=== PATIENT | male | born 1995 | race Caucasian/White ===

== ENCOUNTER 2018-06-26 18:19 | Inpatient (IN) | payer OTHER ==
--- NOTE | 2018-06-26 19:42 | PDOC ---
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 Patient's hypoxia improved after being administered O2 at the detention. Patient is unable to provide further history. - Physicial Exam PE: 06/26/18 20:42 ADULT PHYSICAL EXAM Constitutional: Awake, alert, and moaning. Head: Normocephalic. Atraumatic Eyes: PERRL. EOMI. Conjunctivae are not pale. ENT: Mucous membranes are moist and intact. Posterior pharynx without exudates or erythema. Uvula midline. (+) Productive cough. Cardiovascular: Regular rate. Regular rhythm. S1, S2 regular. Distal pulses are 2+ and symmetric. Pulmonary/Chest: No evidence of respiratory distress. Clear to auscultation bilaterally. No wheezing, rales or rhonchi. Abdominal: (+) PEG tube in place. Soft and non-distended. There is no tenderness. No rebound, guarding or rigidity. No organomegaly. No palpable masses. Good bowel sounds. Musculoskeletal: (+) Moving upper extremities. Skin: Skin is warm and dry. No petechiae. No purpura. Neurological: Nonverbal. Psychiatric: Nonverbal. <Jessica Baker - Last Filed: 06/26/18 20:46> - Resident Resident Name: Jonathan Romo - ED Attending Attestation I have performed the following: I have examined & evaluated the patient, The case was reviewed & discussed with the resident, I agree w/resident's findings & plan, Exceptions are as noted - Medical Decision Making 06/26/18 19:42 I, Dr. Mei Plascencia, DO, attest that this document has been prepared under my direction and personally reviewed by me in its entirety. I further attest, that it accurately reflects all work, treatment, procedures and medical decision -making performed by me. 06/26/18 20:32 a/p: 22yo male with hx of MR with an episode of being unresponsive and then a seizure -had a mucous plug, coughing -also with a seizure, glucose was 59, given oj iv access obtained labs sent will obtain cxr and head ct pt will need admission 06/26/18 20:33 pt unable to provide any hx aid at the bedside 06/26/18 22:10 pt with sodium of 151 will start 1/2nss pt will need admission <Mei Plascencia - Last Filed: 06/26/18 22:41> Heart Score/ECG Review - ECG Intrepretation Comment:: 06/26/18 22:40 sinus at 71, lvh, t wave flattening, no acute st changes <Mei Plascencia - Last Filed: 06/26/18 22:41>
--- NOTE | 2018-06-26 20:29 | PDOC ---
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 Dr Velarde contacted for history. Patient was found to be unresponsive and hypoxic. Patient was started on O2 and suctioned, which improved the patient's condition. No post-ictal period was noted, but patient has poor baseline would make that evaluation difficult. Patient is unable to contribute to history. Past History - Past Medical History Allergies/Adverse Reactions: Allergies Allergy/AdvReac Type Severity Reaction Status Date / Time erythromycin base Allergy Verified 03/04/15 14:42 [Erythromycin Base] Macrolide Antibiotics Allergy Verified 03/04/15 14:42 KETOLIDES Allergy Uncoded 03/04/15 14:42 Home Medications: Ambulatory Orders Ascorbic Acid 500 mg GT BID 06/26/18 Carbamazepine [Tegretol -] 300 mg GT DAILY 06/26/18 Carbamazepine [Tegretol -] 400 mg GT HS 06/26/18 Lactulose 20 gm GT BID 06/26/18 Magnesium Hydroxide [Milk of Magnesia] 15 ml GT BID 06/26/18 Sennosides [Senna] 8.8 mg GT TID 06/26/18 Simethicone [Gas Relief] 40 mg GT BID 06/26/18 Zinc 220 mg GT DAILY 06/26/18 Psychiatric Problems: (MR, VITILIGO, LEGALLY BLIND, NPO AT ALL TIMES) Seizures: Yes Thyroid Disease: (hydrocephaly, hearing loss profound, right leg fracture) - Surgical History Abdominal Surgery: Yes (GT) - Family Disease History Family Disease History: Other: Father (unknown) - Immunization History Immunization Up to Date: Yes - Suicide/Smoking/Psychosocial Hx Smoking Status: No Smoking History: Never smoked Have you smoked in the past 12 months: No Number of Cigarettes Smoked Daily: 0 Hx Alcohol Use: No Drug/Substance Use Hx: No Substance Use Type: None Review of Systems - Review of Systems Able to Perform ROS?: No *Physical Exam - Physical Exam Comments: 06/26/18 20:39 GENERAL: Awake, alert, in no acute distress HEAD: Microcephalic EYES: PERRLA, EOMI, sclera anicteric, conjunctiva clear ENT: Auricles normal inspection, hearing grossly normal, macroglossia NECK: Supple, no lymphadenopathy, JVD, or masses LUNGS: No distress, coarse breath bilaterally HEART: Regular rate and rhythm, normal S1 and S2, no murmurs, rubs or gallops, peripheral pulses normal and equal bilaterally. ABDOMEN: Soft, nontender, normoactive bowel sounds. No guarding, no rebound. No masses EXTREMITIES: Normal inspection, Normal range of motion, no edema. No clubbing or cyanosis. NEUROLOGICAL: Cranial nerves II through XII grossly intact. No focal sensorimotor deficits SKIN: Warm, Dry, normal turgor, no rashes or lesions noted. ED Treatment Course - LABORATORY CBC & Chemistry Diagram: 06/26/18 20:26 06/26/18 20:26 - ADDITIONAL ORDERS Additional order review: Laboratory Results 06/26/18 19:39 POC Glucometer 59 06/26/18 19:39 POC Glucometer 59 - RADIOLOGY Radiology Studies Ordered: Category Date Time Status HEAD CT WITHOUT CONTRAST [CT] Stat CT Scan 06/26/18 19:18 Ordered CXRPORT [CHEST X-RAY PORTABLE*] [RAD] Stat Radiology 06/26/18 19:03 Taken Medical Decision Making - Medical Decision Making 06/26/18 20:40 Patient is 22M here today with seizure vs syncope vs aspiration. Patient had witnessed seizure of 10-20 seconds in length that resolved without medication. Fingerstick 59. [place] juice given through g tube. Will do cardiac workup, cxr, head ct. Sodium 154, glucose 87. Started on half normal 100cc/hr. EKG shows NSR with rate of 71. No st elevations/depressions. Diffusely flattened t waves. Normal axis. Normal intervals. CXR shows no acute infiltrate. 06/26/18 23:00 CT head shows no acute process. Will admit to obs. *DC/Admit/Observation/Transfer Diagnosis at time of Disposition: Hypernatremia, Seizure - Discharge Dispostion Condition at time of disposition: Stable Decision to Admit order: Yes - Referrals - Patient Instructions - Post Discharge Activity
[2018-06-26 20:46] LABS: BASO % 0.2 % (0-2.0); EOS % 3.1 % (0-4.5); HEMATOCRIT 44.4 % (35.4-49); LYMPH % 29.7 % (8-40); MCHC 33.9 g/dl (32.0-35.9); MEAN CELL VOLUME 94.3 fl (80-96); MONO % 10.9 % (3.8-10.2); NEUT % 56.1 % (42.8-82.8); PLATELET COUNT 142 K/MM3 (134-434); RDW 14.4 % (11.9-15.9); WHITE BLOOD COUNT 6.3 K/mm3 (4.0-10.0)
[2018-06-26 21:00] LABS: INR 1.07 (0.83-1.09); PROTHROMBIN TIME (PATIENT) 12.6 SEC (9.7-13.0)
[2018-06-26 21:15] LABS: ALBUMIN 3.5 g/dl (3.4-5.0); ALK PHOS 128 U/L (45-117); ANION GAP 4 MMOL/L (8-16); BILIRUBIN,TOTAL 0.2 mg/dL (0.2-1); BLOOD UREA NITROGEN 22 mg/dL (7-18); CALCIUM 8.9 mg/dL (8.5-10.1); CHLORIDE 114 mmol/L (98-107); CO2 33 mmol/L (21-32); CREATININE 0.8 mg/dL (0.55-1.3); GLUCOSE,RANDOM 87 mg/dL (74-106); MAGNESIUM 2.3 mg/dL (1.8-2.4); POTASSIUM 4.1 mmol/L (3.5-5.1); SGOT/AST 23 U/L (15-37); SGPT/ALT 32 U/L (13-61); SODIUM 151 mmol/L (136-145); TOT PROT 7.7 g/dl (6.4-8.2)
[2018-06-26] MEDS ORDERED: SODIUM CHLORIDE 0.45% 1,000 ML IV SCH (21:45)
--- NOTE | 2018-06-26 23:01 | PN ---
Teaching Attending Note Name of Resident: Marilynn Dowd ATTENDING PHYSICIAN STATEMENT I saw and evaluated the patient. I reviewed the resident's note and discussed the case with the resident. I agree with the resident's findings and plan as documented. 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 Dr Velarde contacted for history. Patient was found to be unresponsive and hypoxic. Patient was started on O2 and suctioned, which improved the patient's condition. No post-ictal period was noted, but patient has poor baseline would make that evaluation difficult. Patient is unable to contribute to history. OBJECTIVE: Alert Vital Signs Period Temp Pulse Resp BP Sys/Mack Pulse Ox Last 24 Hr 98.2 F 74 21 129/79 97 HEENT: No Jaundice, eye redness or discharge, PERRLA, EOMI. Microcephalic. Macroglossia. Atraumatic. External ears are normal; hearing is impaired. No nasal discharge. Neck: Supple, nontender. No palpable adenopathy or thyromegaly. No JVD Chest: Good effort. Clear to auscultation and percussion. Heart: Regular. No S3, rub or murmur Abdomen: Not distended, soft, nontender and no HSM. PEG in place. No rebound or guarding. Normoactive bowel sounds. Ext: Peripheral pulses intact. No leg edema. Skin: Warm and dry. No petechiae, rash or ecchymosis. Neuro: Alert. Withdraws to pain. Contracted. Unable to follow commands. Current Medications Generic Name Dose Route Start Last Admin Trade Name Freq PRN Reason Stop Dose Admin Sodium Chloride 1,000 mls @ 100 mls/hr 06/26/18 21:45 06/26/18 21:49 1/2 Normal Saline IV 100 mls/hr ASDIR SUMI Administration Home Medications Medication Instructions Recorded Ascorbic Acid 500 mg GT BID 06/26/18 Carbamazepine [Tegretol -] 300 mg GT DAILY 06/26/18 Carbamazepine [Tegretol -] 400 mg GT HS 06/26/18 Lactulose 20 gm GT BID 06/26/18 Magnesium Hydroxide [Milk of 15 ml GT BID 06/26/18 Magnesia] Sennosides [Senna] 8.8 mg GT TID 06/26/18 Simethicone [Gas Relief] 40 mg GT BID 06/26/18 Zinc 220 mg GT DAILY 06/26/18 Abnormal Lab Results 06/26/18 06/26/18 20:26 20:26 Monocytes % 10.9 H Sodium 151 H Chloride 114 H Carbon Dioxide 33 H Anion Gap 4 L BUN 22 H Alkaline Phosphatase 128 H ASSESSMENT AND PLAN: 1. Seizure - Etiology of ?break through seizure unclear. Had a glucose of 59 at the NH and had another ?brief seizure in the ER. No acute pathology on head CT and CXR shows increased nodular markings which appear chronic. No significant ST -T wave changes on EKG. Will hold PEG Nutren 2.0 feeding, give D5W at 50 ml/ hour to correct hypernatremia and monitor on telemetry. Check sodium level q 6 hours to avoid a rapid drop. Continue tegretol. 2. DVT prophylaxis - Lovenox 40 mg SQ q 24 hours. 3. Advance directives - Full code
[2018-06-27] MEDS: DEXTROSE 5%-WATER - 1,000 ML IV SCH (00:15)
--- NOTE | 2018-06-27 00:21 | HP ---
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 Patient was found by the aide to be unresponsive and hypoxic. They were able to suction a mucus plug, put patient on NC, and saturation subsequently improved. As per the ED who was able to speak with the [place] MD , it is possible that patient might have an episode of seizure, but was unwitnessed. It is of note that patient has not had any episodes of seizures since he was admitted in 2014. At the ED, patient had an episode of seizure that lasted about 15 seconds, with no loss of consciousness, witnessed by aide and ED staff. His BGM was noted to be low at 59 and he was given orange juice. As per the aide from [place], patient is currently at his baseline, awake alert and active. ER course was notable for: (1)Head CT: No CT evidence of acute intracranial pathology. Mild bilateral frontal lobe atrophy. Increased right ethmoid sinus opacification is noted consistent with sinusitis. There is persistent at least moderate right frontal sinusitis. Possible increased opacification noted of the external auditory canals bilaterally. as on prior study, bilateral otomastoiditis. (2) (3) Recent Travel:denies PAST MEDICAL HISTORY: severe MR/DD (nonverbal @baseline) Pallister Kill[place] Mosaic Syndrome Seizure disorder legal blindness PAST SURGICAL HISTORY: gastrostomy tube cleft palate repair Social History: Smoking:denies Alcohol:denies Drugs: denies Family History: Allergies erythromycin base [Erythromycin Base] Allergy (Verified 03/04/15 14:42) Macrolide Antibiotics Allergy (Verified 03/04/15 14:42) KETOLIDES Allergy (Uncoded 03/04/15 14:42) HOME MEDICATIONS: Home Medications Medication Instructions Recorded Ascorbic Acid 500 mg GT BID 06/26/18 Carbamazepine [Tegretol -] 300 mg GT DAILY 06/26/18 Carbamazepine [Tegretol -] 400 mg GT HS 06/26/18 Lactulose 20 gm GT BID 06/26/18 Magnesium Hydroxide [Milk of 15 ml GT BID 06/26/18 Magnesia] Sennosides [Senna] 8.8 mg GT TID 06/26/18 Simethicone [Gas Relief] 40 mg GT BID 06/26/18 Zinc 220 mg GT DAILY 06/26/18 REVIEW OF SYSTEMS CONSTITUTIONAL: Absent: fever, chills, diaphoresis, generalized weakness, malaise, loss of appetite, weight change HEENT: Absent: rhinorrhea, nasal congestion, throat pain, throat swelling, difficulty swallowing, mouth swelling, ear pain, eye pain, visual changes CARDIOVASCULAR: Absent: chest pain, syncope, palpitations, irregular heart rate, lightheadedness , peripheral edema RESPIRATORY: Absent: cough, shortness of breath, dyspnea with exertion, orthopnea, wheezing, stridor, hemoptysis GASTROINTESTINAL: Absent: abdominal pain, abdominal distension, nausea, vomiting, diarrhea, constipation, melena, hematochezia GENITOURINARY: Absent: dysuria, frequency, urgency, hesitancy, hematuria, flank pain, genital pain MUSCULOSKELETAL: Absent: myalgia, arthralgia, joint swelling, back pain, neck pain SKIN: Absent: rash, itching, pallor HEMATOLOGIC/IMMUNOLOGIC: Absent: easy bleeding, easy bruising, lymphadenopathy, frequent infections ENDOCRINE: Absent: unexplained weight gain, unexplained weight loss, heat intolerance, cold intolerance NEUROLOGIC: Absent: headache, focal weakness or paresthesias, dizziness, unsteady gait, seizure, mental status changes, bladder or bowel incontinence PSYCHIATRIC: Absent: anxiety, depression, suicidal or homicidal ideation, hallucinations. PHYSICAL EXAMINATION Vital Signs - 24 hr 06/26/18 18:19 Temperature 98.2 F Pulse Rate 74 Respiratory 21 H Rate Blood Pressure 129/79 O2 Sat by Pulse 97 Oximetry (%) GENERAL: Awake, alert, and active, in no acute distress. HEAD: Normal with no signs of trauma. EARS, NOSE, THROAT: oropharynx with copious amount of whitish secretions. Moist mucous membranes. LUNGS: Breath sounds equal, clear to auscultation bilaterally. HEART: Regular rate and rhythm, normal S1 and S2 without murmur, rub or gallop. ABDOMEN: Soft, nontender, not distended, normoactive bowel sounds. +gastrostomy tube in place with clean, dry, intact dressing UPPER EXTREMITIES: 2+ pulses, warm, well-perfused. No peripheral edema. LOWER EXTREMITIES: 2+ pulses, warm, well-perfused. No peripheral edema. SKIN: Warm, dry, normal turgor, no rashes or lesions. Laboratory Results - last 24 hr 06/26/18 06/26/18 06/26/18 19:39 20:26 20:26 WBC 6.3 RBC 4.70 Hgb 15.0 Hct 44.4 MCV 94.3 MCH 32.0 MCHC 33.9 RDW 14.4 Plt Count 142 D MPV 10.0 Absolute Neuts (auto) 3.6 Neutrophils % 56.1 Lymphocytes % 29.7 Monocytes % 10.9 H Eosinophils % 3.1 Basophils % 0.2 Nucleated RBC % 0 PT with INR 12.60 INR 1.07 Sodium Potassium Chloride Carbon Dioxide Anion Gap BUN Creatinine Creat Clearance w eGFR POC Glucometer 59 Random Glucose Calcium Magnesium Total Bilirubin AST ALT Alkaline Phosphatase Creatine Kinase Troponin I Total Protein Albumin Carbamazepine 06/26/18 06/26/18 20:26 20:26 WBC RBC Hgb Hct MCV MCH MCHC RDW Plt Count MPV Absolute Neuts (auto) Neutrophils % Lymphocytes % Monocytes % Eosinophils % Basophils % Nucleated RBC % PT with INR INR Sodium 151 H Potassium 4.1 Chloride 114 H Carbon Dioxide 33 H Anion Gap 4 L BUN 22 H Creatinine 0.8 Creat Clearance w eGFR > 60 POC Glucometer Random Glucose 87 Calcium 8.9 Magnesium 2.3 Total Bilirubin 0.2 AST 23 ALT 32 Alkaline Phosphatase 128 H Creatine Kinase 36 Troponin I < 0.02 Total Protein 7.7 Albumin 3.5 Carbamazepine 11.3 ASSESSMENT/PLAN: Patient is a 22 year old male with past medical history of severe MR/DD ( nonverbal @baseline), Pallister Killain Mosaic Syndrome, Seizure disorder, legal blindness, was brought in from [facility] due to unresponsiveness and hypoxia. #Altered mental status: may be 2/2 seizure vs electrolyte imbalance -Head CT: no acute intracranial pathology -Carbamazepine level wnl -Will continue Carbamazepine 300mg daily and 400 mg HS -Will hold tube feeds for tonight -IV D5W @50cc/hr, as patient also presents with hypernatremia -will continue to monitor bmp q4h -Seizure precautions -Fall risk precaution -Neuro checks q4h -Neurology (Dr. Singer) consulted. #Hypoxia likely 2/2 mucus plug -CXR showed no clear signs of infection, will await final read -mucus plug suctioned at the [place], and saturation improved -continue oral suctioning PRN #FEN -D5W at 50cc/hr -Hypernatremia, monitor Na q6h -Routine bmp monitoring -NPO #Prophylaxis -Lovenox 40mg sq daily #Disposition -full code -tele obs Visit type - Emergency Visit Emergency Visit: Yes ED Registration Date: 06/27/18 Care time: The patient presented to the Emergency Department on the above date and was hospitalized for further evaluation of their emergent condition. - New Patient This patient is new to me today: Yes Date on this admission: 06/30/18 - Critical Care Critical Care patient: No
[2018-06-27 01:15] LABS: ANION GAP 2 MMOL/L (8-16); BLOOD UREA NITROGEN 22 mg/dL (7-18); CALCIUM 8.9 mg/dL (8.5-10.1); CHLORIDE 114 mmol/L (98-107); CO2 34 mmol/L (21-32); CREATININE 0.7 mg/dL (0.55-1.3); GLUCOSE,RANDOM 84 mg/dL (74-106); SODIUM 150 mmol/L (136-145)
[2018-06-27] MEDS: SENNOSIDES 8.8 MG/5 ML BULK BOTTLE GT SCH ×3 (05:12→22:04)
[2018-06-27 07:05] LABS: BASO % 0.4 % (0-2.0); EOS % 3.7 % (0-4.5); HEMATOCRIT 41.3 % (35.4-49); HEMOGLOBIN 14.1 GM/dL (11.7-16.9); LYMPH % 35.7 % (8-40); MCH 31.8 pg (25.7-33.7); MCHC 34.2 g/dl (32.0-35.9); MEAN CELL VOLUME 93.1 fl (80-96); MEAN PLT VOLUME 10.6 fl (7.5-11.1); MONO % 8.6 % (3.8-10.2); NEUT % 51.6 % (42.8-82.8); PLATELET COUNT 149 K/MM3 (134-434); RBC 4.44 M/mm3 (4.00-5.60); RDW 14.1 % (11.9-15.9); WHITE BLOOD COUNT 5.5 K/mm3 (4.0-10.0)
--- NOTE | 2018-06-27 08:45 | PN ---
Physical Exam: SUBJECTIVE: Patient seen and examined at bedside. Non-verbal, non-responsive. OBJECTIVE: Vital Signs Period Temp Pulse Resp BP Sys/Mack Pulse Ox Last 24 Hr 97.7 F-98.2 F 55-87 20-21 112-129/60-79 97-99 GENERAL: Non-verbal, non-responsive, numerous appreciable stigmata of Pallister Killain syndrome HEENT: macrocephaly, macrognosis, macroglossia NECK: Trachea midline, supple LUNGS: limited exam, no adventitious sounds appreciated HEART: RRR no m/r/g ABDOMEN: Soft, nontender, not distended, normoactive bowel sounds. +gastrostomy tube in place with clean, dry, intact dressing EXTREMITIES: numerous contractures, 2+ pulses, warm, well-perfused. No peripheral edema. NEUROLOGICAL: could not assess, no witness Sz SKIN: Warm, dry, normal turgor, no rashes or lesions noted Laboratory Results - last 24 hr 06/26/18 06/26/18 06/26/18 19:39 20:26 20:26 WBC 6.3 RBC 4.70 Hgb 15.0 Hct 44.4 MCV 94.3 MCH 32.0 MCHC 33.9 RDW 14.4 Plt Count 142 D MPV 10.0 Absolute Neuts (auto) 3.6 Neutrophils % 56.1 Lymphocytes % 29.7 Monocytes % 10.9 H Eosinophils % 3.1 Basophils % 0.2 Nucleated RBC % 0 PT with INR 12.60 INR 1.07 Sodium Potassium Chloride Carbon Dioxide Anion Gap BUN Creatinine Creat Clearance w eGFR POC Glucometer 59 Random Glucose Calcium Magnesium Total Bilirubin AST ALT Alkaline Phosphatase Creatine Kinase Troponin I Total Protein Albumin Carbamazepine 06/26/18 06/26/18 06/27/18 20:26 20:26 00:37 WBC RBC Hgb Hct MCV MCH MCHC RDW Plt Count MPV Absolute Neuts (auto) Neutrophils % Lymphocytes % Monocytes % Eosinophils % Basophils % Nucleated RBC % PT with INR INR Sodium 151 H 150 H Potassium 4.1 4.0 Chloride 114 H 114 H Carbon Dioxide 33 H 34 H Anion Gap 4 L 2 L BUN 22 H 22 H Creatinine 0.8 0.7 Creat Clearance w eGFR > 60 > 60 POC Glucometer Random Glucose 87 84 Calcium 8.9 8.9 Magnesium 2.3 Total Bilirubin 0.2 AST 23 ALT 32 Alkaline Phosphatase 128 H Creatine Kinase 36 Troponin I < 0.02 Total Protein 7.7 Albumin 3.5 Carbamazepine 11.3 06/27/18 06:00 WBC 5.5 RBC 4.44 Hgb 14.1 Hct 41.3 MCV 93.1 MCH 31.8 MCHC 34.2 RDW 14.1 Plt Count 149 MPV 10.6 Absolute Neuts (auto) 2.8 Neutrophils % 51.6 Lymphocytes % 35.7 D Monocytes % 8.6 Eosinophils % 3.7 Basophils % 0.4 Nucleated RBC % 0 PT with INR INR Sodium Potassium Chloride Carbon Dioxide Anion Gap BUN Creatinine Creat Clearance w eGFR POC Glucometer Random Glucose Calcium Magnesium Total Bilirubin AST ALT Alkaline Phosphatase Creatine Kinase Troponin I Total Protein Albumin Carbamazepine Active Medications Generic Name Dose Route Start Last Admin Trade Name Freq PRN Reason Stop Dose Admin Ascorbic Acid 500 mg 06/27/18 10:00 Vitamin C Oral Solution - GT BID SUMI Carbamazepine 300 mg 06/27/18 10:00 Tegretol Oral Suspension - GT DAILY SUMI Carbamazepine 400 mg 06/27/18 22:00 Tegretol Oral Suspension - GT HS SUMI Enoxaparin Sodium 40 mg 06/27/18 10:00 Lovenox - SQ DAILY SUMI Dextrose 1,000 mls @ 50 mls/hr 06/26/18 23:45 06/27/18 00:15 D5w - IV 50 mls/hr ASDIR SUMI Administration Lactulose 20 gm 06/27/18 10:00 Cephulac (Oral Use) GT BID SUMI Magnesium Hydroxide 15 ml 06/27/18 10:00 Milk Of Magnesia - GT BID SUMI Senna 8.8 mg 06/27/18 06:00 06/27/18 05:12 Senna Oral Solution - GT 8.8 mg TID SUMI Administration Simethicone 40 mg 06/27/18 10:00 Mylicon Liquid - GT BID SUMI Zinc Sulfate 220 mg 06/27/18 10:00 Orazinc - GT DAILY SUMI ASSESSMENT/PLAN: 22 y/o M w/ PMHx severe MR/DD (nonverbal @baseline), Pallister Killain Mosaic Syndrome, Seizure disorder, legal blindness, brought in from [facility] due to unresponsiveness and hypoxia, had mucus plug suctioned in field, additionally had 2 witnessed brief tonic clonic episodes. #AMS and Sz -breakthrough Sz vs metabolic derangement (was hypernatremic/hypoglycemic) -Head CT: no acute intracranial pathology -Carbamazepine level wnl -cont Carbamazepine 300mg daily and 400 mg HS -free water 250cc q6h via GT -Seizure precautions -Fall risk precaution -Neuro checks q4h -Neurology (Dr. Singer) consulted, will follow recommendations -plan to resume TF, wreath and garland maker consulted #acute hypoxic respiratory failure -CXR showed no clear signs of infection, will await final read -mucus plug suctioned at the [place], and saturation improved -continue oral suctioning PRN #FEN -free water 250cc q6h via GT -monitor and correct electrolytes -currently NPO, plan to resume TF, was on Nutren 2.0 at [place] #PPx -DVT: Lovenox 40mg sq daily -GI: not indicated #code -full #dispo -tele obs Visit type - Emergency Visit Emergency Visit: Yes ED Registration Date: 06/27/18 Care time: The patient presented to the Emergency Department on the above date and was hospitalized for further evaluation of their emergent condition. - New Patient This patient is new to me today: Yes Date on this admission: 06/27/18 - Critical Care Critical Care patient: No
[2018-06-27 09:03] LABS: BLOOD UREA NITROGEN 21 mg/dL (7-18); GLUCOSE,RANDOM 80 mg/dL (74-106)
[2018-06-27 09:04] LABS: ANION GAP 5 MMOL/L (8-16); CALCIUM 8.9 mg/dL (8.5-10.1); CHLORIDE 113 mmol/L (98-107); CO2 30 mmol/L (21-32); CREATININE 0.7 mg/dL (0.55-1.3); MAGNESIUM 2.2 mg/dL (1.8-2.4); PHOSPHOROUS 3.6 mg/dL (2.5-4.9); POTASSIUM 3.8 mmol/L (3.5-5.1); SODIUM 148 mmol/L (136-145)
--- NOTE | 2018-06-27 10:27 | EKG ---
Test Reason : Blood Pressure : / mmHG Vent. Rate : 071 BPM Atrial Rate : 071 BPM P-R Int : 098 ms QRS Dur : 084 ms QT Int : 360 ms P-R-T Axes : 012 004 -18 degrees QTc Int : 391 ms SINUS RHYTHM WITH SHORT MA MINIMAL VOLTAGE CRITERIA FOR LVH, MAY BE NORMAL VARIANT NONSPECIFIC T WAVE ABNORMALITY ABNORMAL ECG NO PREVIOUS ECGS AVAILABLE Confirmed by BELLA LENTZ MD ([id number]) on 06/27/2018 10:26:52 AM Referred By: Confirmed By:BELLA LENTZ MD
[2018-06-27] MEDS: ASCORBIC ACID 500 MG/5 ML UNIT DOSE CUP GT SCH ×2 (10:40→22:05)
[2018-06-27] MEDS: SIMETHICONE 40 MG/0.6 ML BOTTLE GT SCH ×2 (10:41→22:07)
[2018-06-27] MEDS: ZINC SULFATE 220 MG CAPSULE (FP) GT SCH (10:42)
[2018-06-27] MEDS: carBAMazepine 200 MG/10 ML UNIT-DOSE CUP GT SCH (10:42)
[2018-06-27] MEDS: LACTULOSE 20 GM/30 ML UDC (FOR ORAL USE ONLY) GT SCH ×2 (10:48→22:04)
[2018-06-27] MEDS: ENOXAPARIN NA (PORCINE) 40 MG/0.4 ML DISP.SYRIN SQ SCH (10:48)
[2018-06-27] MEDS: MAGNESIUM HYDROX 2400MG/30ML ORAL SUSPENSION 30 ML CUP GT SCH ×2 (10:48→22:06)
--- NOTE | 2018-06-27 11:53 | PN ---
Teaching Attending Note Name of Resident: Ck Lackey ATTENDING PHYSICIAN STATEMENT I saw and evaluated the patient. I reviewed the resident's note and discussed the case with the resident. I agree with the resident's findings and plan as documented. SUBJECTIVE: Unable to participate in medical interview, non-verbal, cognitively impaired. OBJECTIVE: Afebrile, Hemodynamically Stable, Appears comfortable. Last Vital Signs Temp Pulse Resp BP Pulse Ox 97.6 F 56 L 18 119/58 L 99 06/27/18 10:06/27/18 10:06/27/18 10:06/27/18 10:06/27/18 01:30 Heart - S1, S2, RRR Lungs - good air entry bilaterally Abdomen - Soft, non-tender. PEG in situ Extremities - LE wasting. No calf swelling/tenderness Neuro - Non-verbal, unable to participate in medical interview. Laboratory Results - last 24 hr 06/26/18 06/26/18 06/26/18 19:39 20:26 20:26 WBC 6.3 RBC 4.70 Hgb 15.0 Hct 44.4 MCV 94.3 MCH 32.0 MCHC 33.9 RDW 14.4 Plt Count 142 D MPV 10.0 Absolute Neuts (auto) 3.6 Neutrophils % 56.1 Lymphocytes % 29.7 Monocytes % 10.9 H Eosinophils % 3.1 Basophils % 0.2 Nucleated RBC % 0 PT with INR 12.60 INR 1.07 Sodium Potassium Chloride Carbon Dioxide Anion Gap BUN Creatinine Creat Clearance w eGFR POC Glucometer 59 Random Glucose Calcium Phosphorus Magnesium Total Bilirubin AST ALT Alkaline Phosphatase Creatine Kinase Troponin I Total Protein Albumin Carbamazepine 06/26/18 06/26/18 06/27/18 20:26 20:26 00:37 WBC RBC Hgb Hct MCV MCH MCHC RDW Plt Count MPV Absolute Neuts (auto) Neutrophils % Lymphocytes % Monocytes % Eosinophils % Basophils % Nucleated RBC % PT with INR INR Sodium 151 H 150 H Potassium 4.1 4.0 Chloride 114 H 114 H Carbon Dioxide 33 H 34 H Anion Gap 4 L 2 L BUN 22 H 22 H Creatinine 0.8 0.7 Creat Clearance w eGFR > 60 > 60 POC Glucometer Random Glucose 87 84 Calcium 8.9 8.9 Phosphorus Magnesium 2.3 Total Bilirubin 0.2 AST 23 ALT 32 Alkaline Phosphatase 128 H Creatine Kinase 36 Troponin I < 0.02 Total Protein 7.7 Albumin 3.5 Carbamazepine 11.3 06/27/18 06/27/18 06:00 06:00 WBC 5.5 RBC 4.44 Hgb 14.1 Hct 41.3 MCV 93.1 MCH 31.8 MCHC 34.2 RDW 14.1 Plt Count 149 MPV 10.6 Absolute Neuts (auto) 2.8 Neutrophils % 51.6 Lymphocytes % 35.7 D Monocytes % 8.6 Eosinophils % 3.7 Basophils % 0.4 Nucleated RBC % 0 PT with INR INR Sodium 148 H Potassium 3.8 Chloride 113 H Carbon Dioxide 30 Anion Gap 5 L BUN 21 H Creatinine 0.7 Creat Clearance w eGFR > 60 POC Glucometer Random Glucose 80 Calcium 8.9 Phosphorus 3.6 Magnesium 2.2 Total Bilirubin AST ALT Alkaline Phosphatase Creatine Kinase Troponin I Total Protein Albumin Carbamazepine Current Medications Generic Name Dose Route Start Last Admin Trade Name Freq PRN Reason Stop Dose Admin Ascorbic Acid 500 mg 06/27/18 10:00 06/27/18 10:40 Vitamin C Oral Solution - GT 500 mg BID SUMI Administration Carbamazepine 300 mg 06/27/18 10:00 06/27/18 10:42 Tegretol Oral Suspension - GT 300 mg DAILY SUMI Administration Carbamazepine 400 mg 06/27/18 22:00 Tegretol Oral Suspension - GT HS SUMI Enoxaparin Sodium 40 mg 06/27/18 10:00 06/27/18 10:48 Lovenox - SQ 40 mg DAILY SUMI Administration Dextrose 1,000 mls @ 50 mls/hr 06/26/18 23:45 06/27/18 00:15 D5w - IV 50 mls/hr ASDIR SUMI Administration Lactulose 20 gm 06/27/18 10:00 06/27/18 10:48 Cephulac (Oral Use) GT 20 gm BID SUMI Administration Magnesium Hydroxide 15 ml 06/27/18 10:00 06/27/18 10:48 Milk Of Magnesia - GT 15 ml BID SUMI Administration Senna 8.8 mg 06/27/18 06:00 06/27/18 05:12 Senna Oral Solution - GT 8.8 mg TID SUMI Administration Simethicone 40 mg 06/27/18 10:00 06/27/18 10:41 Mylicon Liquid - GT 40 mg BID SUMI Administration Zinc Sulfate 220 mg 06/27/18 10:00 06/27/18 10:42 Orazinc - GT 220 mg DAILY SUMI Administration Home Medications Medication Instructions Recorded Ascorbic Acid 500 mg GT BID 06/26/18 Carbamazepine [Tegretol -] 300 mg GT DAILY 06/26/18 Carbamazepine [Tegretol -] 400 mg GT HS 06/26/18 Lactulose 20 gm GT BID 06/26/18 Magnesium Hydroxide [Milk of 15 ml GT BID 06/26/18 Magnesia] Sennosides [Senna] 8.8 mg GT TID 06/26/18 Simethicone [Gas Relief] 40 mg GT BID 06/26/18 Zinc 220 mg GT DAILY 06/26/18 ASSESSMENT/PLAN: 22 year old male with severe cognitive impairment/Developmental Delay, Pallister Killain Mosaic Syndrome (non-verbal, feeds via PEG), Seizure Disorder , legally blind, brought from [facility] due to unresponsiveness and Hypoxia, with 2 witnessed seizures, one in ED, with capillary glucose reading of 59. 1. Acute Encephalopathy and Acute Hypoxic Respiratory Failure (SpO2 reported in 70s) due to Seizure +/- mucus plug - resolved. CT Head - No CT evidence of acute intracranial pathology. Mild bilateral frontal lobe atrophy. Increased right ethmoid sinus opacification is noted consistent with sinusitis. There is persistent at least moderate right frontal sinusitis. Possible increased opacification noted of the external auditory canals bilaterally. as on prior study, bilateral otomastoiditis. Carbamazepine level wnl Continue Neurochecks, Carbamazepine, Seizure precautions. Neuro eval and EEG requested. Respiratory status stable - at baseline. 2. Hypernatremia - improving with hydration. Will add free water boluses to feeds and monitor Na level response. DVT Px - Lovenox. Dispo - Return to [facility] once evaluated by Neuro
[2018-06-27 12:23] VITALS: BMI 24.6
--- NOTE | 2018-06-27 18:30 | PN ---
Progress Note (short form) - Note Progress Note: The patient is a 22 year old male with a PMH of severe MR/DD, nonverbal at baseline, Pallister Argyle Mosaic Syndrome, seizure disorder, legal blindness, and gastrostomy who was genevieve in by a intermediate aid after being found unresponsive and hypoxic. Patient's hypoxia improved after being administered O2 at the intermediate. Patient is unable to provide further history. - Physicial Exam PE: ADULT PHYSICAL EXAM Constitutional: Awake, alert, and moaning. Head: Normocephalic. Atraumatic Eyes: PERRL. EOMI. Conjunctivae are not pale. ENT: Mucous membranes are moist and intact. Posterior pharynx without exudates or erythema. Uvula midline. (+) Productive cough. Cardiovascular: Regular rate. Regular rhythm. S1, S2 regular. Distal pulses are 2+ and symmetric. Pulmonary/Chest: No evidence of respiratory distress. Clear to auscultation bilaterally. No wheezing, rales or rhonchi. Abdominal: (+) PEG tube in place. Soft and non-distended. There is no tenderness. No rebound, guarding or rigidity. No organomegaly. No palpable masses. Good bowel sounds. Musculoskeletal: (+) Moving upper extremities. Skin: Skin is warm and dry. No petechiae. No purpura. Neurological: Nonverbal, diminished tone in all 4 ext, 3+ reflexes in all 4 ext. , mute , mute, legaly blind. Psychiatric: Nonverbal. a/p: 22yo male with hx of MR with an episode of being unresponsive and then a seizure -had a mucous plug, coughing followed by sz-likely trigger is hypoxia in addition to Na of 151, glucose was 59, given oj - Given there are clear triggers to sz. Would cont:Carbamazepine [Tegretol -] 300 mg GT DAILY Carbamazepine [Tegretol -] 400 mg GT HS . If he has further sz. would add Dilantin 1000mg x1, correct elctrolyte abn. Thank you. Vianney Salmeron MD
[2018-06-27] MEDS ORDERED: PT OWN MED DRAWER 7, Y5N ONE (21:47)
[2018-06-27] MEDS ORDERED: carBAMazepine 200 MG/10 ML UNIT-DOSE CUP GT SCH (22:00)
[2018-06-28] MEDS: DEXTROSE 5%-WATER - 1,000 ML IV SCH (03:18)
[2018-06-28] MEDS: SENNOSIDES 8.8 MG/5 ML BULK BOTTLE GT SCH (06:44)
[2018-06-28 06:45] LABS: BASO % 0.4 % (0-2.0); EOS % 2.5 % (0-4.5); HEMATOCRIT 39.7 % (35.4-49); HEMOGLOBIN 13.4 GM/dL (11.7-16.9); LYMPH % 29.6 % (8-40); MCH 31.3 pg (25.7-33.7); MCHC 33.7 g/dl (32.0-35.9); MEAN PLT VOLUME 10.4 fl (7.5-11.1); MONO % 7.8 % (3.8-10.2); NEUT % 59.7 % (42.8-82.8); PLATELET COUNT 132 K/MM3 (134-434); RBC 4.27 M/mm3 (4.00-5.60); RDW 14.2 % (11.9-15.9); WHITE BLOOD COUNT 5.8 K/mm3 (4.0-10.0)
[2018-06-28 07:06] LABS: ANION GAP 2 MMOL/L (8-16); BLOOD UREA NITROGEN 16 mg/dL (7-18); CALCIUM 8.2 mg/dL (8.5-10.1); CHLORIDE 110 mmol/L (98-107); CO2 33 mmol/L (21-32); CREATININE 0.7 mg/dL (0.55-1.3); GLUCOSE,RANDOM 92 mg/dL (74-106); MAGNESIUM 2.2 mg/dL (1.8-2.4); PHOSPHOROUS 3.2 mg/dL (2.5-4.9); POTASSIUM 3.7 mmol/L (3.5-5.1); SODIUM 145 mmol/L (136-145)
[2018-06-28] MEDS ORDERED: CALCIUM GLUCONATE 10% - 1,000 MG/10 ML VIAL IVPB ONE (08:30)
[2018-06-28] MEDS ORDERED: PT OWN MED DRAWER 7, Y5N ONE (10:23)
[2018-06-28] MEDS: ENOXAPARIN NA (PORCINE) 40 MG/0.4 ML DISP.SYRIN SQ SCH (10:35)
[2018-06-28] MEDS: MAGNESIUM HYDROX 2400MG/30ML ORAL SUSPENSION 30 ML CUP GT SCH (10:35)
[2018-06-28] MEDS: LACTULOSE 20 GM/30 ML UDC (FOR ORAL USE ONLY) GT SCH (10:35)
[2018-06-28] MEDS: SIMETHICONE 40 MG/0.6 ML BOTTLE GT SCH (10:35)
[2018-06-28] MEDS: carBAMazepine 200 MG/10 ML UNIT-DOSE CUP GT SCH (10:36)
[2018-06-28] MEDS: ASCORBIC ACID 500 MG/5 ML UNIT DOSE CUP GT SCH (10:36)
[2018-06-28] MEDS: ZINC SULFATE 220 MG CAPSULE (FP) GT SCH (10:37)
--- NOTE | 2018-06-28 10:38 | DS ---
Physical Exam: SUBJECTIVE: Patient seen this morning, no cute events overnight. OBJECTIVE: Vital Signs Temperature 97.9 F 06/28/18 12:42 Pulse Rate 60 06/28/18 12:42 Respiratory Rate 18 06/28/18 12:42 Blood Pressure 130/64 06/28/18 12:42 O2 Sat by Pulse Oximetry (%) 96 06/28/18 10:49 PHYSICAL EXAM GENERAL: Non-verbal, non-responsive, numerous appreciable stigmata of Pallister Killain syndrome HEENT: macrocephaly, macrognosis, macroglossia NECK: Trachea midline, supple LUNGS: limited exam, no adventitious sounds appreciated HEART: RRR no m/r/g ABDOMEN: Soft, nontender, not distended, normoactive bowel sounds. +gastrostomy tube in place with clean, dry, intact dressing EXTREMITIES: numerous contractures, 2+ pulses, warm, well-perfused. No peripheral edema. NEUROLOGICAL: could not assess, no witness Sz SKIN: Warm, dry, normal turgor, no rashes or lesions noted LABS CBC, BMP 06/28/18 05:45 06/28/18 05:45 HOSPITAL COURSE: Date of Admission:06/27/18 Patient admitted for witnessed seizures. Neuro evaluated patient and determined to continue patients current Carbamazepine dosing. Per neuro: if another seizure witnessed can load with Dilantin. Patient presented with hypernatremia. Patients free water flushes increased and sodium resolved. EEG: This EEG is abnormal. These findings are nonspecific and may be seen with diffuse encephalopathy of metabolic, degenerative or vascular origin. Localized sharp wave activity was noted in the left temporal area suggestive of epiliptiform disturbance. head CT: no evidence of acute intracranial pathology, mild bilateral frontal lobe atrophy CXR: no acute pathology Date of Discharge: 06/28/18 Minutes to complete discharge: 40 Discharge Summary Reason For Visit: HYPERNATREMIA Condition: Stable - Instructions Diet, Activity, Other Instructions: You were admitted to the hospital for seizures. We monitored you and you have not had any more seizures. While you were here you were found to have high sodium. We increased the free water flushes to 45 ml/hr for a total free water with flush of 1752. For your seizures please continue: Carbamazepine 300 mg GT daily Carbamazepine 400 mg GT HS You should make an appointment to follow up with a Neurologist within a week. Please continue your other home medications as prescribed. Imaging did not reveal any evidence of infiltrations or infection. Please see your primary care physician within one week. Please return to the Emergency Department if you have any more seizures, chest pain, vomiting, fevers, or diarrhea. Referrals: Wilfred Velarde Jr [Non Staff, Medical] - Bhargav Salmeron MD [Staff Physician] - Disposition: [facility] - Home Medications Comprehensive Discharge Medication List: Ambulatory Orders Ascorbic Acid 500 mg GT BID 06/26/18 Carbamazepine [Tegretol -] 300 mg GT DAILY 06/26/18 Carbamazepine [Tegretol -] 400 mg GT HS 06/26/18 Lactulose 20 gm GT BID 06/26/18 Magnesium Hydroxide [Milk of Magnesia] 15 ml GT BID 06/26/18 Sennosides [Senna] 8.8 mg GT TID 06/26/18 Simethicone [Gas Relief] 40 mg GT BID 06/26/18 Zinc 220 mg GT DAILY 06/26/18 This patient is new to me today: No Emergency Visit: No Critical Care patient: No - Discharge Referral Referred to [facility] No
--- NOTE | 2018-06-28 10:53 | PN ---
Teaching Attending Note Name of Resident: Lina Cox ATTENDING PHYSICIAN STATEMENT I saw and evaluated the patient. I reviewed the resident's note and discussed the case with the resident. I agree with the resident's findings and plan as documented. SUBJECTIVE: Unable to participate in medical interview, non-verbal, cognitively impaired. OBJECTIVE: Afebrile, Hemodynamically Stable, Appears comfortable. No further seizure activity. Last Vital Signs Temp Pulse Resp BP Pulse Ox 98.0 F 77 20 138/62 99 06/28/18 05:33 06/28/18 05:33 06/28/18 05:33 06/28/18 05:33 06/27/18 23:00 Heart - S1, S2, RRR Lungs - good air entry bilaterally Abdomen - Soft, non-tender. PEG in situ Extremities - LE wasting. No calf swelling/tenderness Neuro - Non-verbal, unable to participate in medical interview. Laboratory Results - last 24 hr 06/28/18 06/28/18 05:45 05:45 WBC 5.8 RBC 4.27 Hgb 13.4 Hct 39.7 MCV 93.0 MCH 31.3 MCHC 33.7 RDW 14.2 Plt Count 132 L MPV 10.4 Absolute Neuts (auto) 3.5 Neutrophils % 59.7 Lymphocytes % 29.6 Monocytes % 7.8 Eosinophils % 2.5 Basophils % 0.4 Nucleated RBC % 0 Sodium 145 Potassium 3.7 Chloride 110 H Carbon Dioxide 33 H Anion Gap 2 L BUN 16 Creatinine 0.7 Creat Clearance w eGFR > 60 Random Glucose 92 Calcium 8.2 L Phosphorus 3.2 Magnesium 2.2 Current Medications Generic Name Dose Route Start Last Admin Trade Name Barryq PRN Reason Stop Dose Admin Ascorbic Acid 500 mg 06/27/18 10:00 06/27/18 22:05 Vitamin C Oral Solution - GT 500 mg BID SUMI Administration Carbamazepine 300 mg 06/27/18 10:06/27/18 10:42 Tegretol Oral Suspension - GT 300 mg DAILY SUMI Administration Carbamazepine 400 mg 06/27/18 22:00 06/27/18 22:08 Tegretol Oral Suspension - GT 400 mg HS SUMI Administration Enoxaparin Sodium 40 mg 06/27/18 10:00 06/27/18 10:48 Lovenox - SQ 40 mg DAILY SUMI Administration Dextrose 1,000 mls @ 50 mls/hr 06/26/18 23:45 06/28/18 03:18 D5w - IV Not Given ASDIR SUMI Lactulose 20 gm 06/27/18 10:00 06/27/18 22:04 Cephulac (Oral Use) GT 20 gm BID SUMI Administration Magnesium Hydroxide 15 ml 06/27/18 10:00 06/27/18 22:06 Milk Of Magnesia - GT 15 ml BID SUMI Administration Senna 8.8 mg 06/27/18 06:00 06/28/18 06:44 Senna Oral Solution - GT 8.8 mg TID SUMI Administration Simethicone 40 mg 06/27/18 10:00 06/27/18 22:07 Mylicon Liquid - GT 40 mg BID SUMI Administration Zinc Sulfate 220 mg 06/27/18 10:00 06/27/18 10:42 Orazinc - GT 220 mg DAILY SUMI Administration ASSESSMENT/PLAN: 22 year old male with severe cognitive impairment/Developmental Delay, Pallister Killain Mosaic Syndrome (non-verbal, feeds via PEG), Seizure Disorder , legally blind, brought from [facility] due to unresponsiveness and Hypoxia, with 2 witnessed seizures, one in ED, with capillary glucose reading of 59. No further seizure activity. Evaluated by Neurology and cleared for discharge on home dose of Carbamazepine. 1. Acute Encephalopathy and Acute Hypoxic Respiratory Failure (SpO2 reported in 70s) due to Seizure +/- mucus plug - resolved. CT Head - No CT evidence of acute intracranial pathology. Mild bilateral frontal lobe atrophy. Increased right ethmoid sinus opacification is noted consistent with sinusitis. There is persistent at least moderate right frontal sinusitis. Possible increased opacification noted of the external auditory canals bilaterally. as on prior study, bilateral otomastoiditis. Carbamazepine level wnl EEG - abnormal. Evaluated by Neuro - no additional anti-epileptic medications recommended. Continue Carbamazepine, Seizure precautions. If any further seizures, to be loaded with Dilantin 1000mg Respiratory status stable - at baseline. For transfer back to [facility]. Clinical sign-out given to Dr. Velarde. 2. Hypernatremia - improved with hydration. Free water boluses added to feeds. For monitoring of Na level as out-patient. Medically stable for discharge back to [facility].
[2018-06-28 12:42] VITALS: BP 130/64; PULSE 60; TEMP 97.9
== END 2018-06-28 12:53 | disposition home or self-care (01) | DRG 143 ==
LOC: JER 18:19 → INTOOBSV 21:48 → UNDOADMOB 21:48 → JERBED 21:48 → J4S 06-27 01:20 → OBSVTOIN 06-27 10:40
PROVIDERS: ADMIT Internal Medicine
DX: T17.908A Unspecified foreign body in respiratory tract, part unspecified causing other injury, initial encounter (principal); E87.0 Hyperosmolality and hypernatremia; J96.01 Acute respiratory failure with hypoxia; H54.8 Legal blindness, as defined in USA; R41.82 Altered mental status, unspecified; F72 Severe intellectual disabilities; R55 Syncope and collapse; R62.50 Unspecified lack of expected normal physiological development in childhood; Q99.8 Other specified chromosome abnormalities; G40.909 Epilepsy, unspecified, not intractable, without status epilepticus; Z93.1 Gastrostomy status; Q75.3 Macrocephaly; H90.5 Unspecified sensorineural hearing loss; G93.40 Encephalopathy, unspecified; X58.XXXA Exposure to other specified factors, initial encounter; Y93.9 Activity, unspecified; Y92.89 Other specified places as the place of occurrence of the external cause; Y99.9 Unspecified external cause status
CPT/HCPCS: 36415; 70450-TC; 71045-TC-FY; 80048; 80053; 80156; 82550; 82962; 83735; 84100; 84484; 85025; 85610; 93005; 93010; 95816; 99285-25; G0378

== ENCOUNTER 2018-12-05 19:22 | Emergency (ER) | payer OTHER ==
[2018-12-05 20:11] VITALS: BMI 26.5
[2018-12-05] MEDS ORDERED: SODIUM CHLORIDE 0.9% 500 ML INFUS.BAG IV ONE (21:59)
[2018-12-05] MEDS ORDERED: ACETAMINOPHEN 1000 MG/100 ML VIAL (NON FORMULARY) IVPB ONE (21:59)
--- NOTE | 2018-12-05 22:22 | PDOC ---
History of Present Illness - General Chief Complaint: SIRS, Suspected/Possible Stated Complaint: FEVER Time Seen by Provider: 12/05/18 20:34 - History of Present Illness Initial Comments: Mr. Alcaraz is a 23 y/o male with PMH of Pallister Keo Mosaic syndrome, seizure disorder, developmental delay, nonverbal at baseline, legal blindness, s /p g-tube placement, presenting today with 1 day of fever. Per nursing care, he had a fever of 101 this morning that progressed to 103 in the afternoon. Received 600 mg x2 Tylenol via g-tube today. Nursing care denies cough, vomiting, diarrhea, blood in stool or urine. No other symptoms noted by nursing care. Patient unable to communicate symptoms. Past History - Past Medical History Allergies/Adverse Reactions: Allergies Allergy/AdvReac Type Severity Reaction Status Date / Time erythromycin base Allergy Verified 03/04/15 14:42 [Erythromycin Base] Macrolide Antibiotics Allergy Verified 03/04/15 14:42 KETOLIDES Allergy Uncoded 03/04/15 14:42 Home Medications: Ambulatory Orders Ascorbic Acid 500 mg GT BID 06/26/18 Carbamazepine [Tegretol -] 300 mg GT DAILY 06/26/18 Carbamazepine [Tegretol -] 400 mg GT HS 06/26/18 Lactulose 20 gm GT BID 06/26/18 Magnesium Hydroxide [Milk of Magnesia] 15 ml GT BID 06/26/18 Sennosides [Senna] 8.8 mg GT TID 06/26/18 Simethicone [Gas Relief] 40 mg GT BID 06/26/18 Zinc 220 mg GT DAILY 06/26/18 Diazepam Rectal Gel [Diastat *Rectal Gel*] 10 mg RC PRN 12/06/18 Levofloxacin [Levaquin] 750 mg PO DAILY 5 Days #5 tablet 12/06/18 Mag Hydrox/Aluminum Hyd/Simeth [Rulox Suspension] 355 ml GT TID 12/06/18 Mineral Oil/I-Prop Myr/Water [Minerin Lotion] 473 ml TP TID 12/06/18 Multivitamin [Multiple Vitamins] 1 each GT DAILY 12/06/18 Leonid/Polymyx B Sulf/Dexameth [Maxitrol Eye Drops -] 3 drop OU TID 12/06/18 Protein Supplement [Promod] 30 ml GT DAILY 12/06/18 Psychiatric Problems: (MR, VITILIGO, LEGALLY BLIND, NPO AT ALL TIMES) Seizures: Yes Thyroid Disease: (hydrocephaly, hearing loss profound, right leg fracture) - Surgical History Abdominal Surgery: Yes (GT) - Family Disease History Family Disease History: Other: Father (unknown) - Immunization History Immunization Up to Date: Yes - Suicide/Smoking/Psychosocial Hx Smoking Status: No Smoking History: Never smoked Have you smoked in the past 12 months: No Number of Cigarettes Smoked Daily: 0 Hx Alcohol Use: No Drug/Substance Use Hx: No Substance Use Type: None Hx Substance Use Treatment: No Review of Systems - Review of Systems Able to Perform ROS?: No (limited 2/2 nonverbal ) Comments:: ROS GENERAL/CONSTITUTIONAL: Reports fever. CARDIOVASCULAR: No shortness of breath. RESPIRATORY: Denies cough, hemoptysis_ GASTROINTESTINAL: No vomiting, diarrhea or constipation._ GENITOURINARY: No hematuria. SKIN: No rash_ *Physical Exam - Vital Signs Last Vital Signs Temp Pulse Resp BP Pulse Ox 0 F L 117 H 22 H 130/60 95 12/05/18 20:08 12/05/18 20:08 12/05/18 20:08 12/05/18 20:08 12/05/18 20:08 - Physical Exam Comments: PE GENERAL: Awake, alert, no acute distress. HEAD: No signs of trauma, normocephalic, atraumatic _ EYES: PERRLA, EOMI, sclera anicteric, conjunctiva clear_ ENT: nares patent, oropharynx clear without exudates. No uvular deviation. Moist mucosa_ NECK: Normal ROM, supple, no lymphadenopathy, JVD, or masses_ LUNGS: No distress, clear to auscultation bilaterally HEART: Regular rate and rhythm, normal S1 and S2, no murmurs appreciated, peripheral pulses normal and equal bilaterally._ ABDOMEN: Soft, nontender, normoactive bowel sounds. No guarding, no rebound. No masses_ EXTREMITIES: Contracted, limited ROM NEUROLOGICAL: Unable to assess SKIN: Warm, Dry, normal turgor ED Treatment Course - LABORATORY CBC & Chemistry Diagram: 12/05/18 22:04 12/05/18 22:28 Medical Decision Making - Medical Decision Making 12/05/18 2200 23M with developmental delay, hx of seizures, presenting with 1 day of fever. 101 this morning, increased to 103 per nursing care. Tylenol given x2 600 mg today. Obtain CBC, CMP, EKG, lactic, UA, CXR, urine culture, blood culture. 12/05/18 2235 EKg shows sinus tachycardia, HR 101, flat inferior T waves, unchanged from prior 06/26/18, QTc 417. 12/06/18 0030 Pt signed out to Dr. Hung. *DC/Admit/Observation/Transfer Diagnosis at time of Disposition: Pneumonia - Discharge Dispostion Disposition: HOME Condition at time of disposition: Stable - Prescriptions Prescriptions: Levofloxacin [Levaquin] 750 mg PO DAILY 5 Days #5 tablet - Referrals - Patient Instructions Printed Discharge Instructions: DI for Pneumonia -- Adult Additional Instructions: Ruddy was seen for fever. He was given tylenol for his fever. His workup showed that he has pneumonia. Take prescribed Levaquin as directed. Come back to the ED if he has trouble breathing, has uncontrolled fevers, or becomes lethargic. - Post Discharge Activity
[2018-12-05] MEDS ORDERED: ACETAMINOPHEN INJECTION 100 ML IVPB ONE (22:37)
[2018-12-05 23:15] LABS: ALBUMIN 3.2 g/dl (3.4-5.0); BILIRUBIN,TOTAL 0.2 mg/dL (0.2-1); BLOOD UREA NITROGEN 21.7 mg/dL (7-18); CALCIUM 8.6 mg/dL (8.5-10.1); CREATININE 0.8 mg/dL (0.55-1.3); TOT PROT 7.6 g/dl (6.4-8.2)
[2018-12-05 23:17] LABS: INR 1.21 (0.83-1.09); PROTHROMBIN TIME (PATIENT) 14.3 SEC (9.7-13.0)
[2018-12-05 23:38] LABS: BASO % 0.4 % (0-2.0); EOS % 0.1 % (0-4.5); HEMATOCRIT 40.7 % (35.4-49); HEMOGLOBIN 13.8 GM/dL (11.7-16.9); LYMPH % 18.8 % (8-40); MCH 31.1 pg (25.7-33.7); MCHC 33.9 g/dl (32.0-35.9); MEAN CELL VOLUME 91.7 fl (80-96); MEAN PLT VOLUME 8.8 fl (7.5-11.1); MONO % 13.2 % (3.8-10.2); NEUT % 67.5 % (42.8-82.8); PLATELET COUNT 155 K/MM3 (134-434); RBC 4.44 M/mm3 (4.00-5.60); RDW 14.1 % (11.9-15.9); WHITE BLOOD COUNT 7.4 K/mm3 (4.0-10.0)
--- NOTE | 2018-12-06 00:25 | PDOC ---
*Physical Exam - Vital Signs Last Vital Signs Temp Pulse Resp BP Pulse Ox 0 F L 117 H 22 H 130/60 95 12/05/18 20:08 12/05/18 20:08 12/05/18 20:08 12/05/18 20:08 12/05/18 20:08 ED Treatment Course - LABORATORY CBC & Chemistry Diagram: 12/05/18 22:04 12/05/18 22:28 - ADDITIONAL ORDERS Additional order review: Laboratory Results 12/05/18 12/05/18 12/05/18 22:28 22:28 22:25 PT with INR 14.30 H INR 1.21 H Sodium 147 H Potassium 4.0 Chloride 108 H Carbon Dioxide 32 Anion Gap 7 L BUN 21.7 H Creatinine 0.8 Est GFR (CKD-EPI)AfAm 143.90 Est GFR (CKD-EPI)NonAf 124.16 Random Glucose 83 Lactic Acid 1.8 Calcium 8.6 Total Bilirubin 0.2 AST 36 ALT 31 Alkaline Phosphatase 117 Total Protein 7.6 Albumin 3.2 L 12/05/18 22:04 RBC 4.44 MCV 91.7 MCHC 33.9 RDW 14.1 MPV 8.8 D Neutrophils % 67.5 Lymphocytes % 18.8 D Monocytes % 13.2 H Eosinophils % 0.1 D Basophils % 0.4 - Medications Given in the ED: ED Medications Discontinued Medications Generic Name Dose Route Start Last Admin Trade Name Freq PRN Reason Stop Dose Admin Acetaminophen 1,000 mg 12/05/18 21:59 12/05/18 22:41 Ofirmev Injection - IVPB 12/05/18 22:00 1,000 mg ONCE ONE Administration Sodium Chloride 1,000 ml 12/05/18 21:59 12/05/18 22:33 Normal Saline - IV 12/05/18 22:00 1,000 ml ONCE ONE Administration Medical Decision Making - Medical Decision Making 12/06/18 00:23 Normal CBC, CMP, CXR Straight cathed pt for UA Given 1L NS for dehydration Mr. Alcaraz is a 23 y/o male with PMH of Pallister Keo Mosaic syndrome, seizure disorder, developmental delay, nonverbal at baseline, legal blindness, s /p g-tube placement, presenting today with 1 day of fever. Received signout from Dr. Miles Buchanan. Normal CBC, CMP, UA, unchanged EKG. Coarse breath sounds on exam correlating with increased lung markings at apices on CXR. D/c home with levaquin for HCAP in setting of multiple allergies. *DC/Admit/Observation/Transfer Diagnosis at time of Disposition: Pneumonia Qualifiers: Pneumonia type: due to unspecified organism Laterality: bilateral Lung location : upper lobe of lung Qualified Code(s): J18.1 - Lobar pneumonia, unspecified organism - Discharge Dispostion Disposition: HOME Condition at time of disposition: Stable Decision to Admit order: No - Prescriptions Prescriptions: Levofloxacin [Levaquin] 750 mg PO DAILY 5 Days #5 tablet - Referrals - Patient Instructions Printed Discharge Instructions: DI for Pneumonia -- Adult Additional Instructions: Ruddy was seen for fever. He was given tylenol for his fever. His workup showed that he has pneumonia. Take prescribed Levaquin as directed. Come back to the ED if he has trouble breathing, has uncontrolled fevers, or becomes lethargic. - Post Discharge Activity
--- NOTE | 2018-12-06 00:44 | PDOC ---
Documentation entered by Mariana Karimi SCRIBE, acting as scribe for Keshia Mayen MD. Keshia Mayen MD: This documentation has been prepared by the Trev fernandez Brenda, SCRIBE, under my direction and personally reviewed by me in its entirety. I confirm that the documentation accurately reflects all work, treatment, procedures, and medical decision making performed by me. 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 As per residential, he was given tylenol to no relief. The patient denies chest pain, shortness of breath, headache and dizziness. Denies fever, chills, nausea, vomiting, diarrhea and constipation. Denies dysuria, frequency, urgency and hematuria. Allergies: erythromycin base, Macrolide Antibiotics, ketolides Past surgical history: G-Tube. Social history: No tobacco, alcohol or drug use PCP: Not on staff - Physicial Exam PE: 12/06/18 00:02 GENERAL: (+) Warm to the touch. (+) Drooling. Awake, in no acute distress HEAD: No signs of trauma EYES: PERRLA, EOMI, sclera anicteric, conjunctiva clear ENT: Auricles normal inspection, hearing grossly normal, nares patent, oropharynx clear without exudates. Moist mucosa NECK: Normal ROM, supple, no lymphadenopathy, JVD, or masses LUNGS: No wheezes, and no crackles. Can not see breath sounds, due to patient not taking deep breaths. HEART: Regular rate and rhythm, normal S1 and S2, no murmurs, rubs or gallops ABDOMEN: (+) Peg tube in place and intact. Soft, nontender, normoactive bowel sounds. No guarding, no rebound. No masses EXTREMITIES: (+) underdeveloped legs. Normal range of motion, no edema. No clubbing or cyanosis. No cords, erythema, or tenderness NEUROLOGICAL: Cranial nerves II through XII grossly intact. SKIN: (+) Skin depigmentation. Warm, Dry, normal turgor, no rashes or lesions noted. - Medical Decision Making 12/06/18 00:05 Pt's blood tests are slightly prerenal; WBC normal. 12/06/18 00:43 Pt appears well; breathing easily, despite pulsox of 92% on RA; when he takes deeper breaths, his pulsox goes up. Pt has normal labs. Slight elevation of WMC count. Pt will have UA sent. If UA is normal, this is a viral URI. Pt will likely go back to his NH.
[2018-12-06] MEDS ORDERED: SODIUM CHLORIDE 0.9% 500 ML INFUS.BAG IV ONE (01:37)
[2018-12-06 02:23] LABS: EPI CELLS 9.2 /HPF (0-5/HPF); HYALINE CASTS 35 /lpf (0-8); URINE APPEARANCE CLEAR; URINE BACTERIA 4.7 /hpf (NEGATIVE); URINE BILIRUBIN NEGATIVE (NEGATIVE); URINE COLOR DK YELLOW; URINE GLUCOSE (UA) NEGATIVE (NEGATIVE); URINE KETONE TRACE (NEGATIVE); URINE LEUK ESTERASE NEGATIVE (NEGATIVE); URINE NITRITE NEGATIVE (NEGATIVE); URINE PROTEIN TRACE (NEGATIVE); URINE RBC 126 /hpf (0-4); URINE UROBILINOGEN 0.2 mg/dL (0.2-1.0); URINE WBC 6 /hpf (0-5)
[2018-12-06 03:45] VITALS: BP 104/53; PULSE 76; TEMP 97.8
--- NOTE | 2018-12-06 15:18 | EKG ---
Test Reason : Blood Pressure : / mmHG Vent. Rate : 101 BPM Atrial Rate : 101 BPM P-R Int : 130 ms QRS Dur : 076 ms QT Int : 322 ms P-R-T Axes : 049 018 -04 degrees QTc Int : 417 ms SINUS TACHYCARDIA NONSPECIFIC T WAVE ABNORMALITY ABNORMAL ECG WHEN COMPARED WITH ECG OF 26-JUN-2018 21:36, NO SIGNIFICANT CHANGE WAS FOUND Confirmed by MD Dejesus Daniel ([id number]) on 12/06/2018 3:18:05 PM Referred By: Confirmed By:Ck Dejesus MD
== END 2018-12-06 04:32 | disposition home or self-care (01) ==
LOC: JER 19:22
PROC: 3E033NZ Introduction of Analgesics, Hypnotics, Sedatives into Peripheral Vein, Percutaneous Approach (ICD-10-PCS; principal; 2018-12-05)
PROC: 3E0337Z Introduction of Electrolytic and Water Balance Substance into Peripheral Vein, Percutaneous Approach (ICD-10-PCS; 2018-12-05)
DX: J18.9 Pneumonia, unspecified organism (principal); G40.909 Epilepsy, unspecified, not intractable, without status epilepticus; F89 Unspecified disorder of psychological development; Q99.8 Other specified chromosome abnormalities
CPT/HCPCS: 36415; 71045-TC-FY; 80053; 81003; 83605; 85025; 85610; 87040; 87086; 93005; 93010; 99283-25; J0131

== ENCOUNTER 2019-03-10 11:14 | Inpatient (IN) | payer OTHER ==
[2019-03-10] MEDS ORDERED: ACETAMINOPHEN 1000 MG/100 ML VIAL (NON FORMULARY) IVPB ONE (11:29)
--- NOTE | 2019-03-10 11:46 | PDOC ---
History of Present Illness - General Chief Complaint: SIRS, Suspected/Possible Stated Complaint: FEVER History Source: Old Records - History of Present Illness Initial Comments: 03/10/19 11:39 29 yo M w/ PMH presents to ED from [place] with fever, desaturation . pt unable to provide HPI. Past History - Past Medical History Allergies/Adverse Reactions: Allergies Allergy/AdvReac Type Severity Reaction Status Date / Time No Known Allergies Allergy Verified 03/10/19 11:22 COPD: No Seizures: Yes Other medical history: mental retardation, blind - Surgical History GI Surgery: Yes (gastrostomy) - Psycho Social/Smoking Cessation Hx Smoking History: Never smoked Review of Systems - Review of Systems Able to Perform ROS?: No *Physical Exam - Vital Signs Last Vital Signs Temp Pulse Resp BP Pulse Ox 100.7 F H 103 H 16 130/69 98 03/10/19 11:23 03/10/19 11:23 03/10/19 11:23 03/10/19 11:23 03/10/19 11:23 - Physical Exam General Appearance: Yes: Nourished, Appropriately Dressed Respiratory/Chest: positive: Decreased Breath Sounds, Rhonchi (b/l). negative: Accessory Muscle Use Cardiovascular: positive: Regular Rhythm, Regular Rate, S1, S2 Gastrointestinal/Abdominal: positive: Normal Bowel Sounds, Soft. negative: Tender, Distended Integumentary: positive: Normal Color, Dry, Warm. negative: Rash, Swelling ED Treatment Course - LABORATORY CBC & Chemistry Diagram: 03/10/19 12:20 03/10/19 12:20 - RADIOLOGY Radiology Studies Ordered: Category Date Time Status CHEST X-RAY PORTABLE* [RAD] Stat Radiology 03/10/19 11:27 Ordered Medical Decision Making - Medical Decision Making 03/10/19 14:56 23 yo M presenting with fever and rhonchi. r/o aspiration pna -Sepsis protocol -CBC,CMP, Mg, Phos -CXR shows infiltrate L lung -IVF -EKG -BCx, UCx -Vanc Zosyn 03/10/19 14:59 -UA neg Discharge - Discharge Information Problems reviewed: Yes Clinical Impression/Diagnosis: Pneumonia Condition: Good - Admission Yes - Follow up/Referral - Patient Discharge Instructions - Post Discharge Activity
--- NOTE | 2019-03-10 12:08 | PDOC ---
History of Present Illness - General Chief Complaint: SIRS, Suspected/Possible Stated Complaint: FEVER Time Seen by Provider: 03/10/19 11:53 History Source: Retirement Records Exam Limitations: Physical Impairment - History of Present Illness Initial Comments: 03/10/19 12:09 29y M from [facility] for evaluation of fever. history limited due to the MR Physical exam GENERAL: The patient is awake, alert, Nontoxic - in no acute distress. HEAD: Normocephalic, microcephalic EYES: extraocular movements intact, sclera anicteric, conjunctiva clear. ENT: Normal voice, Moist mucous membranes. NECK: Normal range of motion, supple LUNGS: Rales/rhonchi b/l HEART: Slightly tachycardic, normal S1 and S2 without murmur, rub or gallop. ABDOMEN: Soft, nontender, No guarding, no rebound. No CVA tenderness EXTREMITIES: Normal range of motion, no edema. NEUROLOGICAL: Limited exam PSYCH: Limited exam SKIN: Hot to touch, Dry, normal turgor, will obtain labs r/o pna vs flu will obtain cxr, ekg Is this a multiple visit Asthma Patient?: No Past History - Past Medical History Allergies/Adverse Reactions: Allergies Allergy/AdvReac Type Severity Reaction Status Date / Time erythromycin base Allergy Verified 03/04/15 14:42 [Erythromycin Base] Macrolide Antibiotics Allergy Verified 03/04/15 14:42 KETOLIDES Allergy Uncoded 03/04/15 14:42 Home Medications: Ambulatory Orders Ascorbic Acid 500 mg GT BID 06/26/18 Carbamazepine [Tegretol -] 300 mg GT DAILY 06/26/18 Carbamazepine [Tegretol -] 400 mg GT HS 06/26/18 Lactulose 20 gm GT BID 06/26/18 Magnesium Hydroxide [Milk of Magnesia] 15 ml GT BID 06/26/18 Sennosides [Senna] 8.8 mg GT TID 06/26/18 Simethicone [Gas Relief] 40 mg GT BID 06/26/18 Zinc 220 mg GT DAILY 06/26/18 Diazepam Rectal Gel [Diastat *Rectal Gel*] 10 mg RC PRN 12/06/18 Levofloxacin [Levaquin] 750 mg PO DAILY 5 Days #5 tablet 12/06/18 Mag Hydrox/Aluminum Hyd/Simeth [Rulox Suspension] 355 ml GT TID 12/06/18 Mineral Oil/I-Prop Myr/Water [Minerin Lotion] 473 ml TP TID 12/06/18 Multivitamin [Multiple Vitamins] 1 each GT DAILY 12/06/18 Leonid/Polymyx B Sulf/Dexameth [Maxitrol Eye Drops -] 3 drop OU TID 12/06/18 Protein Supplement [Promod] 30 ml GT DAILY 12/06/18 Albuterol 2.5/Ipratropium 0.5 [Duoneb -] 1 neb NEB Q4H 03/10/19 Ascorbic Acid 500 mg PO HS 03/10/19 Bacitracin - [Bacitracin Topical Ointment -] 1 applic TP BID 03/10/19 Carbamazepine Oral Suspension [Tegretol 100mg/5mL Oral Suspension -] 300 mg PEG AM 03/10/19 Carbamazepine Oral Suspension [Tegretol 100mg/5mL Oral Suspension -] 400 mg PEG HS 03/10/19 Diazepam Rectal Gel [Diastat Rectal Gel -] 10 mg PRN 03/10/19 Magnesium Hydrox 2400MG/30Ml [Milk of Magnesia -] 15 ml PEG BID 03/10/19 Sennosides [Senna] 8.8 mg PEG DAILY 03/10/19 Simethicone Liquid [Mylicon Liquid -] 40 mg BID 03/10/19 Zinc Sulfate [Orazinc] 220 mg GT HS 03/10/19 Albuterol 2.5/Ipratropium 0.5 [Duoneb -] 1 amp IH Q4H PRN 03/11/19 Mineral Oil/I-Prop Myr/Water [Minerin Lotion] 473 ml TP DAILY 03/11/19 Multivitamins [Multivit ([facility] Formulary)] 1 tab GT HS 03/11/19 Neomycin/Polymyxn/Hc [Cortisporin *Otic Solution*-] 1 drop TP TID 03/11/19 Nutritional Supplement [Nutren 2.0] 250 ml GT Q12H 03/11/19 COPD: No Seizures: Yes Other medical history: mental retardation, blind - Surgical History GI Surgery: Yes (gastrostomy) - Psycho Social/Smoking Cessation Hx Smoking History: Never smoked *Physical Exam - Vital Signs Last Vital Signs Temp Pulse Resp BP Pulse Ox 100.7 F H 103 H 16 130/69 98 03/10/19 11:23 03/10/19 11:23 03/10/19 11:23 03/10/19 11:23 03/10/19 11:23 Heart Score/ECG Review - ECG Impressions Comment:: 03/10/19 14:29 Twelve-lead EKG was performed and reviewed by me. There is normal sinus rhythm with a normal rate. Rate of [address] changes suggestive of acute ischemia ED Treatment Course - LABORATORY CBC & Chemistry Diagram: 03/12/19 07:10 03/12/19 07:10 Medical Decision Making - Medical Decision Making 03/10/19 13:46 Patient's lab work was reviewed, chemistry chemistries pending. Patient's chest x-ray is noted for a left-sided pneumonia We will start the patient on broad-spectrum antibiotics as he is from [place] and admit for further management 03/12/19 09:05 I independently saw and evaluated this patient with Dr. Joanie Yanes't notes was reviewed and case was discussed in detail with the resident. I agree with the residents findings and plan as documented. Discharge - Discharge Information Problems reviewed: Yes Clinical Impression/Diagnosis: Pneumonia Qualifiers: Pneumonia type: due to unspecified organism Laterality: left Lung location: unspecified part of lung Qualified Code(s): J18.9 - Pneumonia, unspecified organism Condition: Good - Admission Yes - Follow up/Referral - Patient Discharge Instructions - Post Discharge Activity
[2019-03-10] MEDS ORDERED: SODIUM CHLORIDE 1,000 ML IV SCH (12:15)
[2019-03-10 12:42] LABS: VENOUS PC02 51.6 mmHg (38-52); VENOUS PH 7.41 (7.31-7.41); VENOUS PO2 74.9 mmHg (28-48)
[2019-03-10] MEDS ORDERED: ACETAMINOPHEN INJECTION 100 ML IVPB ONE (12:45)
[2019-03-10 12:47] LABS: BASO % 0.2 % (0-2.0); EOS % 0.5 % (0-4.5); HEMATOCRIT 44.4 % (35.4-49); HEMOGLOBIN 14.8 GM/dL (11.7-16.9); LYMPH % 19.6 % (8-40); MCHC 33.3 g/dl (32.0-35.9); MEAN CELL VOLUME 93.2 fl (80-96); MEAN PLT VOLUME 10.1 fl (7.5-11.1); MONO % 9.7 % (3.8-10.2); PLATELET COUNT 141 K/MM3 (134-434); RBC 4.76 M/mm3 (4.00-5.60); RDW 14.3 % (11.9-15.9)
[2019-03-10 12:52] LABS: INR 1.12 (0.83-1.09); PROTHROMBIN TIME (PATIENT) 13.2 SEC (9.7-13.0)
[2019-03-10 12:54] LABS: EPI CELLS 0.2 /HPF (0-5/HPF); HYALINE CASTS 16 /lpf (0-8); PH,URINE >= 9.0 (5.0-8.0); URINE APPEARANCE CLEAR; URINE BILIRUBIN NEGATIVE (NEGATIVE); URINE COLOR YELLOW; URINE GLUCOSE (UA) NEGATIVE (NEGATIVE); URINE KETONE NEGATIVE (NEGATIVE); URINE LEUK ESTERASE 1+ (NEGATIVE); URINE NITRITE NEGATIVE (NEGATIVE); URINE PROTEIN 1+ (NEGATIVE); URINE RBC 7 /hpf (0-4); URINE UROBILINOGEN 0.2 mg/dL (0.2-1.0); URINE WBC 35 /hpf (0-5)
[2019-03-10 12:55] LABS: ACTIVATED PTT 32.2 SECONDS (25.2-36.5)
[2019-03-10 14:34] LABS: ALBUMIN 3.4 g/dl (3.4-5.0); ALK PHOS 94 U/L (45-117); ANION GAP 2 MMOL/L (8-16); BILIRUBIN,TOTAL 0.4 mg/dL (0.2-1); BLOOD UREA NITROGEN 23.7 mg/dL (7-18); CALCIUM 9.1 mg/dL (8.5-10.1); CHLORIDE 113 mmol/L (98-107); CO2 32 mmol/L (21-32); CREATININE 0.7 mg/dL (0.55-1.3); GLUCOSE,RANDOM 73 mg/dL (74-106); MAGNESIUM 2.5 mg/dL (1.8-2.4); PHOSPHOROUS 2.6 mg/dL (2.5-4.9); POTASSIUM 4.8 mmol/L (3.5-5.1); SGOT/AST 65 U/L (15-37); SGPT/ALT 37 U/L (13-61); SODIUM 147 mmol/L (136-145); TOT PROT 7.6 g/dl (6.4-8.2)
[2019-03-10] MEDS ORDERED: DEXTROSE 5%-0.45% SALINE 1,000 ML IV SCH (15:30)
[2019-03-10] MEDS ORDERED: ACETAMINOPHEN 1000 MG/100 ML VIAL (NON FORMULARY) IVPB PRN (15:44)
[2019-03-10] MEDS ORDERED: PIPERACILLIN/TAZOB 3.375 GM 3.375 GM/50 ML BAG IVPB ONE (16:14)
[2019-03-10] MEDS ORDERED: VANCOMYCIN 1 GRAM (PRE-DOCKED) 1,000 MG/250 ML BAG IVPB ONE (16:14)
[2019-03-10] MEDS ORDERED: PIPERACILLIN/TAZOBACTAM 3.375 GM VIAL IVPB ONE (18:11)
[2019-03-10] MEDS ORDERED: DEXTROSE 5%-WATER - 50 ML IVPB ONE (18:12)
[2019-03-10] MEDS: PIPERACILLIN/TAZOB 3.375 GM 3.375 GM in DEXTROSE 5%-WATER - 50 ML IVPB SCH ×2 (18:15→18:16)
[2019-03-10 19:16] VITALS: BMI 26.9
[2019-03-10] MEDS: VANCOMYCIN 1 GM in D5W (PRE-DOCKED) 1,000 MG/250 ML IVPB SCH (20:20)
[2019-03-10] MEDS: HEPARIN NA (PORCINE) 5,000 UNITS/ML 1ML VIAL SQ SCH (21:24)
--- NOTE | 2019-03-10 23:42 | HP ---
CHIEF COMPLAINT: Fever, tachycardia PCP: [facility] HISTORY OF PRESENT ILLNESS: Patient with a history of MR/CP and no prior visits to [facility] presents from [facility] with a CC of fever and tachycardia with SOB requiring O2; at this juncture he is requiring 2L via NC and is saturating well with improved HR. 102 fever. Cannot provide history due to his underlying illness and his livestock caretaker at [facility] is unfortunately not available at this time. Cannot obtain 10 sys ROS due to underlying communication issues secondary to developmental disability Consequentially cannot confirm family history PMH from ER notes and PSH as well; will confirm with facility and family but nobody available to answer ? now Physically cannot smoke or drink or abuse drugs. Pending Medication Reconciliation No recent travel Allergies No Known Allergies Allergy (Verified 03/10/19 11:22) HOME MEDICATIONS: I spoke with resident Dr. Gillis and he will review and confirm home medications; unknown when he took his last dose and appears he may have history of seizures and will require prompt dosing. PHYSICAL EXAMINATION Vital Signs - 24 hr 03/10/19 03/10/19 03/10/19 11:23 18:48 21:25 Temperature 100.7 F H 97.7 F Pulse Rate 103 H 73 81 Respiratory 16 21 H 21 H Rate Blood Pressure 130/69 119/73 121/53 L O2 Sat by Pulse 98 97 Oximetry (%) GENERAL: Awake, alert, cannot answer orientation; tracks to voice and discomfort HEAD: No acute signs of trauma EYES: Pupils equal, round and reactive to light, extraocular movements intact, sclera anicteric, conjunctiva clear. EARS, NOSE, THROAT: Ears normal, nares patent, oropharynx clear without exudates. Moist mucous membranes. NECK: Normal range of motion, supple without lymphadenopathy, JVD, or masses. LUNGS: Poor respiratory effort with apparent rales b/l with upper airway sounds evident. HEART: Initially tachy but now high normal; s1/2 no mgr ABDOMEN: Soft, nontender, not distended MUSCULOSKELETAL: Normal range of motion at all joints. No bony deformities or tenderness. No CVA tenderness. NEUROLOGICAL: Cranial nerves II-XII intact. Normal speech. Normal gait. PSYCHIATRIC: Cooperative. Good eye contact. Appropriate mood and affect. SKIN: Warm, dry, normal turgor, no rashes or lesions noted, normal capillary refill. Laboratory Results - last 24 hr 03/10/19 03/10/19 03/10/19 12:20 12:20 12:20 WBC 8.0 RBC 4.76 Hgb 14.8 Hct 44.4 MCV 93.2 MCH 31.0 MCHC 33.3 RDW 14.3 Plt Count 141 MPV 10.1 Absolute Neuts (auto) 5.6 Neutrophils % 70.0 Lymphocytes % 19.6 Monocytes % 9.7 Eosinophils % 0.5 Basophils % 0.2 Nucleated RBC % 0 PT with INR 13.20 H INR 1.12 H PTT (Actin FS) 32.2 VBG pH POC VBG pCO2 POC VBG pO2 VBG HCO3 VBG O2 Sat (Shiraz) VBG Base Excess Sodium 147 H Potassium 4.8 Chloride 113 H Carbon Dioxide 32 Anion Gap 2 L BUN 23.7 H Creatinine 0.7 Est GFR (CKD-EPI)AfAm 152.02 Est GFR (CKD-EPI)NonAf 131.16 Random Glucose 73 L Lactic Acid Calcium 9.1 Phosphorus 2.6 Magnesium 2.5 H Total Bilirubin 0.4 AST 65 H ALT 37 Alkaline Phosphatase 94 Troponin I < 0.02 Total Protein 7.6 Albumin 3.4 Urine Color Urine Appearance Urine pH Ur Specific [place] Urine Protein Urine Glucose (UA) Urine Ketones Urine Blood Urine Nitrite Urine Bilirubin Urine Urobilinogen Ur Leukocyte Esterase Urine WBC (Auto) Urine RBC (Auto) Urine Casts (Auto) U Epithel Cells (Auto) Urine Bacteria (Auto) Influenza A (Rapid) Influenza B (Rapid) RSV Rapid 03/10/19 03/10/19 03/10/19 12:20 12:20 12:20 WBC RBC Hgb Hct MCV MCH MCHC RDW Plt Count MPV Absolute Neuts (auto) Neutrophils % Lymphocytes % Monocytes % Eosinophils % Basophils % Nucleated RBC % PT with INR INR PTT (Actin FS) VBG pH 7.41 POC VBG pCO2 51.6 POC VBG pO2 74.9 H VBG HCO3 31.8 H VBG O2 Sat (Shiraz) 94.5 H VBG Base Excess 6.1 H Sodium Potassium Chloride Carbon Dioxide Anion Gap BUN Creatinine Est GFR (CKD-EPI)AfAm Est GFR (CKD-EPI)NonAf Random Glucose Lactic Acid 1.4 Calcium Phosphorus Magnesium Total Bilirubin AST ALT Alkaline Phosphatase Troponin I Total Protein Albumin Urine Color Yellow Urine Appearance Clear Urine pH >= 9.0 H Ur Specific [place] 1.029 Urine Protein 1+ H Urine Glucose (UA) Negative Urine Ketones Negative Urine Blood Negative Urine Nitrite Negative Urine Bilirubin Negative Urine Urobilinogen 0.2 Ur Leukocyte Esterase 1+ H Urine WBC (Auto) 35 Urine RBC (Auto) 7 Urine Casts (Auto) 16 U Epithel Cells (Auto) 0.2 Urine Bacteria (Auto) 27.0 Influenza A (Rapid) Influenza B (Rapid) RSV Rapid 03/10/19 03/10/19 18:00 18:00 WBC RBC Hgb Hct MCV MCH MCHC RDW Plt Count MPV Absolute Neuts (auto) Neutrophils % Lymphocytes % Monocytes % Eosinophils % Basophils % Nucleated RBC % PT with INR INR PTT (Actin FS) VBG pH POC VBG pCO2 POC VBG pO2 VBG HCO3 VBG O2 Sat (Shiraz) VBG Base Excess Sodium Potassium Chloride Carbon Dioxide Anion Gap BUN Creatinine Est GFR (CKD-EPI)AfAm Est GFR (CKD-EPI)NonAf Random Glucose Lactic Acid Calcium Phosphorus Magnesium Total Bilirubin AST ALT Alkaline Phosphatase Troponin I Total Protein Albumin Urine Color Urine Appearance Urine pH Ur Specific [place] Urine Protein Urine Glucose (UA) Urine Ketones Urine Blood Urine Nitrite Urine Bilirubin Urine Urobilinogen Ur Leukocyte Esterase Urine WBC (Auto) Urine RBC (Auto) Urine Casts (Auto) U Epithel Cells (Auto) Urine Bacteria (Auto) Influenza A (Rapid) Negative Influenza B (Rapid) Negative RSV Rapid Negative CXR with apparent L-sided pneumonia CT Chest ordered and is pending EKG documented in ER but no intervals recorded and not readily available despite request. Will reorder as QTc needed as would need atypical coverage ASSESSMENT/PLAN: Patient with a history of MRCP presents with sepsis and acute O2 requiring respiratory failure likely secondary to L-sided pneumonia. He is at risk for underlying aspiration and MDRO event given his living circumstances but atypicals must also be considered. As QTc unknown giving a dose of doxycycline and continue the vancomycin and zosyn with ID consult. Given the poor respiratory effort on CT and potential for recurring aspiration to form complicated infections and the difficulty of obtaining a good-quality image of this patient I am obtaining a CT of his chest without contrast. Hold feeds overnight. Blood and sputum cultures with urine legionella/pneumococcal antigen. Discharge will depend on if there is confirmed bacterial vs. viral vs. other, hemodynamic stability, and final antibiotic course. Problems include: -Sepsis secondary to likely L-sided PNA -Acute respiratory failure also secondary to the aforementioned. -History of seizures (reconciling meds STAT, placing on seizure precautions, checkinc tegretol level and providing PM dose). -Aspiration risk -Hypoglycemia (Given D50 in ER for glucose of 70; no recheck was ordered. No on insulin. NPO due to aspiration risk. Ordering stat repeat). -Transaminitis (Mildly elevated AST. Repeat in AM. Unclear significance) Full Code Visit type - Emergency Visit Emergency Visit: Yes ED Registration Date: 03/10/19 Care time: The patient presented to the Emergency Department on the above date and was hospitalized for further evaluation of their emergent condition. - New Patient This patient is new to me today: Yes Date on this admission: 03/10/19 - Critical Care Critical Care patient: Yes Total Critical Care Time (in minutes): 30 Critical Care Statement: The care of this patient involved high complexity decision making to prevent further life threatening deterioration of the patient 's condition and/or to evaluate & treat vital organ system(s) failure or risk of failure.
[2019-03-11] MEDS ORDERED: ACETAMINOPHEN 650 MG SUPP.RECT PR PRN (00:07)
[2019-03-11] MEDS ORDERED: LACTATED RINGERS SOLUTION 1,000 ML/1,000 ML INFUS.BAG IV SCH (00:15)
[2019-03-11] MEDS ORDERED: NUTRITIONAL SUPPLEMENT GT SCH (01:00)
[2019-03-11] MEDS: ALBUTEROL SO4 2.5/IPRATROPIUM 0.5 INH SOL 3 ML VIAL.NEB. NEB PRN (01:15)
[2019-03-11] MEDS ORDERED: carBAMazepine 200 MG/10 ML UNIT-DOSE CUP GT SCH (01:30)
[2019-03-11] MEDS ORDERED: carBAMazepine 200 MG/10 ML UNIT-DOSE CUP PEG SCH ×2 (01:30→07:00)
[2019-03-11] MEDS ORDERED: PIPERACILLIN/TAZOBACTAM 3.375 GM VIAL IVPB ONE ×3 (01:51→16:52)
[2019-03-11] MEDS ORDERED: DEXTROSE 5%-WATER - 50 ML IVPB ONE ×3 (01:52→16:52)
[2019-03-11] MEDS: carBAMazepine 200 MG/10 ML UNIT-DOSE CUP PEG SCH ×2 (01:55→22:37)
[2019-03-11] MEDS: PIPERACILLIN/TAZOB 3.375 GM 3.375 GM in DEXTROSE 5%-WATER - 50 ML IVPB SCH ×3 (01:57→17:54)
[2019-03-11 02:07] LABS: BILIRUBIN,TOTAL 0.6 mg/dL (0.2-1); BLOOD UREA NITROGEN 21.3 mg/dL (7-18); CALCIUM 8.6 mg/dL (8.5-10.1); CREATININE 0.8 mg/dL (0.55-1.3); POTASSIUM 3.9 mmol/L (3.5-5.1); TOT PROT 6.6 g/dl (6.4-8.2)
[2019-03-11] MEDS: ALBUTEROL SO4 2.5/IPRATROPIUM 0.5 INH SOL 3 ML VIAL.NEB. NEB SCH ×5 (03:45→21:42)
--- NOTE | 2019-03-11 07:28 | PN ---
Progress Note (short form) - Note Progress Note: HPI: No acute events overnight. 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 Vital Signs Temperature 97.8 F 03/11/19 18:00 Pulse Rate 102 H 03/11/19 18:00 Respiratory Rate 20 03/11/19 18:00 Blood Pressure 137/73 03/11/19 18:00 O2 Sat by Pulse Oximetry (%) 98 03/10/19 21:00 PE: GEN: NAD, secretions noted, alert, nonverbal LUNG: Scattered rhonchi throughout. No wheezes. No accessory muscle use CARD: RRR no murmurs appreciated ABD: Soft, NT/ND, no murmurs EXT: No edema noted, strong pulses b/l CBC, BMP 03/11/19 07:12 03/11/19 01:15 Microbiology 03/11/19 13:55 Urine For Antigen Detection Legionella Antigen - Final 03/11/19 13:55 Urine For Antigen Detection Streptococcus pneumoniae Antigen (M - Final 03/10/19 12:20 Blood - Peripheral Venous Blood Culture - Preliminary NO GROWTH OBTAINED AFTER 24 HOURS, INCUBATION TO CONTINUE FOR 4 DAYS. 03/10/19 12:20 Blood - Peripheral Venous Blood Culture - Preliminary NO GROWTH OBTAINED AFTER 24 HOURS, INCUBATION TO CONTINUE FOR 4 DAYS. 03/10/19 12:20 Urine - Urine - Catheterized Urine Culture - Preliminary Non Lactose Fermenting Gnb Active Medications Acetaminophen (Tylenol Suppository -) 650 mg TX Q6H PRN PRN Reason: FEVER Albuterol/Ipratropium (Duoneb -) 1 amp NEB Q4H PRN PRN Reason: SHORT OF BREATH/WHEEZING Last Admin: 03/11/19 01:15 Dose: 1 amp Albuterol/Ipratropium (Duoneb -) 1 amp NEB RQ4H [facility] Last Admin: 03/11/19 16:00 Dose: 1 amp Ascorbic Acid (Vitamin C -) 500 mg GT HS [facility] Bacitracin (Bacitracin -) 1 applic TP BID ON LICENSE OF [facility] Last Admin: 03/11/19 10:03 Dose: 1 applic Carbamazepine (Tegretol Oral Suspension -) 300 mg PEG AM [facility] Last Admin: 03/11/19 10:02 Dose: 300 mg Carbamazepine (Tegretol Oral Suspension -) 400 mg PEG HS ON LICENSE OF [facility] Last Admin: 03/11/19 01:55 Dose: 400 mg Diazepam (Diastat Rectal Gel -) 10 mg RC PRN [facility] Heparin Sodium (Porcine) (Heparin -) 5,000 unit SQ BID ON LICENSE OF [facility] Last Admin: 03/11/19 10:04 Dose: 5,000 unit Piperacillin Sod/Tazobactam (Sod 3.375 gm/ Dextrose) 50 mls @ 100 mls/hr IVPB Q8H-IV [facility]; Protocol Last Admin: 03/11/19 17:54 Dose: 100 mls/hr Lactated Ringer's (Lactated Ringers Solution) 1,000 ml in 1,000 mls @ 83 mls/ hr IV ASDIR [facility] Last Admin: 03/11/19 01:26 Dose: 83 mls/hr Magnesium Hydroxide (Milk Of Magnesia -) 15 ml PEG BID ON LICENSE OF [facility] Last Admin: 03/11/19 14:59 Dose: Not Given Multivitamins/Minerals (Certavite-Antioxidant Liquid) 15 ml PEG HS [facility] Senna (Senna Oral Solution -) 8.8 mg PEG DAILY ON LICENSE OF [facility] Last Admin: 03/11/19 10:06 Dose: 8.8 mg Simethicone (Mylicon Liquid -) 40 mg GT BID [facility] Zinc Sulfate (Orazinc -) 220 mg GT HS ON LICENSE OF [facility] Assessment and Plan: Sepsis 2/2 to Pneumonia Acute hypoxic respiratory failure Seizure history Transaminitis Blindness history Congenital Mosaic Syndrome --Continue Zosyn due to patient at risk for hospital-type bacterium considering patient at a facility --Afebrile overnight, however continued secretions --? if aspiration PNA vs. aspiration pneumonitis --Continue LR@83cc/hr and can d/c once on feeds --Nutrition consultation considering ? of aspiration and conversion from Nutren --Continue on Duonebs for any respiratory distress/wheezing --Aspiration precautions --SpO2 >90% --Continue home dose AEDs: Carbamazepine 300mg AM/400mg HS --Diazepam rectal gel PRN FEN: Fluids:LR @83cc/hr Electrolyte abnormalities: None Nutrition: Can advance; nutrition consult PPX: DVT - Heparin BID Dispo: Continue monitoring Case discussed with Dr. Daren Alfonso, DO - IM PGy-3 <Fahad Alfonso - Last Filed: 03/11/19 20:22> - Note Progress Note: Seen and examineed; agree with above aside from as supplemented by myself. Independently verified all grove historical and physical exam findings as well as all labs and diagnostic findings. Discussed at length with resident team and indicated consulting services. 30 minutes spent in the care of this patient. No new events overnight; remains on abx per ID. No Seizure activity noted. Couldnt obtain ROS due to underlying cognative delay VS, labs, imaging noted NAD, resting in bed, was briefly on O2 and trying to wean Large tongue protruding, AT, EOMI PERRLA HR wnl, s1/2+ No FND moves all extremities; I am told he becomes combative with suctioning occasionally NT ND +BS Trachea midline without obvious lymphadenopathy Skin without new rashes or breakdown noted Micro and labs pending A/P Sepsis is improved; unclear source with pending imaging. Will followup and monitor on the floor for continued improvement and DC back to [facility] when clinically appropriate. Problems include: -Sepsis secondary to likely L-sided PNA, resolved. Followup CT chest -Acute respiratory failure also secondary to the aforementioned. -History of seizures (reconciling meds STAT, placing on seizure precautions, checkinc tegretol level and providing PM dose). -Aspiration risk (Resume feeds per dietary recs) -Hypoglycemia (Confinue to monitor; resolved). -Transaminitis (unclear sig; continue to trend CMP) Full code Dispo back to [facility] pending further workup and definitive treatment plan. <Juan R Mercedes - Last Filed: 03/13/19 07:34>
[2019-03-11 09:02] LABS: HEMATOCRIT 38.2 % (35.4-49); HEMOGLOBIN 12.9 GM/dL (11.7-16.9); MCH 31.7 pg (25.7-33.7); MCHC 33.8 g/dl (32.0-35.9); MEAN CELL VOLUME 93.7 fl (80-96); MEAN PLT VOLUME 10.4 fl (7.5-11.1); PLATELET COUNT 119 K/MM3 (134-434); RBC 4.07 M/mm3 (4.00-5.60); RDW 14.3 % (11.9-15.9); WHITE BLOOD COUNT 6.9 K/mm3 (4.0-10.0)
[2019-03-11 09:31] LABS: MAGNESIUM 2.4 mg/dL (1.8-2.4); PHOSPHOROUS 3.7 mg/dL (2.5-4.9)
[2019-03-11] MEDS ORDERED: PT OWN MED DRAWER 7, Y5N ONE ×2 (09:43→22:19)
[2019-03-11] MEDS ORDERED: MINERAL OIL TP SCH (10:00)
[2019-03-11] MEDS ORDERED: [UNRECOGNIZED DRUG - OTHER] TP SCH (10:00)
[2019-03-11] MEDS ORDERED: SIMETHICONE 40 MG/0.6 ML BOTTLE GT SCH (10:00)
[2019-03-11] MEDS ORDERED: WATER TP SCH (10:00)
[2019-03-11] MEDS: BACITRACIN 15 GM TUBE TOPICAL OINTMENT TP SCH ×2 (10:03→22:38)
[2019-03-11] MEDS: HEPARIN NA (PORCINE) 5,000 UNITS/ML 1ML VIAL SQ SCH ×2 (10:04→22:37)
[2019-03-11] MEDS: SENNOSIDES 8.8 MG/5 ML BULK BOTTLE PEG SCH (10:06)
[2019-03-11] MEDS: VANCOMYCIN 1 GM in D5W (PRE-DOCKED) 1,000 MG/250 ML IVPB SCH ×2 (10:07→11:30)
--- NOTE | 2019-03-11 11:30 | CON.ID ---
Consult Consult Specialty:: infectious diseases Referred by:: Reason for Consultation:: pneumonia,uti - History of Present Illness Chief Complaint: non verbal History of Present Illness: Patient with a history of MR/CP presents from [facility] with a CC of fever and tachycardia with SOB. history obtained from the charts.Patient is also legally blind patient was spiking fever currently patient looks stable - History Source History Provided By: Medical Record Limitations to Obtaining History: Clinical Condition - Past Medical History ACCOUNTING INSTRUCTOR: Yes: Seizure, Other (Pallister Keo Mosaic Syndrome, PMR, Hydrocephaly , profound hearing loss, legally blind) Additional Medical History: G-tube, hydrocephaly, Pallister Koe mosaic syndrome, osteopenia, and mental retardation. fracture right leg - Alcohol/Substance Use Hx Alcohol Use: No - Smoking History Smoking history: Never smoked Have you smoked in the past 12 months: No Aproximately how many cigarettes per day: 0 - Social History Usual Living Arrangement: [facility] ADL: Support Services History of Recent Travel: No Home Medications - Allergies Allergies/Adverse Reactions: Allergies Allergy/AdvReac Type Severity Reaction Status Date / Time erythromycin base Allergy Verified 03/04/15 14:42 [Erythromycin Base] Macrolide Antibiotics Allergy Verified 03/04/15 14:42 KETOLIDES Allergy Uncoded 03/04/15 14:42 - Home Medications Home Medications: Ambulatory Orders Ascorbic Acid 500 mg GT BID 06/26/18 Carbamazepine [Tegretol -] 300 mg GT DAILY 06/26/18 Carbamazepine [Tegretol -] 400 mg GT HS 06/26/18 Lactulose 20 gm GT BID 06/26/18 Magnesium Hydroxide [Milk of Magnesia] 15 ml GT BID 06/26/18 Sennosides [Senna] 8.8 mg GT TID 06/26/18 Simethicone [Gas Relief] 40 mg GT BID 06/26/18 Zinc 220 mg GT DAILY 06/26/18 Diazepam Rectal Gel [Diastat *Rectal Gel*] 10 mg RC PRN 12/06/18 Levofloxacin [Levaquin] 750 mg PO DAILY 5 Days #5 tablet 12/06/18 Mag Hydrox/Aluminum Hyd/Simeth [Rulox Suspension] 355 ml GT TID 12/06/18 Mineral Oil/I-Prop Myr/Water [Minerin Lotion] 473 ml TP TID 12/06/18 Multivitamin [Multiple Vitamins] 1 each GT DAILY 12/06/18 Leonid/Polymyx B Sulf/Dexameth [Maxitrol Eye Drops -] 3 drop OU TID 12/06/18 Protein Supplement [Promod] 30 ml GT DAILY 12/06/18 Albuterol 2.5/Ipratropium 0.5 [Duoneb -] 1 neb NEB Q4H 03/10/19 Ascorbic Acid 500 mg PO HS 03/10/19 Bacitracin - [Bacitracin Topical Ointment -] 1 applic TP BID 03/10/19 Carbamazepine Oral Suspension [Tegretol 100mg/5mL Oral Suspension -] 300 mg PEG AM 03/10/19 Carbamazepine Oral Suspension [Tegretol 100mg/5mL Oral Suspension -] 400 mg PEG HS 03/10/19 Diazepam Rectal Gel [Diastat Rectal Gel -] 10 mg PRN 03/10/19 Magnesium Hydrox 2400MG/30Ml [Milk of Magnesia -] 15 ml PEG BID 03/10/19 Sennosides [Senna] 8.8 mg PEG DAILY 03/10/19 Simethicone Liquid [Mylicon Liquid -] 40 mg BID 03/10/19 Zinc Sulfate [Orazinc] 220 mg GT HS 03/10/19 Albuterol 2.5/Ipratropium 0.5 [Duoneb -] 1 amp IH Q4H PRN 03/11/19 Mineral Oil/I-Prop Myr/Water [Minerin Lotion] 473 ml TP DAILY 03/11/19 Multivitamins [Multivit ([facility] Formulary)] 1 tab GT HS 03/11/19 Neomycin/Polymyxn/Hc [Cortisporin *Otic Solution*-] 1 drop TP TID 03/11/19 Nutritional Supplement [Nutren 2.0] 250 ml GT Q12H 03/11/19 Review of Systems Unable to obtain ROS, reason: unable to obtain Physical Exam Vital Signs: Vital Signs Temperature 98.6 F 03/11/19 10:00 Pulse Rate 88 03/11/19 10:00 Respiratory Rate 18 03/11/19 10:00 Blood Pressure 124/63 03/11/19 10:00 O2 Sat by Pulse Oximetry (%) 98 03/10/19 21:00 Constitutional: Yes: Well Nourished, No Distress, Calm Eyes: Yes: Other (legally blind) HENT: Yes: Atraumatic Cardiovascular: Yes: Regular Rate and Rhythm Respiratory: Yes: On Nasal O2, Poor Air Entry Gastrointestinal: Yes: Normal Bowel Sounds, Soft, Other (peg) Musculoskeletal: Yes: WNL Extremities: Yes: WNL Neurological: Yes: Alert, Other Psychiatric: Yes: Other Labs: CBC, BMP 03/11/19 07:12 03/11/19 01:15 Imaging - Results Chest X-ray: Report Reviewed, Image Reviewed Assessment/Plan patient coming with fever and sob imaging studies noted we will continue zosyn rest as per the team
--- NOTE | 2019-03-11 12:14 | EKG ---
Test Reason : Blood Pressure : / mmHG Vent. Rate : 080 BPM Atrial Rate : 080 BPM P-R Int : 114 ms QRS Dur : 082 ms QT Int : 370 ms P-R-T Axes : 038 001 -11 degrees QTc Int : 426 ms NORMAL SINUS RHYTHM MINIMAL VOLTAGE CRITERIA FOR LVH, MAY BE NORMAL VARIANT BORDERLINE ECG WHEN COMPARED WITH ECG OF 10-MAR-2019 11:48, SINUS RHYTHM HAS REPLACED JUNCTIONAL RHYTHM Confirmed by GERONIMO GARCIA, ABUNDIO ([id number]) on 03/11/2019 12:14:26 PM Referred By: MITUL Confirmed By:ABUNDIO MELTON MD
--- NOTE | 2019-03-11 12:22 | EKG ---
Test Reason : Blood Pressure : / mmHG Vent. Rate : 097 BPM Atrial Rate : 083 BPM P-R Int : 000 ms QRS Dur : 082 ms QT Int : 358 ms P-R-T Axes : 000 007 -49 degrees QTc Int : 454 ms POOR DATA QUALITY, INTERPRETATION MAY BE ADVERSELY AFFECTED NORMAL SINUS RHYTHM MINIMAL VOLTAGE CRITERIA FOR LVH, MAY BE NORMAL VARIANT ABNORMAL ECG NO PREVIOUS ECGS AVAILABLE Confirmed by GERONIMO GARCIA, ABUNDIO ([id number]) on 03/11/2019 12:21:27 PM Referred By: Confirmed By:ABUNDIO MELTON MD
--- NOTE | 2019-03-11 13:25 | ECHO ---
Name: JAREN SANDHU Exam:Adult Echocardiogram Study Date: 03/11/2019 12:00 PM Age: 23 yrs Reason For Study: LV EF Eval Height: 62 in Weight: 147 lb BSA: 1.7 m2 MMode/2D Measurements & Calculations IVSd: 0.89 cm Ao root diam: 2.2 cm LVIDd: 3.9 cm LA dimension: 3.6 cm LVIDs: 3.0 cm ACS: 1.7 cm LVPWd: 1.0 cm LVPWs: 1.3 cm EDV(Teich): 64.4 ml ESV(Teich): 34.5 ml LVOT diam: 1.8 cm LVLd ap4: 6.6 cm EDV(MOD-sp4): 67.0 ml LVLs ap4: 6.5 cm ESV(MOD-sp4): 36.0 ml SV(MOD-sp4): 31.0 ml RV S Tyshawn: 8.4 cm/sec Doppler Measurements & Calculations MV E max tyshawn: 84.4 cm/sec Ao V2 max: 130.3 cm/sec MV A max tyshawn: 63.2 cm/sec Ao max P.8 mmHg MV E/A: 1.3 Ao V2 mean: 82.9 cm/sec MV dec time: 0.21 sec Ao mean P.3 mmHg Ao V2 VTI: 26.5 cm ANT(I,D): 1.5 cm2 ANT(V,D): 1.5 cm2 LV V1 max P.4 mmHg MR max tyshawn: 441.8 cm/sec LV V1 mean P.2 mmHg MR max P.1 mmHg LV V1 max: 78.0 cm/sec LV V1 mean: 50.7 cm/sec LV V1 VTI: 15.2 cm SV(LVOT): 38.9 ml TR max tyshawn: 296.6 cm/sec TR max P.6 mmHg RVSP(TR): 45.6 mmHg Med Peak E' Tyshawn: 10.2 cm/sec RAP systole: 10.0 mmHg Med E/e': 8.2 Procedure The study was technically difficult with many images being suboptimal in quality. Images were not obt ained from all of the standard acoustic windows due to the limited scope of the study. The study was non-di agnostic in quality. No definitive statements could be made about this echo due to extremely poor acoustic win dows. Left Ventricle The left ventricle is not well visualized. The left ventricle is grossly normal size. Due to the poor quality of the echocardiogram, an assessment of left ventricular ejection fraction cannot be made. Regional w all motion abnormalities cannot be excluded due to limited visualization. Right Ventricle The right ventricle is not well visualized. Atria Normal left and right atrial size and function. Tricuspid Valve The tricuspid valve is not well visualized. There is no tricuspid stenosis. There is Trace to mild tr icuspid regurgitation. Right ventricular systolic pressure is elevated at 50-60mmHg. Aortic Valve The aortic valve is not well visualized. Pulmonic Valve The pulmonic valve is not well visualized. Great Vessels The aortic root is normal size. Pericardium/Pleura There is no pericardial effusion. Interpretation Summary The study was technically difficult with many images being suboptimal in quality. Images were not obtained from all of the standard acoustic windows due to the limited scope of the st udy. The study was non-diagnostic in quality. No definitive statements could be made about this echo due t o extremely poor acoustic windows. The left ventricle is not well visualized. The left ventricle is grossly normal size. Due to the poor quality of the echocardiogram, an assessment of left ventricular ejection fraction ca nnot be made. Regional wall motion abnormalities cannot be excluded due to limited visualization. The aortic valve is not well visualized. The tricuspid valve is not well visualized. Right ventricular systolic pressure is elevated at 50-60mmHg. There is Trace to mild tricuspid regurgitation. MD Nick Byers 03/11/2019 01:25 PM
--- NOTE | 2019-03-11 14:31 | PN ---
Progress Note (short form) - Note Progress Note: PULMONARY CONSULTATION DICTATED 03/11/19 IMP ACUTE RESPIRATORY FAILURE BILATERAL PNEUMONIA SEVERE MENTAL RETARDAION CEREBRAL PALSY SEIZURE DISORDER PLAN ABX PER ID SUPPLEMENTAL O2 TO MAINTAIN O2 SAT 90% OR GREATER ASPIRATION PRECAUTIONS INHALED BRONCHODILATORS F/U CHEST X-RAYS IVF CULTURES LEGIONELLA URINARY ANTIGEN DR ARRIETA Problem List - Problems (1) Cerebral palsy Code(s): G80.9 - CEREBRAL PALSY, UNSPECIFIED (2) Pneumonia Code(s): J18.9 - PNEUMONIA, UNSPECIFIED ORGANISM (3) Gastrostomy tube dependent Code(s): Z93.1 - GASTROSTOMY STATUS (4) Mental retardation Code(s): F79 - UNSPECIFIED INTELLECTUAL DISABILITIES (5) Seizure Code(s): R56.9 - UNSPECIFIED CONVULSIONS
[2019-03-11] MEDS: MAGNESIUM HYDROX 2400MG/30ML ORAL SUSPENSION 30 ML CUP PEG SCH ×2 (14:59→22:36)
--- NOTE | 2019-03-11 18:02 | CONS ---
DATE OF CONSULTATION: 03/11/2019 PULMONARY CONSULTATION REFERRING PHYSICIAN: Juan R Mercedes M.D. HISTORY OF PRESENT ILLNESS: History is obtained from medical records. The patient is a 23-year-old male, resident of [facility] with past medical history of severe mental retardation, cerebral palsy, history of pneumonia, history of seizures disorders, Pallister-Rockland mosaic syndrome, transferred to [facility] on March 10 secondary to fever, tachycardia, shortness of breath, and hypoxemia. Patient was transferred to [facility] with the above. On admission he was noted to be saturating well on O2 as well as being febrile. He was placed on broad-spectrum antibiotics. He underwent a chest x-ray on admission which revealed increased markings in the left hemithorax. Subsequently underwent a CAT scan of the chest which revealed extensive bilateral pneumonia, bilateral infiltrates. No further history is available at this time. PAST MEDICAL HISTORY: Again, past medical history includes cerebral palsy, severe mental retardation, seizure disorder, history of pneumonia, history of Pallister-Keo mosaic syndrome, and seizure disorder. REVIEW OF SYSTEMS: Unable to obtain. CURRENT MEDICATIONS: Include piperacillin, bacitracin, heparin, Tegretol, DuoNeb, Milk of Magnesia, lactated Ringer's, oral zinc and vitamin C. PHYSICAL EXAMINATION: General: The patient is a well-developed, well-nourished male, awake, nonverbal , in no acute distress. He is afebrile. Vital Signs: Blood pressure 124/63, respiratory rate 18, O2 saturation is 98% on 2 L nasal cannula. HEENT: Normocephalic, atraumatic. Neck: Supple. Heart: Regular S1, S2. Chest: Scattered bilateral rhonchi. Abdomen: Soft, bowel sounds positive. Extremities: No cyanosis, edema. LABORATORY: WBC is 6.9, hemoglobin 12.9, hematocrit 38.2 with platelet count of 119,000. INR is 1.12. Venous blood gas is 7.41, pCO2 of 51, pO2 of 71, bicarbonate of 31, and saturation of 95. Chemistries: BUN 21, creatinine 0.8. Chest CT: fluffy alveolar infiltrates left lung and right lower lobe and left lower lobe consolidation. IMPRESSION: 1. Acute respiratory failure secondary to bilateral pneumonia. 2. Severe mental retardation. 3. Cerebral palsy. 4. Seizure disorder. PLAN: Antibiotics as per infectious disease, supplemental O2 to maintain O2 saturation 90% or greater. Aspiration precautions. Inhaled bronchodilators. Follow up chest x-rays to confirm resolution of infiltrates. IV fluids. Cultures. Legionella urinary antigens. AILYN ARRIETA M.D. [id number] MTDD
[2019-03-11] MEDS: ASCORBIC ACID 500 MG TABLET (FP) GT SCH (22:36)
[2019-03-11] MEDS: ZINC SULFATE 220 MG CAPSULE (FP) GT SCH (22:36)
[2019-03-11] MEDS: MULTIVIT-MINERALS ORAL LIQUID PEG SCH (22:38)
[2019-03-11] MEDS ORDERED: carBAMazepine 100 MG/5 ML UNIT-DOSE CUP GT SCH (22:45)
[2019-03-12] MEDS: ALBUTEROL SO4 2.5/IPRATROPIUM 0.5 INH SOL 3 ML VIAL.NEB. NEB SCH ×3 (00:27→08:00)
[2019-03-12] MEDS ORDERED: PIPERACILLIN/TAZOBACTAM 3.375 GM VIAL IVPB ONE ×3 (00:53→17:54)
[2019-03-12] MEDS ORDERED: DEXTROSE 5%-WATER - 50 ML IVPB ONE ×3 (00:53→17:54)
[2019-03-12] MEDS: PIPERACILLIN/TAZOB 3.375 GM 3.375 GM in DEXTROSE 5%-WATER - 50 ML IVPB SCH ×3 (02:03→17:58)
[2019-03-12] MEDS ORDERED: PT OWN MED DRAWER 7, Y5N ONE ×3 (06:11→21:56)
[2019-03-12] MEDS: carBAMazepine 100 MG/5 ML UNIT-DOSE CUP GT SCH (06:12)
[2019-03-12 08:41] LABS: HEMATOCRIT 35.2 % (35.4-49); HEMOGLOBIN 11.8 GM/dL (11.7-16.9); MCH 31.5 pg (25.7-33.7); MCHC 33.5 g/dl (32.0-35.9); MEAN CELL VOLUME 94.1 fl (80-96); MEAN PLT VOLUME 10.8 fl (7.5-11.1); PLATELET COUNT 119 K/MM3 (134-434); RBC 3.74 M/mm3 (4.00-5.60); RDW 14.3 % (11.9-15.9); WHITE BLOOD COUNT 6.1 K/mm3 (4.0-10.0)
[2019-03-12 09:04] LABS: BLOOD UREA NITROGEN 19.2 mg/dL (7-18); CALCIUM 8.5 mg/dL (8.5-10.1); MAGNESIUM 2.4 mg/dL (1.8-2.4); POTASSIUM 3.7 mmol/L (3.5-5.1)
[2019-03-12] MEDS: SENNOSIDES 8.8 MG/5 ML BULK BOTTLE PEG SCH (09:56)
[2019-03-12] MEDS: MAGNESIUM HYDROX 2400MG/30ML ORAL SUSPENSION 30 ML CUP PEG SCH (09:57)
[2019-03-12] MEDS: BACITRACIN 15 GM TUBE TOPICAL OINTMENT TP SCH ×2 (09:58→22:25)
[2019-03-12] MEDS: HEPARIN NA (PORCINE) 5,000 UNITS/ML 1ML VIAL SQ SCH ×2 (09:58→22:20)
--- NOTE | 2019-03-12 10:29 | PN ---
Progress Note, Physician History of Present Illness: stable no new issues - Current Medication List Current Medications: Active Medications Acetaminophen (Tylenol Suppository -) 650 mg CO Q6H PRN PRN Reason: FEVER Albuterol/Ipratropium (Duoneb -) 1 amp NEB Q4H PRN PRN Reason: SHORT OF BREATH/WHEEZING Last Admin: 03/11/19 01:15 Dose: 1 amp Albuterol/Ipratropium (Duoneb -) 1 amp NEB RQ4H [facility] Last Admin: 03/12/19 08:00 Dose: 1 amp Ascorbic Acid (Vitamin C -) 500 mg GT HS [facility] Last Admin: 03/11/19 22:36 Dose: 500 mg Bacitracin (Bacitracin -) 1 applic TP BID [facility] Last Admin: 03/12/19 09:58 Dose: 1 applic Carbamazepine (Carbamazepine) 300 mg GT AM [facility] Last Admin: 03/12/19 06:12 Dose: 300 mg Carbamazepine (Carbamazepine) 400 mg GT HS [facility] Diazepam (Diastat Rectal Gel -) 10 mg RC PRN [facility] Heparin Sodium (Porcine) (Heparin -) 5,000 unit SQ BID [facility] Last Admin: 03/12/19 09:58 Dose: 5,000 unit Piperacillin Sod/Tazobactam (Sod 3.375 gm/ Dextrose) 50 mls @ 100 mls/hr IVPB Q8H-IV [facility]; Protocol Last Admin: 03/12/19 09:55 Dose: 100 mls/hr Magnesium Hydroxide (Milk Of Magnesia -) 15 ml PEG BID [facility] Last Admin: 03/12/19 09:57 Dose: 15 ml Multivitamins/Minerals (Certavite-Antioxidant Liquid) 15 ml PEG HS [facility] Last Admin: 03/11/19 22:38 Dose: 15 ml Senna (Senna Oral Solution -) 8.8 mg PEG DAILY [facility] Last Admin: 03/12/19 09:56 Dose: 8.8 mg Simethicone (Mylicon Liquid -) 40 mg GT BID [facility] Zinc Sulfate (Orazinc -) 220 mg GT HS [facility] Last Admin: 03/11/19 22:36 Dose: 220 mg - Objective Vital Signs: Vital Signs Temperature 99.1 F 03/12/19 07:10 Pulse Rate 105 H 03/12/19 07:10 Respiratory Rate 18 03/12/19 07:10 Blood Pressure 121/74 03/12/19 07:10 O2 Sat by Pulse Oximetry (%) 98 03/10/19 21:00 Constitutional: Yes: No Distress, Calm Cardiovascular: Yes: S1, S2 Respiratory: Yes: Regular, CTA Bilaterally Gastrointestinal: Yes: Normal Bowel Sounds, Soft, Other (peg) Musculoskeletal: Yes: WNL Extremities: Yes: Other Neurological: Yes: Alert, Other Psychiatric: Yes: Other Labs: CBC, BMP 03/12/19 07:10 03/12/19 07:10 INR, PTT INR 1.12 (0.83-1.09) H 03/10/19 12:20 Assessment/Plan pneumonia transaminitis plan continue abx aspiration precautions rest as per the team
[2019-03-12] MEDS ORDERED: diazePAM ACUDIAL 5-7.5-10 MG 1 EACH KIT RC PRN (11:57)
[2019-03-12 13:36] LABS: BLOOD UREA NITROGEN 17.2 mg/dL (7-18); CALCIUM 8.8 mg/dL (8.5-10.1); CREATININE 0.9 mg/dL (0.55-1.3); POTASSIUM 3.6 mmol/L (3.5-5.1)
[2019-03-12] MEDS ORDERED: POTASSIUM CHLORIDE ORAL LIQUID 20 MEQ/15 ML PO ONE (13:51)
[2019-03-12] MEDS: ALBUTEROL SO4 2.5/IPRATROPIUM 0.5 INH SOL 3 ML VIAL.NEB. NEB PRN (15:35)
--- NOTE | 2019-03-12 15:38 | PN ---
Progress Note (short form) - Note Progress Note: PULMONARY Pt nonverbal. No further fevers. Vital Signs Period Temp Pulse Resp BP Sys/Mack Pulse Ox Last 24 Hr 97.8 F-99.7 F 89-105 18-20 120-137/59-74 Gen: breathing nonlabored Heart: RRR Lung: decreased breath sounds at the bases Abd: soft, nontender Ext: no edema CBC, BMP 03/12/19 07:10 03/12/19 12:53 Active Medications Acetaminophen (Tylenol Suppository -) 650 mg MN Q6H PRN PRN Reason: FEVER Albuterol/Ipratropium (Duoneb -) 1 amp NEB Q4H PRN PRN Reason: SHORT OF BREATH/WHEEZING Last Admin: 03/12/19 15:35 Dose: 1 amp Ascorbic Acid (Vitamin C -) 500 mg GT HS [facility] Last Admin: 03/11/19 22:36 Dose: 500 mg Bacitracin (Bacitracin -) 1 applic TP BID [facility] Last Admin: 03/12/19 09:58 Dose: 1 applic Carbamazepine (Carbamazepine) 300 mg GT AM [facility] Last Admin: 03/12/19 06:12 Dose: 300 mg Carbamazepine (Carbamazepine) 400 mg GT HS [facility] Diazepam (Diastat Rectal Gel -) 10 mg RC PRN PRN PRN Reason: SEIZURE ACTIVITY FOR > 3 MIN Heparin Sodium (Porcine) (Heparin -) 5,000 unit SQ BID [facility] Last Admin: 03/12/19 09:58 Dose: 5,000 unit Piperacillin Sod/Tazobactam (Sod 3.375 gm/ Dextrose) 50 mls @ 100 mls/hr IVPB Q8H-IV [facility]; Protocol Last Admin: 03/12/19 09:55 Dose: 100 mls/hr Magnesium Hydroxide (Milk Of Magnesia -) 15 ml PEG BID [facility] Last Admin: 03/12/19 09:57 Dose: 15 ml Multivitamins/Minerals (Certavite-Antioxidant Liquid) 15 ml PEG HS [facility] Last Admin: 03/11/19 22:38 Dose: 15 ml Senna (Senna Oral Solution -) 8.8 mg PEG DAILY [facility] Last Admin: 03/12/19 09:56 Dose: 8.8 mg Simethicone (Mylicon Liquid -) 40 mg GT BID [facility] Zinc Sulfate (Orazinc -) 220 mg GT HS [facility] Last Admin: 03/11/19 22:36 Dose: 220 mg A/P Pneumonia Mental Retardation Cerebral Palsy Seizure Disorder Functional Quadriplegia - continue antibiotics per ID - f/u cultures - O2 to keep SpO2 >90% - aspiration precautions - DVT prophylaxis
--- NOTE | 2019-03-12 20:52 | PN ---
Progress Note (short form) - Note Progress Note: HPI: No acute events overnight. 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 Vital Signs Temperature 97.8 F 03/11/19 18:00 Pulse Rate 102 H 03/11/19 18:00 Respiratory Rate 20 03/11/19 18:00 Blood Pressure 137/73 03/11/19 18:00 O2 Sat by Pulse Oximetry (%) 98 03/10/19 21:00 PE: GEN: NAD, alert, nonverbal HEENT: Nc/AT, copious secretions all clear, MMM LUNG: Upper respiratory sounds transmitted. Scattered rhonchi throughout. No wheezes. No accessory muscle use CARD: RRR no murmurs appreciated ABD: Soft, NT/ND, no murmurs EXT: No edema noted, strong pulses b/l CBC, BMP 03/12/19 07:10 03/12/19 12:53 Microbiology 03/11/19 13:55 Urine For Antigen Detection Legionella Antigen - Final 03/11/19 13:55 Urine For Antigen Detection Streptococcus pneumoniae Antigen (M - Final 03/10/19 12:20 Blood - Peripheral Venous Blood Culture - Preliminary NO GROWTH OBTAINED AFTER 24 HOURS, INCUBATION TO CONTINUE FOR 4 DAYS. 03/10/19 12:20 Blood - Peripheral Venous Blood Culture - Preliminary NO GROWTH OBTAINED AFTER 24 HOURS, INCUBATION TO CONTINUE FOR 4 DAYS. 03/10/19 12:20 Urine - Urine - Catheterized Urine Culture - Preliminary Non Lactose Fermenting Gnb Active Medications Acetaminophen (Tylenol Suppository -) 650 mg MS Q6H PRN PRN Reason: FEVER Albuterol/Ipratropium (Duoneb -) 1 amp NEB Q4H PRN PRN Reason: SHORT OF BREATH/WHEEZING Last Admin: 03/12/19 15:35 Dose: 1 amp Ascorbic Acid (Vitamin C -) 500 mg GT HS [facility] Last Admin: 03/11/19 22:36 Dose: 500 mg Bacitracin (Bacitracin -) 1 applic TP BID [facility] Last Admin: 03/12/19 09:58 Dose: 1 applic Carbamazepine (Carbamazepine) 300 mg GT AM [facility] Last Admin: 03/12/19 06:12 Dose: 300 mg Carbamazepine (Carbamazepine) 400 mg GT HS [facility] Diazepam (Diastat Rectal Gel -) 10 mg RC PRN PRN PRN Reason: SEIZURE ACTIVITY FOR > 3 MIN Heparin Sodium (Porcine) (Heparin -) 5,000 unit SQ BID [facility] Last Admin: 03/12/19 09:58 Dose: 5,000 unit Piperacillin Sod/Tazobactam (Sod 3.375 gm/ Dextrose) 50 mls @ 100 mls/hr IVPB Q8H-IV [facility]; Protocol Last Admin: 03/12/19 17:58 Dose: 100 mls/hr Magnesium Hydroxide (Milk Of Magnesia -) 15 ml PEG BID [facility] Last Admin: 03/12/19 09:57 Dose: 15 ml Multivitamins/Minerals (Certavite-Antioxidant Liquid) 15 ml PEG HS [facility] Last Admin: 03/11/19 22:38 Dose: 15 ml Senna (Senna Oral Solution -) 8.8 mg PEG DAILY [facility] Last Admin: 03/12/19 09:56 Dose: 8.8 mg Simethicone (Mylicon Liquid -) 40 mg GT BID [facility] Zinc Sulfate (Orazinc -) 220 mg GT HS [facility] Last Admin: 03/11/19 22:36 Dose: 220 mg Assessment and Plan: Sepsis 2/2 to Pneumonia Acute hypoxic respiratory failure Seizure history Hypernatremia HyperChloridemia Transaminitis Blindness history Congenital Mosaic Syndrome --Continue Zosyn due to patient at risk for hospital-type bacterium considering patient at a facility --? Aspiration --Discontinue fluids due to free water flushes --Continue on Duonebs PRN for any respiratory distress/wheezing --Aspiration precautions --SpO2 >90% to be maintained --O2 assessment prior to dc --Repeat BMP for assessment of Na and Cl --Hypernatremia chronic, however trend is up; continue to follow --Continue home dose AEDs: Carbamazepine 300mg AM/400mg HS --Diazepam rectal gel PRN FEN: Fluids: None Electrolyte abnormalities: None Nutrition: Started per nutrition recs; increase FW flushes to 45cc /hr PPX: DVT - Heparin BID Dispo: Anticipate d/c if no fevers overnight Case discussed with Dr. Daren Alfonso, DO - IM PGy-3 <Fahad Alfonos - Last Filed: 03/12/19 22:11> - Note Progress Note: Seen and examineed; agree with above aside from as supplemented by myself. Independently verified all grove historical and physical exam findings as well as all labs and diagnostic findings. Discussed at length with resident team and indicated consulting services. 30 minutes spent in the care of this patient. No new events overnight; remains on abx per ID. No Seizure activity noted. Off O2. Couldnt obtain ROS due to underlying cognative delay VS, labs, imaging noted NAD, resting in bed, was briefly on O2 and trying to wean Large tongue protruding, AT, EOMI PERRLA HR wnl, s1/2+ No FND moves all extremities; I am told he becomes combative with suctioning occasionally NT ND +BS Trachea midline without obvious lymphadenopathy Skin without new rashes or breakdown noted Micro and labs pending CT shows multifocal pneumonia confirming diagnosis; r-sided findings imply aspiration. A/P Sepsis is improved; unclear source with pending imaging. Will followup and monitor on the floor for continued improvement and DC back to [facility] when clinically appropriate. Problems include: -Sepsis secondary to multifocal pneumonia with aspiration, resolved. -Acute respiratory failure also secondary to the aforementioned. -History of seizures (reconciling meds STAT, placing on seizure precautions, checkinc tegretol level and providing PM dose). -Aspiration risk (Resume feeds per dietary recs) -Hypoglycemia (Confinue to monitor; resolved). -Transaminitis Full code Dispo back to [facility] pending further workup and definitive treatment plan. <Juan R Mercedes - Last Filed: 03/13/19 07:37>
[2019-03-13] MEDS: SIMETHICONE 40 MG/0.6 ML BOTTLE GT SCH ×3 (00:11→22:12)
[2019-03-13] MEDS: ZINC SULFATE 220 MG CAPSULE (FP) GT SCH ×2 (00:11→22:12)
[2019-03-13] MEDS: ASCORBIC ACID 500 MG TABLET (FP) GT SCH ×2 (00:11→22:13)
[2019-03-13] MEDS: MULTIVIT-MINERALS ORAL LIQUID PEG SCH ×2 (00:15→23:13)
[2019-03-13] MEDS: MAGNESIUM HYDROX 2400MG/30ML ORAL SUSPENSION 30 ML CUP PEG SCH ×3 (00:17→22:10)
[2019-03-13] MEDS: carBAMazepine 100 MG/5 ML UNIT-DOSE CUP GT SCH ×3 (00:43→22:09)
[2019-03-13] MEDS ORDERED: PIPERACILLIN/TAZOBACTAM 3.375 GM VIAL IVPB ONE ×3 (02:52→17:49)
[2019-03-13] MEDS ORDERED: DEXTROSE 5%-WATER - 50 ML IVPB ONE ×3 (02:53→17:49)
[2019-03-13] MEDS: PIPERACILLIN/TAZOB 3.375 GM 3.375 GM in DEXTROSE 5%-WATER - 50 ML IVPB SCH ×3 (03:18→17:51)
[2019-03-13] MEDS ORDERED: ONDANSETRON 4 MG/2 ML VIAL IVPUSH ONE (04:15)
[2019-03-13 07:46] LABS: HEMATOCRIT 36.5 % (35.4-49); HEMOGLOBIN 12.3 GM/dL (11.7-16.9); MCH 31.5 pg (25.7-33.7); MCHC 33.5 g/dl (32.0-35.9); MEAN CELL VOLUME 93.8 fl (80-96); MEAN PLT VOLUME 10.2 fl (7.5-11.1); PLATELET COUNT 136 K/MM3 (134-434); WHITE BLOOD COUNT 5.4 K/mm3 (4.0-10.0)
[2019-03-13 08:14] LABS: BLOOD UREA NITROGEN 16.8 mg/dL (7-18); CALCIUM 8.8 mg/dL (8.5-10.1); CREATININE 0.9 mg/dL (0.55-1.3); POTASSIUM 4.1 mmol/L (3.5-5.1)
[2019-03-13] MEDS ORDERED: PT OWN MED DRAWER 7, Y5N ONE ×3 (09:30→20:06)
[2019-03-13] MEDS: BACITRACIN 15 GM TUBE TOPICAL OINTMENT TP SCH ×2 (09:43→22:17)
[2019-03-13] MEDS: HEPARIN NA (PORCINE) 5,000 UNITS/ML 1ML VIAL SQ SCH ×2 (09:44→22:08)
[2019-03-13] MEDS: SENNOSIDES 8.8 MG/5 ML BULK BOTTLE PEG SCH (09:55)
--- NOTE | 2019-03-13 12:09 | PN ---
Progress Note, Physician History of Present Illness: stable no new issues - Current Medication List Current Medications: Active Medications Acetaminophen (Tylenol Suppository -) 650 mg DC Q6H PRN PRN Reason: FEVER Albuterol/Ipratropium (Duoneb -) 1 amp NEB Q4H PRN PRN Reason: SHORT OF BREATH/WHEEZING Last Admin: 03/12/19 15:35 Dose: 1 amp Ascorbic Acid (Vitamin C -) 500 mg GT HS [facility] Last Admin: 03/13/19 00:11 Dose: Not Given Bacitracin (Bacitracin -) 1 applic TP BID [facility] Last Admin: 03/13/19 09:43 Dose: 1 applic Carbamazepine (Carbamazepine) 300 mg GT AM [facility] Last Admin: 03/13/19 09:44 Dose: 300 mg Carbamazepine (Carbamazepine) 400 mg GT HS [facility] Last Admin: 03/13/19 00:43 Dose: Not Given Diazepam (Diastat Rectal Gel -) 10 mg RC PRN PRN PRN Reason: SEIZURE ACTIVITY FOR > 3 MIN Heparin Sodium (Porcine) (Heparin -) 5,000 unit SQ BID [facility] Last Admin: 03/13/19 09:44 Dose: 5,000 unit Piperacillin Sod/Tazobactam (Sod 3.375 gm/ Dextrose) 50 mls @ 100 mls/hr IVPB Q8H-IV [facility]; Protocol Last Admin: 03/13/19 09:43 Dose: 100 mls/hr Magnesium Hydroxide (Milk Of Magnesia -) 15 ml PEG BID [facility] Last Admin: 03/13/19 09:44 Dose: 15 ml Multivitamins/Minerals (Certavite-Antioxidant Liquid) 15 ml PEG HS [facility] Last Admin: 03/13/19 00:15 Dose: Not Given Senna (Senna Oral Solution -) 8.8 mg PEG DAILY [facility] Last Admin: 03/13/19 09:55 Dose: 8.8 mg Simethicone (Mylicon Liquid -) 40 mg GT BID [facility] Last Admin: 03/13/19 09:45 Dose: 40 mg Zinc Sulfate (Orazinc -) 220 mg GT HS [facility] Last Admin: 03/13/19 00:11 Dose: Not Given - Objective Vital Signs: Vital Signs Temperature 98.4 F 03/13/19 06:00 Pulse Rate 91 H 03/13/19 06:00 Respiratory Rate 22 H 03/13/19 06:00 Blood Pressure 127/69 11/15/19 06:00 O2 Sat by Pulse Oximetry (%) 98 03/10/19 21:00 Constitutional: Yes: No Distress, Calm Cardiovascular: Yes: S1, S2 Respiratory: Yes: Regular, CTA Bilaterally Gastrointestinal: Yes: Normal Bowel Sounds, Soft, Other Musculoskeletal: Yes: Other Extremities: Yes: Other Neurological: Yes: Alert Psychiatric: Yes: Other Labs: CBC, BMP 03/13/19 06:33 03/13/19 06:33 INR, PTT INR 1.12 (0.83-1.09) H 03/10/19 12:20 Assessment/Plan pneumonia transaminitis plan continue abx aspiration precautions rest as per the team
--- NOTE | 2019-03-13 12:47 | PN ---
Progress Note, Physician History of Present Illness: pulmonary sleeping,-resp distress - Current Medication List Current Medications: Active Medications Acetaminophen (Tylenol Suppository -) 650 mg [place] Q6H PRN PRN Reason: FEVER Albuterol/Ipratropium (Duoneb -) 1 amp NEB Q4H PRN PRN Reason: SHORT OF BREATH/WHEEZING Last Admin: 03/12/19 15:35 Dose: 1 amp Ascorbic Acid (Vitamin C -) 500 mg GT HS [facility] Last Admin: 03/13/19 00:11 Dose: Not Given Bacitracin (Bacitracin -) 1 applic TP BID [facility] Last Admin: 03/13/19 09:43 Dose: 1 applic Carbamazepine (Carbamazepine) 300 mg GT AM [facility] Last Admin: 03/13/19 09:44 Dose: 300 mg Carbamazepine (Carbamazepine) 400 mg GT HS [facility] Last Admin: 03/13/19 00:43 Dose: Not Given Diazepam (Diastat Rectal Gel -) 10 mg RC PRN PRN PRN Reason: SEIZURE ACTIVITY FOR > 3 MIN Heparin Sodium (Porcine) (Heparin -) 5,000 unit SQ BID [facility] Last Admin: 03/13/19 09:44 Dose: 5,000 unit Piperacillin Sod/Tazobactam (Sod 3.375 gm/ Dextrose) 50 mls @ 100 mls/hr IVPB Q8H-IV [facility]; Protocol Last Admin: 03/13/19 09:43 Dose: 100 mls/hr Magnesium Hydroxide (Milk Of Magnesia -) 15 ml PEG BID [facility] Last Admin: 03/13/19 09:44 Dose: 15 ml Multivitamins/Minerals (Certavite-Antioxidant Liquid) 15 ml PEG HS [facility] Last Admin: 03/13/19 00:15 Dose: Not Given Senna (Senna Oral Solution -) 8.8 mg PEG DAILY [facility] Last Admin: 03/13/19 09:55 Dose: 8.8 mg Simethicone (Mylicon Liquid -) 40 mg GT BID [facility] Last Admin: 03/13/19 09:45 Dose: 40 mg Zinc Sulfate (Orazinc -) 220 mg GT HS [facility] Last Admin: 03/13/19 00:11 Dose: Not Given - Objective Vital Signs: Vital Signs Temperature 98.4 F 03/13/19 06:00 Pulse Rate 91 H 03/13/19 06:00 Respiratory Rate 22 H 03/13/19 06:00 Blood Pressure 127/69 03/13/19 06:00 O2 Sat by Pulse Oximetry (%) 98 03/10/19 21:00 Constitutional: Yes: Well Nourished, Calm Eyes: Yes: WNL HENT: Yes: WNL Neck: Yes: WNL Cardiovascular: Yes: Regular Rate and Rhythm, S1, S2 Respiratory: Yes: Diminished Gastrointestinal: Yes: Normal Bowel Sounds, Soft Extremities: Yes: WNL Edema: No Labs: CBC, BMP 03/13/19 06:33 03/13/19 06:33 INR, PTT INR 1.12 (0.83-1.09) H 03/10/19 12:20 Problem List - Problems (1) Cerebral palsy Code(s): G80.9 - CEREBRAL PALSY, UNSPECIFIED (2) Pneumonia Code(s): J18.9 - PNEUMONIA, UNSPECIFIED ORGANISM Qualifiers: Pneumonia type: due to unspecified organism Laterality: left Lung location: unspecified part of lung Qualified Code(s): J18.9 - Pneumonia, unspecified organism (3) Gastrostomy tube dependent Code(s): Z93.1 - GASTROSTOMY STATUS (4) Mental retardation Code(s): F79 - UNSPECIFIED INTELLECTUAL DISABILITIES (5) Seizure Code(s): R56.9 - UNSPECIFIED CONVULSIONS Assessment/Plan IMP ACUTE RESPIRATORY FAILURE BILATERAL PNEUMONIA SEVERE MENTAL RETARDAION CEREBRAL PALSY SEIZURE DISORDER HYPONATREMIA PLAN ABX PER ID SUPPLEMENTAL O2 TO MAINTAIN O2 SAT 90% OR GREATER ASPIRATION PRECAUTIONS INHALED BRONCHODILATORS F/U CHEST X-RAYS IVF LEGIONELLA URINARY ANTIGEN MONITOR JAYLENE URIAS DR Problem List - Problems (1) Cerebral palsy Code(s): G80.9 - CEREBRAL PALSY, UNSPECIFIED (2) Pneumonia Code(s): J18.9 - PNEUMONIA, UNSPECIFIED ORGANISM (3) Gastrostomy tube dependent Code(s): Z93.1 - GASTROSTOMY STATUS (4) Mental retardation Code(s): F79 - UNSPECIFIED INTELLECTUAL DISABILITIES (5) Seizure Code(s): R56.9 - UNSPECIFIED CONVULSIONS
[2019-03-13 16:16] LABS: BLOOD UREA NITROGEN 17.8 mg/dL (7-18); CALCIUM 9.1 mg/dL (8.5-10.1); CREATININE 0.9 mg/dL (0.55-1.3); POTASSIUM 5.4 mmol/L (3.5-5.1)
--- NOTE | 2019-03-13 17:05 | CONSULT ---
Consult Consult Specialty:: Nephrology Reason for Consultation:: hypernatremia - History of Present Illness Chief Complaint: sent in for fever and lethargy History of Present Illness: Pt is a 23 year old male with pmhx of developemental delay and cerebral palsy who was sent in for fever and tachycardia. He was found to have a PNA and admitted fort treatment. He did have a fever. I was called to evaluate him for hypernatremia. His peg feeds were held secondary to vomiting and were restarted in the afternoon. He is unable to give history. - History Source History Provided By: Medical Record - Past Medical History DIRECTOR MORTGAGE: Yes: Seizure, Other (Pallister Keo Mosaic Syndrome, PMR, Hydrocephaly , profound hearing loss, legally blind) Additional Medical History: G-tube, hydrocephaly, Pallister Dieterich mosaic syndrome, osteopenia, and mental retardation. fracture right leg - Alcohol/Substance Use Hx Alcohol Use: No - Smoking History Smoking history: Never smoked Have you smoked in the past 12 months: No Aproximately how many cigarettes per day: 0 - Social History Usual Living Arrangement: Group Home ADL: Support Services History of Recent Travel: No Home Medications - Allergies Allergies/Adverse Reactions: Allergies Allergy/AdvReac Type Severity Reaction Status Date / Time erythromycin base Allergy Verified 03/04/15 14:42 [Erythromycin Base] Macrolide Antibiotics Allergy Verified 03/04/15 14:42 KETOLIDES Allergy Uncoded 03/04/15 14:42 - Home Medications Home Medications: Ambulatory Orders Ascorbic Acid 500 mg GT BID 06/26/18 Carbamazepine [Tegretol -] 300 mg GT DAILY 06/26/18 Carbamazepine [Tegretol -] 400 mg GT HS 06/26/18 Lactulose 20 gm GT BID 06/26/18 Magnesium Hydroxide [Milk of Magnesia] 15 ml GT BID 06/26/18 Sennosides [Senna] 8.8 mg GT TID 06/26/18 Simethicone [Gas Relief] 40 mg GT BID 06/26/18 Zinc 220 mg GT DAILY 06/26/18 Diazepam Rectal Gel [Diastat *Rectal Gel*] 10 mg RC PRN 12/06/18 Levofloxacin [Levaquin] 750 mg PO DAILY 5 Days #5 tablet 12/06/18 Mag Hydrox/Aluminum Hyd/Simeth [Rulox Suspension] 355 ml GT TID 12/06/18 Mineral Oil/I-Prop Myr/Water [Minerin Lotion] 473 ml TP TID 12/06/18 Multivitamin [Multiple Vitamins] 1 each GT DAILY 12/06/18 Leonid/Polymyx B Sulf/Dexameth [Maxitrol Eye Drops -] 3 drop OU TID 12/06/18 Protein Supplement [Promod] 30 ml GT DAILY 12/06/18 Albuterol 2.5/Ipratropium 0.5 [Duoneb -] 1 neb NEB Q4H 03/10/19 Ascorbic Acid 500 mg PO HS 03/10/19 Bacitracin - [Bacitracin Topical Ointment -] 1 applic TP BID 03/10/19 Carbamazepine Oral Suspension [Tegretol 100mg/5mL Oral Suspension -] 300 mg PEG AM 03/10/19 Carbamazepine Oral Suspension [Tegretol 100mg/5mL Oral Suspension -] 400 mg PEG HS 03/10/19 Diazepam Rectal Gel [Diastat Rectal Gel -] 10 mg PRN 03/10/19 Magnesium Hydrox 2400MG/30Ml [Milk of Magnesia -] 15 ml PEG BID 03/10/19 Sennosides [Senna] 8.8 mg PEG DAILY 03/10/19 Simethicone Liquid [Mylicon Liquid -] 40 mg BID 03/10/19 Zinc Sulfate [Orazinc] 220 mg GT HS 03/10/19 Albuterol 2.5/Ipratropium 0.5 [Duoneb -] 1 amp IH Q4H PRN 03/11/19 Mineral Oil/I-Prop Myr/Water [Minerin Lotion] 473 ml TP DAILY 03/11/19 Multivitamins [Multivit ([facility] Formulary)] 1 tab GT HS 03/11/19 Neomycin/Polymyxn/Hc [Cortisporin *Otic Solution*-] 1 drop TP TID 03/11/19 Nutritional Supplement [Nutren 2.0] 250 ml GT Q12H 03/11/19 Family Medical History Family History: Unable to Obtain Review of Systems Unable to obtain ROS, reason: non verbal Physical Exam Vital Signs: Vital Signs Temperature 98.6 F 03/13/19 16:04 Pulse Rate 99 H 03/13/19 16:04 Respiratory Rate 22 H 03/13/19 16:04 Blood Pressure 143/73 03/13/19 16:04 O2 Sat by Pulse Oximetry (%) 98 03/10/19 21:00 Constitutional: Yes: Calm Eyes: Yes: Conjunctiva Clear HENT: Yes: Atraumatic Neck: Yes: Supple Cardiovascular: Yes: S1, S2 Respiratory: Yes: On Nasal O2, Wheezes Gastrointestinal: Yes: Soft, Other (peg) Renal/: Yes: Incontinence Musculoskeletal: Yes: Muscle Weakness Edema: No Neurological: Yes: Lethargy Labs: CBC, BMP 03/13/19 06:33 03/13/19 14:30 Imaging - Results Cat Scan: Report Reviewed Problem List - Problems (1) Cerebral palsy Code(s): G80.9 - CEREBRAL PALSY, UNSPECIFIED (2) Pneumonia Code(s): J18.9 - PNEUMONIA, UNSPECIFIED ORGANISM Qualifiers: Pneumonia type: due to unspecified organism Laterality: left Lung location: unspecified part of lung Qualified Code(s): J18.9 - Pneumonia, unspecified organism (3) Hypernatremia Code(s): E87.0 - HYPEROSMOLALITY AND HYPERNATREMIA (4) Seizure Code(s): R56.9 - UNSPECIFIED CONVULSIONS Assessment/Plan Current Medications Generic Name Dose Route Start Last Admin Trade Name Freq PRN Reason Stop Dose Admin Acetaminophen 650 mg 03/11/19 00:07 Tylenol Suppository - [place] Q6H PRN FEVER Albuterol/Ipratropium 1 amp 03/11/19 00:51 03/12/19 15:35 Duoneb - NEB 1 amp Q4H PRN Administration SHORT OF BREATH/WHEEZING Ascorbic Acid 500 mg 03/11/19 22:00 03/13/19 00:11 Vitamin C - GT Not Given HS [facility] Bacitracin 1 applic 03/11/19 10:00 03/13/19 09:43 Bacitracin - TP 1 applic BID [facility] Administration Carbamazepine 300 mg 03/12/19 07:00 03/13/19 09:44 Carbamazepine GT 300 mg AM [facility] Administration Carbamazepine 400 mg 03/12/19 22:00 03/13/19 00:43 Carbamazepine GT Not Given HS [facility] Diazepam 10 mg 03/12/19 11:57 Diastat Rectal Gel - RC PRN PRN SEIZURE ACTIVITY FOR > 3 MIN Heparin Sodium (Porcine) 5,000 unit 03/10/19 22:00 03/13/19 09:44 Heparin - SQ 5,000 unit BID [facility] Administration Piperacillin Sod/Tazobactam 50 mls @ 100 mls/hr 03/10/19 14:00 03/13/19 09:43 Sod 3.375 gm/ Dextrose IVPB 100 mls/hr Q8H-IV [facility] Administration Protocol Magnesium Hydroxide 15 ml 03/11/19 10:00 03/13/19 09:44 Milk Of Magnesia - PEG 15 ml BID [facility] Administration Multivitamins/Minerals 15 ml 03/11/19 22:00 03/13/19 00:15 Certavite-Antioxidant Liquid PEG Not Given HS [facility] Senna 8.8 mg 03/11/19 10:00 03/13/19 09:55 Senna Oral Solution - PEG 8.8 mg DAILY [facility] Administration Simethicone 40 mg 03/12/19 22:00 03/13/19 09:45 Mylicon Liquid - GT 40 mg BID [facility] Administration Zinc Sulfate 220 mg 03/11/19 22:00 03/13/19 00:11 Orazinc - GT Not Given HS [facility] Impression 1. hypernatremia 2. hyperkalemia 3. PNA 4. cerebral palsy 5. epilepsy 6. lethargy 7. CLAUDIA - pt has a baseline ring striker of 0.4 Plan - pt has a total free water deficit of about 2.8 liters - feds restarted - will start d5w - monitor for residuals - will give a dose of lokelma for hyperkalemia, fluids should help as well - monitor sodium - will need to increase fluids if he does not tolerated tube feeds - monitor renal function - check urine lytes and ring striker, claudia likely from dehydration
[2019-03-13] MEDS ORDERED: SODIUM ZIRCONIUM CYCLOSILICATE (LOKELMA) 5 GM PACKET NR ONE (17:15)
[2019-03-13] MEDS ORDERED: DEXTROSE 5%-WATER - 1,000 ML IV SCH (17:15)
[2019-03-13] MEDS: DEXTROSE 5%-WATER - 1,000 ML IV SCH (17:48)
[2019-03-13 19:09] LABS: EPI CELLS 4.5 /HPF (0-5/HPF); HYALINE CASTS 21 /lpf (0-8); URINE APPEARANCE CLEAR; URINE BACTERIA 0.5 /hpf (NEGATIVE); URINE BILIRUBIN NEGATIVE (NEGATIVE); URINE COLOR DK YELLOW; URINE GLUCOSE (UA) NEGATIVE (NEGATIVE); URINE KETONE 1+ (NEGATIVE); URINE LEUK ESTERASE TRACE (NEGATIVE); URINE NITRITE NEGATIVE (NEGATIVE); URINE PROTEIN 1+ (NEGATIVE); URINE UROBILINOGEN 0.2 mg/dL (0.2-1.0); URINE WBC 10 /hpf (0-5)
--- NOTE | 2019-03-13 19:13 | PN ---
Addendum entered and electronically signed by Fahad Alfonso, RESIDENT 03/13/19 19:14: Appreciate recommendations: Lokelma and D5W for fluids changed. Monitor BMP Original Note: Progress Note (short form) - Note Progress Note: HPI: Vomiting noted last night and feeds discontinued. Secretions improved. 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 Vital Signs Temperature 98.6 F 03/13/19 16:04 Pulse Rate 99 H 03/13/19 16:04 Respiratory Rate 22 H 03/13/19 16:04 Blood Pressure 143/73 03/13/19 16:04 O2 Sat by Pulse Oximetry (%) 98 03/10/19 21:00 PE: GEN: NAD, alert, nonverbal HEENT: Nc/AT, copious secretions all clear, MMM LUNG: Upper respiratory sounds transmitted. Scattered rhonchi throughout. No wheezes. No accessory muscle use CARD: RRR no murmurs appreciated ABD: Soft, NT/ND, no murmurs EXT: No edema noted, strong pulses b/l Microbiology 03/11/19 13:55 Urine For Antigen Detection Legionella Antigen - Final 03/11/19 13:55 Urine For Antigen Detection Streptococcus pneumoniae Antigen (M - Final 03/10/19 12:20 Blood - Peripheral Venous Blood Culture - Preliminary NO GROWTH OBTAINED AFTER 24 HOURS, INCUBATION TO CONTINUE FOR 4 DAYS. 03/10/19 12:20 Blood - Peripheral Venous Blood Culture - Preliminary NO GROWTH OBTAINED AFTER 24 HOURS, INCUBATION TO CONTINUE FOR 4 DAYS. 03/10/19 12:20 Urine - Urine - Catheterized Urine Culture - Preliminary Non Lactose Fermenting Gnb Active Medications Acetaminophen (Tylenol Suppository -) 650 mg [place] Q6H PRN PRN Reason: FEVER Albuterol/Ipratropium (Duoneb -) 1 amp NEB Q4H PRN PRN Reason: SHORT OF BREATH/WHEEZING Last Admin: 03/12/19 15:35 Dose: 1 amp Ascorbic Acid (Vitamin C -) 500 mg GT HS [facility] Last Admin: 03/11/19 22:36 Dose: 500 mg Bacitracin (Bacitracin -) 1 applic TP BID [facility] Last Admin: 03/12/19 09:58 Dose: 1 applic Carbamazepine (Carbamazepine) 300 mg GT AM [facility] Last Admin: 03/12/19 06:12 Dose: 300 mg Carbamazepine (Carbamazepine) 400 mg GT HS [facility] Diazepam (Diastat Rectal Gel -) 10 mg RC PRN PRN PRN Reason: SEIZURE ACTIVITY FOR > 3 MIN Heparin Sodium (Porcine) (Heparin -) 5,000 unit SQ BID [facility] Last Admin: 03/12/19 09:58 Dose: 5,000 unit Piperacillin Sod/Tazobactam (Sod 3.375 gm/ Dextrose) 50 mls @ 100 mls/hr IVPB Q8H-IV [facility]; Protocol Last Admin: 03/12/19 17:58 Dose: 100 mls/hr Magnesium Hydroxide (Milk Of Magnesia -) 15 ml PEG BID [facility] Last Admin: 03/12/19 09:57 Dose: 15 ml Multivitamins/Minerals (Certavite-Antioxidant Liquid) 15 ml PEG HS [facility] Last Admin: 03/11/19 22:38 Dose: 15 ml Senna (Senna Oral Solution -) 8.8 mg PEG DAILY [facility] Last Admin: 03/12/19 09:56 Dose: 8.8 mg Simethicone (Mylicon Liquid -) 40 mg GT BID [facility] Zinc Sulfate (Orazinc -) 220 mg GT HS [facility] Last Admin: 03/11/19 22:36 Dose: 220 mg Assessment and Plan: Sepsis 2/2 to Pneumonia Acute hypoxic respiratory failure Seizure history Hypernatremia HyperChloridemia Transaminitis Blindness history Congenital Mosaic Syndrome --Continue Zosyn due to patient at risk for hospital-type bacterium considering patient at a facility and questionable aspiration --Reinstate feeds at lower rate to start; decrease FW flushes to 30cc --Add 1/2NS for FWD --Continue on Duonebs PRN for any respiratory distress/wheezing --Aspiration precautions --SpO2 >90% to be maintained --O2 assessment prior to dc --Repeat BMP for assessment of Na and Cl --Hypernatremia chronic, however trend is up; continue to follow --Continue home dose AEDs: Carbamazepine 300mg AM/400mg HS --Diazepam rectal gel PRN FEN: Fluids: None Electrolyte abnormalities: None Nutrition: Jevity PPX: DVT - Heparin BID Dispo: Continue monitoring Case discussed with Dr. Daren Alfonso, DO - IM PGy-3 <Fahad Alfonso - Last Filed: 03/13/19 19:11> - Note Progress Note: Seen and examineed; agree with above aside from as supplemented by myself. Independently verified all grove historical and physical exam findings as well as all labs and diagnostic findings. Discussed at length with resident team and indicated consulting services. 30 minutes spent in the care of this patient. No new events overnight; remains on abx per ID. No Seizure activity noted. Off O2. Couldnt obtain ROS due to underlying cognitive delay VS, labs, imaging noted NAD, resting in bed, was briefly on O2 and trying to wean Large tongue protruding, AT, EOMI PERRLA HR wnl, s1/2+ No FND moves all extremities; I am told he becomes combative with suctioning occasionally NT ND +BS Trachea midline without obvious lymphadenopathy Skin without new rashes or breakdown noted Not combative today, not agitated, limited psych assessment 2/2 underlying developmental delay Micro and labs pending CT shows multifocal pneumonia confirming diagnosis; r-sided findings imply aspiration. A/P Sepsis is improved; hypernatremia with nephro consutl pending. Respiratory statys improved. Problems include: -Sepsis secondary to multifocal pneumonia with aspiration, resolved. -Acute respiratory failure also secondary to the aforementioned. -History of seizures (reconciling meds STAT, placing on seizure precautions, checkinc tegretol level and providing PM dose). -Aspiration risk (Resume feeds per dietary recs) -Hypoglycemia (Confinue to monitor; resolved). -Transaminitis Full code Overall, the patient is confirmed to present with hypernatremia and will require further inpatietn treatment nephrology consulted need free water deficit and to discuss with their service. Continue ID recs, pulmonary interventions <Juan R Mercedes - Last Filed: 03/14/19 18:32>
[2019-03-13 20:30] LABS: URINE RBC 10.1 /hpf (0-4)
[2019-03-13] MEDS: ALBUTEROL SO4 2.5/IPRATROPIUM 0.5 INH SOL 3 ML VIAL.NEB. NEB PRN (21:22)
[2019-03-14] MEDS ORDERED: PIPERACILLIN/TAZOBACTAM 3.375 GM VIAL IVPB ONE ×3 (00:45→17:15)
[2019-03-14] MEDS ORDERED: DEXTROSE 5%-WATER - 50 ML IVPB ONE ×3 (00:46→17:15)
[2019-03-14] MEDS: PIPERACILLIN/TAZOB 3.375 GM 3.375 GM in DEXTROSE 5%-WATER - 50 ML IVPB SCH ×3 (01:43→17:26)
[2019-03-14] MEDS: carBAMazepine 100 MG/5 ML UNIT-DOSE CUP GT SCH ×2 (06:24→21:37)
[2019-03-14 08:39] LABS: HEMATOCRIT 37.3 % (35.4-49); HEMOGLOBIN 12.5 GM/dL (11.7-16.9); MCH 31.4 pg (25.7-33.7); MCHC 33.3 g/dl (32.0-35.9); MEAN CELL VOLUME 94.2 fl (80-96); MEAN PLT VOLUME 10.4 fl (7.5-11.1); PLATELET COUNT 146 K/MM3 (134-434); RBC 3.96 M/mm3 (4.00-5.60); RDW 14.1 % (11.9-15.9); WHITE BLOOD COUNT 5.5 K/mm3 (4.0-10.0)
[2019-03-14 09:13] LABS: BILIRUBIN,TOTAL 0.4 mg/dL (0.2-1); BLOOD UREA NITROGEN 18.4 mg/dL (7-18); CALCIUM 9.2 mg/dL (8.5-10.1); POTASSIUM 4.8 mmol/L (3.5-5.1); TOT PROT 7.2 g/dl (6.4-8.2)
[2019-03-14] MEDS ORDERED: PT OWN MED DRAWER 7, Y5N ONE (09:20)
[2019-03-14] MEDS: MAGNESIUM HYDROX 2400MG/30ML ORAL SUSPENSION 30 ML CUP PEG SCH ×2 (09:44→21:39)
[2019-03-14] MEDS: HEPARIN NA (PORCINE) 5,000 UNITS/ML 1ML VIAL SQ SCH ×2 (09:45→21:39)
[2019-03-14] MEDS: SENNOSIDES 8.8 MG/5 ML BULK BOTTLE PEG SCH (09:45)
[2019-03-14] MEDS: SIMETHICONE 40 MG/0.6 ML BOTTLE GT SCH ×2 (09:45→21:39)
[2019-03-14] MEDS: BACITRACIN 15 GM TUBE TOPICAL OINTMENT TP SCH ×2 (09:46→21:40)
--- NOTE | 2019-03-14 10:38 | PN ---
Progress Note (short form) - Note Progress Note: No new change pt has no iv access and has pneumonia and high sodium no distress vs CBC, BMP 03/14/19 06:55 03/14/19 06:55 GEN: NAD, alert, nonverbal HEENT: Nc/AT, copious secretions all clear, MMM LUNG: Upper respiratory sounds transmitted. Scattered rhonchi throughout. No wheezes. No accessory muscle use CARD: RRR no murmurs appreciated ABD: Soft, NT/ND, no murmurs EXT: No edema noted, strong pulses b/l CBC, BMP 03/14/19 06:55 03/14/19 06:55 Assessment and Plan: Sepsis 2/2 to Pneumonia Acute hypoxic respiratory failure seen by pulmonary and he is on iv abx abd his wbc is better and he has no symptoms Seizure history stable Hypernatremia HyperChloridemia he is on iv fluids and on feeding and free fluid replacements Transaminitis improving Blindness history Congenital Mosaic Syndrome stable Current Medications Acetaminophen (Tylenol Suppository -) 650 mg [place] Q6H PRN PRN Reason: FEVER Albuterol/Ipratropium (Duoneb -) 1 amp NEB Q4H PRN PRN Reason: SHORT OF BREATH/WHEEZING Last Admin: 03/13/19 21:22 Dose: 1 amp Ascorbic Acid (Vitamin C -) 500 mg GT HS [facility] Last Admin: 03/13/19 22:13 Dose: 500 mg Bacitracin (Bacitracin -) 1 applic TP BID [facility] Last Admin: 03/14/19 09:46 Dose: 1 applic Carbamazepine (Carbamazepine) 300 mg GT AM [facility] Last Admin: 03/14/19 06:24 Dose: 300 mg Carbamazepine (Carbamazepine) 400 mg GT HS [facility] Last Admin: 03/13/19 22:09 Dose: 400 mg Diazepam (Diastat Rectal Gel -) 10 mg RC PRN PRN PRN Reason: SEIZURE ACTIVITY FOR > 3 MIN Heparin Sodium (Porcine) (Heparin -) 5,000 unit SQ BID [facility] Last Admin: 03/14/19 09:45 Dose: 5,000 unit Piperacillin Sod/Tazobactam (Sod 3.375 gm/ Dextrose) 50 mls @ 100 mls/hr IVPB Q8H-IV [facility]; Protocol Last Admin: 03/14/19 01:43 Dose: 100 mls/hr Dextrose (D5w -) 1,000 mls @ 60 mls/hr IV ASDIR [facility] Last Admin: 03/13/19 17:48 Dose: 60 mls/hr Magnesium Hydroxide (Milk Of Magnesia -) 15 ml PEG BID [facility] Last Admin: 03/14/19 09:44 Dose: 15 ml Multivitamins/Minerals (Certavite-Antioxidant Liquid) 15 ml PEG HS [facility] Last Admin: 03/13/19 23:13 Dose: 15 ml Senna (Senna Oral Solution -) 8.8 mg PEG DAILY [facility] Last Admin: 03/14/19 09:45 Dose: 8.8 mg Simethicone (Mylicon Liquid -) 40 mg GT BID [facility] Last Admin: 03/14/19 09:45 Dose: 40 mg Zinc Sulfate (Orazinc -) 220 mg GT HS [facility] Last Admin: 03/13/19 22:12 Dose: 220 mg Visit type - Emergency Visit Emergency Visit: Yes ED Registration Date: 03/10/19 Care time: The patient presented to the Emergency Department on the above date and was hospitalized for further evaluation of their emergent condition. - New Patient This patient is new to me today: Yes Date on this admission: 03/14/19 - Critical Care Critical Care patient: No - Discharge Referral Referred to [facility] No
--- NOTE | 2019-03-14 12:14 | PN ---
Progress Note, Physician History of Present Illness: PULMONARY ALERT,NON-VERBAL,-RESP DISTRESS - Current Medication List Current Medications: Active Medications Acetaminophen (Tylenol Suppository -) 650 mg [place] Q6H PRN PRN Reason: FEVER Albuterol/Ipratropium (Duoneb -) 1 amp NEB Q4H PRN PRN Reason: SHORT OF BREATH/WHEEZING Last Admin: 03/13/19 21:22 Dose: 1 amp Ascorbic Acid (Vitamin C -) 500 mg GT HS [facility] Last Admin: 03/13/19 22:13 Dose: 500 mg Bacitracin (Bacitracin -) 1 applic TP BID [facility] Last Admin: 03/14/19 09:46 Dose: 1 applic Carbamazepine (Carbamazepine) 300 mg GT AM [facility] Last Admin: 03/14/19 06:24 Dose: 300 mg Carbamazepine (Carbamazepine) 400 mg GT HS [facility] Last Admin: 03/13/19 22:09 Dose: 400 mg Diazepam (Diastat Rectal Gel -) 10 mg RC PRN PRN PRN Reason: SEIZURE ACTIVITY FOR > 3 MIN Heparin Sodium (Porcine) (Heparin -) 5,000 unit SQ BID [facility] Last Admin: 03/14/19 09:45 Dose: 5,000 unit Piperacillin Sod/Tazobactam (Sod 3.375 gm/ Dextrose) 50 mls @ 100 mls/hr IVPB Q8H-IV [facility]; Protocol Last Admin: 03/14/19 10:52 Dose: 100 mls/hr Dextrose (D5w -) 1,000 mls @ 60 mls/hr IV ASDIR [facility] Last Admin: 03/13/19 17:48 Dose: 60 mls/hr Magnesium Hydroxide (Milk Of Magnesia -) 15 ml PEG BID [facility] Last Admin: 03/14/19 09:44 Dose: 15 ml Multivitamins/Minerals (Certavite-Antioxidant Liquid) 15 ml PEG HS [facility] Last Admin: 03/13/19 23:13 Dose: 15 ml Senna (Senna Oral Solution -) 8.8 mg PEG DAILY [facility] Last Admin: 03/14/19 09:45 Dose: 8.8 mg Simethicone (Mylicon Liquid -) 40 mg GT BID [facility] Last Admin: 03/14/19 09:45 Dose: 40 mg Zinc Sulfate (Orazinc -) 220 mg GT HS [facility] Last Admin: 03/13/19 22:12 Dose: 220 mg - Objective Vital Signs: Vital Signs Temperature 97.8 F 03/14/19 06:23 Pulse Rate 78 03/14/19 06:23 Respiratory Rate 20 03/14/19 09:00 Blood Pressure 104/67 03/14/19 06:23 O2 Sat by Pulse Oximetry (%) 98 03/10/19 21:00 Constitutional: Yes: Well Nourished, Calm Eyes: Yes: WNL HENT: Yes: WNL Neck: Yes: WNL Cardiovascular: Yes: Regular Rate and Rhythm, S1, S2 Respiratory: Yes: Rhonchi (FEW RHONCHI) Gastrointestinal: Yes: Normal Bowel Sounds, Soft Extremities: Yes: WNL Edema: No Labs: CBC, BMP 03/14/19 06:55 03/14/19 06:55 INR, PTT INR 1.12 (0.83-1.09) H 03/10/19 12:20 Problem List - Problems (1) Cerebral palsy Code(s): G80.9 - CEREBRAL PALSY, UNSPECIFIED (2) Pneumonia Code(s): J18.9 - PNEUMONIA, UNSPECIFIED ORGANISM Qualifiers: Pneumonia type: due to unspecified organism Laterality: left Lung location: unspecified part of lung Qualified Code(s): J18.9 - Pneumonia, unspecified organism (3) Gastrostomy tube dependent Code(s): Z93.1 - GASTROSTOMY STATUS (4) Mental retardation Code(s): F79 - UNSPECIFIED INTELLECTUAL DISABILITIES (5) Seizure Code(s): R56.9 - UNSPECIFIED CONVULSIONS Assessment/Plan IMP ACUTE RESPIRATORY FAILURE BILATERAL PNEUMONIA SEVERE MENTAL RETARDAION CEREBRAL PALSY SEIZURE DISORDER HYPONATREMIA PLAN ABX PER ID SUPPLEMENTAL O2 TO MAINTAIN O2 SAT 90% OR GREATER ASPIRATION PRECAUTIONS INHALED BRONCHODILATORS F/U CHEST X-RAYS IVF LEGIONELLA URINARY ANTIGEN MONITOR JAYLENE URIAS DR Problem List - Problems (1) Cerebral palsy Code(s): G80.9 - CEREBRAL PALSY, UNSPECIFIED (2) Pneumonia Code(s): J18.9 - PNEUMONIA, UNSPECIFIED ORGANISM (3) Gastrostomy tube dependent Code(s): Z93.1 - GASTROSTOMY STATUS (4) Mental retardation Code(s): F79 - UNSPECIFIED INTELLECTUAL DISABILITIES (5) Seizure Code(s): R56.9 - UNSPECIFIED CONVULSIONS
--- NOTE | 2019-03-14 13:06 | PN ---
Progress Note, Physician History of Present Illness: stable no new issues - Current Medication List Current Medications: Active Medications Acetaminophen (Tylenol Suppository -) 650 mg [place] Q6H PRN PRN Reason: FEVER Albuterol/Ipratropium (Duoneb -) 1 amp NEB Q4H PRN PRN Reason: SHORT OF BREATH/WHEEZING Last Admin: 03/13/19 21:22 Dose: 1 amp Ascorbic Acid (Vitamin C -) 500 mg GT HS [facility] Last Admin: 03/13/19 22:13 Dose: 500 mg Bacitracin (Bacitracin -) 1 applic TP BID [facility] Last Admin: 03/14/19 09:46 Dose: 1 applic Carbamazepine (Carbamazepine) 300 mg GT AM [facility] Last Admin: 03/14/19 06:24 Dose: 300 mg Carbamazepine (Carbamazepine) 400 mg GT HS [facility] Last Admin: 03/13/19 22:09 Dose: 400 mg Diazepam (Diastat Rectal Gel -) 10 mg RC PRN PRN PRN Reason: SEIZURE ACTIVITY FOR > 3 MIN Heparin Sodium (Porcine) (Heparin -) 5,000 unit SQ BID [facility] Last Admin: 03/14/19 09:45 Dose: 5,000 unit Piperacillin Sod/Tazobactam (Sod 3.375 gm/ Dextrose) 50 mls @ 100 mls/hr IVPB Q8H-IV [facility]; Protocol Last Admin: 03/14/19 10:52 Dose: 100 mls/hr Dextrose (D5w -) 1,000 mls @ 60 mls/hr IV ASDIR [facility] Last Admin: 03/13/19 17:48 Dose: 60 mls/hr Magnesium Hydroxide (Milk Of Magnesia -) 15 ml PEG BID [facility] Last Admin: 03/14/19 09:44 Dose: 15 ml Multivitamins/Minerals (Certavite-Antioxidant Liquid) 15 ml PEG HS [facility] Last Admin: 03/13/19 23:13 Dose: 15 ml Senna (Senna Oral Solution -) 8.8 mg PEG DAILY [facility] Last Admin: 03/14/19 09:45 Dose: 8.8 mg Simethicone (Mylicon Liquid -) 40 mg GT BID [facility] Last Admin: 03/14/19 09:45 Dose: 40 mg Zinc Sulfate (Orazinc -) 220 mg GT HS [facility] Last Admin: 03/13/19 22:12 Dose: 220 mg - Objective Vital Signs: Vital Signs Temperature 97.8 F 03/14/19 06:23 Pulse Rate 78 03/14/19 06:23 Respiratory Rate 20 03/14/19 09:00 Blood Pressure 104/67 03/14/19 06:23 O2 Sat by Pulse Oximetry (%) 98 03/10/19 21:00 Constitutional: Yes: No Distress, Calm Cardiovascular: Yes: S1, S2 Respiratory: Yes: Regular, CTA Bilaterally Gastrointestinal: Yes: Normal Bowel Sounds, Soft Musculoskeletal: Yes: WNL Extremities: Yes: Other Neurological: Yes: Alert, Other Psychiatric: Yes: Other Labs: CBC, BMP 03/14/19 06:55 03/14/19 06:55 INR, PTT INR 1.12 (0.83-1.09) H 03/10/19 12:20 Assessment/Plan pneumonia transaminitis plan continue abx aspiration precautions rest as per the team
--- NOTE | 2019-03-14 17:00 | PN ---
Progress Note, Physician History of Present Illness: Pt seen and examined at bedside. He appears more awake today. - Current Medication List Current Medications: Active Medications Acetaminophen (Tylenol Suppository -) 650 mg [place] Q6H PRN PRN Reason: FEVER Albuterol/Ipratropium (Duoneb -) 1 amp NEB Q4H PRN PRN Reason: SHORT OF BREATH/WHEEZING Last Admin: 03/13/19 21:22 Dose: 1 amp Ascorbic Acid (Vitamin C -) 500 mg GT HS [facility] Last Admin: 03/13/19 22:13 Dose: 500 mg Bacitracin (Bacitracin -) 1 applic TP BID [facility] Last Admin: 03/14/19 09:46 Dose: 1 applic Carbamazepine (Carbamazepine) 300 mg GT AM [facility] Last Admin: 03/14/19 06:24 Dose: 300 mg Carbamazepine (Carbamazepine) 400 mg GT HS [facility] Last Admin: 03/13/19 22:09 Dose: 400 mg Diazepam (Diastat Rectal Gel -) 10 mg RC PRN PRN PRN Reason: SEIZURE ACTIVITY FOR > 3 MIN Heparin Sodium (Porcine) (Heparin -) 5,000 unit SQ BID [facility] Last Admin: 03/14/19 09:45 Dose: 5,000 unit Piperacillin Sod/Tazobactam (Sod 3.375 gm/ Dextrose) 50 mls @ 100 mls/hr IVPB Q8H-IV [facility]; Protocol Last Admin: 03/14/19 10:52 Dose: 100 mls/hr Dextrose (D5w -) 1,000 mls @ 60 mls/hr IV ASDIR [facility] Last Admin: 03/13/19 17:48 Dose: 60 mls/hr Magnesium Hydroxide (Milk Of Magnesia -) 15 ml PEG BID [facility] Last Admin: 03/14/19 09:44 Dose: 15 ml Multivitamins/Minerals (Certavite-Antioxidant Liquid) 15 ml PEG HS COUNTS INCLUDE 234 BEDS AT THE [facility] Last Admin: 03/13/19 23:13 Dose: 15 ml Senna (Senna Oral Solution -) 8.8 mg PEG DAILY COUNTS INCLUDE 234 BEDS AT THE [facility] Last Admin: 03/14/19 09:45 Dose: 8.8 mg Simethicone (Mylicon Liquid -) 40 mg GT BID COUNTS INCLUDE 234 BEDS AT THE [facility] Last Admin: 03/14/19 09:45 Dose: 40 mg Zinc Sulfate (Orazinc -) 220 mg GT HS COUNTS INCLUDE 234 BEDS AT THE [facility] Last Admin: 11/15/19 22:12 Dose: 220 mg - Objective Vital Signs: Vital Signs Temperature 98.5 F 03/14/19 15:54 Pulse Rate 77 03/14/19 15:54 Respiratory Rate 20 03/14/19 15:54 Blood Pressure 139/66 03/14/19 15:54 O2 Sat by Pulse Oximetry (%) 98 03/10/19 21:00 Constitutional: Yes: Calm Cardiovascular: Yes: S1, S2 Respiratory: Yes: On Nasal O2 Gastrointestinal: Yes: Soft Genitourinary: Yes: Incontinence Musculoskeletal: Yes: Muscle Weakness Edema: No Neurological: Yes: Pre-Existing Deficit Labs: CBC, BMP 03/14/19 06:55 03/14/19 06:55 INR, PTT INR 1.12 (0.83-1.09) H 03/10/19 12:20 Problem List - Problems (1) Cerebral palsy Code(s): G80.9 - CEREBRAL PALSY, UNSPECIFIED (2) Pneumonia Code(s): J18.9 - PNEUMONIA, UNSPECIFIED ORGANISM Qualifiers: Pneumonia type: due to unspecified organism Laterality: left Lung location: unspecified part of lung Qualified Code(s): J18.9 - Pneumonia, unspecified organism (3) Hypernatremia Code(s): E87.0 - HYPEROSMOLALITY AND HYPERNATREMIA (4) Seizure Code(s): R56.9 - UNSPECIFIED CONVULSIONS Assessment/Plan Current Medications Generic Name Dose Route Start Last Admin Trade Name Freq PRN Reason Stop Dose Admin Acetaminophen 650 mg 03/11/19 00:07 Tylenol Suppository - [place] Q6H PRN FEVER Albuterol/Ipratropium 1 amp 03/11/19 00:51 03/13/19 21:22 Duoneb - NEB 1 amp Q4H PRN Administration SHORT OF BREATH/WHEEZING Ascorbic Acid 500 mg 03/11/19 22:00 03/13/19 22:13 Vitamin C - GT 500 mg HS [facility] Administration Bacitracin 1 applic 03/11/19 10:00 03/14/19 09:46 Bacitracin - TP 1 applic BID [facility] Administration Carbamazepine 300 mg 03/12/19 07:00 03/14/19 06:24 Carbamazepine GT 300 mg AM [facility] Administration Carbamazepine 400 mg 03/12/19 22:00 03/13/19 22:09 Carbamazepine GT 400 mg HS [facility] Administration Diazepam 10 mg 03/12/19 11:57 Diastat Rectal Gel - RC PRN PRN SEIZURE ACTIVITY FOR > 3 MIN Heparin Sodium (Porcine) 5,000 unit 03/10/19 22:00 03/14/19 09:45 Heparin - SQ 5,000 unit BID [facility] Administration Piperacillin Sod/Tazobactam 50 mls @ 100 mls/hr 03/10/19 14:00 03/14/19 10:52 Sod 3.375 gm/ Dextrose IVPB 100 mls/hr Q8H-IV [facility] Administration Protocol Dextrose 1,000 mls @ 60 mls/hr 03/13/19 17:24 03/13/19 17:48 D5w - IV 60 mls/hr ASDIR [facility] Administration Magnesium Hydroxide 15 ml 03/11/19 10:00 03/14/19 09:44 Milk Of Magnesia - PEG 15 ml BID [facility] Administration Multivitamins/Minerals 15 ml 03/11/19 22:00 03/13/19 23:13 Certavite-Antioxidant Liquid PEG 15 ml HS [facility] Administration Senna 8.8 mg 03/11/19 10:00 03/14/19 09:45 Senna Oral Solution - PEG 8.8 mg DAILY [facility] Administration Simethicone 40 mg 03/12/19 22:00 03/14/19 09:45 Mylicon Liquid - GT 40 mg BID [facility] Administration Zinc Sulfate 220 mg 03/11/19 22:00 03/13/19 22:12 Orazinc - GT 220 mg HS [facility] Administration Impression 1. hypernatremia 2. hyperkalemia 3. PNA 4. cerebral palsy 5. epilepsy 6. lethargy 7. CLAUDIA - pt has a baseline stitch separator of 0.4 Plan - pt tolerating feeds, will increase free water with feeds - cont fluids for now - repeat labs in am - potassium improved - monitor renal function
[2019-03-14] MEDS: DEXTROSE 5%-WATER - 1,000 ML IV SCH (17:26)
[2019-03-14] MEDS: ASCORBIC ACID 500 MG TABLET (FP) GT SCH (21:39)
[2019-03-14] MEDS: ZINC SULFATE 220 MG CAPSULE (FP) GT SCH (21:42)
[2019-03-14] MEDS: MULTIVIT-MINERALS ORAL LIQUID PEG SCH (21:57)
[2019-03-15] MEDS ORDERED: PIPERACILLIN/TAZOBACTAM 3.375 GM VIAL IVPB ONE ×3 (01:46→17:12)
[2019-03-15] MEDS ORDERED: DEXTROSE 5%-WATER - 50 ML IVPB ONE ×3 (01:46→17:12)
[2019-03-15] MEDS: PIPERACILLIN/TAZOB 3.375 GM 3.375 GM in DEXTROSE 5%-WATER - 50 ML IVPB SCH ×3 (02:31→17:16)
[2019-03-15] MEDS: carBAMazepine 100 MG/5 ML UNIT-DOSE CUP GT SCH ×2 (06:50→22:35)
[2019-03-15] MEDS: HEPARIN NA (PORCINE) 5,000 UNITS/ML 1ML VIAL SQ SCH ×2 (11:01→22:41)
[2019-03-15] MEDS: MAGNESIUM HYDROX 2400MG/30ML ORAL SUSPENSION 30 ML CUP PEG SCH ×2 (11:01→22:37)
[2019-03-15] MEDS: SIMETHICONE 40 MG/0.6 ML BOTTLE GT SCH ×2 (11:01→22:40)
[2019-03-15] MEDS: BACITRACIN 15 GM TUBE TOPICAL OINTMENT TP SCH ×2 (11:02→22:36)
[2019-03-15] MEDS: SENNOSIDES 8.8 MG/5 ML BULK BOTTLE PEG SCH (11:02)
--- NOTE | 2019-03-15 11:33 | PN ---
Progress Note (short form) - Note Progress Note: No new change pt has no iv access and has pneumonia and high sodium no distress vs Vital Signs Period Temp Pulse Resp BP Sys/Mack Pulse Ox Last 24 Hr 98.0 F-98.8 F 63-87 20-20 124-141/55-80 GEN: NAD, alert, nonverbal HEENT: Nc/AT, copious secretions all clear, MMM LUNG: Upper respiratory sounds transmitted. Scattered rhonchi throughout. No wheezes. No accessory muscle use CARD: RRR no murmurs appreciated ABD: Soft, NT/ND, no murmurs EXT: No edema noted, strong pulses b/l Sepsis 2/2 to Pneumonia Acute hypoxic respiratory failure seen by pulmonary and he is on iv abx abd his wbc is better and he has no symptoms Seizure history stable Hypernatremia HyperChloridemia he is on iv fluids and on feeding and free fluid replacements Transaminitis improving Congenital Mosaic Syndrome stable Current Medications Acetaminophen (Tylenol Suppository -) 650 mg [place] Q6H PRN PRN Reason: FEVER Albuterol/Ipratropium (Duoneb -) 1 amp NEB Q4H PRN PRN Reason: SHORT OF BREATH/WHEEZING Last Admin: 03/13/19 21:22 Dose: 1 amp Ascorbic Acid (Vitamin C -) 500 mg GT HS [facility] Last Admin: 03/13/19 22:13 Dose: 500 mg Bacitracin (Bacitracin -) 1 applic TP BID [facility] Last Admin: 03/14/19 09:46 Dose: 1 applic Carbamazepine (Carbamazepine) 300 mg GT AM [facility] Last Admin: 03/14/19 06:24 Dose: 300 mg Carbamazepine (Carbamazepine) 400 mg GT HS [facility] Last Admin: 03/13/19 22:09 Dose: 400 mg Diazepam (Diastat Rectal Gel -) 10 mg RC PRN PRN PRN Reason: SEIZURE ACTIVITY FOR > 3 MIN Heparin Sodium (Porcine) (Heparin -) 5,000 unit SQ BID [facility] Last Admin: 03/14/19 09:45 Dose: 5,000 unit Piperacillin Sod/Tazobactam (Sod 3.375 gm/ Dextrose) 50 mls @ 100 mls/hr IVPB Q8H-IV [facility]; Protocol Last Admin: 03/14/19 01:43 Dose: 100 mls/hr Dextrose (D5w -) 1,000 mls @ 60 mls/hr IV ASDIR [facility] Last Admin: 03/13/19 17:48 Dose: 60 mls/hr Magnesium Hydroxide (Milk Of Magnesia -) 15 ml PEG BID [facility] Last Admin: 03/14/19 09:44 Dose: 15 ml Multivitamins/Minerals (Certavite-Antioxidant Liquid) 15 ml PEG HS [facility] Last Admin: 03/13/19 23:13 Dose: 15 ml Senna (Senna Oral Solution -) 8.8 mg PEG DAILY [facility] Last Admin: 03/14/19 09:45 Dose: 8.8 mg Simethicone (Mylicon Liquid -) 40 mg GT BID [facility] Last Admin: 03/14/19 09:45 Dose: 40 mg Zinc Sulfate (Orazinc -) 220 mg GT HS [facility] Last Admin: 03/13/19 22:12 Dose: 220 mg Visit type - Emergency Visit Emergency Visit: Yes ED Registration Date: 03/10/19 Care time: The patient presented to the Emergency Department on the above date and was hospitalized for further evaluation of their emergent condition. - New Patient This patient is new to me today: No - Critical Care Critical Care patient: No - Discharge Referral Referred to [facility] Med P.C.: No
--- NOTE | 2019-03-15 11:39 | PN ---
Progress Note, Physician History of Present Illness: PULMONARY AWAKE,NO DISTRESS,-CONGESTION - Current Medication List Current Medications: Active Medications Acetaminophen (Tylenol Suppository -) 650 mg [place] Q6H PRN PRN Reason: FEVER Albuterol/Ipratropium (Duoneb -) 1 amp NEB Q4H PRN PRN Reason: SHORT OF BREATH/WHEEZING Last Admin: 03/13/19 21:22 Dose: 1 amp Ascorbic Acid (Vitamin C -) 500 mg GT HS [facility] Last Admin: 03/14/19 21:39 Dose: 500 mg Bacitracin (Bacitracin -) 1 applic TP BID [facility] Last Admin: 03/14/19 21:40 Dose: 1 applic Carbamazepine (Carbamazepine) 300 mg GT AM [facility] Last Admin: 03/15/19 06:50 Dose: 300 mg Carbamazepine (Carbamazepine) 400 mg GT HS [facility] Last Admin: 03/14/19 21:37 Dose: 400 mg Diazepam (Diastat Rectal Gel -) 10 mg RC PRN PRN PRN Reason: SEIZURE ACTIVITY FOR > 3 MIN Heparin Sodium (Porcine) (Heparin -) 5,000 unit SQ BID [facility] Last Admin: 03/14/19 21:39 Dose: 5,000 unit Piperacillin Sod/Tazobactam (Sod 3.375 gm/ Dextrose) 50 mls @ 100 mls/hr IVPB Q8H-IV [facility]; Protocol Last Admin: 03/15/19 02:31 Dose: 100 mls/hr Dextrose (D5w -) 1,000 mls @ 60 mls/hr IV ASDIR [facility] Last Admin: 03/14/19 17:26 Dose: 60 mls/hr Magnesium Hydroxide (Milk Of Magnesia -) 15 ml PEG BID [facility] Last Admin: 03/14/19 21:39 Dose: 15 ml Multivitamins/Minerals (Certavite-Antioxidant Liquid) 15 ml PEG HS [facility] Last Admin: 03/14/19 21:57 Dose: 15 ml Senna (Senna Oral Solution -) 8.8 mg PEG DAILY [facility] Last Admin: 03/14/19 09:45 Dose: 8.8 mg Simethicone (Mylicon Liquid -) 40 mg GT BID [facility] Last Admin: 03/14/19 21:39 Dose: 40 mg Zinc Sulfate (Orazinc -) 220 mg GT HS [facility] Last Admin: 03/14/19 21:42 Dose: 220 mg - Objective Vital Signs: Vital Signs Temperature 98.4 F 03/15/19 06:58 Pulse Rate 87 03/15/19 06:58 Respiratory Rate 20 03/15/19 06:58 Blood Pressure 141/74 03/15/19 06:58 O2 Sat by Pulse Oximetry (%) 98 03/10/19 21:00 Constitutional: Yes: Well Nourished, Calm Eyes: Yes: WNL HENT: Yes: WNL Neck: Yes: WNL Cardiovascular: Yes: Regular Rate and Rhythm, S1, S2 Respiratory: Yes: Diminished (POOR INSPIRATORY EFFORT) Gastrointestinal: Yes: Normal Bowel Sounds, Soft Extremities: Yes: WNL Edema: No Labs: Problem List - Problems (1) Cerebral palsy Code(s): G80.9 - CEREBRAL PALSY, UNSPECIFIED (2) Pneumonia Code(s): J18.9 - PNEUMONIA, UNSPECIFIED ORGANISM Qualifiers: Pneumonia type: due to unspecified organism Laterality: left Lung location: unspecified part of lung Qualified Code(s): J18.9 - Pneumonia, unspecified organism (3) Gastrostomy tube dependent Code(s): Z93.1 - GASTROSTOMY STATUS (4) Mental retardation Code(s): F79 - UNSPECIFIED INTELLECTUAL DISABILITIES (5) Seizure Code(s): R56.9 - UNSPECIFIED CONVULSIONS Assessment/Plan IMP ACUTE RESPIRATORY FAILURE IMPROVED BILATERAL PNEUMONIA CLINICALLY IMPROVING SEVERE MENTAL RETARDATION CEREBRAL PALSY SEIZURE DISORDER HYPONATREMIA PLAN ABX PER ID SUPPLEMENTAL O2 TO MAINTAIN O2 SAT 90% OR GREATER ASPIRATION PRECAUTIONS INHALED BRONCHODILATORS F/U CHEST X-RAYS IVF MONITOR JAYLENE URIAS DR Problem List - Problems (1) Cerebral palsy Code(s): G80.9 - CEREBRAL PALSY, UNSPECIFIED (2) Pneumonia Code(s): J18.9 - PNEUMONIA, UNSPECIFIED ORGANISM (3) Gastrostomy tube dependent Code(s): Z93.1 - GASTROSTOMY STATUS (4) Mental retardation Code(s): F79 - UNSPECIFIED INTELLECTUAL DISABILITIES (5) Seizure Code(s): R56.9 - UNSPECIFIED CONVULSIONS
[2019-03-15] MEDS ORDERED: PT OWN MED DRAWER 7, Y5N ONE (11:41)
--- NOTE | 2019-03-15 13:32 | PN ---
Progress Note, Physician History of Present Illness: stable improving - Current Medication List Current Medications: Active Medications Acetaminophen (Tylenol Suppository -) 650 mg [place] Q6H PRN PRN Reason: FEVER Albuterol/Ipratropium (Duoneb -) 1 amp NEB Q4H PRN PRN Reason: SHORT OF BREATH/WHEEZING Last Admin: 03/13/19 21:22 Dose: 1 amp Ascorbic Acid (Vitamin C -) 500 mg GT HS [facility] Last Admin: 03/14/19 21:39 Dose: 500 mg Bacitracin (Bacitracin -) 1 applic TP BID [facility] Last Admin: 03/15/19 11:02 Dose: 1 applic Carbamazepine (Carbamazepine) 300 mg GT AM [facility] Last Admin: 03/15/19 06:50 Dose: 300 mg Carbamazepine (Carbamazepine) 400 mg GT HS [facility] Last Admin: 03/14/19 21:37 Dose: 400 mg Heparin Sodium (Porcine) (Heparin -) 5,000 unit SQ BID [facility] Last Admin: 03/15/19 11:01 Dose: 5,000 unit Piperacillin Sod/Tazobactam (Sod 3.375 gm/ Dextrose) 50 mls @ 100 mls/hr IVPB Q8H-IV [facility]; Protocol Last Admin: 03/15/19 11:02 Dose: 100 mls/hr Dextrose (D5w -) 1,000 mls @ 60 mls/hr IV ASDIR [facility] Last Admin: 03/14/19 17:26 Dose: 60 mls/hr Magnesium Hydroxide (Milk Of Magnesia -) 15 ml PEG BID [facility] Last Admin: 03/15/19 11:01 Dose: 15 ml Multivitamins/Minerals (Certavite-Antioxidant Liquid) 15 ml PEG HS [facility] Last Admin: 03/14/19 21:57 Dose: 15 ml Senna (Senna Oral Solution -) 8.8 mg PEG DAILY [facility] Last Admin: 03/15/19 11:02 Dose: 8.8 mg Simethicone (Mylicon Liquid -) 40 mg GT BID [facility] Last Admin: 03/15/19 11:01 Dose: 40 mg Zinc Sulfate (Orazinc -) 220 mg GT HS [facility] Last Admin: 03/14/19 21:42 Dose: 220 mg - Objective Vital Signs: Vital Signs Temperature 98.4 F 03/15/19 06:58 Pulse Rate 87 03/15/19 06:58 Respiratory Rate 20 03/15/19 06:58 Blood Pressure 141/74 03/15/19 06:58 O2 Sat by Pulse Oximetry (%) 98 03/10/19 21:00 Constitutional: Yes: No Distress, Calm Cardiovascular: Yes: S1, S2 Respiratory: Yes: Regular, CTA Bilaterally, On Nasal O2 Gastrointestinal: Yes: Normal Bowel Sounds, Soft Musculoskeletal: Yes: WNL Extremities: Yes: Other Integumentary: Yes: Other Neurological: Yes: Alert, Other Psychiatric: Yes: Other Labs: CBC, BMP 03/14/19 06:55 03/14/19 06:55 INR, PTT INR 1.12 (0.83-1.09) H 03/10/19 12:20 Assessment/Plan Problem List - Problems (1) Cerebral palsy Code(s): G80.9 - CEREBRAL PALSY, UNSPECIFIED (2) Pneumonia Code(s): J18.9 - PNEUMONIA, UNSPECIFIED ORGANISM Qualifiers: Pneumonia type: due to unspecified organism Laterality: left Lung location: unspecified part of lung Qualified Code(s): J18.9 - Pneumonia, unspecified organism (3) Gastrostomy tube dependent Code(s): Z93.1 - GASTROSTOMY STATUS (4) Mental retardation Code(s): F79 - UNSPECIFIED INTELLECTUAL DISABILITIES (5) Seizure Code(s): R56.9 - UNSPECIFIED CONVULSIONS plan continue abx aspiration precautions rest as per the team will deescalte tomorrow
--- NOTE | 2019-03-15 18:16 | PN ---
Progress Note, Physician History of Present Illness: Pt seen and examined at bedside. He appears more awake and interactive today. - Current Medication List Current Medications: Active Medications Acetaminophen (Tylenol Suppository -) 650 mg [place] Q6H PRN PRN Reason: FEVER Albuterol/Ipratropium (Duoneb -) 1 amp NEB Q4H PRN PRN Reason: SHORT OF BREATH/WHEEZING Last Admin: 03/13/19 21:22 Dose: 1 amp Ascorbic Acid (Vitamin C -) 500 mg GT HS [facility] Last Admin: 03/14/19 21:39 Dose: 500 mg Bacitracin (Bacitracin -) 1 applic TP BID [facility] Last Admin: 03/15/19 11:02 Dose: 1 applic Carbamazepine (Carbamazepine) 300 mg GT AM [facility] Last Admin: 03/15/19 06:50 Dose: 300 mg Carbamazepine (Carbamazepine) 400 mg GT HS [facility] Last Admin: 03/14/19 21:37 Dose: 400 mg Heparin Sodium (Porcine) (Heparin -) 5,000 unit SQ BID [facility] Last Admin: 03/15/19 11:01 Dose: 5,000 unit Piperacillin Sod/Tazobactam (Sod 3.375 gm/ Dextrose) 50 mls @ 100 mls/hr IVPB Q8H-IV [facility]; Protocol Last Admin: 03/15/19 17:16 Dose: 100 mls/hr Dextrose (D5w -) 1,000 mls @ 60 mls/hr IV ASDIR [facility] Last Admin: 03/14/19 17:26 Dose: 60 mls/hr Magnesium Hydroxide (Milk Of Magnesia -) 15 ml PEG BID [facility] Last Admin: 03/15/19 11:01 Dose: 15 ml Multivitamins/Minerals (Certavite-Antioxidant Liquid) 15 ml PEG HS [facility] Last Admin: 03/14/19 21:57 Dose: 15 ml Senna (Senna Oral Solution -) 8.8 mg PEG DAILY [facility] Last Admin: 03/15/19 11:02 Dose: 8.8 mg Simethicone (Mylicon Liquid -) 40 mg GT BID [facility] Last Admin: 03/15/19 11:01 Dose: 40 mg Zinc Sulfate (Orazinc -) 220 mg GT HS [facility] Last Admin: 03/14/19 21:42 Dose: 220 mg - Objective Vital Signs: Vital Signs Temperature 98.4 F 03/15/19 15:33 Pulse Rate 56 L 11/17/19 15:33 Respiratory Rate 20 03/15/19 15:33 Blood Pressure 123/55 L 03/15/19 15:33 O2 Sat by Pulse Oximetry (%) 98 03/10/19 21:00 Constitutional: Yes: Calm Eyes: Yes: Conjunctiva Clear HENT: Yes: Atraumatic Cardiovascular: Yes: S1, S2 Respiratory: Yes: CTA Bilaterally Gastrointestinal: Yes: Soft, Other (peg) Genitourinary: Yes: Incontinence Musculoskeletal: Yes: Muscle Weakness Edema: No Neurological: Yes: Pre-Existing Deficit Labs: CBC, BMP 03/14/19 06:55 03/14/19 06:55 INR, PTT INR 1.12 (0.83-1.09) H 03/10/19 12:20 Problem List - Problems (1) Cerebral palsy Code(s): G80.9 - CEREBRAL PALSY, UNSPECIFIED (2) Pneumonia Code(s): J18.9 - PNEUMONIA, UNSPECIFIED ORGANISM Qualifiers: Pneumonia type: due to unspecified organism Laterality: left Lung location: unspecified part of lung Qualified Code(s): J18.9 - Pneumonia, unspecified organism (3) Hypernatremia Code(s): E87.0 - HYPEROSMOLALITY AND HYPERNATREMIA (4) Seizure Code(s): R56.9 - UNSPECIFIED CONVULSIONS Assessment/Plan Current Medications Generic Name Dose Route Start Last Admin Trade Name Freq PRN Reason Stop Dose Admin Acetaminophen 650 mg 03/11/19 00:07 Tylenol Suppository - [place] Q6H PRN FEVER Albuterol/Ipratropium 1 amp 03/11/19 00:51 03/13/19 21:22 Duoneb - NEB 1 amp Q4H PRN Administration SHORT OF BREATH/WHEEZING Ascorbic Acid 500 mg 03/11/19 22:00 03/14/19 21:39 Vitamin C - GT 500 mg HS [facility] Administration Bacitracin 1 applic 03/11/19 10:00 03/15/19 11:02 Bacitracin - TP 1 applic BID [facility] Administration Carbamazepine 300 mg 03/12/19 07:00 03/15/19 06:50 Carbamazepine GT 300 mg AM [facility] Administration Carbamazepine 400 mg 03/12/19 22:00 03/14/19 21:37 Carbamazepine GT 400 mg HS [facility] Administration Heparin Sodium (Porcine) 5,000 unit 03/10/19 22:00 03/15/19 11:01 Heparin - SQ 5,000 unit BID [facility] Administration Piperacillin Sod/Tazobactam 50 mls @ 100 mls/hr 03/10/19 14:00 03/15/19 17:16 Sod 3.375 gm/ Dextrose IVPB 100 mls/hr Q8H-IV [facility] Administration Protocol Dextrose 1,000 mls @ 60 mls/hr 03/13/19 17:24 03/14/19 17:26 D5w - IV 60 mls/hr ASDIR [facility] Administration Magnesium Hydroxide 15 ml 03/11/19 10:00 03/15/19 11:01 Milk Of Magnesia - PEG 15 ml BID [facility] Administration Multivitamins/Minerals 15 ml 03/11/19 22:00 03/14/19 21:57 Certavite-Antioxidant Liquid PEG 15 ml HS [facility] Administration Senna 8.8 mg 03/11/19 10:00 03/15/19 11:02 Senna Oral Solution - PEG 8.8 mg DAILY [facility] Administration Simethicone 40 mg 03/12/19 22:00 03/15/19 11:01 Mylicon Liquid - GT 40 mg BID [facility] Administration Zinc Sulfate 220 mg 03/11/19 22:00 03/14/19 21:42 Orazinc - GT 220 mg HS [facility] Administration Impression 1. hypernatremia 2. hyperkalemia 3. PNA 4. cerebral palsy 5. epilepsy 6. lethargy 7. 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
[2019-03-15] MEDS: ZINC SULFATE 220 MG CAPSULE (FP) GT SCH (22:37)
[2019-03-15] MEDS: ASCORBIC ACID 500 MG TABLET (FP) GT SCH (22:38)
[2019-03-15] MEDS: MULTIVIT-MINERALS ORAL LIQUID PEG SCH (22:39)
[2019-03-16] MEDS: DEXTROSE 5%-WATER - 1,000 ML IV SCH (00:08)
[2019-03-16] MEDS ORDERED: PIPERACILLIN/TAZOBACTAM 3.375 GM VIAL IVPB ONE ×2 (01:10→11:42)
[2019-03-16] MEDS ORDERED: DEXTROSE 5%-WATER - 50 ML IVPB ONE ×2 (01:10→11:42)
[2019-03-16] MEDS: PIPERACILLIN/TAZOB 3.375 GM 3.375 GM in DEXTROSE 5%-WATER - 50 ML IVPB SCH ×2 (01:32→11:53)
[2019-03-16 06:33] VITALS: TEMP 98.2
[2019-03-16] MEDS: carBAMazepine 100 MG/5 ML UNIT-DOSE CUP GT SCH (06:38)
[2019-03-16 08:51] LABS: ALBUMIN 3.1 g/dl (3.4-5.0); BILIRUBIN,TOTAL 0.3 mg/dL (0.2-1); BLOOD UREA NITROGEN 11.4 mg/dL (7-18); CALCIUM 8.8 mg/dL (8.5-10.1); CREATININE 0.8 mg/dL (0.55-1.3); POTASSIUM 3.8 mmol/L (3.5-5.1); TOT PROT 7.1 g/dl (6.4-8.2)
--- NOTE | 2019-03-16 11:15 | PN ---
Progress Note, Physician History of Present Illness: PULMONARY AWAKE,NO DISTRESS,- CONGESTION - Current Medication List Current Medications: Active Medications Acetaminophen (Tylenol Suppository -) 650 mg NE Q6H PRN PRN Reason: FEVER Ascorbic Acid (Vitamin C -) 500 mg GT HS [facility] Last Admin: 03/15/19 22:38 Dose: 500 mg Bacitracin (Bacitracin -) 1 applic TP BID [facility] Last Admin: 03/15/19 22:36 Dose: 1 applic Carbamazepine (Carbamazepine) 300 mg GT AM [facility] Last Admin: 03/16/19 06:38 Dose: 300 mg Carbamazepine (Carbamazepine) 400 mg GT HS [facility] Last Admin: 03/15/19 22:35 Dose: 400 mg Heparin Sodium (Porcine) (Heparin -) 5,000 unit SQ BID [facility] Last Admin: 03/15/19 22:41 Dose: 5,000 unit Piperacillin Sod/Tazobactam (Sod 3.375 gm/ Dextrose) 50 mls @ 100 mls/hr IVPB Q8H-IV [facility]; Protocol Last Admin: 03/16/19 01:32 Dose: 100 mls/hr Dextrose (D5w -) 1,000 mls @ 60 mls/hr IV ASDIR [facility] Last Admin: 03/16/19 00:08 Dose: 60 mls/hr Magnesium Hydroxide (Milk Of Magnesia -) 15 ml PEG BID [facility] Last Admin: 03/15/19 22:37 Dose: 15 ml Multivitamins/Minerals (Certavite-Antioxidant Liquid) 15 ml PEG HS [facility] Last Admin: 03/15/19 22:39 Dose: 15 ml Senna (Senna Oral Solution -) 8.8 mg PEG DAILY [facility] Last Admin: 03/15/19 11:02 Dose: 8.8 mg Simethicone (Mylicon Liquid -) 40 mg GT BID [facility] Last Admin: 03/15/19 22:40 Dose: 40 mg Zinc Sulfate (Orazinc -) 220 mg GT HS [facility] Last Admin: 03/15/19 22:37 Dose: 220 mg - Objective Vital Signs: Vital Signs Temperature 98.2 F 03/16/19 06:25 Pulse Rate 77 03/16/19 06:25 Respiratory Rate 18 03/16/19 06:25 Blood Pressure 131/65 03/16/19 06:25 O2 Sat by Pulse Oximetry (%) 98 03/10/19 21:00 Constitutional: Yes: Well Nourished, Calm Eyes: Yes: WNL HENT: Yes: WNL Neck: Yes: WNL Cardiovascular: Yes: Regular Rate and Rhythm, S1, S2 Respiratory: Yes: Rhonchi (FEW RHONCHI) Gastrointestinal: Yes: Normal Bowel Sounds, Soft Extremities: Yes: WNL Edema: No Labs: CBC, BMP 03/14/19 06:55 03/16/19 07:15 INR, PTT INR 1.12 (0.83-1.09) H 03/10/19 12:20 - ....Imaging Chest X-ray: Report Reviewed, Image Reviewed (IMPROVING) Problem List - Problems (1) Cerebral palsy Code(s): G80.9 - CEREBRAL PALSY, UNSPECIFIED (2) Pneumonia Code(s): J18.9 - PNEUMONIA, UNSPECIFIED ORGANISM Qualifiers: Pneumonia type: due to unspecified organism Laterality: left Lung location: unspecified part of lung Qualified Code(s): J18.9 - Pneumonia, unspecified organism (3) Gastrostomy tube dependent Code(s): Z93.1 - GASTROSTOMY STATUS (4) Mental retardation Code(s): F79 - UNSPECIFIED INTELLECTUAL DISABILITIES (5) Seizure Code(s): R56.9 - UNSPECIFIED CONVULSIONS Assessment/Plan IMP ACUTE RESPIRATORY FAILURE IMPROVED BILATERAL PNEUMONIA CLINICALLY IMPROVING SEVERE MENTAL RETARDATION CEREBRAL PALSY SEIZURE DISORDER HYPERNATREMIA IMPROVED PLAN ABX PER ID SUPPLEMENTAL O2 TO MAINTAIN O2 SAT 90% OR GREATER ASPIRATION PRECAUTIONS INHALED BRONCHODILATORS F/U CHEST X-RAYS IVF MONITOR JAYLENE URIAS DR Problem List - Problems (1) Cerebral palsy Code(s): G80.9 - CEREBRAL PALSY, UNSPECIFIED (2) Pneumonia Code(s): J18.9 - PNEUMONIA, UNSPECIFIED ORGANISM (3) Gastrostomy tube dependent Code(s): Z93.1 - GASTROSTOMY STATUS (4) Mental retardation Code(s): F79 - UNSPECIFIED INTELLECTUAL DISABILITIES (5) Seizure Code(s): R56.9 - UNSPECIFIED CONVULSIONS
--- NOTE | 2019-03-16 11:19 | PN ---
Progress Note, Physician History of Present Illness: stable still with cough looks better - Current Medication List Current Medications: Active Medications Acetaminophen (Tylenol Suppository -) 650 mg NE Q6H PRN PRN Reason: FEVER Ascorbic Acid (Vitamin C -) 500 mg GT HS [facility] Last Admin: 03/15/19 22:38 Dose: 500 mg Bacitracin (Bacitracin -) 1 applic TP BID [facility] Last Admin: 03/15/19 22:36 Dose: 1 applic Carbamazepine (Carbamazepine) 300 mg GT AM [facility] Last Admin: 03/16/19 06:38 Dose: 300 mg Carbamazepine (Carbamazepine) 400 mg GT HS [facility] Last Admin: 03/15/19 22:35 Dose: 400 mg Heparin Sodium (Porcine) (Heparin -) 5,000 unit SQ BID [facility] Last Admin: 03/15/19 22:41 Dose: 5,000 unit Piperacillin Sod/Tazobactam (Sod 3.375 gm/ Dextrose) 50 mls @ 100 mls/hr IVPB Q8H-IV [facility]; Protocol Last Admin: 03/16/19 01:32 Dose: 100 mls/hr Dextrose (D5w -) 1,000 mls @ 60 mls/hr IV ASDIR [facility] Last Admin: 03/16/19 00:08 Dose: 60 mls/hr Magnesium Hydroxide (Milk Of Magnesia -) 15 ml PEG BID [facility] Last Admin: 03/15/19 22:37 Dose: 15 ml Multivitamins/Minerals (Certavite-Antioxidant Liquid) 15 ml PEG HS [facility] Last Admin: 03/15/19 22:39 Dose: 15 ml Senna (Senna Oral Solution -) 8.8 mg PEG DAILY [facility] Last Admin: 03/15/19 11:02 Dose: 8.8 mg Simethicone (Mylicon Liquid -) 40 mg GT BID [facility] Last Admin: 03/15/19 22:40 Dose: 40 mg Zinc Sulfate (Orazinc -) 220 mg GT HS [facility] Last Admin: 03/15/19 22:37 Dose: 220 mg - Objective Vital Signs: Vital Signs Temperature 98.2 F 03/16/19 06:25 Pulse Rate 77 03/16/19 06:25 Respiratory Rate 18 03/16/19 06:25 Blood Pressure 131/65 03/16/19 06:25 O2 Sat by Pulse Oximetry (%) 98 03/10/19 21:00 Constitutional: Yes: No Distress, Calm Cardiovascular: Yes: S1, S2 Respiratory: Yes: Regular, CTA Bilaterally Gastrointestinal: Yes: Normal Bowel Sounds, Soft Musculoskeletal: Yes: WNL Extremities: Yes: WNL Neurological: Yes: Alert, Other Psychiatric: Yes: Other Labs: CBC, BMP 03/14/19 06:55 03/16/19 07:15 INR, PTT INR 1.12 (0.83-1.09) H 03/10/19 12:20 Assessment/Plan Problem List - Problems (1) Cerebral palsy Code(s): G80.9 - CEREBRAL PALSY, UNSPECIFIED (2) Pneumonia Code(s): J18.9 - PNEUMONIA, UNSPECIFIED ORGANISM Qualifiers: Pneumonia type: due to unspecified organism Laterality: left Lung location: unspecified part of lung Qualified Code(s): J18.9 - Pneumonia, unspecified organism (3) Gastrostomy tube dependent Code(s): Z93.1 - GASTROSTOMY STATUS (4) Mental retardation Code(s): F79 - UNSPECIFIED INTELLECTUAL DISABILITIES (5) Seizure Code(s): R56.9 - UNSPECIFIED CONVULSIONS plan patient ca be switched to po augmentin for couple of days can be d/wilberto
[2019-03-16] MEDS ORDERED: PT OWN MED DRAWER 7, Y5N ONE (11:41)
[2019-03-16] MEDS: MAGNESIUM HYDROX 2400MG/30ML ORAL SUSPENSION 30 ML CUP PEG SCH (11:52)
[2019-03-16] MEDS: HEPARIN NA (PORCINE) 5,000 UNITS/ML 1ML VIAL SQ SCH (11:53)
[2019-03-16] MEDS: SIMETHICONE 40 MG/0.6 ML BOTTLE GT SCH (11:54)
[2019-03-16] MEDS: SENNOSIDES 8.8 MG/5 ML BULK BOTTLE PEG SCH (11:54)
[2019-03-16] MEDS: BACITRACIN 15 GM TUBE TOPICAL OINTMENT TP SCH (12:00)
--- NOTE | 2019-03-16 12:57 | PN ---
Progress Note, Physician History of Present Illness: Pt seen and examined at bedside. He appears comfortable. - Current Medication List Current Medications: Active Medications Acetaminophen (Tylenol Suppository -) 650 mg [place] Q6H PRN PRN Reason: FEVER Ascorbic Acid (Vitamin C -) 500 mg GT HS [facility] Last Admin: 03/15/19 22:38 Dose: 500 mg Bacitracin (Bacitracin -) 1 applic TP BID [facility] Last Admin: 03/15/19 22:36 Dose: 1 applic Carbamazepine (Carbamazepine) 300 mg GT AM [facility] Last Admin: 03/16/19 06:38 Dose: 300 mg Carbamazepine (Carbamazepine) 400 mg GT HS [facility] Last Admin: 03/15/19 22:35 Dose: 400 mg Heparin Sodium (Porcine) (Heparin -) 5,000 unit SQ BID [facility] Last Admin: 03/16/19 11:53 Dose: 5,000 unit Piperacillin Sod/Tazobactam (Sod 3.375 gm/ Dextrose) 50 mls @ 100 mls/hr IVPB Q8H-IV [facility]; Protocol Last Admin: 03/16/19 11:53 Dose: 100 mls/hr Dextrose (D5w -) 1,000 mls @ 60 mls/hr IV ASDIR [facility] Last Admin: 03/16/19 00:08 Dose: 60 mls/hr Magnesium Hydroxide (Milk Of Magnesia -) 15 ml PEG BID [facility] Last Admin: 03/16/19 11:52 Dose: 15 ml Multivitamins/Minerals (Certavite-Antioxidant Liquid) 15 ml PEG HS [facility] Last Admin: 03/15/19 22:39 Dose: 15 ml Senna (Senna Oral Solution -) 8.8 mg PEG DAILY [facility] Last Admin: 03/16/19 11:54 Dose: 8.8 mg Simethicone (Mylicon Liquid -) 40 mg GT BID [facility] Last Admin: 03/16/19 11:54 Dose: 40 mg Zinc Sulfate (Orazinc -) 220 mg GT HS [facility] Last Admin: 03/15/19 22:37 Dose: 220 mg - Objective Vital Signs: Vital Signs Temperature 98.2 F 03/16/19 06:25 Pulse Rate 77 03/16/19 06:25 Respiratory Rate 18 03/16/19 06:25 Blood Pressure 131/65 03/16/19 06:25 O2 Sat by Pulse Oximetry (%) 98 03/10/19 21:00 Constitutional: Yes: Calm Eyes: Yes: Conjunctiva Clear Cardiovascular: Yes: S1, S2 Respiratory: Yes: On Nasal O2 Gastrointestinal: Yes: Soft, Other (peg) Genitourinary: Yes: Incontinence Musculoskeletal: Yes: Muscle Weakness Edema: No Neurological: Yes: Pre-Existing Deficit Labs: CBC, BMP 03/14/19 06:55 03/16/19 07:15 INR, PTT INR 1.12 (0.83-1.09) H 03/10/19 12:20 Problem List - Problems (1) Cerebral palsy Code(s): G80.9 - CEREBRAL PALSY, UNSPECIFIED (2) Pneumonia Code(s): J18.9 - PNEUMONIA, UNSPECIFIED ORGANISM Qualifiers: Qualified Code(s): J18.9 - Pneumonia, unspecified organism (3) Hypernatremia Code(s): E87.0 - HYPEROSMOLALITY AND HYPERNATREMIA (4) Seizure Code(s): R56.9 - UNSPECIFIED CONVULSIONS Assessment/Plan Current Medications Generic Name Dose Route Start Last Admin Trade Name Freq PRN Reason Stop Dose Admin Acetaminophen 650 mg 03/11/19 00:07 Tylenol Suppository - [place] Q6H PRN FEVER Ascorbic Acid 500 mg 03/11/19 22:00 03/15/19 22:38 Vitamin C - GT 500 mg HS [facility] Administration Bacitracin 1 applic 03/11/19 10:00 03/15/19 22:36 Bacitracin - TP 1 applic BID [facility] Administration Carbamazepine 300 mg 03/12/19 07:00 03/16/19 06:38 Carbamazepine GT 300 mg AM [facility] Administration Carbamazepine 400 mg 03/12/19 22:00 03/15/19 22:35 Carbamazepine GT 400 mg HS [facility] Administration Heparin Sodium (Porcine) 5,000 unit 03/10/19 22:00 03/16/19 11:53 Heparin - SQ 5,000 unit BID [facility] Administration Piperacillin Sod/Tazobactam 50 mls @ 100 mls/hr 03/10/19 14:00 03/16/19 11:53 Sod 3.375 gm/ Dextrose IVPB 100 mls/hr Q8H-IV [facility] Administration Protocol Dextrose 1,000 mls @ 60 mls/hr 03/13/19 17:24 03/16/19 00:08 D5w - IV 60 mls/hr ASDIR [facility] Administration Magnesium Hydroxide 15 ml 03/11/19 10:00 03/16/19 11:52 Milk Of Magnesia - PEG 15 ml BID [facility] Administration Multivitamins/Minerals 15 ml 03/11/19 22:00 03/15/19 22:39 Certavite-Antioxidant Liquid PEG 15 ml HS [facility] Administration Senna 8.8 mg 03/11/19 10:00 03/16/19 11:54 Senna Oral Solution - PEG 8.8 mg DAILY [facility] Administration Simethicone 40 mg 03/12/19 22:00 03/16/19 11:54 Mylicon Liquid - GT 40 mg BID [facility] Administration Zinc Sulfate 220 mg 03/11/19 22:00 03/15/19 22:37 Orazinc - GT 220 mg HS [facility] Administration Impression 1. hypernatremia 2. hyperkalemia 3. PNA 4. cerebral palsy 5. epilepsy 6. lethargy 7. CLAUDIA - pt has a baseline manager of investigations of 0.4 Plan - sodium improved - cont feeds as he is tolerating - can d/c fluids - manager of investigations is improvng - repeat labs in am
--- NOTE | 2019-03-16 13:04 | DS ---
Physical Exam: SUBJECTIVE: Patient seen and examined at bedside. Resting comfortably without complaint. Appears to be at baseline mentation. Discussed case with Dr. Velarde ([facility]) - pt for return to facility today at 3pm. OBJECTIVE: Vital Signs Period Temp Pulse Resp BP Sys/Mack Pulse Ox Last 24 Hr 97.5 F-98.4 F 56-86 18-20 120-139/55-90 PHYSICAL EXAM GENERAL: The patient is in no acute distress HEAD: Normal with no signs of trauma. EYES: PERRL, extraocular movements intact, sclera anicteric, conjunctiva clear. ENT: Ears normal, nares patent, oropharynx clear without exudates, moist mucous membranes. NECK: Trachea midline, supple LUNGS: Breath sounds equal, clear to auscultation. HEART: Regular rate and rhythm, S1, S2 without murmur, rub or gallop. ABDOMEN: Soft, nontender, nondistended. +GT in place. no erythema around tube EXTREMITIES: 2+ pulses, warm, well-perfused, no edema. NEUROLOGICAL: able to move UE, LE on own. unable to follow commands. LABS Laboratory Results - last 24 hr 03/16/19 07:15 Sodium 141 Potassium 3.8 Chloride 106 Carbon Dioxide 30 Anion Gap 5 L BUN 11.4 Creatinine 0.8 Est GFR (CKD-EPI)AfAm 143.90 Est GFR (CKD-EPI)NonAf 124.16 Random Glucose 84 Calcium 8.8 Total Bilirubin 0.3 AST 27 ALT 26 Alkaline Phosphatase 83 Total Protein 7.1 Albumin 3.1 L Additional lab work 03/10/19 03/10/19 03/10/19 12:20 12:20 12:20 WBC 8.0 Hgb 14.8 Hct 44.4 Plt Count 141 Sodium 147 H Potassium 4.8 Chloride 113 H BUN 23.7 H Creatinine 0.7 Random Glucose 73 L Magnesium 2.5 H AST 65 H ALT 37 B-Natriuretic Peptide Ur Leukocyte Esterase 1+ H Urine WBC (Auto) 35 Urine RBC (Auto) 7 Influenza A (Rapid) Influenza B (Rapid) RSV Rapid 03/10/19 03/10/19 03/11/19 18:00 18:00 01:15 WBC Hgb Hct Plt Count Sodium 147 H Potassium 3.9 Chloride 114 H BUN 21.3 H Creatinine 0.8 Random Glucose Magnesium AST ALT B-Natriuretic Peptide Ur Leukocyte Esterase Urine WBC (Auto) Urine RBC (Auto) Influenza A (Rapid) Negative Influenza B (Rapid) Negative RSV Rapid Negative 03/11/19 03/12/19 07:12 07:10 WBC Hgb Hct Plt Count Sodium 150 H Potassium 3.7 Chloride 115 H BUN 19.2 H Creatinine 1.0 Random Glucose Magnesium AST ALT B-Natriuretic Peptide 292.1 H Ur Leukocyte Esterase Urine WBC (Auto) Urine RBC (Auto) Influenza A (Rapid) Influenza B (Rapid) RSV Rapid Microbiology 03/11/19 13:55 Urine For Antigen Detection Legionella Antigen - Final 03/11/19 13:55 Urine For Antigen Detection Streptococcus pneumoniae Antigen (M - Final 03/10/19 12:20 Urine - Urine - Catheterized Urine Culture - Final Pseudomonas Aeruginosa 03/10/19 12:20 Blood - Peripheral Venous Blood Culture - Final NO GROWTH AFTER 5 DAYS INCUBATION 03/10/19 12:20 Blood - Peripheral Venous Blood Culture - Final NO GROWTH AFTER 5 DAYS INCUBATION Imaging 03/10/19: CXR: old rib deformities, scoliosis, convexity to the left. possible infiltrate in L hemithorax field. angles are sharp soft tissues intact 03/11/19: CT chest: trace pleural effusion, fluffy alveolar infiltrates involving the left lung and to lesser degree the right lower lobe. bronchiectasis with peribronchial consolidation medial left lower lobe 03/16/19: CXR: chronic chest wall deformity, prominent mediastinum but no sign of acute process at this time HOSPITAL COURSE: Date of Admission:03/10/19 Date of Discharge: 03/16/19 Admit diagnosis: Aspiration PNA 23 y/o M from [place] with PMH developmental delay, cerebral palsy, seizure disorder, legally blind, congenital mosaic syndrome who presented for sepsis and acute respiratory failure likely 2/2 L sided PNA. Pt is aspiration risk. He was managed in the hospital with IV zosyn for 6-7 day duration. He is being continued on augmentin 600mg GT TID for three additional days. Upon d/c, pt at baseline mentation, appears comfortable. Vital signs hemodynamically stable. During stay, pt also managed for hypernatremia with IVF d5w and additional water flushes for tube feeds. Case d/w Dr. Velarde from [facility], approved for transfer. Nurses completed signout as well. Minutes to complete discharge: 46 Discharge Summary Problems reviewed: Yes Reason For Visit: PNEUMONIA Current Active Problems Cerebral palsy (Acute) Pneumonia (Acute) Condition: Good - Instructions Diet, Activity, Other Instructions: You were in the hospital for Pneumonia. You were seen by an infection doctor, as well as a lung doctor. You were treated with IV antibiotics and improved. You were also treated for high sodium levels when you were present in the hospital, which have since improved with fluids and increased water flushes. You are being sent home on the following new medication: Augmentin 600mg GT TID x 3 more days. (you already had received IV zosyn previous) Your tube feeds were adjusted while here. You were on TF Jevity 1.5. Starting rate 20 cc/hr with 10 cc q6h titration, 40 cc/hr goal rate which you tolerated well. Additional water flush added while here was 30 cc/hr. This was discussed with our hospice educator. Please continue your other home medications. Follow up -Please follow up with Dr. Velarde from [facility] for continued care this week , upon your return to the facility If you develop shortness of breath or chest pain, please go to the hospital. Referrals: Dr. John Velarde [Other] - 1 Week Disposition: HOME - Home Medications Comprehensive Discharge Medication List: Ambulatory Orders Ascorbic Acid 500 mg GT BID 06/26/18 Carbamazepine [Tegretol -] 400 mg GT HS 06/26/18 Lactulose 20 gm GT BID 06/26/18 Magnesium Hydroxide [Milk of Magnesia] 15 ml GT BID 06/26/18 Protein Supplement [Promod] 30 ml GT DAILY 12/06/18 Bacitracin - [Bacitracin Topical Ointment -] 1 applic TP BID 03/10/19 Diazepam Rectal Gel [Diastat Rectal Gel -] 10 mg PRN 03/10/19 Sennosides [Senna] 8.8 mg PEG DAILY 03/10/19 Simethicone Liquid [Mylicon Liquid -] 40 mg BID 03/10/19 Albuterol 2.5/Ipratropium 0.5 [Duoneb -] 1 amp IH Q4H PRN 03/11/19 Mineral Oil/I-Prop Myr/Water [Minerin Lotion] 473 ml TP DAILY 03/11/19 Multivitamins [Multivit ([facility] Formulary)] 1 tab GT HS 03/11/19 Neomycin/Polymyxn/Hc [Cortisporin *Otic Solution*-] 1 drop TP TID 03/11/19 Nutritional Supplement [Nutren 2.0] 250 ml GT Q12H 03/11/19 Acetaminophen Suppository [Tylenol .Suppository -] 650 mg DE Q6H PRN supp.rect 03/16/19 Amoxicillin/Potassium Clav [Augmentin ES Suspension] 600 mg GT TID #1 bottle This patient is new to me today: Yes Date on this admission: 03/16/19 Emergency Visit: No Critical Care patient: No - Discharge Referral Referred to [facility] Med [facility].C.: No ATTENDING PHYSICIAN STATEMENT I saw and evaluated the patient. I reviewed the resident's note and discussed the case with the resident. I agree with the resident's findings and plan as documented. SUBJECTIVE: OBJECTIVE: ASSESSMENT AND PLAN:
[2019-03-16 15:22] VITALS: BP 133/73; PULSE 64
== END 2019-03-16 15:51 | disposition home or self-care (01) | DRG 720 ==
LOC: JER 11:14 → MERGE 15:05 → JERBED 15:05 → J5S 16:54
PROVIDERS: ADMIT Internal Medicine; ATTEND Internal Medicine
DX: A41.9 Sepsis, unspecified organism (principal); G80.9 Cerebral palsy, unspecified; G40.909 Epilepsy, unspecified, not intractable, without status epilepticus; F72 Severe intellectual disabilities; Z93.1 Gastrostomy status; R00.0 Tachycardia, unspecified; N39.0 Urinary tract infection, site not specified; E87.5 Hyperkalemia; J47.9 Bronchiectasis, uncomplicated; R53.2 Functional quadriplegia; E87.0 Hyperosmolality and hypernatremia; J18.9 Pneumonia, unspecified organism; J96.01 Acute respiratory failure with hypoxia; R74.0 Nonspecific elevation of levels of transaminase and lactic acid dehydrogenase [LDH]; E87.1 Hypo-osmolality and hyponatremia
CPT/HCPCS: 36415; 71045-TC-FY; 71250-TC; 80048; 80053; 81003; 82436; 82565; 82803; 82962; 83605; 83735; 83880; 84100; 84133; 84300; 84484; 85025; 85027; 85610; 85730; 87040; 87086; 87186; 87804; 87807; 87899; 93005; 93010; 93306-TC; 94640; 99282-25; J0131; J1644; J7030

== ENCOUNTER 2019-05-13 12:59 | Emergency (ER) | payer OTHER ==
[2019-05-13 13:22] VITALS: BMI 32.1
[2019-05-13] MEDS ORDERED: IBUPROFEN 100 MG/5 ML UNIT DOSE CUPS NGT ONE (13:31)
[2019-05-13] MEDS ORDERED: IBUPROFEN 100 MG/5 ML UNIT DOSE CUPS PEG ONE (13:39)
--- NOTE | 2019-05-13 13:50 | PDOC ---
History of Present Illness - General Chief Complaint: Weakness Stated Complaint: FLU Time Seen by Provider: 05/13/19 13:16 History Source: Care Provider, Longterm Records, Old Records Exam Limitations: Other (Baseline Mental Status) - History of Present Illness Initial Comments: HPI: 23 y/o male presenting to [facility] ER from [facility] for evaluation of a fever of 101. Transfer paperwork indicates pt received Tylenol at 10am. Pt is nonverbal with . 13 May 2019 13:31 PM Telephone conversation with Etelvina at [place]. She reported the pt seemed less active than normal, and that another resident that stays closeby was recently diagnosed with the flu. Pt caregiver at bedside reports the pt is interacting at his baseline. Medical Hx: - Developmental delay, - Cerebral palsy - Seizure disorder - Legally blind - Congenital mosaic syndrome Review of Systems: Unable to obtain secondary to pts baseline Physical Examination: Vital signs and nursing notes reviewed. Constitutional- Nontoxic adult male in no acute distress or obvious discomfort. Found semi-fowlers on hospital bed. Head- Macrocephalic. No obvious external signs of trauma. Eyes- Sclerae white. Conjunctiva moist and not injected. Cardiovascular / Chest- Regular rate and regular rhythm. No murmur, rubs, clicks , or gallops. Peripheral pulses- radial pulses full. Respiratory- Frequently grunting. Breathing unlabored. Equal chest rise and fall. Clear to auscultation bilaterally. No stridor, no wheezing, no rhonchi. Gastrointestinal- abdomen is soft, non-tender, non-distended. PEG tube in LUG; site clean, dry, and intact. Neuro- Alert with eyes open spontaneously. Aggressively withdrawals from even light physical touch. Moving all four extremities spontaneously. Skin- Warm, dry, and intact. No bruising, rashes, or other lesions. MDM: 23 y/o male presenting with fever and questionable change in activity level. Febrile at triage; given Motrin. Vitals unremarkable for hypotension or tachycardia. Normoxic on room air. Physical exam as described above. Will obtain influenza given possible exposure and fever. Low suspicion for PNA, but will obtain CXR given h/o of aspirational PNA. Suspect possible viral syndrome. Low suspicion for SBI without other localizing features. CXR unremarkable for acute cardiopulmonary. Radiology report pending. Influenza negative. Fever trended downward. Repeat vitals again unremarkable for hypotension or tachycardia. SPO2 downtrended slightly, but this measurement was obtained while the pt was asleep. Suspect secondary to sleeping position. No respiratory distress observed. Will d/c back to [place] for further care. Dominick Alfaro M.D., PGY2 Emergency Medicine Resident Past History - Past Medical History Allergies/Adverse Reactions: Allergies Allergy/AdvReac Type Severity Reaction Status Date / Time erythromycin base Allergy Verified 05/13/19 13:24 [Erythromycin Base] Macrolide Antibiotics Allergy Verified 05/13/19 13:24 KETOLIDES Allergy Uncoded 05/13/19 13:24 Home Medications: Ambulatory Orders Ascorbic Acid 500 mg GT BID 06/26/18 Carbamazepine [Tegretol -] 400 mg GT HS 06/26/18 Lactulose 20 gm GT BID 06/26/18 Magnesium Hydroxide [Milk of Magnesia] 15 ml GT BID 06/26/18 Protein Supplement [Promod] 30 ml GT DAILY 12/06/18 Bacitracin - [Bacitracin Topical Ointment -] 1 applic TP BID 03/10/19 Diazepam Rectal Gel [Diastat Rectal Gel -] 10 mg PRN 03/10/19 Sennosides [Senna] 8.8 mg PEG DAILY 03/10/19 Simethicone Liquid [Mylicon Liquid -] 40 mg BID 03/10/19 Albuterol 2.5/Ipratropium 0.5 [Duoneb -] 1 amp IH Q4H PRN 03/11/19 Mineral Oil/I-Prop Myr/Water [Minerin Lotion] 473 ml TP DAILY 03/11/19 Multivitamins [Multivit ([facility] Formulary)] 1 tab GT HS 03/11/19 Neomycin/Polymyxn/Hc [Cortisporin *Otic Solution*-] 1 drop TP TID 03/11/19 Nutritional Supplement [Nutren 2.0] 250 ml GT Q12H 03/11/19 Acetaminophen Suppository [Tylenol .Suppository -] 650 mg [place] Q6H PRN supp.rect 03/16/19 Amoxicillin/Potassium Clav [Augmentin ES Suspension] 600 mg GT TID #1 bottle COPD: No Psychiatric Problems: (MR, VITILIGO, LEGALLY BLIND, NPO AT ALL TIMES) Seizures: Yes Thyroid Disease: (hydrocephaly, hearing loss profound, right leg fracture) - Surgical History Abdominal Surgery: Yes (GT) GI Surgery: Yes (gastrostomy) - Immunization History Immunization Up to Date: Yes - Psycho Social/Smoking Cessation Hx Smoking Status: No Smoking History: Never smoked Have you smoked in the past 12 months: No Number of Cigarettes Smoked Daily: 0 Hx Alcohol Use: No Drug/Substance Use Hx: No Substance Use Type: None Hx Substance Use Treatment: No *Physical Exam - Vital Signs Last Vital Signs Temp Pulse Resp BP Pulse Ox 100.8 F H 96 H 16 142/79 100 05/13/19 13:19 05/13/19 13:19 05/13/19 13:19 05/13/19 13:19 05/13/19 13:19 Discharge - Discharge Information Problems reviewed: Yes Clinical Impression/Diagnosis: Exposure to influenza Fever Qualifiers: Fever type: unspecified Qualified Code(s): R50.9 - Fever, unspecified Condition: Good Disposition: HOME - Admission No - Follow up/Referral - Patient Discharge Instructions Patient Printed Discharge Instructions: DI for Fever (Symptom) -- Adult Additional Instructions: Ruddy Alcaraz was evaluated today for a fever and a possible influenza exposure. His rapid flu test was negative. The chest xray did not show an effusion or consolidation. His fever improved with Motrin. His vitals were normal. He may have a mild viral infection. Continue to give the pt Acetaminophen and Ibuprofen as needed for pain or fever. He should follow up with the primary care doctor tomorrow to make sure his symptoms have not worsened. Return to the emergency department for new or worsening symptoms. Print Language: SWEDISH - Post Discharge Activity
[2019-05-13] MEDS ORDERED: IBUPROFEN 100 MG/5 ML UNIT DOSE CUPS ONE (14:01)
--- NOTE | 2019-05-13 15:20 | PDOC ---
Documentation entered by Milly Karimi SCRIBE, acting as scribe for Lizbeth Diamond MD. Lizbeth Diamond MD: This documentation has been prepared by the Trev fernandez Adrianna, SCRIBE, under my direction and personally reviewed by me in its entirety. I confirm that the documentation accurately reflects all work, treatment, procedures, and medical decision making performed by me. 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 As per aid at bedside, patient is at his baseline mental status. There was concern by the facility, as the patient was in contact with another resident who was flu positive. Patient has a fever (101), but otherwise has no visible symptoms. Allergies: Erythromycin base, macrolide antibiotics, ketolides Surgical History: GT tube, gastrostomy Social History: [place] resident. No toxic habits - Physicial Exam PE: 05/13/19 13:32 GENERAL: The patient is in no acute distress, at baseline. ENT: Ears normal, nares patent, oropharynx clear without exudates. Moist mucous membranes. NECK: Normal range of motion, supple LUNGS: coarse breath sounds bilaterally, no wheezing noted HEART: Regular rate and rhythm, normal S1 and S2 without murmur, rub or gallop. ABDOMEN: Soft, nontender, normoactive bowel sounds. EXTREMITIES: Normal range of motion, no edema. NEUROLOGICAL: Alert with eyes open spontaneously. Aggressively withdrawals. Moving all four extremities spontaneously. SKIN: No rashes noted 05/13/19 15:14 - Medical Decision Making 05/13/19 13:32 23 yo M DAVE presenting to the ER due to fever at his facility Another resident had the flu which prompted concern by the staff Pt is otherwise at his baseline EKG: SR rate of 97 bpm, axis nml, intervals nml -QRS:74ms, QTc:391ms, no st elevation or depression 05/13/19 15:19 Influenza negative CXR: pending ED Treatment Course - RADIOLOGY Radiograph Interpretation: EXAM#: TYPE/EXAM: RESULT: [id number] RAD/CHEST X-RAY PORTABLE* Chest: Pneumonia. Single view of the chest reveals no change since 03/16/2019. There is an old chest wall deformity on the left from previous trauma. There are clear lungs, normal mediastinum and sharp angles. There may be some minimal scarring at the left base. An acute process is not seen. Reported By: Fahad Nieves MD 05/13/19 16:13 - Medications Given in the ED: ED Medications Discontinued Medications Generic Name Dose Route Start Last Admin Trade Name Freq PRN Reason Stop Dose Admin Ibuprofen 400 mg 05/13/19 13:31 05/13/19 14:12 Motrin Oral Suspension - NGT 05/13/19 13:32 Not Given ONCE ONE Ibuprofen 400 mg 05/13/19 13:39 05/13/19 14:11 Motrin Oral Suspension - PEG 05/13/19 13:40 400 mg ONCE ONE Administration
[2019-05-13 18:35] VITALS: BP 140/85; PULSE 95; TEMP 99.9
--- NOTE | 2019-05-15 13:53 | EKG ---
Test Reason : Blood Pressure : / mmHG Vent. Rate : 097 BPM Atrial Rate : 234 BPM P-R Int : 000 ms QRS Dur : 074 ms QT Int : 308 ms P-R-T Axes : 000 019 000 degrees QTc Int : 391 ms POOR DATA QUALITY, INTERPRETATION MAY BE ADVERSELY AFFECTED NORMAL SINUS RHYTHM BASELINE ARTIFACT POOR DATA QUALITY, INTERPRETATION MAY BE ADVERSELY AFFECTED Confirmed by BELLA LENTZ MD ([id number]) on 05/15/2019 1:53:39 PM Referred By: Confirmed By:BELLA LENTZ MD
== END 2019-05-13 19:55 | disposition home or self-care (01) ==
LOC: JER 12:59
DX: Z20.89 Contact with and (suspected) exposure to other communicable diseases (principal); Z88.8 Allergy status to other drugs, medicaments and biological substances
CPT/HCPCS: 71045-TC-FY; 87804; 93005; 93010; 99282-25

== ENCOUNTER 2019-06-08 11:19 | Emergency (ER) | payer OTHER ==
[2019-06-08 11:36] VITALS: BMI 18.3
--- NOTE | 2019-06-08 11:51 | PDOC ---
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 The episode was not witnessed by the nursing staff available on the phone. The attendant with the pt was unaware of reason for presentation. Nursing staff denies recent fevers or other changes in behavior 06/08/19 13:33 Past History - Past Medical History Allergies/Adverse Reactions: Allergies Allergy/AdvReac Type Severity Reaction Status Date / Time erythromycin base Allergy Verified 06/08/19 11:30 [Erythromycin Base] Macrolide Antibiotics Allergy Verified 06/08/19 11:30 KETOLIDES Allergy Uncoded 06/08/19 11:30 Home Medications: Ambulatory Orders Ascorbic Acid 500 mg GT BID 06/26/18 Carbamazepine [Tegretol -] 400 mg GT HS 06/26/18 Lactulose 20 gm GT BID 06/26/18 Magnesium Hydroxide [Milk of Magnesia] 15 ml GT BID 06/26/18 Protein Supplement [Promod] 30 ml GT DAILY 12/06/18 Bacitracin - [Bacitracin Topical Ointment -] 1 applic TP BID 03/10/19 Diazepam Rectal Gel [Diastat Rectal Gel -] 10 mg PRN 03/10/19 Sennosides [Senna] 8.8 mg PEG DAILY 03/10/19 Simethicone Liquid [Mylicon Liquid -] 40 mg BID 03/10/19 Albuterol 2.5/Ipratropium 0.5 [Duoneb -] 1 amp IH Q4H PRN 03/11/19 Mineral Oil/I-Prop Myr/Water [Minerin Lotion] 473 ml TP DAILY 03/11/19 Multivitamins [Multivit ([facility] Formulary)] 1 tab GT HS 03/11/19 Neomycin/Polymyxn/Hc [Cortisporin *Otic Solution*-] 1 drop TP TID 03/11/19 Nutritional Supplement [Nutren 2.0] 250 ml GT Q12H 03/11/19 Acetaminophen Suppository [Tylenol .Suppository -] 650 mg [place] Q6H PRN supp.rect 03/16/19 Amoxicillin/Potassium Clav [Augmentin ES Suspension] 600 mg GT TID #1 bottle COPD: No Psychiatric Problems: (MR, VITILIGO, LEGALLY BLIND, NPO AT ALL TIMES) Seizures: Yes Thyroid Disease: (hydrocephaly, hearing loss profound, right leg fracture) - Surgical History Abdominal Surgery: Yes (GT) GI Surgery: Yes (gastrostomy) - Immunization History Immunization Up to Date: Yes - Psycho Social/Smoking Cessation Hx Smoking Status: No Smoking History: Never smoked Have you smoked in the past 12 months: No Number of Cigarettes Smoked Daily: 0 Hx Alcohol Use: No Drug/Substance Use Hx: No Substance Use Type: None Hx Substance Use Treatment: No Review of Systems - Review of Systems Able to Perform ROS?: No (2/2 medical condition) *Physical Exam - Vital Signs Last Vital Signs Temp Pulse Resp BP Pulse Ox 62 22 H 124/77 97 06/08/19 11:30 06/08/19 11:30 06/08/19 11:30 06/08/19 11:30 - Physical Exam GENERAL: Awake, non-verbal HEAD: No signs of trauma EYES: PERRLA, EOMI, sclera anicteric, conjunctiva clear ENT: Hearing grossly normal, nares patent, oropharynx clear without exudates. Moist mucosa LUNGS: diminished breath sounds b/l, poor inspiratory effort, mild crackles on right HEART: Regular rate and rhythm, normal S1 and S2, no murmurs appreciated, peripheral pulses normal and equal bilaterally ABDOMEN: Soft, PEG in place, no surrounding erythema, no grimace to palpation, normoactive bowel sounds EXTREMITIES: Moves all extremities independently NEUROLOGICAL: pupils equal and reactive, withdraws to pain, non-verbal, does not follow commands SKIN: Warm, Dry 06/08/19 13:36 ED Treatment Course - LABORATORY CBC & Chemistry Diagram: 06/08/19 12:24 06/08/19 12:24 Medical Decision Making - Medical Decision Making The pt is a 23M w/ a history of developmental delay, seizure d/o, congenital mosaic syndrome, 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 ED course CMP, CBC CXR Rapid Influenza No leukocytosis No evidence of PNA on CXR 06/08/19 13:42 Influenza neg Lytes wnl No CLAUDIA LFTs wnl 06/08/19 14:17 T 98F rectal Plan for D/C Discharge instructions and return precautions given Caregiver in agreement and verbalized understanding Dispo: Home 06/08/19 14:29 Discharge - Discharge Information Problems reviewed: Yes Clinical Impression/Diagnosis: Hypoxia Condition: Stable Disposition: HOME - Admission No - Follow up/Referral Referrals: [facility] [place] [Provider Group] - Patient Discharge Instructions Patient Printed Discharge Instructions: DI for Hypoxia Additional Instructions: You were seen in the Emergency Department for concern for desaturation. You were not hypoxic in the Emergency Department. Your x-ray and labs were unremarkable and your flu swab was negative. Review the handout provided at discharge. Follow up with your primary care provider within a week. Return to the Emergency Department if you develop fevers, chest pain, trouble breathing, worsening symptoms, or any new/concerning symptoms. - Post Discharge Activity
[2019-06-08 13:18] LABS: BASO % 0.3 % (0-2.0); EOS % 5.2 % (0-4.5); HEMATOCRIT 42.1 % (35.4-49); HEMOGLOBIN 14.3 GM/dL (11.7-16.9); LYMPH % 31.5 % (8-40); MCH 31.8 pg (25.7-33.7); MCHC 33.8 g/dl (32.0-35.9); MEAN CELL VOLUME 93.8 fl (80-96); MEAN PLT VOLUME 9.4 fl (7.5-11.1); MONO % 10.4 % (3.8-10.2); NEUT % 52.6 % (42.8-82.8); PLATELET COUNT 191 K/MM3 (134-434); RBC 4.49 M/mm3 (4.00-5.60); RDW 14.2 % (11.9-15.9); WHITE BLOOD COUNT 6.1 K/mm3 (4.0-10.0)
[2019-06-08 13:59] LABS: ALBUMIN 3.2 g/dl (3.4-5.0); BILIRUBIN,TOTAL 0.2 mg/dL (0.2-1); BLOOD UREA NITROGEN 22.4 mg/dL (7-18); CALCIUM 9.1 mg/dL (8.5-10.1); CREATININE 0.6 mg/dL (0.55-1.3); POTASSIUM 4.2 mmol/L (3.5-5.1); TOT PROT 7.7 g/dl (6.4-8.2)
--- NOTE | 2019-06-08 14:07 | PDOC ---
Documentation entered by David Workman SCRIBE, acting as scribe for Jeremy Calvin MD. Jeremy Calvin MD: This documentation has been prepared by the Ji fernandez Nirvannie, SCRIBE, under my direction and personally reviewed by me in its entirety. I confirm that the documentation accurately reflects all work, treatment, procedures, and medical decision making performed by me. Attending Attestation - Resident Resident Name: Kartik Dobbs - ED Attending Attestation I have performed the following: I have examined & evaluated the patient, The case was reviewed & discussed with the resident, I agree w/resident's findings & plan, Exceptions are as noted - HPI HPI: 06/08/19 12:41 The patient is a 23 year old male, with a significant past medical history of developmental delay, cerebral palsy, seizures, congenital mosaic syndrome, who presents to the emergency department from [facility] s/p episode of hypoxia. As per facility staff at bedside, while at his day program he experienced an episode of hypoxia. Staff that is currently with the patient was not present for the episode and is unaware of O2 saturation at the time of the episode. Allergies: Erythromycin base, macrolide antibiotics, ketolides Social History: Resident at [facility] - Physicial Exam PE: 06/08/19 12:36 GENERAL: The patient is awake, Nontoxic - in no acute distress. ENT: Moist mucous membranes. hyperglossia NECK: Normal range of motion, supple LUNGS: Breath sounds equal, clear to auscultation bilaterally. No wheezes, no rhonchi, no rales. HEART: Regular rate and rhythm, normal S1 and S2 without murmur, rub or gallop. ABDOMEN: Soft, nontender, No guarding, no rebound. No CVA tenderness, G tube in place EXTREMITIES: no edema. 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 Patient is in unable to give any history based on his medical condition, there is also no collateral information provided from [facility]. The aide that is with the patient does not know exactly what happened during the day program but states that she interacts with him occasionally and he seems to be at his baseline mental status. Allergies: Erythromycin base, macrolide antibiotics, ketolides Surgical History: GT tube, gastrostomy Social History: [facility] resident. No toxic habits will obtain a chest x-ray to rule to pulmonary disease, lab work to screen for hyponatremia or other metabolic derangements Patient is at baseline mental status if work-up is negative patient's vital signs remained normal anticipate discharge back to [facility] 06/08/19 14:04 labs reviewed unremarkble without obvious anemia, metabolic derangement cxr without infiltrate will dc the pt with outpatient and pmd fu return rpecautions were discussed I discussed the physical exam findings, ancillary test results and final diagnoses with the patient. I answered all of the patient's questions. The patient was satisfied with the care received and felt comfortable with the discharge plan and treatment plan. The patient will call their primary care physician within 24 hours to arrange follow-up and will return to the Emergency Department with any new, persistent or worsening symptoms.
[2019-06-08 14:53] VITALS: BP 136/82; PULSE 77
== END 2019-06-08 15:54 ==
LOC: JER 11:19
DX: R09.02 Hypoxemia (principal); R62.59 Other lack of expected normal physiological development in childhood; F72 Severe intellectual disabilities; G40.909 Epilepsy, unspecified, not intractable, without status epilepticus; G80.8 Other cerebral palsy; Q99.8 Other specified chromosome abnormalities; H54.8 Legal blindness, as defined in USA; Z93.1 Gastrostomy status; Z88.1 Allergy status to other antibiotic agents; Z88.8 Allergy status to other drugs, medicaments and biological substances
CPT/HCPCS: 36415; 71045-TC-FY; 80053; 85025; 87804; 99284-25

== ENCOUNTER 2019-08-23 08:43 | Emergency (ER) | payer OTHER ==
--- NOTE | 2019-08-23 08:57 | PDOC ---
History of Present Illness - General Stated Complaint: SOB Time Seen by Provider: 08/23/19 08:51 History Source: EMS, Senior Living Records, Old Records Exam Limitations: Other (Nonverbal) - History of Present Illness Initial Comments: 08/23/19 08:54 24M with a PMH of developmental delay, seizure d/o, congenital mosaic syndrome, PEG tube, non-verbal, who presents to the ER via EMS for hypoxia. Per EMS, the patient was noted to be hypoxic this morning. The patient is nonverbal and cannot provide any history. Past History - Past Medical History Allergies/Adverse Reactions: Allergies Allergy/AdvReac Type Severity Reaction Status Date / Time erythromycin base Allergy Verified 08/23/19 09:03 [Erythromycin Base] Macrolide Antibiotics Allergy Verified 08/23/19 09:03 KETOLIDES Allergy Uncoded 08/23/19 09:03 Home Medications: Ambulatory Orders Ascorbic Acid 500 mg GT HS 06/26/18 Carbamazepine [Tegretol -] 400 mg GT HS 06/26/18 Magnesium Hydroxide [Milk of Magnesia] 15 ml GT BID 06/26/18 Protein Supplement [Promod] 30 ml GT DAILY 12/06/18 Diazepam Rectal Gel [Diastat Rectal Gel -] 10 mg PRN 03/10/19 Sennosides [Senna] 8.8 mg PEG DAILY 03/10/19 Simethicone Liquid [Mylicon Liquid -] 40 mg BID 03/10/19 Multivitamins [Multivit ([facility] Formulary)] 1 tab GT HS 03/11/19 Neomycin/Polymyxn/Hc [Cortisporin *Otic Solution*-] 1 drop TP TID 03/11/19 Nutritional Supplement [Nutren 2.0] 250 ml GT Q12H 03/11/19 Albuterol 2.5/Ipratropium 0.5 [Duoneb -] 1 neb NEB Q4H PRN 07/20/19 Guaifenesin Dm [Robitussin Dm -] 20 ml PO Q6H PRN 07/20/19 Carbamazepine [Tegretol -] 300 mg GT DAILY 08/23/19 Carbamazepine [Tegretol -] 400 mg GT HS 08/23/19 Doxycycline Hyclate 100 mg PO BID #20 tablet 08/23/19 Lactobacillus Acidophilus [Acidophilus Lactobacilli] 2 each GT DAILY 08/23/19 Nutritional Supplement [Nutren 2.0] 250 ml PO BID 08/23/19 Nutritional Supplement [Nutren 2.0] 500 ml GT DAILY 08/23/19 Zinc Sulfate [Orazinc] 220 mg GT HS 08/23/19 COPD: No Psychiatric Problems: (MR, VITILIGO, LEGALLY BLIND, NPO AT ALL TIMES) Seizures: Yes Thyroid Disease: (hydrocephaly, hearing loss profound, right leg fracture) - Surgical History Abdominal Surgery: Yes (GT) GI Surgery: Yes (gastrostomy) - Immunization History Immunization Up to Date: Yes - Psycho Social/Smoking Cessation Hx Smoking Status: No Smoking History: Never smoked Have you smoked in the past 12 months: No Number of Cigarettes Smoked Daily: 0 Hx Alcohol Use: No Drug/Substance Use Hx: No Substance Use Type: None Hx Substance Use Treatment: No Review of Systems - Review of Systems Able to Perform ROS?: No (nonverbal) *Physical Exam - Physical Exam 08/23/19 09:13 GENERAL: Well developed, well nourished. Awake and alert. No acute distress. HEENT: Normocephalic, atraumatic. Hearing grossly normal. Moist mucous membranes. PERRLA, EOMI. No conjunctival pallor. Sclera are non-icteric. NECK: Supple. Full ROM. No JVD. CARDIOVASCULAR: Regular rate and rhythm. No murmurs, rubs, or gallops. PULMONARY: No evidence of respiratory distress. Diffuse coarse breath sounds. ABDOMINAL: Soft. Non-tender. Non-distended. No rebound or guarding. PEG tube in place. MUSCULOSKELETAL: Normal range of motion at all joints. No bony deformities or tenderness. EXTREMITIES: No cyanosis. No clubbing. No edema. No calf tenderness or swelling. SKIN: Warm and dry. Normal capillary refill. No rashes. No jaundice. NEUROLOGICAL: Alert, awake, appropriate. Cranial nerves 2-12 intact. Nonverbal. PSYCHIATRIC: Cooperative. Good eye contact. Appropriate mood and affect. ED Treatment Course - LABORATORY CBC & Chemistry Diagram: 08/23/19 09:00 08/23/19 09:00 - RADIOLOGY Radiology Studies Ordered: Category Date Time Status CHEST X-RAY PORTABLE* [RAD] Stat Radiology 08/23/19 08:52 Ordered Medical Decision Making - Medical Decision Making 08/23/19 09:17 24M with MMP who presents for hypoxia with exam concerning for COVID vs PNA. COVID order set placed. Pt on 4L saturating 97%. Well appearing otherwise. Pending labs and imaging. 08/23/19 12:13 CBC WNL. CMP notable for hypernatremia 150. Otherwise labs unremarkable. CXR notable for bibasilar atelectasis. Pt continuing to require O2 support. Will admit for hypoxia requiring O2. 08/23/19 12:25 [facility] called to see if they have O2 to safely discharge the patient. 08/23/19 15:13 Case d/w social work who organized O2 concentrator to [facility]. [facility] aware. Will not admit patient. Will d/c with PCP f/u. Discharge - Discharge Information Problems reviewed: Yes Clinical Impression/Diagnosis: Hypoxia Condition: Fair Disposition: HOME - Admission No - Additional Discharge Information Prescriptions: Doxycycline Hyclate 100 mg PO BID #20 tablet - Follow up/Referral - Patient Discharge Instructions Patient Printed Discharge Instructions: [facility]-Coronavirus Instructions, [facility] COVID-19 Isolation Protocol Additional Instructions: Please titrate your O2 concentrator to an oxygen saturation >95%. Please return to the ER if you develop worsening shortness of breath or worsening hypoxia or work of breathing. - Post Discharge Activity
[2019-08-23] MEDS ORDERED: ONDANSETRON *ODT* 4 MG TABLET ONE (09:00)
--- NOTE | 2019-08-23 09:01 | PDOC ---
Attending Attestation - Resident Resident Name: Sylvester Orona - ED Attending Attestation I have performed the following: I have examined & evaluated the patient, The case was reviewed & discussed with the resident, I agree w/resident's findings & plan, Exceptions are as noted
[2019-08-23 09:03] VITALS: TEMP 99.6; BMI 23.6
--- NOTE | 2019-08-23 09:23 | PDOC ---
Documentation entered by David Workman SCRIBE, acting as scribe for Mei Plascencia DO. Mei Plascencia DO: This documentation has been prepared by the Breann fernandez Nirvannie, SCRIBE, under my direction and personally reviewed by me in its entirety. I confirm that the documentation accurately reflects all work, treatment, procedures, and medical decision making performed by me. Attending Attestation - Resident Resident Name: YeyoSylvester - ED Attending Attestation I have performed the following: I have examined & evaluated the patient, The case was reviewed & discussed with the resident, I agree w/resident's findings & plan, Exceptions are as noted - HPI HPI: 08/23/19 09:32 The patient is a 24 year old male with a significant past medical history of developmental delay, seizures, congenital mosaic syndrome, s/p PEG tube, and nonverbal at baseline who presents to the ED via EMS from [facility] for hypoxia. History is limited secondary to the patient's clinical condition. Allergies: Erythromycin base, Macrolide Antibiotics, Ketolides - Physicial Exam PE: 08/23/19 09:33 Constitutional: Awake, alert, oriented. No acute distress. Head: Normocephalic. Atraumatic Eyes: PERRL. EOMI. Conjunctivae are not pale. ENT: Mucous membranes are moist and intact. Posterior pharynx without exudates or erythema. Uvula midline. Neck: Supple. Full ROM. No lymphadenopathy. Cardiovascular: +Borderline tachycardic. Regular rhythm. S1, S2 regular. Distal pulses are 2+ and symmetric. Pulmonary/Chest: +Coarse breath sounds bilaterally. No evidence of respiratory distress. Abdominal: +PEG tube in place. Soft and non-distended. There is no tenderness. No rebound, guarding or rigidity. No organomegaly. No palpable masses. Good bowel sounds. Back: No CVA tenderness. Musculoskeletal: No edema. No cyanosis. No clubbing. Full range of motion in all extremities. No calf tenderness. Radial/pedal pulses are intact and 2+ bilaterally Skin: Skin is warm and dry. No petechiae. No purpura. Neurological: +Nonverbal at baseline. Alert and oriented to person, place, and time. Cranial nerves II-XII are grossly intact. Strength is grossly symmetric. No sensory deficits. Psychiatric: Good eye contact. Normal interaction, affect and behavior. - Medical Decision Making 08/23/19 09:22 a/p: 24yo male from [place] with a low o2 sat today -borderline temp here -pt unable to provide a complete hx -pt was swabbed for covid a few weeks ago, but other residents of [facility] are covid + -will send labs, ekg, cxr, rectal temp -pt placed on O2 -will most likely need admission -coarse bs on exam, concern for pna as well 08/23/19 12:16 pt with b/l atelectasis 08/23/19 12:17 pt hypernatremic and hyperchloremic 08/23/19 12:55 case discussed with coordinator at [facility], cannot get a compressor for o2 will admit for O2 and plan to dc tomorrow when O2 compressor in place 08/23/19 12:58 microblog sent to [facility] for admission 08/23/19 15:17 the O2 will be delivered and pt can return to [place] for management Heart Score/ECG Review - ECG Intrepretation Comment:: 08/23/19 09:21 sinus at 94, nl axis, lvh, t wave inversions III which are nonspecific, no acute st changes Discharge - Discharge Information Problems reviewed: Yes Clinical Impression/Diagnosis: Hypoxia Condition: Fair Disposition: S[facility]IOR CARE FACILITY - Admission No - Additional Discharge Information Prescriptions: Doxycycline Hyclate 100 mg PO BID #20 tablet - Follow up/Referral - Patient Discharge Instructions Patient Printed Discharge Instructions: [facility]-Coronavirus Instructions, R- [facility] COVID-19 Isolation Protocol Additional Instructions: Please titrate your O2 concentrator to an oxygen saturation >95%. Please return to the ER if you develop worsening shortness of breath or worsening hypoxia or work of breathing. - Post Discharge Activity
[2019-08-23] MEDS ORDERED: ACETAMINOPHEN 1000 MG/100 ML VIAL (NON FORMULARY) IVPB ONE (09:26)
[2019-08-23] MEDS ORDERED: ACETAMINOPHEN INJECTION 100 ML IVPB ONE (09:55)
[2019-08-23 11:23] LABS: BASO % 0.4 % (0-2.0); HEMATOCRIT 42.9 % (35.4-49); HEMOGLOBIN 14.1 GM/dL (11.7-16.9); LYMPH % 29.6 % (8-40); MCH 31.1 pg (25.7-33.7); MCHC 32.8 g/dl (32.0-35.9); MEAN CELL VOLUME 94.8 fl (80-96); MEAN PLT VOLUME 10.6 fl (7.5-11.1); MONO % 12.5 % (3.8-10.2); NEUT % 54.5 % (42.8-82.8); PLATELET COUNT 174 K/MM3 (134-434); RBC 4.53 M/mm3 (4.00-5.60); RDW 14.8 % (11.9-15.9); WHITE BLOOD COUNT 5.2 K/mm3 (4.0-10.0)
[2019-08-23 11:29] LABS: INR 1.03 (0.83-1.09); PROTHROMBIN TIME (PATIENT) 12.2 SEC (9.7-13.0)
[2019-08-23 11:32] LABS: ACTIVATED PTT 34.7 SECONDS (25.2-36.5)
[2019-08-23 11:44] LABS: ALBUMIN 3.7 g/dl (3.4-5.0); ALK PHOS 93 U/L (45-117); ANION GAP 5 MMOL/L (8-16); BILIRUBIN,DIRECT 0.1 mg/dL (0.0-0.2); BILIRUBIN,TOTAL 0.4 mg/dL (0.2-1); BLOOD UREA NITROGEN 25.2 mg/dL (7-18); CALCIUM 8.9 mg/dL (8.5-10.1); CHLORIDE 114 mmol/L (98-107); CO2 32 mmol/L (21-32); CREATININE 0.7 mg/dL (0.55-1.3); GLUCOSE,RANDOM 85 mg/dL (74-106); LDH 227 U/L (87-246); POTASSIUM 4.1 mmol/L (3.5-5.1); SGOT/AST 27 U/L (15-37); SGPT/ALT 31 U/L (13-61); SODIUM 150 mmol/L (136-145); TOT PROT 7.8 g/dl (6.4-8.2)
[2019-08-23] MEDS ORDERED: CEFTRIAXONE 1,000 MG in DEXTROSE 5%-WATER - 50 ML IVPB ONE (13:21)
[2019-08-23] MEDS ORDERED: CEFTRIAXONE 1 GM/50 ML BAG ONE (13:37)
[2019-08-23 14:41] LABS: EPI CELLS 3 /uL (0-25.1); HYALINE CASTS 16 /uL (0-3.1); PH,URINE 6.5 (5.0-8.0); URINE APPEARANCE TURBID; URINE BACTERIA 343 /uL (0-1359); URINE BILIRUBIN NEGATIVE (NEGATIVE); URINE COLOR YELLOW; URINE GLUCOSE (UA) NEGATIVE (NEGATIVE); URINE KETONE TRACE (NEGATIVE); URINE LEUK ESTERASE 2+ (NEGATIVE); URINE NITRITE NEGATIVE (NEGATIVE); URINE PROTEIN 1+ (NEGATIVE); URINE WBC 4635 /uL (0-25.8)
[2019-08-23 16:08] VITALS: BP 121/76; PULSE 84
--- NOTE | 2019-08-24 14:46 | EKG ---
Test Reason : Blood Pressure : / mmHG Vent. Rate : 094 BPM Atrial Rate : 094 BPM P-R Int : 114 ms QRS Dur : 084 ms QT Int : 340 ms P-R-T Axes : 035 002 -11 degrees QTc Int : 425 ms NORMAL SINUS RHYTHM MODERATE VOLTAGE CRITERIA FOR LVH, MAY BE NORMAL VARIANT NONSPECIFIC T WAVE ABNORMALITY ABNORMAL ECG WHEN COMPARED WITH ECG OF 08-AUG-2019 13:04, NO SIGNIFICANT CHANGE WAS FOUND Confirmed by FLOYD NOWAK MD ([id number]) on 08/24/2019 2:46:07 PM Referred By: Confirmed By:FLOYD NOWAK MD
== END 2019-08-23 17:02 ==
LOC: JER 08:43
PROC: 3E033GC Introduction of Other Therapeutic Substance into Peripheral Vein, Percutaneous Approach (ICD-10-PCS; principal; 2019-08-23)
DX: R09.02 Hypoxemia (principal)
CPT/HCPCS: 36415; 71045-TC-FY; 80053; 81003; 82248; 82550; 82728; 83605; 83615; 84484; 85025; 85610; 85730; 86900; 87040; 87086; 87186; 93005; 93010; 96365; 96375; 99285-25; J0131; U0003

== ENCOUNTER 2020-03-04 17:29 | Inpatient (IN) | payer OTHER ==
[2020-03-04 17:56] VITALS: BMI 22.1
[2020-03-04] MEDS ORDERED: SODIUM CHLORIDE 1,647 ML IV ONE (18:10)
[2020-03-04 19:05] LABS: BASO % 0.4 % (0-2.0); EOS % 3.2 % (0-4.5); HEMATOCRIT 40.4 % (35.4-49); HEMOGLOBIN 13.5 GM/dL (11.7-16.9); LYMPH % 28.1 % (8-40); MCH 29.3 pg (25.7-33.7); MCHC 33.3 g/dl (32.0-35.9); MEAN PLT VOLUME 8.9 fl (7.5-11.1); MONO % 10.5 % (3.8-10.2); NEUT % 57.8 % (42.8-82.8); PLATELET COUNT 221 K/MM3 (134-434); RDW 14.8 % (11.9-15.9); WHITE BLOOD COUNT 5.7 K/mm3 (4.0-10.0)
[2020-03-04] MEDS ORDERED: PIPERACILLIN/TAZOB 3.375 GM 3.375 GM in DEXTROSE 5%-WATER - 50 ML IVPB ONE (19:07)
[2020-03-04 19:19] LABS: EPI CELLS 30 /uL (0-25.1); HYALINE CASTS 51 /uL (0-3.1); PH,URINE >= 9.0 (5.0-8.0); URINE APPEARANCE TURBID; URINE BACTERIA 2967 /uL (0-1359); URINE BILIRUBIN NEGATIVE (NEGATIVE); URINE COLOR YELLOW; URINE GLUCOSE (UA) NEGATIVE (NEGATIVE); URINE KETONE NEGATIVE (NEGATIVE); URINE LEUK ESTERASE 2+ (NEGATIVE); URINE NITRITE POSITIVE (NEGATIVE); URINE PROTEIN 1+ (NEGATIVE); URINE UROBILINOGEN 0.2 mg/dL (0.2-1.0); URINE WBC 682 /uL (0-25.8)
[2020-03-04 19:26] LABS: CALCIUM 9.8 mg/dL (8.5-10.1)
[2020-03-04] MEDS ORDERED: PIPERACILLIN/TAZOB 3.375 GM 3.375 GM/50 ML BAG IVPB ONE (19:26)
[2020-03-04 19:27] LABS: ALBUMIN 3.4 g/dl (3.4-5.0); BLOOD UREA NITROGEN 13.9 mg/dL (7-18)
[2020-03-04 19:30] LABS: CREATININE 0.6 mg/dL (0.55-1.3)
[2020-03-04 19:31] LABS: BILIRUBIN,TOTAL 0.3 mg/dL (0.2-1); TOT PROT 8.2 g/dl (6.4-8.2)
[2020-03-04] MEDS ORDERED: VANCOMYCIN 1 GM in D5W (PRE-DOCKED) 1,000 MG/250 ML IVPB ONE (22:51)
[2020-03-04 22:59] LABS: URINE CRYSTALS MODERATE /hpf; URINE RBC 83.3 /uL (0-23.9)
[2020-03-04 23:00] LABS: YEAST NEGATIVE (NEGATIVE)
[2020-03-04] MEDS ORDERED: VANCOMYCIN 1 GRAM (PRE-DOCKED) 1,000 MG/250 ML BAG IVPB ONE (23:27)
[2020-03-05] MEDS: DEXTROSE 5%-NORMAL SALINE 1,000 ML IV SCH ×3 (00:18→20:15)
[2020-03-05 08:40] LABS: BASO % 0.1 % (0-2.0); EOS % 1.2 % (0-4.5); LYMPH % 12.6 % (8-40); MCH 29.4 pg (25.7-33.7); MCHC 33.3 g/dl (32.0-35.9); MEAN CELL VOLUME 88.3 fl (80-96); MEAN PLT VOLUME 8.7 fl (7.5-11.1); MONO % 10.6 % (3.8-10.2); NEUT % 75.5 % (42.8-82.8); PLATELET COUNT 183 K/MM3 (134-434); RBC 4.08 M/mm3 (4.00-5.60); RDW 14.5 % (11.9-15.9); WHITE BLOOD COUNT 7.6 K/mm3 (4.0-10.0)
[2020-03-05 09:13] LABS: POTASSIUM 4.5 mmol/L (3.5-5.1)
[2020-03-05 09:15] LABS: BLOOD UREA NITROGEN 17.3 mg/dL (7-18); CALCIUM 8.9 mg/dL (8.5-10.1)
[2020-03-05 09:18] LABS: CREATININE 1.1 mg/dL (0.55-1.3); PHOSPHOROUS 4.2 mg/dL (2.5-4.9)
[2020-03-05 09:20] LABS: BILIRUBIN,TOTAL 0.5 mg/dL (0.2-1)
[2020-03-05] MEDS ORDERED: VANCOMYCIN 1 GM in D5W (PRE-DOCKED) 1,000 MG/250 ML IVPB ONE (10:00)
[2020-03-05] MEDS ORDERED: diazePAM RECTAL GEL 10 MG KIT (PRE-CALIBRATED) RC PRN ×2 (14:47→15:03)
[2020-03-05] MEDS ORDERED: ALBUTEROL SO4 2.5/IPRATROPIUM 0.5 INH SOL 3 ML VIAL.NEB. NEB PRN (14:57)
[2020-03-05] MEDS ORDERED: NUTRITIONAL SUPPLEMENT GT SCH (15:00)
[2020-03-05] MEDS ORDERED: guaiFENesin/D-METHORPHAN HB 10 ML UNIT-DOSE CUPS PO PRN (15:04)
[2020-03-05] MEDS ORDERED: carBAMazepine 200 MG TABLET GT SCH ×2 (15:15→22:00)
[2020-03-05] MEDS: ENOXAPARIN NA (PORCINE) 40 MG/0.4 ML DISP.SYRIN SQ SCH (16:37)
[2020-03-05] MEDS ORDERED: PT OWN MED DRAWER 7, Y5N ONE ×2 (17:45→22:58)
[2020-03-05] MEDS: MAGNESIUM HYDROX 2400MG/30ML ORAL SUSPENSION 30 ML CUP GT SCH (22:59)
[2020-03-05] MEDS: MINERAL OIL/PETROLAT/WATER TOPICAL CREAM 454 GM JAR TP PRN (23:00)
[2020-03-05] MEDS: carBAMazepine 200 MG TABLET GT SCH (23:00)
[2020-03-05] MEDS: SIMETHICONE 40 MG/0.6 ML BOTTLE GT SCH (23:00)
[2020-03-05] MEDS: MULTIVITAMINS (DAILY MVI) TABLET (FP) PO SCH (23:01)
[2020-03-05] MEDS: ASCORBIC ACID 500 MG/5 ML UNIT DOSE CUP GT SCH (23:06)
[2020-03-05] MEDS: NEOMYCIN/POLYMYXN/HC OTIC SOLUTION 10 ML BOTTLE AU SCH (23:06)
[2020-03-05] MEDS: ZINC SULFATE 220 MG CAPSULE (FP) GT SCH (23:06)
[2020-03-06] MEDS: NEOMYCIN/POLYMYXN/HC OTIC SOLUTION 10 ML BOTTLE AU SCH ×3 (05:16→22:46)
[2020-03-06] MEDS: DEXTROSE 5%-NORMAL SALINE 1,000 ML IV SCH ×2 (05:37→23:48)
[2020-03-06 08:00] LABS: BASO % 0.2 % (0-2.0); EOS % 2.5 % (0-4.5); HEMATOCRIT 35.1 % (35.4-49); HEMOGLOBIN 11.4 GM/dL (11.7-16.9); LYMPH % 18.9 % (8-40); MCH 28.5 pg (25.7-33.7); MCHC 32.6 g/dl (32.0-35.9); MEAN CELL VOLUME 87.4 fl (80-96); MEAN PLT VOLUME 8.5 fl (7.5-11.1); MONO % 16.1 % (3.8-10.2); NEUT % 62.3 % (42.8-82.8); PLATELET COUNT 171 K/MM3 (134-434); RBC 4.02 M/mm3 (4.00-5.60); RDW 14.5 % (11.9-15.9); WHITE BLOOD COUNT 5.9 K/mm3 (4.0-10.0)
[2020-03-06 08:25] LABS: POTASSIUM 4.2 mmol/L (3.5-5.1)
[2020-03-06 08:27] LABS: ALBUMIN 2.8 g/dl (3.4-5.0); CALCIUM 8.6 mg/dL (8.5-10.1)
[2020-03-06 08:28] LABS: BLOOD UREA NITROGEN 26.6 mg/dL (7-18); MAGNESIUM 2.1 mg/dL (1.8-2.4)
[2020-03-06 08:31] LABS: CREATININE 2.7 mg/dL (0.55-1.3)
[2020-03-06 08:32] LABS: BILIRUBIN,TOTAL 0.7 mg/dL (0.2-1); TOT PROT 6.8 g/dl (6.4-8.2)
[2020-03-06] MEDS ORDERED: DEXTROSE 5%-WATER 100 ML IVPB ONE (08:51)
[2020-03-06] MEDS: SIMETHICONE 40 MG/0.6 ML BOTTLE GT SCH ×2 (09:05→22:45)
[2020-03-06] MEDS: carBAMazepine 100 MG TAB.CHEW GT SCH (09:06)
[2020-03-06] MEDS: LACTOBACILLUS ACIDOPHILUS 1 TABLET GT SCH (09:06)
[2020-03-06] MEDS: SENNOSIDES 8.8 MG/5 ML BULK BOTTLE PEG SCH (09:06)
[2020-03-06] MEDS: MAGNESIUM HYDROX 2400MG/30ML ORAL SUSPENSION 30 ML CUP GT SCH ×2 (09:08→22:45)
[2020-03-06] MEDS: ENOXAPARIN NA (PORCINE) 40 MG/0.4 ML DISP.SYRIN SQ SCH (09:08)
[2020-03-06] MEDS ORDERED: CEFTRIAXONE 2 GM in DEXTROSE 5%-WATER 100 ML IVPB SCH (10:00)
[2020-03-06] MEDS ORDERED: PT OWN MED DRAWER 7, Y5N ONE (22:32)
[2020-03-06] MEDS: carBAMazepine 200 MG TABLET GT SCH (22:44)
[2020-03-06] MEDS: MULTIVITAMINS (DAILY MVI) TABLET (FP) PO SCH (22:44)
[2020-03-06] MEDS: ZINC SULFATE 220 MG CAPSULE (FP) GT SCH (22:44)
[2020-03-06] MEDS: ASCORBIC ACID 500 MG/5 ML UNIT DOSE CUP GT SCH (22:45)
[2020-03-07] MEDS: NEOMYCIN/POLYMYXN/HC OTIC SOLUTION 10 ML BOTTLE AU SCH ×3 (05:25→21:46)
[2020-03-07 08:42] LABS: BASO % 0.3 % (0-2.0); EOS % 2.8 % (0-4.5); HEMATOCRIT 32.4 % (35.4-49); HEMOGLOBIN 10.5 GM/dL (11.7-16.9); LYMPH % 19.4 % (8-40); MCH 28.6 pg (25.7-33.7); MCHC 32.4 g/dl (32.0-35.9); MEAN CELL VOLUME 88.3 fl (80-96); MEAN PLT VOLUME 8.6 fl (7.5-11.1); MONO % 16.7 % (3.8-10.2); NEUT % 60.8 % (42.8-82.8); PLATELET COUNT 162 K/MM3 (134-434); RBC 3.67 M/mm3 (4.00-5.60); RDW 14.2 % (11.9-15.9)
[2020-03-07] MEDS ORDERED: DEXTROSE 5%-WATER 100 ML IVPB ONE (08:43)
[2020-03-07] MEDS ORDERED: PT OWN MED DRAWER 7, Y5N ONE ×3 (08:45→21:36)
[2020-03-07] MEDS: AMINO ACIDS/PROTEIN HYDROLYS 30 ML LIQUID.PKT PO SCH (08:54)
[2020-03-07 08:59] LABS: POTASSIUM 4.3 mmol/L (3.5-5.1)
[2020-03-07 09:00] LABS: CALCIUM 8.6 mg/dL (8.5-10.1)
[2020-03-07 09:01] LABS: ALBUMIN 2.8 g/dl (3.4-5.0); BLOOD UREA NITROGEN 27.6 mg/dL (7-18)
[2020-03-07 09:04] LABS: CREATININE 2.8 mg/dL (0.55-1.3)
[2020-03-07 09:06] LABS: BILIRUBIN,TOTAL 0.5 mg/dL (0.2-1); TOT PROT 6.9 g/dl (6.4-8.2)
[2020-03-07] MEDS: LACTOBACILLUS ACIDOPHILUS 1 TABLET GT SCH (09:41)
[2020-03-07] MEDS: MAGNESIUM HYDROX 2400MG/30ML ORAL SUSPENSION 30 ML CUP GT SCH ×3 (09:41→21:43)
[2020-03-07] MEDS: SIMETHICONE 40 MG/0.6 ML BOTTLE GT SCH ×3 (09:41→21:42)
[2020-03-07] MEDS: ENOXAPARIN NA (PORCINE) 40 MG/0.4 ML DISP.SYRIN SQ SCH (09:41)
[2020-03-07] MEDS: carBAMazepine 100 MG TAB.CHEW GT SCH (09:44)
[2020-03-07] MEDS ORDERED: DEXTROSE 5%-WATER - 50 ML IVPB ONE ×2 (10:08→17:35)
[2020-03-07] MEDS ORDERED: PIPERACILLIN/TAZOBACTAM 2.25 GM VIAL IVPB ONE ×2 (10:08→17:35)
[2020-03-07] MEDS: PIPERACILLIN/TAZOB 2.25 GM 2.25 GM in DEXTROSE 5%-WATER - 50 ML IVPB SCH ×2 (10:18→17:42)
[2020-03-07] MEDS: SENNOSIDES 8.8 MG/5 ML BULK BOTTLE PEG SCH (14:36)
[2020-03-07] MEDS: ASCORBIC ACID 500 MG/5 ML UNIT DOSE CUP GT SCH (21:42)
[2020-03-07] MEDS: ENOXAPARIN NA (PORCINE) 30 MG/0.3 ML DISP.SYRIN SQ SCH (21:42)
[2020-03-07] MEDS: ZINC SULFATE 220 MG CAPSULE (FP) GT SCH (21:43)
[2020-03-07] MEDS: MULTIVITAMINS (DAILY MVI) TABLET (FP) PO SCH (21:43)
[2020-03-07] MEDS: carBAMazepine 200 MG TABLET GT SCH (21:45)
[2020-03-08] MEDS: DEXTROSE 5%-NORMAL SALINE 1,000 ML IV SCH ×2 (01:03→14:10)
[2020-03-08] MEDS ORDERED: PIPERACILLIN/TAZOBACTAM 2.25 GM VIAL IVPB ONE ×3 (01:29→17:31)
[2020-03-08] MEDS ORDERED: DEXTROSE 5%-WATER - 50 ML IVPB ONE ×3 (01:29→17:31)
[2020-03-08] MEDS: PIPERACILLIN/TAZOB 2.25 GM 2.25 GM in DEXTROSE 5%-WATER - 50 ML IVPB SCH ×3 (01:52→17:45)
[2020-03-08] MEDS: NEOMYCIN/POLYMYXN/HC OTIC SOLUTION 10 ML BOTTLE AU SCH ×3 (05:36→21:35)
[2020-03-08] MEDS ORDERED: PT OWN MED DRAWER 7, Y5N ONE ×5 (09:08→20:34)
[2020-03-08] MEDS: LACTOBACILLUS ACIDOPHILUS 1 TABLET GT SCH (09:13)
[2020-03-08] MEDS: AMINO ACIDS/PROTEIN HYDROLYS 30 ML LIQUID.PKT PO SCH (09:14)
[2020-03-08] MEDS: MAGNESIUM HYDROX 2400MG/30ML ORAL SUSPENSION 30 ML CUP GT SCH ×2 (09:14→21:31)
[2020-03-08] MEDS: SIMETHICONE 40 MG/0.6 ML BOTTLE GT SCH ×2 (09:16→21:33)
[2020-03-08] MEDS ORDERED: PIPERACILLIN/TAZOB 2.25 GM 2.25 GM in DEXTROSE 5%-WATER - 50 ML IVPB SCH (10:00)
[2020-03-08 11:00] LABS: BASO % 0.3 % (0-2.0); EOS % 4.1 % (0-4.5); HEMOGLOBIN 10.9 GM/dL (11.7-16.9); LYMPH % 22.7 % (8-40); MCH 29.4 pg (25.7-33.7); MCHC 33.1 g/dl (32.0-35.9); MEAN PLT VOLUME 9.4 fl (7.5-11.1); NEUT % 56.9 % (42.8-82.8); PLATELET COUNT 158 K/MM3 (134-434); RBC 3.71 M/mm3 (4.00-5.60); RDW 14.4 % (11.9-15.9); WHITE BLOOD COUNT 6.2 K/mm3 (4.0-10.0)
[2020-03-08 11:27] LABS: POTASSIUM 4.4 mmol/L (3.5-5.1)
[2020-03-08 11:29] LABS: CALCIUM 9.2 mg/dL (8.5-10.1)
[2020-03-08 11:30] LABS: ALBUMIN 2.9 g/dl (3.4-5.0); BLOOD UREA NITROGEN 28.1 mg/dL (7-18)
[2020-03-08 11:33] LABS: CREATININE 2.1 mg/dL (0.55-1.3)
[2020-03-08 11:35] LABS: BILIRUBIN,TOTAL 0.7 mg/dL (0.2-1); TOT PROT 7.5 g/dl (6.4-8.2)
[2020-03-08] MEDS: ENOXAPARIN NA (PORCINE) 30 MG/0.3 ML DISP.SYRIN SQ SCH ×2 (11:46→21:33)
[2020-03-08 12:01] LABS: ERYTHROCYTE SEDIMENTATION RATE 102 mm/hr (0-10)
[2020-03-08] MEDS: carBAMazepine 100 MG TAB.CHEW GT SCH (14:04)
[2020-03-08] MEDS: SENNOSIDES 8.8 MG/5 ML BULK BOTTLE PEG SCH (17:46)
[2020-03-08] MEDS: ZINC SULFATE 220 MG CAPSULE (FP) GT SCH (21:32)
[2020-03-08] MEDS: MULTIVITAMINS (DAILY MVI) TABLET (FP) PO SCH (21:32)
[2020-03-08] MEDS: ASCORBIC ACID 500 MG/5 ML UNIT DOSE CUP GT SCH (21:32)
[2020-03-08] MEDS: carBAMazepine 200 MG TABLET GT SCH (21:49)
[2020-03-09] MEDS ORDERED: PIPERACILLIN/TAZOBACTAM 2.25 GM VIAL IVPB ONE ×3 (01:24→17:02)
[2020-03-09] MEDS ORDERED: DEXTROSE 5%-WATER - 50 ML IVPB ONE ×3 (01:24→17:02)
[2020-03-09] MEDS: DEXTROSE 5%-NORMAL SALINE 1,000 ML IV SCH (01:29)
[2020-03-09] MEDS: PIPERACILLIN/TAZOB 2.25 GM 2.25 GM in DEXTROSE 5%-WATER - 50 ML IVPB SCH ×3 (01:30→19:11)
[2020-03-09] MEDS: NEOMYCIN/POLYMYXN/HC OTIC SOLUTION 10 ML BOTTLE AU SCH ×3 (05:09→22:58)
[2020-03-09 09:34] LABS: BASO % 0.3 % (0-2.0); EOS % 5.7 % (0-4.5); HEMATOCRIT 31.7 % (35.4-49); HEMOGLOBIN 10.3 GM/dL (11.7-16.9); MCH 28.4 pg (25.7-33.7); MCHC 32.5 g/dl (32.0-35.9); MEAN CELL VOLUME 87.4 fl (80-96); MEAN PLT VOLUME 9.4 fl (7.5-11.1); MONO % 12.9 % (3.8-10.2); NEUT % 61.1 % (42.8-82.8); PLATELET COUNT 159 K/MM3 (134-434); RBC 3.63 M/mm3 (4.00-5.60); RDW 14.2 % (11.9-15.9); WHITE BLOOD COUNT 6.5 K/mm3 (4.0-10.0)
[2020-03-09] MEDS: MAGNESIUM HYDROX 2400MG/30ML ORAL SUSPENSION 30 ML CUP GT SCH ×2 (09:47→22:57)
[2020-03-09] MEDS: carBAMazepine 100 MG TAB.CHEW GT SCH (09:47)
[2020-03-09] MEDS: SIMETHICONE 40 MG/0.6 ML BOTTLE GT SCH ×2 (09:47→23:00)
[2020-03-09] MEDS: SENNOSIDES 8.8 MG/5 ML BULK BOTTLE PEG SCH (09:47)
[2020-03-09] MEDS: LACTOBACILLUS ACIDOPHILUS 1 TABLET GT SCH (09:48)
[2020-03-09] MEDS: AMINO ACIDS/PROTEIN HYDROLYS 30 ML LIQUID.PKT PO SCH (09:48)
[2020-03-09 10:07] LABS: POTASSIUM 4.2 mmol/L (3.5-5.1)
[2020-03-09 10:09] LABS: CALCIUM 8.9 mg/dL (8.5-10.1)
[2020-03-09 10:10] LABS: ALBUMIN 2.6 g/dl (3.4-5.0); BLOOD UREA NITROGEN 26.7 mg/dL (7-18)
[2020-03-09 10:13] LABS: CREATININE 1.6 mg/dL (0.55-1.3)
[2020-03-09 10:14] LABS: BILIRUBIN,TOTAL 1.7 mg/dL (0.2-1); TOT PROT 6.9 g/dl (6.4-8.2)
[2020-03-09 10:18] LABS: ERYTHROCYTE SEDIMENTATION RATE 115 mm/hr (0-10)
[2020-03-09] MEDS: ENOXAPARIN NA (PORCINE) 30 MG/0.3 ML DISP.SYRIN SQ SCH ×2 (11:25→22:58)
[2020-03-09] MEDS: MULTIVITAMINS (DAILY MVI) TABLET (FP) PO SCH (22:57)
[2020-03-09] MEDS: ZINC SULFATE 220 MG CAPSULE (FP) GT SCH (22:57)
[2020-03-09] MEDS: MINERAL OIL/PETROLAT/WATER TOPICAL CREAM 454 GM JAR TP PRN (22:59)
[2020-03-09] MEDS: ASCORBIC ACID 500 MG/5 ML UNIT DOSE CUP GT SCH (22:59)
[2020-03-09] MEDS ORDERED: PT OWN MED DRAWER 7, Y5N ONE (23:01)
[2020-03-09] MEDS: carBAMazepine 200 MG TABLET GT SCH (23:02)
[2020-03-10] MEDS: PIPERACILLIN/TAZOB 2.25 GM 2.25 GM in DEXTROSE 5%-WATER - 50 ML IVPB SCH ×3 (02:55→17:06)
[2020-03-10] MEDS: NEOMYCIN/POLYMYXN/HC OTIC SOLUTION 10 ML BOTTLE AU SCH ×3 (05:48→21:01)
[2020-03-10] MEDS: DEXTROSE 5%-NORMAL SALINE 1,000 ML IV SCH ×2 (08:02→16:03)
[2020-03-10] MEDS ORDERED: PT OWN MED DRAWER 7, Y5N ONE ×3 (09:56→11:32)
[2020-03-10] MEDS ORDERED: DEXTROSE 5%-WATER - 50 ML IVPB ONE ×2 (09:57→17:03)
[2020-03-10] MEDS ORDERED: PIPERACILLIN/TAZOBACTAM 2.25 GM VIAL IVPB ONE ×2 (09:57→17:03)
[2020-03-10 09:58] LABS: BASO % 0.2 % (0-2.0); EOS % 6.3 % (0-4.5); HEMATOCRIT 32.8 % (35.4-49); HEMOGLOBIN 10.7 GM/dL (11.7-16.9); LYMPH % 25.2 % (8-40); MCH 28.2 pg (25.7-33.7); MCHC 32.5 g/dl (32.0-35.9); MEAN CELL VOLUME 86.7 fl (80-96); MONO % 11.2 % (3.8-10.2); NEUT % 57.1 % (42.8-82.8); PLATELET COUNT 172 K/MM3 (134-434); RBC 3.79 M/mm3 (4.00-5.60); RDW 14.1 % (11.9-15.9); WHITE BLOOD COUNT 6.1 K/mm3 (4.0-10.0)
[2020-03-10] MEDS: MAGNESIUM HYDROX 2400MG/30ML ORAL SUSPENSION 30 ML CUP GT SCH ×2 (10:00→21:01)
[2020-03-10] MEDS: ENOXAPARIN NA (PORCINE) 30 MG/0.3 ML DISP.SYRIN SQ SCH (10:00)
[2020-03-10] MEDS: LACTOBACILLUS ACIDOPHILUS 1 TABLET GT SCH (10:01)
[2020-03-10] MEDS: AMINO ACIDS/PROTEIN HYDROLYS 30 ML LIQUID.PKT PO SCH (10:01)
[2020-03-10] MEDS: SIMETHICONE 40 MG/0.6 ML BOTTLE GT SCH ×2 (10:02→21:01)
[2020-03-10] MEDS: carBAMazepine 100 MG TAB.CHEW GT SCH (10:02)
[2020-03-10 11:12] LABS: BLOOD UREA NITROGEN 23.7 mg/dL (7-18); CALCIUM 8.6 mg/dL (8.5-10.1); CREATININE 1.5 mg/dL (0.55-1.3); POTASSIUM 4.1 mmol/L (3.5-5.1)
[2020-03-10] MEDS: SENNOSIDES 8.8 MG/5 ML BULK BOTTLE PEG SCH (12:12)
[2020-03-10] MEDS: HEPARIN NA (PORCINE) 5,000 UNITS/ML 1ML VIAL SQ SCH (21:00)
[2020-03-10] MEDS: MULTIVITAMINS (DAILY MVI) TABLET (FP) PO SCH (21:01)
[2020-03-10] MEDS: ZINC SULFATE 220 MG CAPSULE (FP) GT SCH (21:01)
[2020-03-10] MEDS: ASCORBIC ACID 500 MG/5 ML UNIT DOSE CUP GT SCH (21:01)
[2020-03-10] MEDS: carBAMazepine 200 MG TABLET GT SCH (21:01)
[2020-03-11] MEDS ORDERED: DEXTROSE 5%-WATER - 50 ML IVPB ONE ×2 (00:39→09:54)
[2020-03-11] MEDS ORDERED: PIPERACILLIN/TAZOBACTAM 2.25 GM VIAL IVPB ONE ×2 (00:39→09:54)
[2020-03-11] MEDS: PIPERACILLIN/TAZOB 2.25 GM 2.25 GM in DEXTROSE 5%-WATER - 50 ML IVPB SCH ×2 (02:09→10:01)
[2020-03-11] MEDS: DEXTROSE 5%-NORMAL SALINE 1,000 ML IV SCH ×2 (02:09→12:40)
[2020-03-11] MEDS: HEPARIN NA (PORCINE) 5,000 UNITS/ML 1ML VIAL SQ SCH ×2 (05:34→13:45)
[2020-03-11] MEDS: NEOMYCIN/POLYMYXN/HC OTIC SOLUTION 10 ML BOTTLE AU SCH ×2 (05:35→13:51)
[2020-03-11 08:00] LABS: BASO % 0.5 % (0-2.0); EOS % 7.1 % (0-4.5); HEMATOCRIT 30.6 % (35.4-49); HEMOGLOBIN 10.5 GM/dL (11.7-16.9); LYMPH % 22.8 % (8-40); MCHC 34.4 g/dl (32.0-35.9); MEAN CELL VOLUME 87.4 fl (80-96); MEAN PLT VOLUME 9.8 fl (7.5-11.1); NEUT % 58.6 % (42.8-82.8); PLATELET COUNT 168 K/MM3 (134-434); RDW 14.4 % (11.9-15.9); WHITE BLOOD COUNT 6.1 K/mm3 (4.0-10.0)
[2020-03-11 08:05] LABS: POTASSIUM 4.3 mmol/L (3.5-5.1)
[2020-03-11 08:07] LABS: BLOOD UREA NITROGEN 22.2 mg/dL (7-18); CALCIUM 8.5 mg/dL (8.5-10.1)
[2020-03-11 08:11] LABS: CREATININE 1.2 mg/dL (0.55-1.3)
[2020-03-11] MEDS ORDERED: PT OWN MED DRAWER 7, Y5N ONE (09:55)
[2020-03-11] MEDS: LACTOBACILLUS ACIDOPHILUS 1 TABLET GT SCH (09:57)
[2020-03-11] MEDS: AMINO ACIDS/PROTEIN HYDROLYS 30 ML LIQUID.PKT PO SCH (09:57)
[2020-03-11] MEDS: SIMETHICONE 40 MG/0.6 ML BOTTLE GT SCH (09:57)
[2020-03-11] MEDS: MAGNESIUM HYDROX 2400MG/30ML ORAL SUSPENSION 30 ML CUP GT SCH (09:57)
[2020-03-11] MEDS: SENNOSIDES 8.8 MG/5 ML BULK BOTTLE PEG SCH (09:58)
[2020-03-11] MEDS: carBAMazepine 100 MG TAB.CHEW GT SCH (09:58)
[2020-03-11 14:13] VITALS: TEMP 97.9
[2020-03-11 14:57] VITALS: BP 148/75; PULSE 76
== END 2020-03-11 20:14 | disposition home or self-care (01) | DRG 137 ==
LOC: JER 17:29 → JERBED 20:46 → J7W 03-05 03:29
PROVIDERS: ADMIT Internal Medicine; ATTEND Internal Medicine
PROC: 3E0G76Z Introduction of Nutritional Substance into Upper GI, Via Natural or Artificial Opening (ICD-10-PCS; principal; 2020-03-04)
DX: J69.0 Pneumonitis due to inhalation of food and vomit (principal); B96.5 Pseudomonas (aeruginosa) (mallei) (pseudomallei) as the cause of diseases classified elsewhere; Q99.8 Other specified chromosome abnormalities; E16.2 Hypoglycemia, unspecified; E86.0 Dehydration; G40.909 Epilepsy, unspecified, not intractable, without status epilepticus; R31.9 Hematuria, unspecified; N39.0 Urinary tract infection, site not specified; Z93.1 Gastrostomy status; R62.50 Unspecified lack of expected normal physiological development in childhood; F79 Unspecified intellectual disabilities; H91.8X9 Other specified hearing loss, unspecified ear; G91.9 Hydrocephalus, unspecified; N17.9 Acute kidney failure, unspecified; J96.01 Acute respiratory failure with hypoxia
CPT/HCPCS: 36415; 71045-TC-FY; 80048; 80053; 81003; 82728; 82962; 83605; 83615; 83735; 84100; 84484; 85025; 85379; 85651; 86140; 87040; 87086; 87186; 93005; 93010; 99285-25; C9803; J1644; U0003

== ENCOUNTER 2020-04-23 12:26 | Inpatient (IN) | payer OTHER ==
[2020-04-23] MEDS ORDERED: PIPERACILLIN/TAZOB 3.375 GM 3.375 GM/50 ML BAG IVPB SCH (14:30)
[2020-04-23] MEDS ORDERED: PIPERACILLIN/TAZOB 3.375 GM 3.375 GM/50 ML BAG IVPB ONE (16:24)
[2020-04-23 16:48] LABS: BASO % 0.9 % (0-2.0); EOS % 8.6 % (0-4.5); HEMATOCRIT 40.2 % (35.4-49); HEMOGLOBIN 13.5 GM/dL (11.7-16.9); LYMPH % 28.5 % (8-40); MCH 29.9 pg (25.7-33.7); MCHC 33.7 g/dl (32.0-35.9); MEAN CELL VOLUME 88.7 fl (80-96); MEAN PLT VOLUME 9.3 fl (7.5-11.1); MONO % 9.8 % (3.8-10.2); NEUT % 52.2 % (42.8-82.8); PLATELET COUNT 219 K/MM3 (134-434); RBC 4.53 M/mm3 (4.00-5.60); RDW 15.1 % (11.9-15.9); WHITE BLOOD COUNT 4.5 K/mm3 (4.0-10.0)
[2020-04-23 17:07] LABS: POTASSIUM 4.9 mmol/L (3.5-5.1)
[2020-04-23 17:09] LABS: CALCIUM 9.2 mg/dL (8.5-10.1)
[2020-04-23 17:10] LABS: ALBUMIN 3.6 g/dl (3.4-5.0); BLOOD UREA NITROGEN 16.9 mg/dL (7-18)
[2020-04-23 17:12] LABS: CREATININE 0.8 mg/dL (0.55-1.3)
[2020-04-23 17:13] LABS: EPI CELLS 36 /uL (0-25.1); HYALINE CASTS 2 /uL (0-3.1); PH,URINE 8.5 (5.0-8.0); URINE APPEARANCE CLOUDY; URINE BILIRUBIN NEGATIVE (NEGATIVE); URINE COLOR YELLOW; URINE GLUCOSE (UA) NEGATIVE (NEGATIVE); URINE KETONE NEGATIVE (NEGATIVE); URINE LEUK ESTERASE 1+ (NEGATIVE); URINE NITRITE POSITIVE (NEGATIVE); URINE PROTEIN NEGATIVE (NEGATIVE); URINE RBC 17 /uL (0-23.9); URINE UROBILINOGEN 0.2 mg/dL (0.2-1.0); URINE WBC 54 /uL (0-25.8)
[2020-04-23 17:15] LABS: BILIRUBIN,TOTAL 0.4 mg/dL (0.2-1); TOT PROT 8.7 g/dl (6.4-8.2)
[2020-04-23 18:34] LABS: URINE BACTERIA 696.8 /uL (0-1359)
[2020-04-23] MEDS ORDERED: ALBUTEROL SO4 2.5/IPRATROPIUM 0.5 INH SOL 3 ML VIAL.NEB. NEB PRN (21:56)
[2020-04-23] MEDS ORDERED: BISACODYL 10 MG SUPP.RECT PR PRN (22:00)
[2020-04-23] MEDS ORDERED: diazePAM RECTAL GEL 5 MG KIT (PRE-CALIBRATED) RC PRN (22:00)
[2020-04-23] MEDS ORDERED: NUTRITIONAL SUPPLEMENT GT SCH (22:00)
[2020-04-24] MEDS ORDERED: ASCORBIC ACID 500 MG TABLET (FP) ONE (01:00)
[2020-04-24] MEDS ORDERED: MAG HYDROX/AL HYDROX/SIMETH 30 ML UNIT-DOSE CUP ONE (01:01)
[2020-04-24] MEDS ORDERED: carBAMazepine 200 MG TABLET ONE (01:01)
[2020-04-24] MEDS: ASCORBIC ACID 500 MG/5 ML UNIT DOSE CUP GT SCH ×2 (01:04→23:45)
[2020-04-24] MEDS: carBAMazepine 100 MG/5 ML UNIT-DOSE CUP GT SCH ×3 (01:04→21:32)
[2020-04-24] MEDS: MAG HYDROX/AL HYDROX/SIMETH 30 ML UNIT-DOSE CUP GT SCH ×4 (01:04→21:33)
[2020-04-24] MEDS: SIMETHICONE 40 MG/0.6 ML BOTTLE GT SCH ×3 (01:57→23:45)
[2020-04-24] MEDS: MAGNESIUM HYDROX 2400MG/30ML ORAL SUSPENSION 30 ML CUP GT SCH ×3 (01:57→21:33)
[2020-04-24] MEDS: PIPERACILLIN/TAZOB 4.5 GM 4.5 GM in DEXTROSE 5%-WATER 100 ML IVPB SCH ×3 (04:50→17:55)
[2020-04-24] MEDS ORDERED: PIPERACILLIN/TAZOBACTAM 4.5 GM VIAL IVPB ONE ×3 (09:47→17:43)
[2020-04-24] MEDS ORDERED: DEXTROSE 5%-WATER 100 ML IVPB ONE ×3 (09:47→17:43)
[2020-04-24] MEDS: LACTOBACILLUS ACIDOPHILUS 1 TABLET GT SCH (09:50)
[2020-04-24] MEDS: ENOXAPARIN NA (PORCINE) 40 MG/0.4 ML DISP.SYRIN SQ SCH (09:50)
[2020-04-24] MEDS: SENNOSIDES 8.8 MG/5 ML BULK BOTTLE GT SCH (09:55)
[2020-04-24] MEDS ORDERED: NUTRITIONAL SUPPLEMENT GT SCH (10:00)
[2020-04-24 13:16] LABS: BASO % 0.5 % (0-2.0); EOS % 4.9 % (0-4.5); HEMATOCRIT 39.4 % (35.4-49); HEMOGLOBIN 13.2 GM/dL (11.7-16.9); LYMPH % 27.1 % (8-40); MCH 29.8 pg (25.7-33.7); MCHC 33.5 g/dl (32.0-35.9); MEAN CELL VOLUME 88.9 fl (80-96); MEAN PLT VOLUME 9.1 fl (7.5-11.1); MONO % 11.4 % (3.8-10.2); NEUT % 56.1 % (42.8-82.8); PLATELET COUNT 207 K/MM3 (134-434); RBC 4.43 M/mm3 (4.00-5.60); RDW 15.2 % (11.9-15.9); WHITE BLOOD COUNT 5.3 K/mm3 (4.0-10.0)
[2020-04-24 13:29] LABS: POTASSIUM 4.3 mmol/L (3.5-5.1)
[2020-04-24 13:30] LABS: CALCIUM 9.5 mg/dL (8.5-10.1)
[2020-04-24 13:32] LABS: ALBUMIN 3.7 g/dl (3.4-5.0); BLOOD UREA NITROGEN 20.7 mg/dL (7-18); MAGNESIUM 2.4 mg/dL (1.8-2.4)
[2020-04-24 13:34] LABS: CREATININE 0.9 mg/dL (0.55-1.3); PHOSPHOROUS 3.5 mg/dL (2.5-4.9)
[2020-04-24 13:36] LABS: BILIRUBIN,TOTAL 0.3 mg/dL (0.2-1); TOT PROT 8.4 g/dl (6.4-8.2)
[2020-04-25] MEDS ORDERED: PIPERACILLIN/TAZOBACTAM 4.5 GM VIAL IVPB ONE ×3 (00:52→14:41)
[2020-04-25] MEDS ORDERED: DEXTROSE 5%-WATER 100 ML IVPB ONE ×3 (00:53→14:41)
[2020-04-25] MEDS: PIPERACILLIN/TAZOB 4.5 GM 4.5 GM in DEXTROSE 5%-WATER 100 ML IVPB SCH ×5 (01:56→17:00)
[2020-04-25] MEDS: MAG HYDROX/AL HYDROX/SIMETH 30 ML UNIT-DOSE CUP GT SCH ×3 (05:29→21:38)
[2020-04-25] MEDS: carBAMazepine 100 MG/5 ML UNIT-DOSE CUP GT SCH ×2 (05:59→21:40)
[2020-04-25 07:26] LABS: BASO % 0.6 % (0-2.0); EOS % 6.9 % (0-4.5); HEMOGLOBIN 13.4 GM/dL (11.7-16.9); LYMPH % 28.8 % (8-40); MCH 29.8 pg (25.7-33.7); MCHC 33.4 g/dl (32.0-35.9); MEAN PLT VOLUME 9.2 fl (7.5-11.1); MONO % 9.9 % (3.8-10.2); NEUT % 53.8 % (42.8-82.8); PLATELET COUNT 205 K/MM3 (134-434); RBC 4.49 M/mm3 (4.00-5.60); RDW 14.9 % (11.9-15.9); WHITE BLOOD COUNT 4.9 K/mm3 (4.0-10.0)
[2020-04-25] MEDS: SCOPOLAMINE HYDROBROMIDE 1 PATCH PATCH.TD72 TD SCH (09:17)
[2020-04-25] MEDS: ENOXAPARIN NA (PORCINE) 40 MG/0.4 ML DISP.SYRIN SQ SCH (09:17)
[2020-04-25] MEDS: MAGNESIUM HYDROX 2400MG/30ML ORAL SUSPENSION 30 ML CUP GT SCH ×2 (09:18→21:37)
[2020-04-25] MEDS: LACTOBACILLUS ACIDOPHILUS 1 TABLET GT SCH (09:18)
[2020-04-25] MEDS: SIMETHICONE 40 MG/0.6 ML BOTTLE GT SCH ×2 (09:19→21:41)
[2020-04-25] MEDS: SENNOSIDES 8.8 MG/5 ML BULK BOTTLE GT SCH (09:20)
[2020-04-25 11:51] VITALS: BMI 20.5
[2020-04-25] MEDS: ASCORBIC ACID 500 MG/5 ML UNIT DOSE CUP GT SCH (21:41)
[2020-04-26] MEDS ORDERED: DEXTROSE 5%-WATER 100 ML IVPB ONE ×3 (01:07→17:00)
[2020-04-26] MEDS ORDERED: PIPERACILLIN/TAZOBACTAM 4.5 GM VIAL IVPB ONE ×3 (01:07→17:00)
[2020-04-26] MEDS: PIPERACILLIN/TAZOB 4.5 GM 4.5 GM in DEXTROSE 5%-WATER 100 ML IVPB SCH ×3 (01:17→17:03)
[2020-04-26] MEDS: MAG HYDROX/AL HYDROX/SIMETH 30 ML UNIT-DOSE CUP GT SCH ×3 (05:11→21:06)
[2020-04-26] MEDS: carBAMazepine 100 MG/5 ML UNIT-DOSE CUP GT SCH ×2 (06:01→21:07)
[2020-04-26 07:37] LABS: BASO % 0.8 % (0-2.0); EOS % 6.4 % (0-4.5); HEMATOCRIT 37.9 % (35.4-49); HEMOGLOBIN 12.6 GM/dL (11.7-16.9); LYMPH % 39.4 % (8-40); MCH 29.5 pg (25.7-33.7); MCHC 33.1 g/dl (32.0-35.9); MEAN PLT VOLUME 9.3 fl (7.5-11.1); MONO % 10.9 % (3.8-10.2); NEUT % 42.5 % (42.8-82.8); PLATELET COUNT 210 K/MM3 (134-434); RBC 4.26 M/mm3 (4.00-5.60); RDW 15.3 % (11.9-15.9)
[2020-04-26 07:58] LABS: WHITE BLOOD COUNT 6.1 K/mm3 (4.0-10.0)
[2020-04-26 08:08] LABS: POTASSIUM 4.1 mmol/L (3.5-5.1)
[2020-04-26 08:30] LABS: ALBUMIN 3.2 g/dl (3.4-5.0)
[2020-04-26 08:31] LABS: BLOOD UREA NITROGEN 14.2 mg/dL (7-18); MAGNESIUM 2.2 mg/dL (1.8-2.4)
[2020-04-26 08:34] LABS: CREATININE 0.8 mg/dL (0.55-1.3); PHOSPHOROUS 3.4 mg/dL (2.5-4.9)
[2020-04-26 08:35] LABS: BILIRUBIN,TOTAL 0.7 mg/dL (0.2-1); TOT PROT 7.5 g/dl (6.4-8.2)
[2020-04-26] MEDS: MAGNESIUM HYDROX 2400MG/30ML ORAL SUSPENSION 30 ML CUP GT SCH ×2 (09:21→21:04)
[2020-04-26] MEDS: SENNOSIDES 8.8 MG/5 ML BULK BOTTLE GT SCH (09:22)
[2020-04-26] MEDS: ENOXAPARIN NA (PORCINE) 40 MG/0.4 ML DISP.SYRIN SQ SCH (09:22)
[2020-04-26] MEDS: LACTOBACILLUS ACIDOPHILUS 1 TABLET GT SCH (09:23)
[2020-04-26] MEDS: SIMETHICONE 40 MG/0.6 ML BOTTLE GT SCH ×2 (09:24→21:07)
[2020-04-26] MEDS: ASCORBIC ACID 500 MG/5 ML UNIT DOSE CUP GT SCH (21:08)
[2020-04-26] MEDS ORDERED: diazePAM RECTAL GEL 10 MG KIT (PRE-CALIBRATED) RC PRN (23:10)
[2020-04-27] MEDS ORDERED: PIPERACILLIN/TAZOBACTAM 4.5 GM VIAL IVPB ONE ×3 (00:27→17:24)
[2020-04-27] MEDS ORDERED: DEXTROSE 5%-WATER 100 ML IVPB ONE ×3 (00:27→17:24)
[2020-04-27] MEDS ORDERED: PT OWN MED DRAWER 7, Y5N ONE ×2 (00:27→21:02)
[2020-04-27] MEDS: PIPERACILLIN/TAZOB 4.5 GM 4.5 GM in DEXTROSE 5%-WATER 100 ML IVPB SCH ×3 (01:00→18:23)
[2020-04-27] MEDS: MAG HYDROX/AL HYDROX/SIMETH 30 ML UNIT-DOSE CUP GT SCH ×3 (05:21→22:17)
[2020-04-27] MEDS: carBAMazepine 100 MG/5 ML UNIT-DOSE CUP GT SCH ×2 (06:05→22:16)
[2020-04-27 07:18] LABS: BASO % 0.8 % (0-2.0); EOS % 8.3 % (0-4.5); HEMATOCRIT 37.9 % (35.4-49); LYMPH % 43.6 % (8-40); MCH 30.3 pg (25.7-33.7); MCHC 34.3 g/dl (32.0-35.9); MEAN CELL VOLUME 88.1 fl (80-96); MEAN PLT VOLUME 9.1 fl (7.5-11.1); MONO % 10.7 % (3.8-10.2); NEUT % 36.6 % (42.8-82.8); PLATELET COUNT 194 K/MM3 (134-434); RDW 14.7 % (11.9-15.9); WHITE BLOOD COUNT 4.5 K/mm3 (4.0-10.0)
[2020-04-27 07:37] LABS: MAGNESIUM 1.9 mg/dL (1.8-2.4)
[2020-04-27] MEDS: SIMETHICONE 40 MG/0.6 ML BOTTLE GT SCH ×2 (09:44→22:17)
[2020-04-27] MEDS: ENOXAPARIN NA (PORCINE) 40 MG/0.4 ML DISP.SYRIN SQ SCH (09:44)
[2020-04-27] MEDS: SENNOSIDES 8.8 MG/5 ML BULK BOTTLE GT SCH (09:44)
[2020-04-27] MEDS: MAGNESIUM HYDROX 2400MG/30ML ORAL SUSPENSION 30 ML CUP GT SCH ×2 (09:45→22:17)
[2020-04-27] MEDS: LACTOBACILLUS ACIDOPHILUS 1 TABLET GT SCH (09:45)
[2020-04-27] MEDS: ASCORBIC ACID 500 MG/5 ML UNIT DOSE CUP GT SCH (22:17)
[2020-04-28] MEDS ORDERED: DEXTROSE 5%-WATER 100 ML IVPB ONE ×3 (02:39→16:50)
[2020-04-28] MEDS ORDERED: PIPERACILLIN/TAZOBACTAM 4.5 GM VIAL IVPB ONE ×3 (02:39→16:50)
[2020-04-28] MEDS: PIPERACILLIN/TAZOB 4.5 GM 4.5 GM in DEXTROSE 5%-WATER 100 ML IVPB SCH ×3 (02:55→17:26)
[2020-04-28] MEDS: carBAMazepine 100 MG/5 ML UNIT-DOSE CUP GT SCH ×2 (06:11→21:39)
[2020-04-28] MEDS: MAG HYDROX/AL HYDROX/SIMETH 30 ML UNIT-DOSE CUP GT SCH ×3 (07:58→21:38)
[2020-04-28 08:01] LABS: BASO % 0.6 % (0-2.0); EOS % 7.5 % (0-4.5); HEMATOCRIT 40.2 % (35.4-49); HEMOGLOBIN 13.3 GM/dL (11.7-16.9); LYMPH % 32.8 % (8-40); MCH 29.6 pg (25.7-33.7); MCHC 33.1 g/dl (32.0-35.9); MEAN CELL VOLUME 89.3 fl (80-96); MEAN PLT VOLUME 9.1 fl (7.5-11.1); MONO % 8.6 % (3.8-10.2); NEUT % 50.5 % (42.8-82.8); PLATELET COUNT 195 K/MM3 (134-434); RDW 14.7 % (11.9-15.9)
[2020-04-28] MEDS: SCOPOLAMINE HYDROBROMIDE 1 PATCH PATCH.TD72 TD SCH (09:46)
[2020-04-28] MEDS: SENNOSIDES 8.8 MG/5 ML BULK BOTTLE GT SCH (09:47)
[2020-04-28] MEDS: SIMETHICONE 40 MG/0.6 ML BOTTLE GT SCH ×2 (09:47→21:40)
[2020-04-28] MEDS: LACTOBACILLUS ACIDOPHILUS 1 TABLET GT SCH (09:48)
[2020-04-28] MEDS: ENOXAPARIN NA (PORCINE) 40 MG/0.4 ML DISP.SYRIN SQ SCH (09:48)
[2020-04-28] MEDS: MAGNESIUM HYDROX 2400MG/30ML ORAL SUSPENSION 30 ML CUP GT SCH ×2 (09:48→21:38)
[2020-04-28 10:12] LABS: ALBUMIN 3.4 g/dl (3.4-5.0); BILIRUBIN,TOTAL 0.2 mg/dL (0.2-1); BLOOD UREA NITROGEN 12.2 mg/dL (7-18); CALCIUM 9.1 mg/dL (8.5-10.1); CREATININE 0.7 mg/dL (0.55-1.3); PHOSPHOROUS 4.1 mg/dL (2.5-4.9); POTASSIUM 4.5 mmol/L (3.5-5.1); TOT PROT 7.8 g/dl (6.4-8.2)
[2020-04-28] MEDS ORDERED: PT OWN MED DRAWER 7, Y5N ONE ×2 (21:35→21:54)
[2020-04-28] MEDS: ASCORBIC ACID 500 MG/5 ML UNIT DOSE CUP GT SCH (21:40)
[2020-04-29] MEDS ORDERED: PIPERACILLIN/TAZOBACTAM 4.5 GM VIAL IVPB ONE ×4 (02:08→16:40)
[2020-04-29] MEDS ORDERED: DEXTROSE 5%-WATER 100 ML IVPB ONE ×4 (02:08→16:40)
[2020-04-29] MEDS: PIPERACILLIN/TAZOB 4.5 GM 4.5 GM in DEXTROSE 5%-WATER 100 ML IVPB SCH ×3 (02:13→17:00)
[2020-04-29] MEDS ORDERED: PT OWN MED DRAWER 7, Y5N ONE (06:05)
[2020-04-29] MEDS: MAG HYDROX/AL HYDROX/SIMETH 30 ML UNIT-DOSE CUP GT SCH ×3 (06:07→22:18)
[2020-04-29] MEDS: carBAMazepine 100 MG/5 ML UNIT-DOSE CUP GT SCH ×2 (06:07→22:18)
[2020-04-29] MEDS: MAGNESIUM HYDROX 2400MG/30ML ORAL SUSPENSION 30 ML CUP GT SCH ×2 (09:30→22:18)
[2020-04-29] MEDS: ENOXAPARIN NA (PORCINE) 40 MG/0.4 ML DISP.SYRIN SQ SCH (09:30)
[2020-04-29] MEDS: SIMETHICONE 40 MG/0.6 ML BOTTLE GT SCH ×2 (09:31→22:19)
[2020-04-29] MEDS: LACTOBACILLUS ACIDOPHILUS 1 TABLET GT SCH (09:31)
[2020-04-29] MEDS: SENNOSIDES 8.8 MG/5 ML BULK BOTTLE GT SCH (09:32)
[2020-04-29 13:32] LABS: BASO % 0.6 % (0-2.0); EOS % 7.1 % (0-4.5); HEMATOCRIT 42.6 % (35.4-49); HEMOGLOBIN 14.3 GM/dL (11.7-16.9); LYMPH % 33.7 % (8-40); MCH 29.7 pg (25.7-33.7); MCHC 33.5 g/dl (32.0-35.9); MEAN CELL VOLUME 88.8 fl (80-96); MEAN PLT VOLUME 9.3 fl (7.5-11.1); MONO % 7.8 % (3.8-10.2); NEUT % 50.8 % (42.8-82.8); PLATELET COUNT 164 K/MM3 (134-434); RDW 15.2 % (11.9-15.9); WHITE BLOOD COUNT 5.9 K/mm3 (4.0-10.0)
[2020-04-29 14:11] LABS: ALBUMIN 3.2 g/dl (3.4-5.0); BILIRUBIN,TOTAL 0.4 mg/dL (0.2-1); BLOOD UREA NITROGEN 11.5 mg/dL (7-18); CALCIUM 8.7 mg/dL (8.5-10.1); CREATININE 0.7 mg/dL (0.55-1.3); MAGNESIUM 1.9 mg/dL (1.8-2.4); POTASSIUM 4.3 mmol/L (3.5-5.1); TOT PROT 7.4 g/dl (6.4-8.2)
[2020-04-29] MEDS: ASCORBIC ACID 500 MG/5 ML UNIT DOSE CUP GT SCH (22:19)
[2020-04-29] MEDS: levETIRAcetam 500 MG/5 ML INJECTION VIAL IVPB SCH (22:51)
[2020-04-30] MEDS ORDERED: DEXTROSE 5%-WATER 100 ML IVPB ONE ×3 (00:53→16:59)
[2020-04-30] MEDS ORDERED: PIPERACILLIN/TAZOBACTAM 4.5 GM VIAL IVPB ONE ×3 (00:53→16:59)
[2020-04-30] MEDS: PIPERACILLIN/TAZOB 4.5 GM 4.5 GM in DEXTROSE 5%-WATER 100 ML IVPB SCH ×3 (01:10→17:24)
[2020-04-30] MEDS: MAG HYDROX/AL HYDROX/SIMETH 30 ML UNIT-DOSE CUP GT SCH (05:33)
[2020-04-30] MEDS: TUBE FEED DECLOGGING SOLUTION 12,000 UNITS GT SCH ×3 (10:46→12:32)
[2020-04-30] MEDS: MAGNESIUM HYDROX 2400MG/30ML ORAL SUSPENSION 30 ML CUP GT SCH ×2 (11:04→23:05)
[2020-04-30] MEDS: levETIRAcetam 500 MG/5 ML INJECTION VIAL IVPB SCH (11:04)
[2020-04-30] MEDS: LACTOBACILLUS ACIDOPHILUS 1 TABLET GT SCH (11:04)
[2020-04-30] MEDS: ENOXAPARIN NA (PORCINE) 40 MG/0.4 ML DISP.SYRIN SQ SCH (11:05)
[2020-04-30] MEDS ORDERED: PT OWN MED DRAWER 7, Y5N ONE ×2 (12:22→21:44)
[2020-04-30 12:24] LABS: HEMATOCRIT 39.2 % (35.4-49); HEMOGLOBIN 12.9 GM/dL (11.7-16.9); MCH 29.6 pg (25.7-33.7); MEAN CELL VOLUME 89.7 fl (80-96); MEAN PLT VOLUME 9.3 fl (7.5-11.1); PLATELET COUNT 165 K/MM3 (134-434); RBC 4.37 M/mm3 (4.00-5.60); WHITE BLOOD COUNT 5.9 K/mm3 (4.0-10.0)
[2020-04-30 12:34] LABS: POTASSIUM 4.2 mmol/L (3.5-5.1)
[2020-04-30] MEDS: SIMETHICONE 40 MG/0.6 ML BOTTLE GT SCH ×2 (12:34→23:06)
[2020-04-30 12:37] LABS: BLOOD UREA NITROGEN 14.5 mg/dL (7-18); CALCIUM 9.1 mg/dL (8.5-10.1)
[2020-04-30 12:41] LABS: CREATININE 0.6 mg/dL (0.55-1.3)
[2020-04-30] MEDS: SENNOSIDES 8.8 MG/5 ML BULK BOTTLE GT SCH (12:45)
[2020-04-30] MEDS: ASCORBIC ACID 500 MG/5 ML UNIT DOSE CUP GT SCH (23:06)
[2020-04-30] MEDS: carBAMazepine 100 MG/5 ML UNIT-DOSE CUP GT SCH (23:07)
[2020-05-01] MEDS ORDERED: PIPERACILLIN/TAZOBACTAM 4.5 GM VIAL IVPB ONE (00:25)
[2020-05-01] MEDS ORDERED: DEXTROSE 5%-WATER 100 ML IVPB ONE (00:25)
[2020-05-01] MEDS: PIPERACILLIN/TAZOB 4.5 GM 4.5 GM in DEXTROSE 5%-WATER 100 ML IVPB SCH (01:02)
[2020-05-01] MEDS: carBAMazepine 100 MG/5 ML UNIT-DOSE CUP GT SCH ×2 (06:20→21:57)
[2020-05-01] MEDS: SENNOSIDES 8.8 MG/5 ML BULK BOTTLE GT SCH (10:24)
[2020-05-01] MEDS: SIMETHICONE 40 MG/0.6 ML BOTTLE GT SCH ×2 (10:25→21:56)
[2020-05-01] MEDS: SCOPOLAMINE HYDROBROMIDE 1 PATCH PATCH.TD72 TD SCH (10:25)
[2020-05-01] MEDS: LACTOBACILLUS ACIDOPHILUS 1 TABLET GT SCH (10:25)
[2020-05-01] MEDS: ENOXAPARIN NA (PORCINE) 40 MG/0.4 ML DISP.SYRIN SQ SCH (10:26)
[2020-05-01] MEDS: MAGNESIUM HYDROX 2400MG/30ML ORAL SUSPENSION 30 ML CUP GT SCH ×2 (10:26→21:55)
[2020-05-01] MEDS ORDERED: PT OWN MED DRAWER 7, Y5N ONE (21:52)
[2020-05-01] MEDS: ASCORBIC ACID 500 MG/5 ML UNIT DOSE CUP GT SCH (21:56)
[2020-05-02] MEDS: carBAMazepine 100 MG/5 ML UNIT-DOSE CUP GT SCH ×2 (06:24→22:58)
[2020-05-02 09:25] LABS: HEMATOCRIT 38.8 % (35.4-49); MCHC 33.6 g/dl (32.0-35.9); MEAN CELL VOLUME 89.3 fl (80-96); MEAN PLT VOLUME 9.9 fl (7.5-11.1); PLATELET COUNT 157 K/MM3 (134-434); RBC 4.34 M/mm3 (4.00-5.60); RDW 14.7 % (11.9-15.9); WHITE BLOOD COUNT 4.9 K/mm3 (4.0-10.0)
[2020-05-02 09:41] LABS: POTASSIUM 3.8 mmol/L (3.5-5.1)
[2020-05-02 09:47] LABS: CALCIUM 9.2 mg/dL (8.5-10.1); MAGNESIUM 1.9 mg/dL (1.8-2.4)
[2020-05-02 09:50] LABS: CREATININE 0.7 mg/dL (0.55-1.3); PHOSPHOROUS 3.4 mg/dL (2.5-4.9)
[2020-05-02] MEDS: SIMETHICONE 40 MG/0.6 ML BOTTLE GT SCH ×2 (09:53→22:57)
[2020-05-02 09:54] LABS: BLOOD UREA NITROGEN 11.2 mg/dL (7-18)
[2020-05-02] MEDS: SENNOSIDES 8.8 MG/5 ML BULK BOTTLE GT SCH (09:54)
[2020-05-02] MEDS: MAGNESIUM HYDROX 2400MG/30ML ORAL SUSPENSION 30 ML CUP GT SCH ×2 (09:54→22:57)
[2020-05-02] MEDS: ENOXAPARIN NA (PORCINE) 40 MG/0.4 ML DISP.SYRIN SQ SCH (09:54)
[2020-05-02] MEDS: LACTOBACILLUS ACIDOPHILUS 1 TABLET GT SCH (09:55)
[2020-05-02] MEDS: ASCORBIC ACID 500 MG/5 ML UNIT DOSE CUP GT SCH (22:58)
[2020-05-03 07:38] LABS: HEMATOCRIT 39.5 % (35.4-49); HEMOGLOBIN 13.5 GM/dL (11.7-16.9); MCH 30.3 pg (25.7-33.7); MCHC 34.2 g/dl (32.0-35.9); MEAN CELL VOLUME 88.6 fl (80-96); MEAN PLT VOLUME 9.3 fl (7.5-11.1); PLATELET COUNT 167 K/MM3 (134-434); RBC 4.46 M/mm3 (4.00-5.60); WHITE BLOOD COUNT 6.4 K/mm3 (4.0-10.0)
[2020-05-03 07:51] LABS: CALCIUM 9.1 mg/dL (8.5-10.1)
[2020-05-03 07:52] LABS: BLOOD UREA NITROGEN 10.9 mg/dL (7-18)
[2020-05-03 07:55] LABS: CREATININE 0.7 mg/dL (0.55-1.3); PHOSPHOROUS 3.6 mg/dL (2.5-4.9)
[2020-05-03] MEDS: SIMETHICONE 40 MG/0.6 ML BOTTLE GT SCH ×2 (09:17→21:37)
[2020-05-03] MEDS: LACTOBACILLUS ACIDOPHILUS 1 TABLET GT SCH (09:17)
[2020-05-03] MEDS: carBAMazepine 100 MG/5 ML UNIT-DOSE CUP GT SCH ×2 (09:17→21:36)
[2020-05-03] MEDS: ENOXAPARIN NA (PORCINE) 40 MG/0.4 ML DISP.SYRIN SQ SCH (09:17)
[2020-05-03] MEDS: MAGNESIUM HYDROX 2400MG/30ML ORAL SUSPENSION 30 ML CUP GT SCH ×2 (09:18→21:36)
[2020-05-03] MEDS: SENNOSIDES 8.8 MG/5 ML BULK BOTTLE GT SCH (13:18)
[2020-05-03] MEDS ORDERED: PT OWN MED DRAWER 7, Y5N ONE (20:59)
[2020-05-03] MEDS: ASCORBIC ACID 500 MG/5 ML UNIT DOSE CUP GT SCH (22:44)
[2020-05-04] MEDS ORDERED: PT OWN MED DRAWER 7, Y5N ONE (05:08)
[2020-05-04] MEDS: carBAMazepine 100 MG/5 ML UNIT-DOSE CUP GT SCH (06:09)
[2020-05-04] MEDS: ENOXAPARIN NA (PORCINE) 40 MG/0.4 ML DISP.SYRIN SQ SCH (09:34)
[2020-05-04] MEDS: MAGNESIUM HYDROX 2400MG/30ML ORAL SUSPENSION 30 ML CUP GT SCH (09:34)
[2020-05-04] MEDS: SENNOSIDES 8.8 MG/5 ML BULK BOTTLE GT SCH (09:34)
[2020-05-04] MEDS: SIMETHICONE 40 MG/0.6 ML BOTTLE GT SCH (09:35)
[2020-05-04] MEDS: LACTOBACILLUS ACIDOPHILUS 1 TABLET GT SCH (09:35)
[2020-05-04] MEDS: SCOPOLAMINE HYDROBROMIDE 1 PATCH PATCH.TD72 TD SCH (09:38)
[2020-05-04 14:10] VITALS: BP 145/66; PULSE 62; TEMP 98
== END 2020-05-04 15:43 | disposition home or self-care (01) | DRG 463 ==
LOC: JER 12:26 → JERBED 18:26 → J7W 04-24 03:10
PROVIDERS: ADMIT Hospitalist; ATTEND Internal Medicine
PROC: 3E0G76Z Introduction of Nutritional Substance into Upper GI, Via Natural or Artificial Opening (ICD-10-PCS; 2020-04-23)
PROC: 0D20XUZ Change Feeding Device in Upper Intestinal Tract, External Approach (ICD-10-PCS; principal; 2020-05-03)
DX: N39.0 Urinary tract infection, site not specified (principal); G91.9 Hydrocephalus, unspecified; R13.10 Dysphagia, unspecified; K94.23 Gastrostomy malfunction; B96.5 Pseudomonas (aeruginosa) (mallei) (pseudomallei) as the cause of diseases classified elsewhere; G40.909 Epilepsy, unspecified, not intractable, without status epilepticus; K59.09 Other constipation; E16.2 Hypoglycemia, unspecified; H54.8 Legal blindness, as defined in USA; R62.50 Unspecified lack of expected normal physiological development in childhood; M85.80 Other specified disorders of bone density and structure, unspecified site; F79 Unspecified intellectual disabilities; Y83.8 Other surgical procedures as the cause of abnormal reaction of the patient, or of later complication, without mention of misadventure at the time of the procedure
CPT/HCPCS: 36415; 71045-TC-FY; 74018-TC-FY; 80048; 80053; 81003; 82962; 83735; 84100; 85025; 85027; 87040; 87086; 87186; 99285-25; C9803; U0003

== ENCOUNTER 2020-07-22 09:00 | Inpatient (IN) | payer OTHER ==
[2020-07-22 10:34] LABS: VENOUS O2 SATURATION 59.4 % (70-80); VENOUS PH 7.276 (7.310-7.410)
[2020-07-22 10:36] LABS: BASO % 0.5 % (0-2.0); EOS % 5.2 % (0-4.5); HEMATOCRIT 40.7 % (35.4-49); HEMOGLOBIN 13.7 GM/dL (11.7-16.9); LYMPH % 24.7 % (8-40); MCH 30.6 pg (25.7-33.7); MCHC 33.8 g/dl (32.0-35.9); MEAN CELL VOLUME 90.7 fl (80-96); MEAN PLT VOLUME 8.7 fl (7.5-11.1); MONO % 9.1 % (3.8-10.2); NEUT % 60.5 % (42.8-82.8); PLATELET COUNT 200 K/MM3 (134-434); RBC 4.48 M/mm3 (4.00-5.60); RDW 14.3 % (11.9-15.9); WHITE BLOOD COUNT 6.7 K/mm3 (4.0-10.0)
[2020-07-22 10:44] LABS: INR 1.15 (0.83-1.09); PROTHROMBIN TIME (PATIENT) 13.9 SEC (9.7-13.0)
[2020-07-22 10:46] LABS: ACTIVATED PTT 33.9 SECONDS (25.2-36.5)
[2020-07-22 11:02] LABS: CHLORIDE 101 mmol/L (98-107); POTASSIUM 3.8 mmol/L (3.5-5.1); SODIUM 136 mmol/L (136-145)
[2020-07-22 11:04] LABS: CALCIUM 9.5 mg/dL (8.5-10.1)
[2020-07-22 11:05] LABS: ALBUMIN 3.6 g/dl (3.4-5.0); ANION GAP 4 MMOL/L (8-16); BLOOD UREA NITROGEN 9.8 mg/dL (7-18); CO2 31 mmol/L (21-32); GLUCOSE,RANDOM 79 mg/dL (74-106)
[2020-07-22 11:07] LABS: BILIRUBIN,DIRECT 0.1 mg/dL (0.0-0.2)
[2020-07-22 11:08] LABS: CREATININE 0.6 mg/dL (0.55-1.3); SGOT/AST 24 U/L (15-37); SGPT/ALT 32 U/L (13-61)
[2020-07-22 11:10] LABS: BILIRUBIN,TOTAL 0.5 mg/dL (0.2-1); TOT PROT 8.4 g/dl (6.4-8.2)
[2020-07-22 11:11] LABS: ALK PHOS 116 U/L (45-117); LACTIC ACID 2.4 mmol/L (0.4-2.0)
[2020-07-22 11:12] LABS: LDH 198 U/L (87-246)
[2020-07-22] MEDS ORDERED: LACTATED RINGERS SOLUTION 1000 ML INFUS.BAG IV ONE ×2 (11:35→12:35)
[2020-07-22 12:00] LABS: URINE APPEARANCE Clear; URINE BILIRUBIN Negative (NEGATIVE); URINE COLOR Yellow; URINE GLUCOSE (UA) Negative (NEGATIVE); URINE KETONE Negative (NEGATIVE); URINE LEUK ESTERASE 3+ (NEGATIVE); URINE NITRITE Negative (NEGATIVE); URINE PROTEIN 1+ (NEGATIVE); URINE UROBILINOGEN 0.2 mg/dL (0.2-1.0)
[2020-07-22] MEDS ORDERED: PIPERACILLIN/TAZOB 4.5 GM 4.5 GM in DEXTROSE 5%-WATER 100 ML IVPB ONE (12:12)
[2020-07-22] MEDS ORDERED: VANCOMYCIN 1 GM in D5W (PRE-DOCKED) 1,000 MG/250 ML IVPB ONE (12:15)
[2020-07-22] MEDS ORDERED: PIPERACILLIN/TAZOB 4.5 GM 4.5 GM/100 ML BAG IVPB ONE (13:01)
[2020-07-22] MEDS ORDERED: VANCOMYCIN 1 GRAM (PRE-DOCKED) 1,000 MG/250 ML BAG IVPB ONE (13:01)
[2020-07-22 14:50] LABS: URINE BACTERIA 6322.2 /uL (0-1359); URINE RBC 380.4 /uL (0-23.9); URINE WBC 6703.2 /uL (0-25.8)
[2020-07-22 14:51] LABS: YEAST NONE SEEN (NEGATIVE)
[2020-07-22] MEDS ORDERED: PIPERACILLIN/TAZOB 2.25 GM 2.25 GM/50 ML BAG IVPB ONE (17:42)
[2020-07-22] MEDS ORDERED: HEPARIN NA (PORCINE) 5,000 UNITS/ML 1ML VIAL ONE (17:47)
[2020-07-22] MEDS: LACTATED RINGERS SOLUTION 1,000 ML IV SCH (17:58)
[2020-07-22] MEDS: HEPARIN NA (PORCINE) 5,000 UNITS/ML 1ML VIAL SQ SCH (17:58)
[2020-07-22] MEDS: PIPERACILLIN/TAZOB 2.25 GM 2.25 GM in DEXTROSE 5%-WATER - 50 ML IVPB SCH (17:58)
[2020-07-22] MEDS ORDERED: diazePAM RECTAL GEL 5 MG KIT (PRE-CALIBRATED) RC PRN (21:15)
[2020-07-22] MEDS: MUPIROCIN 2% TOPICAL OINTMENT 22 GM TUBE TP SCH (23:44)
[2020-07-22] MEDS: carBAMazepine 100 MG/5 ML UNIT-DOSE CUP GT SCH (23:45)
[2020-07-23] MEDS: SIMETHICONE 40 MG/0.6 ML BOTTLE GT SCH ×3 (00:24→22:33)
[2020-07-23] MEDS ORDERED: DEXTROSE 5%-WATER - 50 ML IVPB ONE ×3 (00:37→15:56)
[2020-07-23] MEDS ORDERED: PIPERACILLIN/TAZOBACTAM 2.25 GM VIAL IVPB ONE ×3 (00:37→15:56)
[2020-07-23] MEDS: HEPARIN NA (PORCINE) 5,000 UNITS/ML 1ML VIAL SQ SCH ×3 (01:24→17:00)
[2020-07-23] MEDS: PIPERACILLIN/TAZOB 2.25 GM 2.25 GM in DEXTROSE 5%-WATER - 50 ML IVPB SCH ×3 (01:24→17:00)
[2020-07-23 02:33] VITALS: BMI 24.3
[2020-07-23 08:59] LABS: BASO % 0.5 % (0-2.0); EOS % 5.5 % (0-4.5); HEMATOCRIT 35.7 % (35.4-49); HEMOGLOBIN 12.2 GM/dL (11.7-16.9); LYMPH % 30.5 % (8-40); MCH 30.6 pg (25.7-33.7); MCHC 34.1 g/dl (32.0-35.9); MEAN CELL VOLUME 89.8 fl (80-96); MEAN PLT VOLUME 8.3 fl (7.5-11.1); MONO % 10.6 % (3.8-10.2); NEUT % 52.9 % (42.8-82.8); PLATELET COUNT 184 K/MM3 (134-434); RBC 3.98 M/mm3 (4.00-5.60); RDW 14.4 % (11.9-15.9); WHITE BLOOD COUNT 4.8 K/mm3 (4.0-10.0)
[2020-07-23] MEDS: SENNOSIDES 8.8 MG/5 ML BULK BOTTLE GT SCH (10:35)
[2020-07-23] MEDS: carBAMazepine 100 MG/5 ML UNIT-DOSE CUP GT SCH ×2 (10:38→22:33)
[2020-07-23 10:46] LABS: ALBUMIN 3.1 g/dl (3.4-5.0); BLOOD UREA NITROGEN 10.5 mg/dL (7-18); CALCIUM 9.2 mg/dL (8.5-10.1)
[2020-07-23 10:47] LABS: MAGNESIUM 1.7 mg/dL (1.8-2.4)
[2020-07-23] MEDS: MUPIROCIN 2% TOPICAL OINTMENT 22 GM TUBE TP SCH ×2 (10:47→22:33)
[2020-07-23 10:49] LABS: CREATININE 0.6 mg/dL (0.55-1.3)
[2020-07-23 10:51] LABS: BILIRUBIN,TOTAL 0.4 mg/dL (0.2-1); TOT PROT 7.4 g/dl (6.4-8.2)
[2020-07-23] MEDS: LACTATED RINGERS SOLUTION 1,000 ML IV SCH ×2 (11:13→17:03)
[2020-07-23] MEDS: ALBUTEROL SO4 2.5/IPRATROPIUM 0.5 INH SOL 3 ML VIAL.NEB. NEB PRN (12:52)
[2020-07-23] MEDS ORDERED: PT OWN MED DRAWER 7, Y5N ONE (22:02)
[2020-07-24] MEDS ORDERED: PIPERACILLIN/TAZOBACTAM 2.25 GM VIAL IVPB ONE ×2 (01:06→07:50)
[2020-07-24] MEDS ORDERED: DEXTROSE 5%-WATER - 50 ML IVPB ONE ×2 (01:07→07:50)
[2020-07-24] MEDS: HEPARIN NA (PORCINE) 5,000 UNITS/ML 1ML VIAL SQ SCH ×3 (01:09→17:43)
[2020-07-24] MEDS: PIPERACILLIN/TAZOB 2.25 GM 2.25 GM in DEXTROSE 5%-WATER - 50 ML IVPB SCH ×4 (01:09→19:08)
[2020-07-24] MEDS: carBAMazepine 100 MG/5 ML UNIT-DOSE CUP GT SCH ×2 (09:25→22:09)
[2020-07-24] MEDS: SIMETHICONE 40 MG/0.6 ML BOTTLE GT SCH ×2 (09:25→22:09)
[2020-07-24] MEDS: SENNOSIDES 8.8 MG/5 ML BULK BOTTLE GT SCH (09:26)
[2020-07-24] MEDS: MUPIROCIN 2% TOPICAL OINTMENT 22 GM TUBE TP SCH ×2 (09:26→22:09)
[2020-07-24] MEDS: SCOPOLAMINE HYDROBROMIDE 1 PATCH PATCH.TD72 TD SCH (09:31)
[2020-07-24] MEDS: ALBUTEROL SO4 2.5/IPRATROPIUM 0.5 INH SOL 3 ML VIAL.NEB. NEB PRN (10:08)
[2020-07-24 13:00] LABS: BASO % 0.6 % (0-2.0); EOS % 5.6 % (0-4.5); HEMATOCRIT 37.9 % (35.4-49); HEMOGLOBIN 12.7 GM/dL (11.7-16.9); LYMPH % 36.4 % (8-40); MCH 30.8 pg (25.7-33.7); MCHC 33.6 g/dl (32.0-35.9); MEAN CELL VOLUME 91.5 fl (80-96); MEAN PLT VOLUME 9.1 fl (7.5-11.1); MONO % 9.3 % (3.8-10.2); NEUT % 48.1 % (42.8-82.8); PLATELET COUNT 167 K/MM3 (134-434); RBC 4.14 M/mm3 (4.00-5.60); RDW 14.2 % (11.9-15.9); WHITE BLOOD COUNT 4.3 K/mm3 (4.0-10.0)
[2020-07-24 13:25] LABS: ALBUMIN 3.3 g/dl (3.4-5.0); BILIRUBIN,TOTAL 0.5 mg/dL (0.2-1); BLOOD UREA NITROGEN 11.3 mg/dL (7-18); CALCIUM 9.1 mg/dL (8.5-10.1); CREATININE 0.6 mg/dL (0.55-1.3); MAGNESIUM 1.5 mg/dL (1.8-2.4); PHOSPHOROUS 2.8 mg/dL (2.5-4.9); TOT PROT 7.7 g/dl (6.4-8.2)
[2020-07-24] MEDS ORDERED: DEXTROSE 50%-WATER - 25 GM/50 ML VIAL IVPUSH ONE ×2 (16:06→16:10)
[2020-07-24] MEDS ORDERED: MAGNESIUM OXIDE 400 MG TABLET (FP) GT ONE (16:10)
[2020-07-24] MEDS ORDERED: DEXTROSE 5%-0.45% SALINE 1,000 ML IV SCH (16:45)
[2020-07-24] MEDS ORDERED: DEXTROSE 4 GM TAB.CHEW PO ONE (17:26)
[2020-07-24] MEDS ORDERED: PT OWN MED DRAWER 7, Y5N ONE (21:55)
[2020-07-25] MEDS ORDERED: DEXTROSE 5%-WATER - 50 ML IVPB ONE ×3 (01:48→16:38)
[2020-07-25] MEDS ORDERED: PIPERACILLIN/TAZOBACTAM 2.25 GM VIAL IVPB ONE ×3 (01:48→16:38)
[2020-07-25] MEDS: HEPARIN NA (PORCINE) 5,000 UNITS/ML 1ML VIAL SQ SCH ×3 (01:50→17:00)
[2020-07-25] MEDS: PIPERACILLIN/TAZOB 2.25 GM 2.25 GM in DEXTROSE 5%-WATER - 50 ML IVPB SCH ×3 (01:50→17:02)
[2020-07-25] MEDS: carBAMazepine 100 MG/5 ML UNIT-DOSE CUP GT SCH ×2 (11:05→21:57)
[2020-07-25] MEDS: SIMETHICONE 40 MG/0.6 ML BOTTLE GT SCH ×2 (11:06→21:57)
[2020-07-25] MEDS: SENNOSIDES 8.8 MG/5 ML BULK BOTTLE GT SCH (11:07)
[2020-07-25] MEDS: MUPIROCIN 2% TOPICAL OINTMENT 22 GM TUBE TP SCH ×2 (11:09→21:58)
[2020-07-25 13:34] LABS: BASO % 0.5 % (0-2.0); EOS % 11.4 % (0-4.5); HEMATOCRIT 36.9 % (35.4-49); HEMOGLOBIN 12.5 GM/dL (11.7-16.9); LYMPH % 35.1 % (8-40); MCH 30.9 pg (25.7-33.7); MEAN CELL VOLUME 90.7 fl (80-96); MEAN PLT VOLUME 9.6 fl (7.5-11.1); MONO % 10.3 % (3.8-10.2); NEUT % 42.7 % (42.8-82.8); RBC 4.07 M/mm3 (4.00-5.60); RDW 14.3 % (11.9-15.9); WHITE BLOOD COUNT 4.6 K/mm3 (4.0-10.0)
[2020-07-25 13:53] LABS: POTASSIUM 4.1 mmol/L (3.5-5.1)
[2020-07-25 13:55] LABS: CALCIUM 9.1 mg/dL (8.5-10.1)
[2020-07-25 13:56] LABS: ALBUMIN 2.9 g/dl (3.4-5.0); BLOOD UREA NITROGEN 7.8 mg/dL (7-18); MAGNESIUM 1.7 mg/dL (1.8-2.4)
[2020-07-25 13:59] LABS: CREATININE 0.6 mg/dL (0.55-1.3); PHOSPHOROUS 2.6 mg/dL (2.5-4.9)
[2020-07-25 14:00] LABS: BILIRUBIN,TOTAL 0.5 mg/dL (0.2-1)
[2020-07-25 14:01] LABS: TOT PROT 7.1 g/dl (6.4-8.2)
[2020-07-25 15:06] LABS: PLATELET COUNT 161 K/MM3 (134-434)
[2020-07-25] MEDS ORDERED: NAPH,MB-DB/K PH,MBDB POWDER PACKET GT ONE (16:00)
[2020-07-25] MEDS ORDERED: MAGNESIUM OXIDE 400 MG TABLET (FP) GT ONE (16:00)
[2020-07-25] MEDS ORDERED: PT OWN MED DRAWER 7, Y5N ONE (21:04)
[2020-07-26] MEDS: HEPARIN NA (PORCINE) 5,000 UNITS/ML 1ML VIAL SQ SCH ×3 (02:48→18:34)
[2020-07-26] MEDS: PIPERACILLIN/TAZOB 2.25 GM 2.25 GM in DEXTROSE 5%-WATER - 50 ML IVPB SCH ×3 (03:36→18:34)
[2020-07-26 08:01] LABS: BASO % 0.5 % (0-2.0); HEMOGLOBIN 12.7 GM/dL (11.7-16.9); RDW 14.2 % (11.9-15.9)
[2020-07-26 08:04] LABS: HEMATOCRIT 37.1 % (35.4-49); LYMPH % 36.2 % (8-40); MCHC 34.2 g/dl (32.0-35.9); MEAN CELL VOLUME 90.6 fl (80-96); MEAN PLT VOLUME 9.2 fl (7.5-11.1); NEUT % 43.3 % (42.8-82.8); PLATELET COUNT 174 K/MM3 (134-434); RBC 4.09 M/mm3 (4.00-5.60); WHITE BLOOD COUNT 4.9 K/mm3 (4.0-10.0)
[2020-07-26 08:46] LABS: POTASSIUM 3.9 mmol/L (3.5-5.1)
[2020-07-26 08:49] LABS: ALBUMIN 3.2 g/dl (3.4-5.0); BLOOD UREA NITROGEN 8.3 mg/dL (7-18); CALCIUM 9.1 mg/dL (8.5-10.1)
[2020-07-26 08:50] LABS: MAGNESIUM 1.7 mg/dL (1.8-2.4)
[2020-07-26 08:53] LABS: CREATININE 0.6 mg/dL (0.55-1.3)
[2020-07-26 08:54] LABS: BILIRUBIN,TOTAL 0.4 mg/dL (0.2-1); TOT PROT 7.6 g/dl (6.4-8.2)
[2020-07-26] MEDS: SENNOSIDES 8.8 MG/5 ML BULK BOTTLE GT SCH (09:22)
[2020-07-26] MEDS: carBAMazepine 100 MG/5 ML UNIT-DOSE CUP GT SCH ×2 (09:22→22:16)
[2020-07-26] MEDS: MUPIROCIN 2% TOPICAL OINTMENT 22 GM TUBE TP SCH ×2 (09:23→23:39)
[2020-07-26] MEDS: SIMETHICONE 40 MG/0.6 ML BOTTLE GT SCH ×2 (09:24→22:16)
[2020-07-26] MEDS ORDERED: MAGNESIUM OXIDE 400 MG TABLET (FP) PO ONE (12:42)
[2020-07-26] MEDS ORDERED: PIPERACILLIN/TAZOBACTAM 2.25 GM VIAL IVPB ONE (18:17)
[2020-07-26] MEDS ORDERED: DEXTROSE 5%-WATER - 50 ML IVPB ONE (18:17)
[2020-07-26] MEDS ORDERED: PT OWN MED DRAWER 7, Y5N ONE ×3 (22:02→22:44)
[2020-07-27] MEDS ORDERED: DEXTROSE 5%-WATER - 50 ML IVPB ONE ×3 (01:14→17:01)
[2020-07-27] MEDS ORDERED: PIPERACILLIN/TAZOBACTAM 2.25 GM VIAL IVPB ONE ×3 (01:14→17:01)
[2020-07-27] MEDS: PIPERACILLIN/TAZOB 2.25 GM 2.25 GM in DEXTROSE 5%-WATER - 50 ML IVPB SCH ×3 (01:18→17:31)
[2020-07-27] MEDS: HEPARIN NA (PORCINE) 5,000 UNITS/ML 1ML VIAL SQ SCH ×3 (01:18→17:31)
[2020-07-27 07:26] LABS: BASO % 0.5 % (0-2.0); EOS % 9.2 % (0-4.5); HEMATOCRIT 38.4 % (35.4-49); HEMOGLOBIN 12.8 GM/dL (11.7-16.9); MCH 30.6 pg (25.7-33.7); MCHC 33.3 g/dl (32.0-35.9); MEAN CELL VOLUME 91.8 fl (80-96); MONO % 10.4 % (3.8-10.2); NEUT % 36.9 % (42.8-82.8); PLATELET COUNT 163 K/MM3 (134-434); RBC 4.18 M/mm3 (4.00-5.60); RDW 14.7 % (11.9-15.9); WHITE BLOOD COUNT 4.7 K/mm3 (4.0-10.0)
[2020-07-27 07:55] LABS: POTASSIUM 3.7 mmol/L (3.5-5.1)
[2020-07-27 08:38] LABS: CALCIUM 9.3 mg/dL (8.5-10.1)
[2020-07-27 08:39] LABS: ALBUMIN 3.2 g/dl (3.4-5.0); BLOOD UREA NITROGEN 6.9 mg/dL (7-18); MAGNESIUM 1.8 mg/dL (1.8-2.4)
[2020-07-27 08:42] LABS: CREATININE 0.8 mg/dL (0.55-1.3); PHOSPHOROUS 3.6 mg/dL (2.5-4.9)
[2020-07-27 08:44] LABS: BILIRUBIN,TOTAL 0.3 mg/dL (0.2-1); TOT PROT 7.7 g/dl (6.4-8.2)
[2020-07-27] MEDS: SCOPOLAMINE HYDROBROMIDE 1 PATCH PATCH.TD72 TD SCH (10:30)
[2020-07-27] MEDS: SENNOSIDES 8.8 MG/5 ML BULK BOTTLE GT SCH (10:30)
[2020-07-27] MEDS: SIMETHICONE 40 MG/0.6 ML BOTTLE GT SCH ×2 (10:31→22:43)
[2020-07-27] MEDS ORDERED: PT OWN MED DRAWER 7, Y5N ONE ×2 (11:15→21:25)
[2020-07-27] MEDS: carBAMazepine 100 MG/5 ML UNIT-DOSE CUP GT SCH ×2 (11:32→22:41)
[2020-07-27] MEDS: MUPIROCIN 2% TOPICAL OINTMENT 22 GM TUBE TP SCH (11:33)
[2020-07-27] MEDS ORDERED: POTASSIUM CHLORIDE ORAL LIQUID 20 MEQ/15 ML PO ONE (17:45)
[2020-07-28] MEDS ORDERED: PIPERACILLIN/TAZOBACTAM 2.25 GM VIAL IVPB ONE ×4 (02:04→16:56)
[2020-07-28] MEDS ORDERED: DEXTROSE 5%-WATER - 50 ML IVPB ONE ×4 (02:04→16:56)
[2020-07-28] MEDS: PIPERACILLIN/TAZOB 2.25 GM 2.25 GM in DEXTROSE 5%-WATER - 50 ML IVPB SCH ×4 (02:09→17:01)
[2020-07-28] MEDS: HEPARIN NA (PORCINE) 5,000 UNITS/ML 1ML VIAL SQ SCH ×3 (02:09→17:01)
[2020-07-28] MEDS: MUPIROCIN 2% TOPICAL OINTMENT 22 GM TUBE TP SCH ×3 (02:10→22:05)
[2020-07-28 08:45] LABS: BASO % 0.3 % (0-2.0); EOS % 7.2 % (0-4.5); HEMATOCRIT 38.4 % (35.4-49); HEMOGLOBIN 12.9 GM/dL (11.7-16.9); LYMPH % 37.4 % (8-40); MCH 30.7 pg (25.7-33.7); MCHC 33.5 g/dl (32.0-35.9); MEAN CELL VOLUME 91.6 fl (80-96); MEAN PLT VOLUME 9.6 fl (7.5-11.1); MONO % 8.4 % (3.8-10.2); NEUT % 46.7 % (42.8-82.8); PLATELET COUNT 158 K/MM3 (134-434); RBC 4.19 M/mm3 (4.00-5.60); RDW 14.1 % (11.9-15.9); WHITE BLOOD COUNT 4.6 K/mm3 (4.0-10.0)
[2020-07-28 09:03] LABS: POTASSIUM 3.9 mmol/L (3.5-5.1)
[2020-07-28 09:10] LABS: ALBUMIN 3.2 g/dl (3.4-5.0); BILIRUBIN,TOTAL 0.3 mg/dL (0.2-1); BLOOD UREA NITROGEN 7.7 mg/dL (7-18); CALCIUM 9.1 mg/dL (8.5-10.1); CREATININE 0.7 mg/dL (0.55-1.3); MAGNESIUM 1.7 mg/dL (1.8-2.4); PHOSPHOROUS 3.7 mg/dL (2.5-4.9)
[2020-07-28 09:12] LABS: TOT PROT 7.2 g/dl (6.4-8.2)
[2020-07-28] MEDS: SIMETHICONE 40 MG/0.6 ML BOTTLE GT SCH ×3 (10:00→22:06)
[2020-07-28] MEDS: carBAMazepine 100 MG/5 ML UNIT-DOSE CUP GT SCH ×2 (11:00→22:06)
[2020-07-28] MEDS: SENNOSIDES 8.8 MG/5 ML BULK BOTTLE GT SCH (11:00)
[2020-07-28] MEDS ORDERED: MAGNESIUM OXIDE 400 MG TABLET (FP) PEG ONE (17:26)
[2020-07-28] MEDS ORDERED: PT OWN MED DRAWER 7, Y5N ONE (21:59)
[2020-07-29] MEDS ORDERED: DEXTROSE 5%-WATER - 50 ML IVPB ONE ×3 (01:39→16:50)
[2020-07-29] MEDS ORDERED: PIPERACILLIN/TAZOBACTAM 2.25 GM VIAL IVPB ONE ×3 (01:39→16:50)
[2020-07-29] MEDS: PIPERACILLIN/TAZOB 2.25 GM 2.25 GM in DEXTROSE 5%-WATER - 50 ML IVPB SCH ×3 (01:44→17:24)
[2020-07-29] MEDS: HEPARIN NA (PORCINE) 5,000 UNITS/ML 1ML VIAL SQ SCH ×3 (01:47→23:13)
[2020-07-29] MEDS: MUPIROCIN 2% TOPICAL OINTMENT 22 GM TUBE TP SCH ×2 (10:07→23:13)
[2020-07-29] MEDS: SIMETHICONE 40 MG/0.6 ML BOTTLE GT SCH ×2 (10:08→23:11)
[2020-07-29] MEDS: carBAMazepine 100 MG/5 ML UNIT-DOSE CUP GT SCH ×2 (10:08→23:12)
[2020-07-29] MEDS: SENNOSIDES 8.8 MG/5 ML BULK BOTTLE GT SCH (10:08)
[2020-07-30] MEDS ORDERED: DEXTROSE 5%-WATER - 50 ML IVPB ONE ×2 (01:59→08:50)
[2020-07-30] MEDS ORDERED: PIPERACILLIN/TAZOBACTAM 2.25 GM VIAL IVPB ONE ×2 (01:59→08:49)
[2020-07-30] MEDS: PIPERACILLIN/TAZOB 2.25 GM 2.25 GM in DEXTROSE 5%-WATER - 50 ML IVPB SCH ×2 (02:05→10:55)
[2020-07-30 05:47] VITALS: PULSE 59
[2020-07-30] MEDS: HEPARIN NA (PORCINE) 5,000 UNITS/ML 1ML VIAL SQ SCH (05:57)
[2020-07-30] MEDS: SIMETHICONE 40 MG/0.6 ML BOTTLE GT SCH (10:54)
[2020-07-30] MEDS: carBAMazepine 100 MG/5 ML UNIT-DOSE CUP GT SCH (10:54)
[2020-07-30] MEDS: MUPIROCIN 2% TOPICAL OINTMENT 22 GM TUBE TP SCH (10:54)
[2020-07-30] MEDS: SENNOSIDES 8.8 MG/5 ML BULK BOTTLE GT SCH (10:55)
[2020-07-30] MEDS: SCOPOLAMINE HYDROBROMIDE 1 PATCH PATCH.TD72 TD SCH (10:55)
[2020-07-30 12:43] VITALS: BP 155/69; TEMP 97.8
== END 2020-07-30 12:15 | DRG 137 ==
LOC: JER 09:00 → JERBED 13:19 → J7W 20:46
PROVIDERS: ADMIT Student in an Organized Health Care Education/Training Program; ATTEND Internal Medicine
DX: J69.0 Pneumonitis due to inhalation of food and vomit (principal); J96.01 Acute respiratory failure with hypoxia; R53.2 Functional quadriplegia; N39.0 Urinary tract infection, site not specified; G40.909 Epilepsy, unspecified, not intractable, without status epilepticus; F78 Other intellectual disabilities; H54.8 Legal blindness, as defined in USA; L80 Vitiligo; H90.3 Sensorineural hearing loss, bilateral; Q98.7 Male with sex chromosome mosaicism; B96.5 Pseudomonas (aeruginosa) (mallei) (pseudomallei) as the cause of diseases classified elsewhere; R13.10 Dysphagia, unspecified; Z93.1 Gastrostomy status; Q03.9 Congenital hydrocephalus, unspecified
CPT/HCPCS: 36415; 71045-TC-FY; 80053; 81003; 82248; 82550; 82728; 82803; 82962; 83605; 83615; 83735; 84100; 84484; 85025; 85379; 85610; 85730; 86140; 87040; 87086; 87186; 87804; 93005; 93010; 94640; 99285-25; C9803; J1644; U0003; U0005

== ENCOUNTER 2020-09-01 09:53 | Inpatient (IN) | payer OTHER ==
[2020-09-01 10:58] LABS: EPI CELLS >36 /uL (0-25.1); HYALINE CASTS 11 /uL (0-3.1); PH,URINE 5.5 (5.0-8.0); URINE APPEARANCE TURBID; URINE BACTERIA 8419 /uL (0-1359); URINE BILIRUBIN NEGATIVE (NEGATIVE); URINE COLOR YELLOW; URINE GLUCOSE (UA) NEGATIVE (NEGATIVE); URINE KETONE NEGATIVE (NEGATIVE); URINE LEUK ESTERASE 3+ (NEGATIVE); URINE NITRITE POSITIVE (NEGATIVE); URINE PROTEIN TRACE (NEGATIVE); URINE UROBILINOGEN 0.2 mg/dL (0.2-1.0); URINE WBC 3704 /uL (0-25.8)
[2020-09-01 10:59] LABS: URINE RBC 90.5 /uL (0-23.9)
[2020-09-01 11:02] LABS: BASO % 0.3 % (0-2.0); EOS % 10.7 % (0-4.5); HEMATOCRIT 44.6 % (35.4-49); HEMOGLOBIN 15.2 GM/dL (11.7-16.9); LYMPH % 25.1 % (8-40); MCH 30.8 pg (25.7-33.7); MEAN CELL VOLUME 90.6 fl (80-96); MONO % 8.9 % (3.8-10.2); PLATELET COUNT 177 K/MM3 (134-434); RBC 4.93 M/mm3 (4.00-5.60); RDW 14.4 % (11.9-15.9); WHITE BLOOD COUNT 5.7 K/mm3 (4.0-10.0)
[2020-09-01 11:28] LABS: CHLORIDE 103 mmol/L (98-107); SODIUM 139 mmol/L (136-145)
[2020-09-01 11:30] LABS: CALCIUM 9.2 mg/dL (8.5-10.1)
[2020-09-01 11:31] LABS: ALBUMIN 3.9 g/dl (3.4-5.0); ANION GAP 5 MMOL/L (8-16); BLOOD UREA NITROGEN 8.4 mg/dL (7-18); CO2 31 mmol/L (21-32); GLUCOSE,RANDOM 68 mg/dL (74-106)
[2020-09-01 11:34] LABS: CREATININE 0.7 mg/dL (0.55-1.3); SGOT/AST 36 U/L (15-37); SGPT/ALT 37 U/L (13-61)
[2020-09-01 11:36] LABS: BILIRUBIN,TOTAL 0.2 mg/dL (0.2-1); TOT PROT 8.5 g/dl (6.4-8.2)
[2020-09-01 11:37] LABS: ALK PHOS 135 U/L (45-117)
[2020-09-01] MEDS ORDERED: PIPERACILLIN/TAZOB 3.375 GM 3.375 GM in DEXTROSE 5%-WATER - 50 ML IVPB ONE (12:53)
[2020-09-01] MEDS ORDERED: PIPERACILLIN/TAZOB 3.375 GM 3.375 GM/50 ML BAG IVPB ONE (13:00)
[2020-09-01] MEDS ORDERED: SODIUM CHLORIDE 500 ML IV STA (17:29)
[2020-09-01] MEDS ORDERED: LORATADINE 10 MG TABLET GT PRN ×2 (17:34→17:50)
[2020-09-01] MEDS ORDERED: BISACODYL 10 MG SUPP.RECT RC PRN (17:34)
[2020-09-01] MEDS ORDERED: NUTRITIONAL SUPPLEMENT GT SCH ×2 (17:45→22:00)
[2020-09-01] MEDS: SODIUM CHLORIDE 1,000 ML IV SCH ×2 (18:03→20:38)
[2020-09-01] MEDS ORDERED: cefTAZidime PENTAHYDRATE 1 GM/10 ML SYRINGE (RESTRICTED TO ID) IVPUSH SCH (21:00)
[2020-09-01] MEDS ORDERED: cefTAZidime PENTAHYDRATE 1 GM VIAL (RESTRICTED TO ID) ONE (21:24)
[2020-09-01] MEDS ORDERED: DEXTROSE 5%-WATER - 50 ML IVPB ONE (21:24)
[2020-09-01] MEDS: MAG HYDROX/AL HYDROX/SIMETH 30 ML UNIT-DOSE CUP GT SCH (21:43)
[2020-09-01] MEDS: ZINC SULFATE 220 MG CAPSULE (FP) GT SCH (21:43)
[2020-09-01] MEDS: guaiFENesin/D-METHORPHAN HB 10 ML UNIT-DOSE CUPS GT SCH (21:43)
[2020-09-01] MEDS: CEFTAZIDIME PENTAHYDRATE 1 GM in DEXTROSE 5%-WATER - 50 ML IVPB SCH (21:43)
[2020-09-01] MEDS: SENNOSIDES 8.8 MG/5 ML BULK BOTTLE GT SCH (22:05)
[2020-09-01] MEDS: SIMETHICONE 40 MG/0.6 ML BOTTLE GT SCH (22:05)
[2020-09-01] MEDS: SCOPOLAMINE HYDROBROMIDE 1 PATCH PATCH.TD72 TD SCH (22:06)
[2020-09-02] MEDS: guaiFENesin/D-METHORPHAN HB 10 ML UNIT-DOSE CUPS GT SCH ×5 (00:23→23:19)
[2020-09-02] MEDS ORDERED: cefTAZidime PENTAHYDRATE 1 GM VIAL (RESTRICTED TO ID) ONE ×2 (05:34→13:52)
[2020-09-02] MEDS ORDERED: DEXTROSE 5%-WATER - 50 ML IVPB ONE ×2 (05:34→13:52)
[2020-09-02] MEDS: MAG HYDROX/AL HYDROX/SIMETH 30 ML UNIT-DOSE CUP GT SCH ×3 (05:37→22:27)
[2020-09-02] MEDS: CEFTAZIDIME PENTAHYDRATE 1 GM in DEXTROSE 5%-WATER - 50 ML IVPB SCH ×4 (05:37→17:42)
[2020-09-02 08:08] LABS: BASO % 0.5 % (0-2.0); EOS % 10.7 % (0-4.5); HEMATOCRIT 37.7 % (35.4-49); HEMOGLOBIN 12.8 GM/dL (11.7-16.9); LYMPH % 21.8 % (8-40); MCH 30.8 pg (25.7-33.7); MCHC 33.9 g/dl (32.0-35.9); MEAN CELL VOLUME 90.7 fl (80-96); MEAN PLT VOLUME 9.3 fl (7.5-11.1); MONO % 8.2 % (3.8-10.2); NEUT % 58.8 % (42.8-82.8); PLATELET COUNT 169 K/MM3 (134-434); RBC 4.16 M/mm3 (4.00-5.60); RDW 14.1 % (11.9-15.9); WHITE BLOOD COUNT 5.6 K/mm3 (4.0-10.0)
[2020-09-02 08:39] LABS: ALBUMIN 3.2 g/dl (3.4-5.0); CALCIUM 8.5 mg/dL (8.5-10.1)
[2020-09-02 08:40] LABS: MAGNESIUM 1.8 mg/dL (1.8-2.4)
[2020-09-02 08:42] LABS: CREATININE 0.7 mg/dL (0.55-1.3)
[2020-09-02 08:43] LABS: PHOSPHOROUS 2.3 mg/dL (2.5-4.9)
[2020-09-02 08:44] LABS: BILIRUBIN,TOTAL 0.5 mg/dL (0.2-1); TOT PROT 7.1 g/dl (6.4-8.2)
[2020-09-02] MEDS ORDERED: diazePAM RECTAL GEL 10 MG KIT (PRE-CALIBRATED) RC PRN (10:00)
[2020-09-02] MEDS ORDERED: NAPH,MB-DB/K PH,MBDB POWDER PACKET PO ONE (10:20)
[2020-09-02] MEDS: SENNOSIDES 8.8 MG/5 ML BULK BOTTLE GT SCH ×2 (10:38→23:19)
[2020-09-02] MEDS: SIMETHICONE 40 MG/0.6 ML BOTTLE GT SCH ×2 (10:38→22:27)
[2020-09-02] MEDS: ENOXAPARIN NA (PORCINE) 40 MG/0.4 ML DISP.SYRIN SQ SCH (10:39)
[2020-09-02] MEDS: SODIUM CHLORIDE 1,000 ML IV SCH (10:45)
[2020-09-02] MEDS ORDERED: VANCOMYCIN 1 GM in D5W (PRE-DOCKED) 1,000 MG/250 ML IVPB ONE (14:12)
[2020-09-02 16:50] VITALS: BMI 21.5
[2020-09-02] MEDS ORDERED: CEFTAZIDIME PENTAHYDRATE 1 GM in DEXTROSE 5%-WATER - 50 ML IVPB SCH (21:00)
[2020-09-02] MEDS: ZINC SULFATE 220 MG CAPSULE (FP) GT SCH (22:27)
[2020-09-03] MEDS: SODIUM CHLORIDE 1,000 ML IV SCH (00:20)
[2020-09-03] MEDS ORDERED: MELATONIN 5 MG TABLETS PO ONE (00:21)
[2020-09-03] MEDS ORDERED: ACETAMINOPHEN 1000 MG/100 ML VIAL (NON FORMULARY) IVPB ONE (02:32)
[2020-09-03] MEDS ORDERED: DEXTROSE 5%-WATER - 50 ML IVPB ONE ×3 (02:38→16:40)
[2020-09-03] MEDS ORDERED: cefTAZidime PENTAHYDRATE 1 GM VIAL (RESTRICTED TO ID) ONE ×3 (02:38→16:40)
[2020-09-03] MEDS: CEFTAZIDIME PENTAHYDRATE 1 GM in DEXTROSE 5%-WATER - 50 ML IVPB SCH ×3 (02:52→17:00)
[2020-09-03] MEDS: MAG HYDROX/AL HYDROX/SIMETH 30 ML UNIT-DOSE CUP GT SCH ×3 (05:21→22:02)
[2020-09-03] MEDS: guaiFENesin/D-METHORPHAN HB 10 ML UNIT-DOSE CUPS GT SCH ×4 (05:21→23:19)
[2020-09-03 09:58] LABS: BASO % 0.5 % (0-2.0); EOS % 10.9 % (0-4.5); HEMATOCRIT 36.9 % (35.4-49); HEMOGLOBIN 12.6 GM/dL (11.7-16.9); LYMPH % 27.9 % (8-40); MCH 31.3 pg (25.7-33.7); MCHC 34.2 g/dl (32.0-35.9); MEAN CELL VOLUME 91.5 fl (80-96); MEAN PLT VOLUME 9.2 fl (7.5-11.1); NEUT % 49.7 % (42.8-82.8); PLATELET COUNT 157 K/MM3 (134-434); RBC 4.04 M/mm3 (4.00-5.60); RDW 14.3 % (11.9-15.9); WHITE BLOOD COUNT 6.2 K/mm3 (4.0-10.0)
[2020-09-03 10:17] LABS: ALBUMIN 3.1 g/dl (3.4-5.0); BLOOD UREA NITROGEN 13.1 mg/dL (7-18); CALCIUM 8.5 mg/dL (8.5-10.1); MAGNESIUM 1.8 mg/dL (1.8-2.4)
[2020-09-03 10:20] LABS: CREATININE 0.7 mg/dL (0.55-1.3)
[2020-09-03 10:22] LABS: BILIRUBIN,TOTAL 0.4 mg/dL (0.2-1); TOT PROT 7.2 g/dl (6.4-8.2)
[2020-09-03] MEDS ORDERED: PT OWN MED DRAWER 7, Y5N ONE ×3 (10:22→21:58)
[2020-09-03] MEDS: ENOXAPARIN NA (PORCINE) 40 MG/0.4 ML DISP.SYRIN SQ SCH (11:20)
[2020-09-03] MEDS: SENNOSIDES 8.8 MG/5 ML BULK BOTTLE GT SCH ×2 (11:21→22:02)
[2020-09-03] MEDS: SIMETHICONE 40 MG/0.6 ML BOTTLE GT SCH ×2 (11:21→22:04)
[2020-09-03] MEDS ORDERED: AMPICILLIN SODIUM 2 GM VIAL ONE ×2 (15:56→19:58)
[2020-09-03] MEDS ORDERED: SODIUM CHLORIDE 100 ML IVPB ONE ×2 (15:57→19:59)
[2020-09-03] MEDS: AMPICILLIN - 2 GM in SODIUM CHLORIDE 100 ML IVPB SCH ×2 (15:59→20:46)
[2020-09-03] MEDS: NAPH,MB-DB/K PH,MBDB POWDER PACKET GT SCH ×2 (16:00→22:05)
[2020-09-03] MEDS: ZINC SULFATE 220 MG CAPSULE (FP) GT SCH (22:04)
[2020-09-04] MEDS ORDERED: cefTAZidime PENTAHYDRATE 1 GM VIAL (RESTRICTED TO ID) ONE ×3 (01:44→16:57)
[2020-09-04] MEDS ORDERED: DEXTROSE 5%-WATER - 50 ML IVPB ONE ×3 (01:44→16:57)
[2020-09-04] MEDS: CEFTAZIDIME PENTAHYDRATE 1 GM in DEXTROSE 5%-WATER - 50 ML IVPB SCH ×3 (02:13→17:00)
[2020-09-04] MEDS ORDERED: PT OWN MED DRAWER 7, Y5N ONE ×2 (02:28→09:23)
[2020-09-04] MEDS: AMPICILLIN - 2 GM in SODIUM CHLORIDE 100 ML IVPB SCH ×4 (03:31→20:50)
[2020-09-04] MEDS: MAG HYDROX/AL HYDROX/SIMETH 30 ML UNIT-DOSE CUP GT SCH ×3 (05:04→22:33)
[2020-09-04] MEDS: guaiFENesin/D-METHORPHAN HB 10 ML UNIT-DOSE CUPS GT SCH ×4 (05:04→23:16)
[2020-09-04 09:11] LABS: BASO % 0.5 % (0-2.0); HEMATOCRIT 37.8 % (35.4-49); HEMOGLOBIN 13.2 GM/dL (11.7-16.9); LYMPH % 27.4 % (8-40); MCH 31.6 pg (25.7-33.7); MEAN CELL VOLUME 90.3 fl (80-96); MEAN PLT VOLUME 8.7 fl (7.5-11.1); MONO % 9.5 % (3.8-10.2); NEUT % 50.6 % (42.8-82.8); PLATELET COUNT 161 K/MM3 (134-434); RBC 4.19 M/mm3 (4.00-5.60); RDW 14.2 % (11.9-15.9); WHITE BLOOD COUNT 6.6 K/mm3 (4.0-10.0)
[2020-09-04] MEDS ORDERED: AMPICILLIN SODIUM 2 GM VIAL ONE ×3 (09:21→19:45)
[2020-09-04] MEDS ORDERED: SODIUM CHLORIDE 100 ML IVPB ONE ×3 (09:22→19:45)
[2020-09-04 09:28] LABS: BLOOD UREA NITROGEN 11.6 mg/dL (7-18); CALCIUM 8.7 mg/dL (8.5-10.1); MAGNESIUM 1.7 mg/dL (1.8-2.4)
[2020-09-04 09:31] LABS: PHOSPHOROUS 2.9 mg/dL (2.5-4.9)
[2020-09-04 09:32] LABS: CREATININE 0.7 mg/dL (0.55-1.3)
[2020-09-04] MEDS: ENOXAPARIN NA (PORCINE) 40 MG/0.4 ML DISP.SYRIN SQ SCH (09:46)
[2020-09-04] MEDS: SIMETHICONE 40 MG/0.6 ML BOTTLE GT SCH ×2 (09:47→22:28)
[2020-09-04] MEDS: NAPH,MB-DB/K PH,MBDB POWDER PACKET GT SCH ×2 (09:48→22:28)
[2020-09-04] MEDS: SENNOSIDES 8.8 MG/5 ML BULK BOTTLE GT SCH ×2 (09:48→22:29)
[2020-09-04] MEDS ORDERED: MAGNESIUM OXIDE 400 MG TABLET (FP) PEG ONE (19:33)
[2020-09-04] MEDS: ZINC SULFATE 220 MG CAPSULE (FP) GT SCH (22:28)
[2020-09-04] MEDS: SCOPOLAMINE HYDROBROMIDE 1 PATCH PATCH.TD72 TD SCH (22:33)
[2020-09-05] MEDS ORDERED: AMPICILLIN SODIUM 2 GM VIAL ONE ×4 (01:28→21:29)
[2020-09-05] MEDS ORDERED: SODIUM CHLORIDE 100 ML IVPB ONE ×4 (01:29→21:30)
[2020-09-05] MEDS ORDERED: DEXTROSE 5%-WATER - 50 ML IVPB ONE ×3 (01:29→16:37)
[2020-09-05] MEDS ORDERED: cefTAZidime PENTAHYDRATE 1 GM VIAL (RESTRICTED TO ID) ONE ×3 (01:29→16:37)
[2020-09-05] MEDS ORDERED: PT OWN MED DRAWER 7, Y5N ONE ×2 (01:31→21:50)
[2020-09-05] MEDS: CEFTAZIDIME PENTAHYDRATE 1 GM in DEXTROSE 5%-WATER - 50 ML IVPB SCH ×3 (01:48→17:00)
[2020-09-05] MEDS: AMPICILLIN - 2 GM in SODIUM CHLORIDE 100 ML IVPB SCH ×4 (03:02→21:47)
[2020-09-05] MEDS: guaiFENesin/D-METHORPHAN HB 10 ML UNIT-DOSE CUPS GT SCH ×4 (05:14→23:20)
[2020-09-05] MEDS: MAG HYDROX/AL HYDROX/SIMETH 30 ML UNIT-DOSE CUP GT SCH ×3 (05:49→21:47)
[2020-09-05 08:54] LABS: BASO % 0.7 % (0-2.0); EOS % 9.2 % (0-4.5); HEMATOCRIT 39.4 % (35.4-49); HEMOGLOBIN 13.6 GM/dL (11.7-16.9); LYMPH % 28.1 % (8-40); MCH 31.7 pg (25.7-33.7); MCHC 34.4 g/dl (32.0-35.9); MEAN CELL VOLUME 92.2 fl (80-96); MEAN PLT VOLUME 9.5 fl (7.5-11.1); MONO % 7.9 % (3.8-10.2); NEUT % 54.1 % (42.8-82.8); PLATELET COUNT 158 K/MM3 (134-434); RBC 4.27 M/mm3 (4.00-5.60); RDW 14.4 % (11.9-15.9); WHITE BLOOD COUNT 6.6 K/mm3 (4.0-10.0)
[2020-09-05] MEDS: ENOXAPARIN NA (PORCINE) 40 MG/0.4 ML DISP.SYRIN SQ SCH (09:08)
[2020-09-05] MEDS: SIMETHICONE 40 MG/0.6 ML BOTTLE GT SCH ×2 (09:09→21:49)
[2020-09-05] MEDS: NAPH,MB-DB/K PH,MBDB POWDER PACKET GT SCH ×2 (09:09→21:47)
[2020-09-05] MEDS: SENNOSIDES 8.8 MG/5 ML BULK BOTTLE GT SCH ×2 (09:10→21:49)
[2020-09-05 11:04] LABS: CALCIUM 8.7 mg/dL (8.5-10.1)
[2020-09-05 11:05] LABS: MAGNESIUM 1.9 mg/dL (1.8-2.4)
[2020-09-05 11:08] LABS: CREATININE 0.7 mg/dL (0.55-1.3); PHOSPHOROUS 3.7 mg/dL (2.5-4.9)
[2020-09-05] MEDS: ZINC SULFATE 220 MG CAPSULE (FP) GT SCH (21:47)
[2020-09-06] MEDS ORDERED: cefTAZidime PENTAHYDRATE 1 GM VIAL (RESTRICTED TO ID) ONE ×3 (01:07→17:10)
[2020-09-06] MEDS ORDERED: DEXTROSE 5%-WATER - 50 ML IVPB ONE ×3 (01:07→17:10)
[2020-09-06] MEDS: CEFTAZIDIME PENTAHYDRATE 1 GM in DEXTROSE 5%-WATER - 50 ML IVPB SCH ×3 (01:16→17:16)
[2020-09-06] MEDS ORDERED: AMPICILLIN SODIUM 2 GM VIAL ONE ×4 (02:00→21:43)
[2020-09-06] MEDS ORDERED: SODIUM CHLORIDE 100 ML IVPB ONE ×4 (02:00→21:43)
[2020-09-06] MEDS: AMPICILLIN - 2 GM in SODIUM CHLORIDE 100 ML IVPB SCH ×4 (02:03→21:53)
[2020-09-06] MEDS: guaiFENesin/D-METHORPHAN HB 10 ML UNIT-DOSE CUPS GT SCH ×3 (05:18→17:16)
[2020-09-06] MEDS: MAG HYDROX/AL HYDROX/SIMETH 30 ML UNIT-DOSE CUP GT SCH ×3 (05:19→21:53)
[2020-09-06 08:35] LABS: BASO % 0.6 % (0-2.0); EOS % 7.1 % (0-4.5); HEMATOCRIT 38.7 % (35.4-49); HEMOGLOBIN 13.3 GM/dL (11.7-16.9); LYMPH % 25.2 % (8-40); MCH 31.2 pg (25.7-33.7); MCHC 34.5 g/dl (32.0-35.9); MEAN CELL VOLUME 90.4 fl (80-96); MEAN PLT VOLUME 9.4 fl (7.5-11.1); MONO % 8.3 % (3.8-10.2); NEUT % 58.8 % (42.8-82.8); PLATELET COUNT 158 K/MM3 (134-434); RBC 4.28 M/mm3 (4.00-5.60); RDW 14.3 % (11.9-15.9); WHITE BLOOD COUNT 6.7 K/mm3 (4.0-10.0)
[2020-09-06 08:38] LABS: ALBUMIN 3.1 g/dl (3.4-5.0); BLOOD UREA NITROGEN 11.4 mg/dL (7-18)
[2020-09-06 08:39] LABS: CALCIUM 8.5 mg/dL (8.5-10.1); MAGNESIUM 1.7 mg/dL (1.8-2.4)
[2020-09-06 08:42] LABS: CREATININE 0.6 mg/dL (0.55-1.3)
[2020-09-06 08:43] LABS: PHOSPHOROUS 3.3 mg/dL (2.5-4.9)
[2020-09-06 08:44] LABS: BILIRUBIN,TOTAL 0.3 mg/dL (0.2-1); TOT PROT 7.3 g/dl (6.4-8.2)
[2020-09-06] MEDS ORDERED: PT OWN MED DRAWER 7, Y5N ONE ×2 (08:59→09:30)
[2020-09-06] MEDS ORDERED: MAGNESIUM SULF 50% (8.12 MEQ/2 ML-1 GM VIAL) IVPB ONE (09:17)
[2020-09-06] MEDS: ENOXAPARIN NA (PORCINE) 40 MG/0.4 ML DISP.SYRIN SQ SCH (09:26)
[2020-09-06] MEDS: SENNOSIDES 8.8 MG/5 ML BULK BOTTLE GT SCH ×2 (09:26→21:54)
[2020-09-06] MEDS: NAPH,MB-DB/K PH,MBDB POWDER PACKET GT SCH ×2 (09:26→21:53)
[2020-09-06] MEDS: SIMETHICONE 40 MG/0.6 ML BOTTLE GT SCH ×2 (09:31→21:54)
[2020-09-06] MEDS: ZINC SULFATE 220 MG CAPSULE (FP) GT SCH (21:53)
[2020-09-07] MEDS: guaiFENesin/D-METHORPHAN HB 10 ML UNIT-DOSE CUPS GT SCH ×3 (00:03→13:52)
[2020-09-07] MEDS ORDERED: AMPICILLIN SODIUM 2 GM VIAL ONE ×2 (02:52→09:28)
[2020-09-07] MEDS ORDERED: DEXTROSE 5%-WATER - 50 ML IVPB ONE ×3 (02:53→09:29)
[2020-09-07] MEDS ORDERED: cefTAZidime PENTAHYDRATE 1 GM VIAL (RESTRICTED TO ID) ONE ×3 (02:53→09:29)
[2020-09-07] MEDS ORDERED: PT OWN MED DRAWER 7, Y5N ONE ×3 (02:53→09:52)
[2020-09-07] MEDS ORDERED: SODIUM CHLORIDE 100 ML IVPB ONE ×2 (02:53→09:28)
[2020-09-07] MEDS: CEFTAZIDIME PENTAHYDRATE 1 GM in DEXTROSE 5%-WATER - 50 ML IVPB SCH ×2 (03:00→09:33)
[2020-09-07] MEDS: AMPICILLIN - 2 GM in SODIUM CHLORIDE 100 ML IVPB SCH ×2 (03:00→09:34)
[2020-09-07] MEDS: MAG HYDROX/AL HYDROX/SIMETH 30 ML UNIT-DOSE CUP GT SCH ×2 (05:27→13:52)
[2020-09-07 08:58] LABS: BASO % 0.6 % (0-2.0); EOS % 8.1 % (0-4.5); HEMATOCRIT 39.1 % (35.4-49); HEMOGLOBIN 13.6 GM/dL (11.7-16.9); LYMPH % 30.6 % (8-40); MCH 31.4 pg (25.7-33.7); MCHC 34.7 g/dl (32.0-35.9); MEAN CELL VOLUME 90.5 fl (80-96); MEAN PLT VOLUME 8.6 fl (7.5-11.1); MONO % 9.2 % (3.8-10.2); NEUT % 51.5 % (42.8-82.8); PLATELET COUNT 155 K/MM3 (134-434); RBC 4.32 M/mm3 (4.00-5.60); RDW 14.4 % (11.9-15.9); WHITE BLOOD COUNT 6.1 K/mm3 (4.0-10.0)
[2020-09-07 09:30] LABS: ALBUMIN 3.3 g/dl (3.4-5.0); BLOOD UREA NITROGEN 11.5 mg/dL (7-18)
[2020-09-07 09:33] LABS: CREATININE 0.7 mg/dL (0.55-1.3); PHOSPHOROUS 3.3 mg/dL (2.5-4.9)
[2020-09-07] MEDS: ENOXAPARIN NA (PORCINE) 40 MG/0.4 ML DISP.SYRIN SQ SCH (09:33)
[2020-09-07] MEDS: SIMETHICONE 40 MG/0.6 ML BOTTLE GT SCH (09:33)
[2020-09-07] MEDS: NAPH,MB-DB/K PH,MBDB POWDER PACKET GT SCH (09:33)
[2020-09-07 09:34] LABS: BILIRUBIN,TOTAL 0.9 mg/dL (0.2-1); TOT PROT 7.7 g/dl (6.4-8.2)
[2020-09-07] MEDS: SENNOSIDES 8.8 MG/5 ML BULK BOTTLE GT SCH (09:34)
[2020-09-07 09:44] VITALS: TEMP 97.8
[2020-09-07 11:43] VITALS: PULSE 50
[2020-09-07 15:20] VITALS: BP 129/50
== END 2020-09-07 16:16 | DRG 463 ==
LOC: JER 09:53 → JERBED 12:57 → J5S 19:48
PROVIDERS: ATTEND Internal Medicine
DX: N39.0 Urinary tract infection, site not specified (principal); B95.2 Enterococcus as the cause of diseases classified elsewhere; B96.5 Pseudomonas (aeruginosa) (mallei) (pseudomallei) as the cause of diseases classified elsewhere; K59.09 Other constipation; E83.39 Other disorders of phosphorus metabolism; G40.909 Epilepsy, unspecified, not intractable, without status epilepticus; F78 Other intellectual disabilities; L80 Vitiligo; H54.8 Legal blindness, as defined in USA; Q98.7 Male with sex chromosome mosaicism; G80.9 Cerebral palsy, unspecified; R09.02 Hypoxemia; E83.42 Hypomagnesemia; R53.2 Functional quadriplegia; R00.1 Bradycardia, unspecified; Z88.1 Allergy status to other antibiotic agents; Z93.1 Gastrostomy status
CPT/HCPCS: 36415; 71045-TC-FY; 80048; 80053; 81003; 83605; 83735; 84100; 84484; 85025; 87040; 87086; 87186; 93005; 93010; 99285-25; C9803; J0131; U0003; U0005

== ENCOUNTER 2021-05-19 13:58 | Inpatient (IN) | payer OTHER ==
[2021-05-19] MEDS ORDERED: PIPERACILLIN/TAZOB 4.5 GM 4.5 GM in DEXTROSE 5%-WATER 100 ML IVPB ONE (14:50)
[2021-05-19] MEDS ORDERED: ACETAMINOPHEN 1000 MG/100 ML BAG IVPB ONE (14:50)
[2021-05-19] MEDS ORDERED: SODIUM CHLORIDE 0.9% 500 ML INFUS.BAG IV ONE (14:50)
[2021-05-19] MEDS ORDERED: VANCOMYCIN 1 GM in D5W (PRE-DOCKED) 1,000 MG/250 ML IVPB ONE (14:50)
[2021-05-19 15:28] LABS: VENOUS BASE EXCESS 2.3 mmol/L (-2-2); VENOUS O2 SATURATION 38.2 % (70-80); VENOUS PCO2 65.6 mmHg (38-52); VENOUS PH 7.298 (7.310-7.410)
[2021-05-19 15:29] LABS: BASO % 0.1 % (0-2.0); EOS % 0.2 % (0-4.5); HEMOGLOBIN 12.7 GM/dL (11.7-16.9); LYMPH % 10.4 % (8-40); MCH 30.6 pg (25.7-33.7); MCHC 33.4 g/dl (32.0-35.9); MEAN CELL VOLUME 91.8 fl (80-96); MEAN PLT VOLUME 9.7 fl (7.5-11.1); MONO % 7.3 % (3.8-10.2); PLATELET COUNT 182 10^3/uL (134-434); RBC 4.14 M/mm3 (4.00-5.60); RDW 14.4 % (11.9-15.9); WHITE BLOOD COUNT 5.3 K/mm3 (4.0-10.0)
[2021-05-19 15:33] LABS: EPI CELLS 4 /uL (0-25.1); HYALINE CASTS 7 /uL (0-3.1); PH,URINE 5.5 (5.0-8.0); URINE APPEARANCE CLEAR; URINE BILIRUBIN NEGATIVE (NEGATIVE); URINE COLOR DK YELLOW; URINE GLUCOSE (UA) NEGATIVE (NEGATIVE); URINE KETONE TRACE (NEGATIVE); URINE LEUK ESTERASE 2+ (NEGATIVE); URINE NITRITE POSITIVE (NEGATIVE); URINE PROTEIN TRACE (NEGATIVE); URINE UROBILINOGEN 0.2 mg/dL (0.2-1.0); URINE WBC 205 /uL (0-25.8)
[2021-05-19 15:34] LABS: URINE RBC 21.5 /uL (0-23.9)
[2021-05-19 15:35] LABS: URINE BACTERIA 503.8 /uL (0-1359)
[2021-05-19] MEDS ORDERED: ACETAMINOPHEN INJECTION 100 ML IVPB ONE (15:41)
[2021-05-19] MEDS ORDERED: PIPERACILLIN/TAZOB 4.5 GM 4.5 GM/100 ML BAG IVPB ONE (15:42)
[2021-05-19 15:47] LABS: ACTIVATED PTT 30.8 SECONDS (25.2-36.5); INR 1.21 (0.83-1.09)
[2021-05-19 15:53] LABS: CHLORIDE 100 mmol/L (98-107); SODIUM 132 mmol/L (136-145)
[2021-05-19 15:56] LABS: ALBUMIN 3.2 g/dl (3.4-5.0); BLOOD UREA NITROGEN 13.4 mg/dL (7-18); CALCIUM 9.1 mg/dL (8.5-10.1); CO2 29 mmol/L (21-32); GLUCOSE,RANDOM 107 mg/dL (74-106)
[2021-05-19 15:59] LABS: CREATININE 0.8 mg/dL (0.55-1.3); SGOT/AST 114 U/L (15-37); SGPT/ALT 41 U/L (13-61)
[2021-05-19 16:00] LABS: BILIRUBIN,TOTAL 0.6 mg/dL (0.2-1); TOT PROT 8.9 g/dl (6.4-8.2)
[2021-05-19 16:02] LABS: ALK PHOS 103 U/L (45-117); LACTIC ACID 2.4 mmol/L (0.4-2.0)
[2021-05-19 16:04] LABS: ANION GAP 3 MMOL/L (8-16)
[2021-05-19] MEDS ORDERED: ACETAMINOPHEN 325 MG TABLET (FP) PO PRN (16:26)
[2021-05-19] MEDS ORDERED: SODIUM CHLORIDE 1,000 ML IV SCH ×2 (16:30→16:35)
[2021-05-19] MEDS ORDERED: BISACODYL 10 MG SUPP.RECT RC PRN (16:46)
[2021-05-19] MEDS ORDERED: LORazepam 2 MG/ML SDV VIAL IVPUSH PRN (16:49)
[2021-05-19] MEDS ORDERED: diazePAM RECTAL GEL 10 MG KIT (PRE-CALIBRATED) RC PRN (17:00)
[2021-05-19] MEDS ORDERED: ACETAMINOPHEN 650 MG/20.3 ML ORAL SOLUTION (CUPS) GT PRN (17:00)
[2021-05-19] MEDS ORDERED: SODIUM CHLORIDE 1,000 ML IV STA (17:06)
[2021-05-19] MEDS ORDERED: SCOPOLAMINE HYDROBROMIDE 1 PATCH PATCH.TD72 TD SCH (18:00)
[2021-05-19] MEDS ORDERED: VANCOMYCIN 1 GRAM (PRE-DOCKED) 1,000 MG/250 ML BAG IVPB ONE (18:29)
[2021-05-19] MEDS ORDERED: diazePAM CARPU-JECT 10 MG/2 ML DISP.SYRIN IVPUSH PRN (19:48)
[2021-05-19] MEDS ORDERED: SIMETHICONE 40 MG/0.6 ML BOTTLE GT SCH (22:00)
[2021-05-19] MEDS ORDERED: LORAZEPAM PO SCH (22:00)
[2021-05-19 22:07] LABS: BLOOD UREA NITROGEN 12.9 mg/dL (7-18)
[2021-05-19 22:11] LABS: CREATININE 0.7 mg/dL (0.55-1.3)
[2021-05-19 22:16] LABS: LACTIC ACID 4.3 mmol/L (0.4-2.0)
[2021-05-19] MEDS: SENNOSIDES 8.8 MG/5 ML BULK BOTTLE GT SCH (23:36)
[2021-05-19] MEDS: MAG HYDROX/AL HYDROX/SIMETH 30 ML UNIT-DOSE CUP GT SCH (23:36)
[2021-05-19] MEDS: MULTIVIT-MINERALS ORAL LIQUID GT SCH (23:36)
[2021-05-19] MEDS: ASCORBIC ACID 500 MG TABLET (FP) GT SCH (23:37)
[2021-05-19] MEDS: carBAMazepine 100 MG/5 ML UNIT-DOSE CUP GT SCH (23:37)
[2021-05-20] MEDS ORDERED: PIPERACILLIN/TAZOBACTAM 2.25 GM VIAL IVPB ONE ×3 (01:26→17:30)
[2021-05-20] MEDS ORDERED: DEXTROSE 5%-WATER - 50 ML IVPB ONE ×2 (01:26→09:18)
[2021-05-20] MEDS: PIPERACILLIN/TAZOB 2.25 GM 2.25 GM in DEXTROSE 5%-WATER - 50 ML IVPB SCH ×5 (01:33→18:05)
[2021-05-20] MEDS: MAG HYDROX/AL HYDROX/SIMETH 30 ML UNIT-DOSE CUP GT SCH ×3 (05:39→21:50)
[2021-05-20] MEDS: carBAMazepine 100 MG/5 ML UNIT-DOSE CUP GT SCH ×2 (06:02→21:49)
[2021-05-20 09:18] LABS: BASO % 0.2 % (0-2.0); EOS % 0.7 % (0-4.5); HEMATOCRIT 33.5 % (35.4-49); HEMOGLOBIN 10.9 GM/dL (11.7-16.9); LYMPH % 14.9 % (8-40); MCH 30.1 pg (25.7-33.7); MCHC 32.5 g/dl (32.0-35.9); MEAN CELL VOLUME 92.7 fl (80-96); MEAN PLT VOLUME 9.3 fl (7.5-11.1); NEUT % 72.2 % (42.8-82.8); PLATELET COUNT 162 10^3/uL (134-434); RBC 3.61 M/mm3 (4.00-5.60); RDW 14.1 % (11.9-15.9); WHITE BLOOD COUNT 5.7 K/mm3 (4.0-10.0)
[2021-05-20 09:45] LABS: CALCIUM 8.5 mg/dL (8.5-10.1)
[2021-05-20 09:46] LABS: ALBUMIN 2.7 g/dl (3.4-5.0); BLOOD UREA NITROGEN 10.3 mg/dL (7-18); MAGNESIUM 1.7 mg/dL (1.8-2.4)
[2021-05-20 09:49] LABS: CREATININE 0.6 mg/dL (0.55-1.3); PHOSPHOROUS 3.2 mg/dL (2.5-4.9)
[2021-05-20 09:51] LABS: BILIRUBIN,TOTAL 0.8 mg/dL (0.2-1)
[2021-05-20 09:52] LABS: TOT PROT 6.7 g/dl (6.4-8.2)
[2021-05-20] MEDS: LACTOBACILLUS ACIDOPHILUS 1 TABLET GT SCH (09:56)
[2021-05-20] MEDS: ENOXAPARIN NA (PORCINE) 40 MG/0.4 ML DISP.SYRIN SQ SCH (09:57)
[2021-05-20] MEDS: SENNOSIDES 8.8 MG/5 ML BULK BOTTLE GT SCH ×2 (09:57→21:49)
[2021-05-20] MEDS: MULTIVIT-MINERALS ORAL LIQUID GT SCH (21:49)
[2021-05-20] MEDS: ASCORBIC ACID 500 MG TABLET (FP) GT SCH (21:50)
[2021-05-21] MEDS ORDERED: DEXTROSE 5%-WATER - 50 ML IVPB ONE ×2 (00:57→08:08)
[2021-05-21] MEDS ORDERED: PIPERACILLIN/TAZOBACTAM 2.25 GM VIAL IVPB ONE ×2 (00:57→08:08)
[2021-05-21] MEDS: PIPERACILLIN/TAZOB 2.25 GM 2.25 GM in DEXTROSE 5%-WATER - 50 ML IVPB SCH ×2 (01:15→09:51)
[2021-05-21] MEDS: MAG HYDROX/AL HYDROX/SIMETH 30 ML UNIT-DOSE CUP GT SCH ×3 (06:32→22:09)
[2021-05-21] MEDS: carBAMazepine 100 MG/5 ML UNIT-DOSE CUP GT SCH ×2 (06:32→22:10)
[2021-05-21] MEDS: LACTOBACILLUS ACIDOPHILUS 1 TABLET GT SCH (09:52)
[2021-05-21] MEDS: ENOXAPARIN NA (PORCINE) 40 MG/0.4 ML DISP.SYRIN SQ SCH (09:52)
[2021-05-21] MEDS: SENNOSIDES 8.8 MG/5 ML BULK BOTTLE GT SCH ×2 (09:52→22:09)
[2021-05-21 11:34] LABS: ARTERIAL BLD GAS O2 SATURATION 99.5 % (95-98); ARTERIAL BLOOD GAS PO2 218.5 mmHg (80-100); ARTERIAL BLOOD GAS pH 7.468 (7.350-7.450)
[2021-05-21 11:35] LABS: ALLENS TEST POSITIVE
[2021-05-21 12:45] LABS: ALBUMIN 2.5 g/dl (3.4-5.0); BLOOD UREA NITROGEN 12.7 mg/dL (7-18); CALCIUM 8.5 mg/dL (8.5-10.1)
[2021-05-21 12:48] LABS: CREATININE 0.6 mg/dL (0.55-1.3)
[2021-05-21 12:50] LABS: BILIRUBIN,TOTAL 0.7 mg/dL (0.2-1); TOT PROT 6.6 g/dl (6.4-8.2)
[2021-05-21] MEDS: LORazepam 2 MG/ML SDV VIAL IVPUSH PRN (16:13)
[2021-05-21] MEDS: CEFTAZIDIME PENTAHYDRATE 1 GM in DEXTROSE 5%-WATER - 50 ML IVPB SCH (21:30)
[2021-05-21] MEDS: MULTIVIT-MINERALS ORAL LIQUID GT SCH (22:09)
[2021-05-21] MEDS: ASCORBIC ACID 500 MG TABLET (FP) GT SCH (22:10)
[2021-05-22] MEDS: CEFTAZIDIME PENTAHYDRATE 1 GM in DEXTROSE 5%-WATER - 50 ML IVPB SCH ×3 (03:57→19:12)
[2021-05-22] MEDS: LORazepam 2 MG/ML SDV VIAL IVPUSH PRN (05:49)
[2021-05-22] MEDS: MAG HYDROX/AL HYDROX/SIMETH 30 ML UNIT-DOSE CUP GT SCH ×3 (06:07→21:12)
[2021-05-22] MEDS: carBAMazepine 100 MG/5 ML UNIT-DOSE CUP GT SCH ×2 (06:07→21:13)
[2021-05-22] MEDS: LACTOBACILLUS ACIDOPHILUS 1 TABLET GT SCH (09:20)
[2021-05-22] MEDS: ENOXAPARIN NA (PORCINE) 40 MG/0.4 ML DISP.SYRIN SQ SCH (09:20)
[2021-05-22] MEDS: SENNOSIDES 8.8 MG/5 ML BULK BOTTLE GT SCH ×2 (09:20→21:12)
[2021-05-22 12:15] LABS: BASO % 0.4 % (0-2.0); EOS % 4.2 % (0-4.5); HEMATOCRIT 30.8 % (35.4-49); LYMPH % 26.8 % (8-40); MCH 30.2 pg (25.7-33.7); MCHC 32.4 g/dl (32.0-35.9); MEAN CELL VOLUME 93.1 fl (80-96); MEAN PLT VOLUME 9.3 fl (7.5-11.1); MONO % 10.9 % (3.8-10.2); NEUT % 57.7 % (42.8-82.8); PLATELET COUNT 159 10^3/uL (134-434); RBC 3.31 M/mm3 (4.00-5.60); RDW 13.7 % (11.9-15.9); WHITE BLOOD COUNT 3.7 K/mm3 (4.0-10.0)
[2021-05-22 12:33] LABS: CALCIUM 8.9 mg/dL (8.5-10.1)
[2021-05-22 12:34] LABS: ALBUMIN 2.6 g/dl (3.4-5.0); BLOOD UREA NITROGEN 10.4 mg/dL (7-18); MAGNESIUM 1.9 mg/dL (1.8-2.4)
[2021-05-22 12:37] LABS: CREATININE 0.5 mg/dL (0.55-1.3)
[2021-05-22 12:38] LABS: BILIRUBIN,TOTAL 0.6 mg/dL (0.2-1); TOT PROT 6.9 g/dl (6.4-8.2)
[2021-05-22] MEDS: ASCORBIC ACID 500 MG TABLET (FP) GT SCH (21:12)
[2021-05-22] MEDS: MULTIVIT-MINERALS ORAL LIQUID GT SCH (21:13)
[2021-05-23] MEDS: CEFTAZIDIME PENTAHYDRATE 1 GM in DEXTROSE 5%-WATER - 50 ML IVPB SCH ×3 (01:17→17:05)
[2021-05-23] MEDS: MAG HYDROX/AL HYDROX/SIMETH 30 ML UNIT-DOSE CUP GT SCH ×3 (05:23→22:29)
[2021-05-23] MEDS: carBAMazepine 100 MG/5 ML UNIT-DOSE CUP GT SCH ×2 (06:01→22:30)
[2021-05-23] MEDS: LACTOBACILLUS ACIDOPHILUS 1 TABLET GT SCH (09:44)
[2021-05-23] MEDS: ENOXAPARIN NA (PORCINE) 40 MG/0.4 ML DISP.SYRIN SQ SCH (09:44)
[2021-05-23] MEDS: SENNOSIDES 8.8 MG/5 ML BULK BOTTLE GT SCH ×2 (09:46→22:29)
[2021-05-23 15:22] LABS: BASO % 0.3 % (0-2.0); EOS % 5.1 % (0-4.5); HEMOGLOBIN 11.1 GM/dL (11.7-16.9); LYMPH % 37.6 % (8-40); MCH 30.1 pg (25.7-33.7); MCHC 32.7 g/dl (32.0-35.9); MEAN CELL VOLUME 92.2 fl (80-96); MEAN PLT VOLUME 8.7 fl (7.5-11.1); MONO % 9.9 % (3.8-10.2); NEUT % 47.1 % (42.8-82.8); PLATELET COUNT 192 10^3/uL (134-434); RBC 3.69 M/mm3 (4.00-5.60); RDW 13.8 % (11.9-15.9); WHITE BLOOD COUNT 3.7 K/mm3 (4.0-10.0)
[2021-05-23 15:44] LABS: ALBUMIN 2.9 g/dl (3.4-5.0); BLOOD UREA NITROGEN 12.7 mg/dL (7-18)
[2021-05-23 15:45] LABS: CALCIUM 9.3 mg/dL (8.5-10.1); MAGNESIUM 2.1 mg/dL (1.8-2.4)
[2021-05-23 15:47] LABS: CREATININE 0.6 mg/dL (0.55-1.3)
[2021-05-23 15:49] LABS: BILIRUBIN,TOTAL 0.3 mg/dL (0.2-1); TOT PROT 7.8 g/dl (6.4-8.2)
[2021-05-23] MEDS: MULTIVIT-MINERALS ORAL LIQUID GT SCH (22:29)
[2021-05-23] MEDS: ASCORBIC ACID 500 MG TABLET (FP) GT SCH (22:31)
[2021-05-24] MEDS: CEFTAZIDIME PENTAHYDRATE 1 GM in DEXTROSE 5%-WATER - 50 ML IVPB SCH ×3 (02:43→17:33)
[2021-05-24] MEDS: LORazepam 2 MG/ML SDV VIAL IVPUSH PRN (05:22)
[2021-05-24] MEDS: MAG HYDROX/AL HYDROX/SIMETH 30 ML UNIT-DOSE CUP GT SCH ×3 (05:23→21:49)
[2021-05-24] MEDS: carBAMazepine 100 MG/5 ML UNIT-DOSE CUP GT SCH ×2 (06:20→21:49)
[2021-05-24 08:43] LABS: BASO % 0.3 % (0-2.0); HEMATOCRIT 32.1 % (35.4-49); HEMOGLOBIN 10.5 GM/dL (11.7-16.9); LYMPH % 34.5 % (8-40); MCH 30.3 pg (25.7-33.7); MCHC 32.7 g/dl (32.0-35.9); MEAN CELL VOLUME 92.8 fl (80-96); MEAN PLT VOLUME 8.9 fl (7.5-11.1); MONO % 8.9 % (3.8-10.2); NEUT % 51.3 % (42.8-82.8); PLATELET COUNT 183 10^3/uL (134-434); RBC 3.45 M/mm3 (4.00-5.60); RDW 13.7 % (11.9-15.9); WHITE BLOOD COUNT 3.3 K/mm3 (4.0-10.0)
[2021-05-24 08:56] LABS: ALBUMIN 2.8 g/dl (3.4-5.0); BLOOD UREA NITROGEN 14.1 mg/dL (7-18); MAGNESIUM 2.3 mg/dL (1.8-2.4)
[2021-05-24 08:59] LABS: CREATININE 0.5 mg/dL (0.55-1.3)
[2021-05-24 09:00] LABS: BILIRUBIN,TOTAL 0.2 mg/dL (0.2-1); TOT PROT 7.4 g/dl (6.4-8.2)
[2021-05-24] MEDS: LACTOBACILLUS ACIDOPHILUS 1 TABLET GT SCH (11:10)
[2021-05-24] MEDS: ENOXAPARIN NA (PORCINE) 40 MG/0.4 ML DISP.SYRIN SQ SCH (11:11)
[2021-05-24] MEDS: SENNOSIDES 8.8 MG/5 ML BULK BOTTLE GT SCH ×2 (11:11→21:49)
[2021-05-24] MEDS: ASCORBIC ACID 500 MG TABLET (FP) GT SCH (21:48)
[2021-05-24] MEDS: MULTIVIT-MINERALS ORAL LIQUID GT SCH (21:48)
[2021-05-25] MEDS: CEFTAZIDIME PENTAHYDRATE 1 GM in DEXTROSE 5%-WATER - 50 ML IVPB SCH ×3 (02:07→18:53)
[2021-05-25] MEDS: MAG HYDROX/AL HYDROX/SIMETH 30 ML UNIT-DOSE CUP GT SCH ×5 (06:06→23:00)
[2021-05-25] MEDS: carBAMazepine 100 MG/5 ML UNIT-DOSE CUP GT SCH ×4 (06:57→23:00)
[2021-05-25 08:28] LABS: BASO % 0.4 % (0-2.0); HEMATOCRIT 36.2 % (35.4-49); HEMOGLOBIN 11.9 GM/dL (11.7-16.9); LYMPH % 25.6 % (8-40); MCH 30.3 pg (25.7-33.7); MCHC 32.9 g/dl (32.0-35.9); MEAN CELL VOLUME 92.2 fl (80-96); MEAN PLT VOLUME 8.6 fl (7.5-11.1); MONO % 9.1 % (3.8-10.2); NEUT % 60.9 % (42.8-82.8); PLATELET COUNT 214 10^3/uL (134-434); RBC 3.92 M/mm3 (4.00-5.60); RDW 13.8 % (11.9-15.9); WHITE BLOOD COUNT 4.4 K/mm3 (4.0-10.0)
[2021-05-25 08:39] LABS: ALBUMIN 3.1 g/dl (3.4-5.0); BLOOD UREA NITROGEN 15.2 mg/dL (7-18); CALCIUM 9.2 mg/dL (8.5-10.1); MAGNESIUM 2.2 mg/dL (1.8-2.4)
[2021-05-25 08:42] LABS: CREATININE 0.6 mg/dL (0.55-1.3)
[2021-05-25 08:44] LABS: BILIRUBIN,TOTAL 0.3 mg/dL (0.2-1); TOT PROT 8.2 g/dl (6.4-8.2)
[2021-05-25] MEDS: SENNOSIDES 8.8 MG/5 ML BULK BOTTLE GT SCH ×2 (09:43→23:09)
[2021-05-25] MEDS: LACTOBACILLUS ACIDOPHILUS 1 TABLET GT SCH (09:44)
[2021-05-25] MEDS: ENOXAPARIN NA (PORCINE) 40 MG/0.4 ML DISP.SYRIN SQ SCH (09:45)
[2021-05-25 15:51] VITALS: BMI 22.1
[2021-05-25] MEDS: ASCORBIC ACID 500 MG TABLET (FP) GT SCH (23:00)
[2021-05-26] MEDS: MULTIVIT-MINERALS ORAL LIQUID GT SCH (02:00)
[2021-05-26] MEDS: CEFTAZIDIME PENTAHYDRATE 1 GM in DEXTROSE 5%-WATER - 50 ML IVPB SCH ×2 (03:44→12:13)
[2021-05-26] MEDS: MAG HYDROX/AL HYDROX/SIMETH 30 ML UNIT-DOSE CUP GT SCH ×2 (07:10→14:35)
[2021-05-26 08:13] LABS: BASO % 0.9 % (0-2.0); EOS % 5.3 % (0-4.5); HEMATOCRIT 35.5 % (35.4-49); LYMPH % 30.7 % (8-40); MCH 30.8 pg (25.7-33.7); MCHC 33.8 g/dl (32.0-35.9); MEAN CELL VOLUME 91.1 fl (80-96); MEAN PLT VOLUME 8.4 fl (7.5-11.1); MONO % 12.4 % (3.8-10.2); NEUT % 50.7 % (42.8-82.8); PLATELET COUNT 204 10^3/uL (134-434); RDW 13.7 % (11.9-15.9); WHITE BLOOD COUNT 3.9 K/mm3 (4.0-10.0)
[2021-05-26 08:34] LABS: BLOOD UREA NITROGEN 18.4 mg/dL (7-18); CALCIUM 9.1 mg/dL (8.5-10.1); MAGNESIUM 2.3 mg/dL (1.8-2.4)
[2021-05-26 08:37] LABS: CREATININE 0.6 mg/dL (0.55-1.3)
[2021-05-26 08:39] LABS: BILIRUBIN,TOTAL 0.3 mg/dL (0.2-1); TOT PROT 7.8 g/dl (6.4-8.2)
[2021-05-26] MEDS: carBAMazepine 100 MG/5 ML UNIT-DOSE CUP GT SCH (10:03)
[2021-05-26] MEDS: LACTOBACILLUS ACIDOPHILUS 1 TABLET GT SCH (10:03)
[2021-05-26] MEDS: ENOXAPARIN NA (PORCINE) 40 MG/0.4 ML DISP.SYRIN SQ SCH (10:03)
[2021-05-26] MEDS: SENNOSIDES 8.8 MG/5 ML BULK BOTTLE GT SCH (10:04)
[2021-05-26 14:44] VITALS: BP 155/86; PULSE 74; TEMP 97.4
== END 2021-05-26 17:15 | DRG 137 ==
LOC: JER 13:58 → JERBED 15:44 → J7W 22:57
PROVIDERS: ADMIT Internal Medicine; ATTEND Nurse Practitioner Acute Care
DX: J69.0 Pneumonitis due to inhalation of food and vomit (principal); J96.01 Acute respiratory failure with hypoxia; J96.02 Acute respiratory failure with hypercapnia; R53.2 Functional quadriplegia; E87.2 Acidosis; Q90.1 Trisomy 21, mosaicism (mitotic nondisjunction); Z93.1 Gastrostomy status; F79 Unspecified intellectual disabilities; G40.909 Epilepsy, unspecified, not intractable, without status epilepticus; N39.0 Urinary tract infection, site not specified; B96.5 Pseudomonas (aeruginosa) (mallei) (pseudomallei) as the cause of diseases classified elsewhere
CPT/HCPCS: 36415; 36600; 71045-TC-FY; 80048; 80053; 81003; 82803; 83605; 83735; 84100; 84484; 85025; 85610; 85730; 87040; 87086; 87186; 87804; 87807; 93005; 93010; 99285-25; C9803; J0131; U0003; U0005

== ENCOUNTER 2021-12-12 13:47 | Emergency (ER) | payer OTHER ==
[2021-12-12 13:52] VITALS: BP 124/70; PULSE 76; RESP 18; TEMP 97.4; BMI 20.5
[2021-12-12 17:12] LABS: BASO % 0.4 % (0-2.0); EOS % 5.3 % (0-4.5); HEMATOCRIT 38.9 % (35.4-49); HEMOGLOBIN 13.1 GM/dL (11.7-16.9); LYMPH % 24.8 % (8-40); MCH 30.3 pg (25.7-33.7); MCHC 33.7 g/dl (32.0-35.9); MEAN CELL VOLUME 89.9 fl (80-96); MEAN PLT VOLUME 7.8 fl (7.5-11.1); NEUT % 57.5 % (42.8-82.8); PLATELET COUNT 231 10^3/uL (134-434); RBC 4.33 M/mm3 (4.00-5.60); RDW 14.9 % (11.9-15.9); WHITE BLOOD COUNT 5.8 K/mm3 (4.0-10.0)
[2021-12-12 17:34] LABS: ALBUMIN 2.9 g/dl (3.4-5.0); CALCIUM 9.1 mg/dL (8.5-10.1)
[2021-12-12 17:35] LABS: BLOOD UREA NITROGEN 19.3 mg/dL (7-18)
[2021-12-12 17:38] LABS: CREATININE 0.5 mg/dL (0.55-1.3)
[2021-12-12 17:39] LABS: BILIRUBIN,TOTAL 0.3 mg/dL (0.2-1); TOT PROT 8.3 g/dl (6.4-8.2)
== END 2021-12-12 19:29 | disposition home or self-care (01) ==
LOC: JER 13:47
DX: Z04.3 Encounter for examination and observation following other accident (principal); W19.XXXA Unspecified fall, initial encounter; Y92.9 Unspecified place or not applicable
CPT/HCPCS: 36415; 70450-TC; 80053; 85025; 99284-25

== ENCOUNTER 2021-12-22 17:09 | Inpatient (IN) | payer OTHER ==
[2021-12-22] MEDS ORDERED: IBUPROFEN 800 MG/8 ML IJ IVPB ONE ×2 (17:53→19:03)
[2021-12-22] MEDS ORDERED: SODIUM CHLORIDE 0.9% 500 ML INFUS.BAG IV ONE (17:59)
[2021-12-22] MEDS ORDERED: KETAMINE HCL 200 MG/20 ML VIAL IM ONE ×2 (18:33→18:45)
[2021-12-22] MEDS ORDERED: KETAMINE HCL 200 MG/20 ML VIAL IVPUSH ONE (18:37)
[2021-12-22] MEDS ORDERED: KETAMINE HCL 500 MG/10 ML VIAL ONE (18:37)
[2021-12-22 19:46] LABS: BASO % 0.2 % (0-2.0); EOS % 0.3 % (0-4.5); HEMATOCRIT 35.6 % (35.4-49); HEMOGLOBIN 12.1 GM/dL (11.7-16.9); LYMPH % 12.1 % (8-40); MCH 30.5 pg (25.7-33.7); MCHC 33.9 g/dl (32.0-35.9); MEAN PLT VOLUME 8.9 fl (7.5-11.1); MONO % 7.7 % (3.8-10.2); NEUT % 79.7 % (42.8-82.8); PLATELET COUNT 180 10^3/uL (134-434); RBC 3.96 M/mm3 (4.00-5.60); RDW 15.1 % (11.9-15.9)
[2021-12-22 19:49] LABS: VENOUS BASE EXCESS 4.6 mmol/L (-2-2); VENOUS PCO2 48.1 mmHg (38-52); VENOUS PH 7.416 (7.310-7.410)
[2021-12-22 19:52] LABS: EPI CELLS >36 /uL (0-25.1); HYALINE CASTS 39 /uL (0-3.1); PH,URINE 6.5 (5.0-8.0); URINE APPEARANCE TURBID; URINE BACTERIA >9,000 /uL (0-1359); URINE BILIRUBIN NEGATIVE (NEGATIVE); URINE COLOR DK YELLOW; URINE GLUCOSE (UA) NEGATIVE (NEGATIVE); URINE KETONE TRACE (NEGATIVE); URINE LEUK ESTERASE 3+ (NEGATIVE); URINE NITRITE POSITIVE (NEGATIVE); URINE PROTEIN 1+ (NEGATIVE); URINE WBC 4022 /uL (0-25.8)
[2021-12-22 19:53] LABS: INR 1.24 (0.83-1.09); PROTHROMBIN TIME (PATIENT) 14.3 SEC (9.7-13.0)
[2021-12-22 19:55] LABS: CHLORIDE 102 mmol/L (98-107); SODIUM 138 mmol/L (136-145)
[2021-12-22 19:57] LABS: ALBUMIN 2.9 g/dl (3.4-5.0); ANION GAP 6 MMOL/L (8-16); BLOOD UREA NITROGEN 15.9 mg/dL (7-18); CALCIUM 8.6 mg/dL (8.5-10.1); CO2 30 mmol/L (21-32); GLUCOSE,RANDOM 64 mg/dL (74-106)
[2021-12-22 20:00] LABS: SGOT/AST 29 U/L (15-37); SGPT/ALT 29 U/L (13-61)
[2021-12-22 20:01] LABS: CREATININE 0.6 mg/dL (0.55-1.3)
[2021-12-22 20:02] LABS: BILIRUBIN,TOTAL 0.3 mg/dL (0.2-1); TOT PROT 7.6 g/dl (6.4-8.2)
[2021-12-22 20:03] LABS: ALK PHOS 116 U/L (45-117)
[2021-12-22] MEDS ORDERED: DEXTROSE 50%-WATER - 25 GM/50 ML VIAL IVPUSH ONE (21:30)
[2021-12-22] MEDS ORDERED: PIPERACILLIN/TAZOB 4.5 GM 4.5 GM in DEXTROSE 5%-WATER 100 ML IVPB ONE (21:31)
[2021-12-22] MEDS ORDERED: ACETAMINOPHEN 1000 MG/100 ML BAG IVPB ONE (21:50)
[2021-12-22] MEDS ORDERED: VANCOMYCIN 1 GM in D5W (PRE-DOCKED) 1,000 MG/250 ML IVPB ONE (21:52)
[2021-12-22] MEDS ORDERED: LACTATED RINGERS SOLUTION 1000 ML INFUS.BAG IV ONE (22:07)
[2021-12-22] MEDS ORDERED: ACETAMINOPHEN INJECTION 100 ML IVPB ONE (22:11)
[2021-12-22] MEDS ORDERED: PIPERACILLIN/TAZOB 4.5 GM 4.5 GM/100 ML BAG IVPB ONE (22:11)
[2021-12-22] MEDS ORDERED: VANCOMYCIN/WATER FOR INJ (PEG) 1,000 MG/200 ML BAG IVPB ONE (22:12)
[2021-12-22] MEDS ORDERED: MAGNESIUM 1GM/D5W - 1 GM/100 ML IVPB IVPB ONE (22:12)
[2021-12-22 22:28] LABS: URINE RBC 77.5 /uL (0-23.9)
[2021-12-22 22:29] LABS: URINE CRYSTALS AMORPHOUS /hpf; YEAST NONE SEEN (NEGATIVE)
[2021-12-23] MEDS ORDERED: carBAMazepine XR 400 MG TAB.ER.12H PO SCH ×2 (00:15→22:00)
[2021-12-23] MEDS: VANCOMYCIN 1,000 MG in DEXTROSE 5%-WATER - 250 ML IVPB SCH (00:21)
[2021-12-23] MEDS ORDERED: SODIUM CHLORIDE 1,000 ML IV SCH (00:30)
[2021-12-23] MEDS ORDERED: BISACODYL 10 MG SUPP.RECT RC PRN (02:05)
[2021-12-23] MEDS ORDERED: diazePAM RECTAL GEL 10 MG KIT (PRE-CALIBRATED) RC PRN (02:05)
[2021-12-23] MEDS: PIPERACILLIN/TAZOB 3.375 GM 3.375 GM in DEXTROSE 5%-WATER - 50 ML IVPB SCH ×4 (03:18→17:43)
[2021-12-23] MEDS ORDERED: carBAMazepine 100 MG/5 ML UNIT-DOSE CUP PO SCH ×3 (07:04→22:00)
[2021-12-23] MEDS: carBAMazepine 100 MG/5 ML UNIT-DOSE CUP PO SCH (08:27)
[2021-12-23 08:34] LABS: BASO % 0.2 % (0-2.0); EOS % 1.2 % (0-4.5); HEMATOCRIT 36.7 % (35.4-49); HEMOGLOBIN 11.9 GM/dL (11.7-16.9); LYMPH % 20.5 % (8-40); MCH 29.7 pg (25.7-33.7); MCHC 32.4 g/dl (32.0-35.9); MEAN CELL VOLUME 91.8 fl (80-96); MONO % 10.3 % (3.8-10.2); NEUT % 67.8 % (42.8-82.8); PLATELET COUNT 162 10^3/uL (134-434)
[2021-12-23] MEDS ORDERED: DEXTROSE 50%-WATER - 25 GM/50 ML VIAL IVPUSH ONE (08:45)
[2021-12-23] MEDS ORDERED: DEXTROSE 50%-WATER 25 GM/50 ML DISP.SYRIN IVPUSH ONE (08:45)
[2021-12-23 09:11] LABS: ALBUMIN 2.8 g/dl (3.4-5.0); CALCIUM 8.7 mg/dL (8.5-10.1)
[2021-12-23 09:12] LABS: BLOOD UREA NITROGEN 14.2 mg/dL (7-18); MAGNESIUM 1.9 mg/dL (1.8-2.4)
[2021-12-23 09:15] LABS: CREATININE 0.6 mg/dL (0.55-1.3)
[2021-12-23 09:16] LABS: BILIRUBIN,TOTAL 0.9 mg/dL (0.2-1); TOT PROT 7.4 g/dl (6.4-8.2)
[2021-12-23] MEDS: SENNOSIDES 8.8 MG/5 ML BULK BOTTLE GT SCH ×2 (09:27→22:54)
[2021-12-23] MEDS: SIMETHICONE 40 MG/0.6 ML BOTTLE GT SCH ×2 (09:28→22:53)
[2021-12-23] MEDS: ENOXAPARIN NA (PORCINE) 40 MG/0.4 ML DISP.SYRIN SQ SCH (09:29)
[2021-12-23] MEDS: LACTOBACILLUS ACIDOPHILUS 1 TABLET GT SCH (09:29)
[2021-12-23] MEDS ORDERED: VANCOMYCIN 500 MG in DEXTROSE 5%-WATER 100 ML IVPB SCH ×3 (11:00)
[2021-12-23 14:32] VITALS: BMI 23.6
[2021-12-23] MEDS: ASCORBIC ACID 500 MG TABLET (FP) GT SCH (22:52)
[2021-12-24] MEDS: PIPERACILLIN/TAZOB 3.375 GM 3.375 GM in DEXTROSE 5%-WATER - 50 ML IVPB SCH ×4 (02:34→19:25)
[2021-12-24] MEDS: carBAMazepine 100 MG/5 ML UNIT-DOSE CUP PO SCH (07:02)
[2021-12-24] MEDS: SIMETHICONE 40 MG/0.6 ML BOTTLE GT SCH ×2 (10:05→22:26)
[2021-12-24] MEDS: SENNOSIDES 8.8 MG/5 ML BULK BOTTLE GT SCH ×2 (10:06→22:26)
[2021-12-24] MEDS: ENOXAPARIN NA (PORCINE) 40 MG/0.4 ML DISP.SYRIN SQ SCH (10:06)
[2021-12-24] MEDS: LACTOBACILLUS ACIDOPHILUS 1 TABLET GT SCH (10:06)
[2021-12-24] MEDS: VANCOMYCIN 1,000 MG in DEXTROSE 5%-WATER - 250 ML IVPB SCH (19:25)
[2021-12-24] MEDS ORDERED: ACETAMINOPHEN 1000 MG/100 ML BAG IVPB ONE (22:17)
[2021-12-24] MEDS: carBAMazepine 200 MG/10 ML UNIT-DOSE CUP PO SCH (22:26)
[2021-12-24] MEDS: ASCORBIC ACID 500 MG TABLET (FP) GT SCH (22:27)
[2021-12-25] MEDS: PIPERACILLIN/TAZOB 3.375 GM 3.375 GM in DEXTROSE 5%-WATER - 50 ML IVPB SCH ×2 (01:55→11:38)
[2021-12-25] MEDS: carBAMazepine 100 MG/5 ML UNIT-DOSE CUP PO SCH (06:16)
[2021-12-25 08:36] LABS: CALCIUM 9.1 mg/dL (8.5-10.1)
[2021-12-25 08:37] LABS: ALBUMIN 2.8 g/dl (3.4-5.0); BLOOD UREA NITROGEN 9.1 mg/dL (7-18)
[2021-12-25 08:40] LABS: CREATININE 0.5 mg/dL (0.55-1.3)
[2021-12-25 08:41] LABS: BILIRUBIN,TOTAL 0.3 mg/dL (0.2-1); TOT PROT 7.8 g/dl (6.4-8.2)
[2021-12-25] MEDS: ENOXAPARIN NA (PORCINE) 40 MG/0.4 ML DISP.SYRIN SQ SCH (11:38)
[2021-12-25] MEDS: LACTOBACILLUS ACIDOPHILUS 1 TABLET GT SCH (11:39)
[2021-12-25] MEDS: SIMETHICONE 40 MG/0.6 ML BOTTLE GT SCH ×2 (11:39→22:48)
[2021-12-25] MEDS: SENNOSIDES 8.8 MG/5 ML BULK BOTTLE GT SCH ×2 (11:40→22:49)
[2021-12-25] MEDS ORDERED: cefTAZidime PENTAHYDRATE 1 GM/10 ML SYRINGE (RESTRICTED TO ID) IVPUSH ONE (14:08)
[2021-12-25] MEDS: CEFTAZIDIME PENTAHYDRATE 1 GM in DEXTROSE 5%-WATER - 50 ML IVPB SCH ×2 (22:19→22:20)
[2021-12-25] MEDS: carBAMazepine 200 MG/10 ML UNIT-DOSE CUP PO SCH (22:49)
[2021-12-25] MEDS: ASCORBIC ACID 500 MG TABLET (FP) GT SCH (22:50)
[2021-12-26] MEDS: CEFTAZIDIME PENTAHYDRATE 1 GM in DEXTROSE 5%-WATER - 50 ML IVPB SCH ×3 (03:00→17:42)
[2021-12-26] MEDS: carBAMazepine 100 MG/5 ML UNIT-DOSE CUP PO SCH (06:33)
[2021-12-26 09:26] LABS: HEMATOCRIT 38.1 % (35.4-49); HEMOGLOBIN 12.6 GM/dL (11.7-16.9); MCH 29.8 pg (25.7-33.7); MCHC 33.1 g/dl (32.0-35.9); MEAN CELL VOLUME 90.2 fl (80-96); MEAN PLT VOLUME 8.9 fl (7.5-11.1); PLATELET COUNT 193 10^3/uL (134-434); RBC 4.22 M/mm3 (4.00-5.60); RDW 14.6 % (11.9-15.9); WHITE BLOOD COUNT 3.8 K/mm3 (4.0-10.0)
[2021-12-26 09:49] LABS: CALCIUM 9.1 mg/dL (8.5-10.1)
[2021-12-26 09:50] LABS: ALBUMIN 2.7 g/dl (3.4-5.0); BLOOD UREA NITROGEN 10.8 mg/dL (7-18)
[2021-12-26 09:53] LABS: CREATININE 0.5 mg/dL (0.55-1.3)
[2021-12-26 09:54] LABS: BILIRUBIN,TOTAL 0.2 mg/dL (0.2-1); TOT PROT 7.6 g/dl (6.4-8.2)
[2021-12-26] MEDS: ENOXAPARIN NA (PORCINE) 40 MG/0.4 ML DISP.SYRIN SQ SCH (11:29)
[2021-12-26] MEDS: LACTOBACILLUS ACIDOPHILUS 1 TABLET GT SCH (11:29)
[2021-12-26] MEDS: SIMETHICONE 40 MG/0.6 ML BOTTLE GT SCH ×2 (11:30→22:41)
[2021-12-26] MEDS: carBAMazepine 200 MG/10 ML UNIT-DOSE CUP PO SCH ×2 (11:30→22:45)
[2021-12-26] MEDS: SENNOSIDES 8.8 MG/5 ML BULK BOTTLE GT SCH ×2 (11:31→22:40)
[2021-12-26] MEDS: ASCORBIC ACID 500 MG TABLET (FP) GT SCH (22:44)
[2021-12-27] MEDS: CEFTAZIDIME PENTAHYDRATE 1 GM in DEXTROSE 5%-WATER - 50 ML IVPB SCH ×3 (02:04→19:00)
[2021-12-27] MEDS: carBAMazepine 100 MG/5 ML UNIT-DOSE CUP PO SCH (06:19)
[2021-12-27] MEDS: ENOXAPARIN NA (PORCINE) 40 MG/0.4 ML DISP.SYRIN SQ SCH (11:42)
[2021-12-27] MEDS: LACTOBACILLUS ACIDOPHILUS 1 TABLET GT SCH (11:43)
[2021-12-27] MEDS: SIMETHICONE 40 MG/0.6 ML BOTTLE GT SCH ×2 (11:43→22:39)
[2021-12-27] MEDS: SENNOSIDES 8.8 MG/5 ML BULK BOTTLE GT SCH ×2 (12:08→22:41)
[2021-12-27 12:24] LABS: HEMATOCRIT 35.7 % (35.4-49); HEMOGLOBIN 12.1 GM/dL (11.7-16.9); MCH 30.4 pg (25.7-33.7); MCHC 33.7 g/dl (32.0-35.9); MEAN PLT VOLUME 8.5 fl (7.5-11.1); PLATELET COUNT 198 10^3/uL (134-434); RBC 3.97 M/mm3 (4.00-5.60); RDW 14.7 % (11.9-15.9); WHITE BLOOD COUNT 4.5 K/mm3 (4.0-10.0)
[2021-12-27 14:05] LABS: CALCIUM 8.7 mg/dL (8.5-10.1)
[2021-12-27 14:06] LABS: BLOOD UREA NITROGEN 11.8 mg/dL (7-18)
[2021-12-27 14:11] LABS: CREATININE 0.4 mg/dL (0.55-1.3)
[2021-12-27] MEDS: ASCORBIC ACID 500 MG TABLET (FP) GT SCH (22:39)
[2021-12-27] MEDS: carBAMazepine 200 MG/10 ML UNIT-DOSE CUP PO SCH (22:40)
[2021-12-28] MEDS: CEFTAZIDIME PENTAHYDRATE 1 GM in DEXTROSE 5%-WATER - 50 ML IVPB SCH ×3 (01:20→17:57)
[2021-12-28] MEDS: carBAMazepine 100 MG/5 ML UNIT-DOSE CUP PO SCH (06:52)
[2021-12-28 09:04] LABS: HEMATOCRIT 36.1 % (35.4-49); HEMOGLOBIN 12.3 GM/dL (11.7-16.9); MCH 30.7 pg (25.7-33.7); MCHC 34.2 g/dl (32.0-35.9); MEAN CELL VOLUME 89.8 fl (80-96); MEAN PLT VOLUME 7.9 fl (7.5-11.1); PLATELET COUNT 189 10^3/uL (134-434); RBC 4.01 M/mm3 (4.00-5.60); RDW 14.5 % (11.9-15.9); WHITE BLOOD COUNT 5.1 K/mm3 (4.0-10.0)
[2021-12-28 09:57] LABS: CALCIUM 8.8 mg/dL (8.5-10.1)
[2021-12-28 09:58] LABS: BLOOD UREA NITROGEN 13.2 mg/dL (7-18)
[2021-12-28 10:00] LABS: CREATININE 0.5 mg/dL (0.55-1.3)
[2021-12-28] MEDS: LACTOBACILLUS ACIDOPHILUS 1 TABLET GT SCH (10:13)
[2021-12-28] MEDS: SENNOSIDES 8.8 MG/5 ML BULK BOTTLE GT SCH ×2 (10:13→22:54)
[2021-12-28] MEDS: SIMETHICONE 40 MG/0.6 ML BOTTLE GT SCH ×2 (10:13→22:11)
[2021-12-28] MEDS: ENOXAPARIN NA (PORCINE) 40 MG/0.4 ML DISP.SYRIN SQ SCH (10:13)
[2021-12-28] MEDS: carBAMazepine 200 MG/10 ML UNIT-DOSE CUP PO SCH (22:11)
[2021-12-28] MEDS: ASCORBIC ACID 500 MG TABLET (FP) GT SCH (22:12)
[2021-12-29] MEDS: CEFTAZIDIME PENTAHYDRATE 1 GM in DEXTROSE 5%-WATER - 50 ML IVPB SCH ×2 (02:29→11:36)
[2021-12-29] MEDS: carBAMazepine 100 MG/5 ML UNIT-DOSE CUP PO SCH (06:48)
[2021-12-29 07:19] VITALS: RESP 18
[2021-12-29] MEDS: SIMETHICONE 40 MG/0.6 ML BOTTLE GT SCH (11:35)
[2021-12-29] MEDS: SENNOSIDES 8.8 MG/5 ML BULK BOTTLE GT SCH (11:36)
[2021-12-29] MEDS: LACTOBACILLUS ACIDOPHILUS 1 TABLET GT SCH (11:36)
[2021-12-29] MEDS: ENOXAPARIN NA (PORCINE) 40 MG/0.4 ML DISP.SYRIN SQ SCH (11:37)
[2021-12-29 15:07] VITALS: BP 145/68; PULSE 60; TEMP 97.6
== END 2021-12-29 16:05 | disposition home or self-care (01) | DRG 720 ==
LOC: JER 17:09 → JERBED 17:42 → J7W 12-23 02:30
PROVIDERS: ADMIT Internal Medicine
DX: A41.9 Sepsis, unspecified organism (principal); G91.9 Hydrocephalus, unspecified; J18.9 Pneumonia, unspecified organism; F72 Severe intellectual disabilities; F73 Profound intellectual disabilities; Z93.1 Gastrostomy status; E16.2 Hypoglycemia, unspecified; G40.909 Epilepsy, unspecified, not intractable, without status epilepticus; H54.8 Legal blindness, as defined in USA; H91.90 Unspecified hearing loss, unspecified ear; I51.7 Cardiomegaly; J98.11 Atelectasis; K59.09 Other constipation; N39.0 Urinary tract infection, site not specified; Q90.1 Trisomy 21, mosaicism (mitotic nondisjunction); R09.02 Hypoxemia; R45.1 Restlessness and agitation
CPT/HCPCS: 0241U-QW; 36415; 71045-TC-FY; 80048; 80053; 81003; 82550; 82553; 82803; 82962; 83605; 83735; 84100; 84484; 85025; 85027; 85610; 85730; 86850; 86900; 86901; 87040; 87086; 87186; 93005; 93010; 99285-25; C9803-CS; U0003; U0005

== ENCOUNTER 2024-05-11 17:43 | Inpatient (IN) | payer OTHER ==
[2024-05-11] MEDS ORDERED: PIPERACILLIN/TAZOBACTAM 4.5 GM VIAL IVPB ONE (20:14)
[2024-05-11 20:17] LABS: HEMATOCRIT 41.9 % (35.4-49); MCHC 33.4 g/dl (32.0-35.9); MEAN CELL VOLUME 95.8 fl (80-96); PLATELET COUNT 166.4 10^3/uL (134-434); RBC 4.37 10^6/uL (4.00-5.60); RDW 13.2 % (11.9-15.9); WHITE BLOOD COUNT 7.1 10^3/uL (4.0-10.8)
[2024-05-11] MEDS: PIPERACILLIN/TAZOB 4.5 GM 4.5 GM in DEXTROSE 5%-WATER 100 ML IVPB ONE (20:23)
[2024-05-11] MEDS: VANCOMYCIN 1 GM PREMIX (F) 1 GM/200 ML BAG IVPB ONE (20:32)
[2024-05-11 20:34] LABS: ALBUMIN 4.1 g/dl (3.4-5.0); BILIRUBIN,TOTAL 0.5 mg/dl (0.2-1); CALCIUM 9.4 mg/dl (8.5-10.1); CREATININE 0.6 mg/dl (0.6-1.3); POTASSIUM 4.4 mmol/L (3.5-5.1)
[2024-05-11 20:36] LABS: PLATELET ESTIMATE ADEQUATE
[2024-05-12] MEDS ORDERED: BISACODYL 10 MG SUPP.RECT RC PRN (01:00)
[2024-05-12] MEDS ORDERED: SIMETHICONE 40 MG/0.6 ML BOTTLE GT PRN (01:09)
[2024-05-12] MEDS ORDERED: ACETAMINOPHEN 160 MG/5 ML *Children Solution GT PRN (01:12)
[2024-05-12 03:07] VITALS: BMI 27.3
[2024-05-12] MEDS ORDERED: carBAMazepine 200 MG/10 ML UNIT-DOSE CUP GT SCH (06:00)
[2024-05-12] MEDS ORDERED: ACETAMINOPHEN 650 MG/20.3 ML ORAL SOLUTION (CUPS) GT PRN (07:30)
[2024-05-12] MEDS: PIPERACILLIN/TAZOB 3.375 GM 3.375 GM in DEXTROSE 5%-WATER - 50 ML IVPB SCH ×3 (08:34→17:37)
[2024-05-12 08:37] LABS: CALCIUM 9.7 mg/dl (8.5-10.1); CREATININE 0.8 mg/dl (0.6-1.3)
[2024-05-12 09:37] LABS: BASO % 0.2 % (0-2.0); EOS % 0.7 % (0-4.5); HEMATOCRIT 43.6 % (35.4-49); HEMOGLOBIN 14.4 GM/dL (11.7-16.9); LYMPH % 17.8 % (8-40); MCH 31.5 pg (25.7-33.7); MCHC 32.9 g/dl (32.0-35.9); MEAN CELL VOLUME 95.5 fl (80-96); MEAN PLT VOLUME 9.3 fl (7.5-11.1); MONO % 10.4 % (3.8-10.2); NEUT % 70.9 % (42.8-82.8); PLATELET COUNT 184 10^3/uL (134-434); RBC 4.56 M/mm3 (4.00-5.60); WHITE BLOOD COUNT 7.4 K/mm3 (4.0-10.0)
[2024-05-12] MEDS ORDERED: carBAMazepine 100 MG/5 ML UNIT-DOSE CUP GT SCH (10:43)
[2024-05-12] MEDS: LORATADINE 10 MG TABLET GT SCH (10:54)
[2024-05-12] MEDS: carBAMazepine 100 MG/5 ML UNIT-DOSE CUP GT SCH ×2 (10:55→22:00)
[2024-05-12] MEDS: LACTATED RINGERS SOLUTION 1000 ML INFUS.BAG IV STA (17:19)
[2024-05-12] MEDS: ACETAMINOPHEN 1000 MG/100 ML BAG IVPB ONE (17:20)
[2024-05-12 21:41] VITALS: RESP 20
[2024-05-12] MEDS: ASCORBIC ACID 500 MG TABLET (FP) GT SCH (22:00)
[2024-05-12] MEDS: ZINC SULFATE 220 MG CAPSULE (FP) GT SCH (22:00)
[2024-05-13 06:38] VITALS: PULSE 78
[2024-05-13 09:12] LABS: ALBUMIN 3.8 g/dl (3.4-5.0); BILIRUBIN,TOTAL 0.5 mg/dl (0.2-1); CALCIUM 9.3 mg/dl (8.5-10.1); CREATININE 0.7 mg/dl (0.6-1.3); POTASSIUM 3.9 mmol/L (3.5-5.1); TOT PROT 7.3 g/dl (6.4-8.2)
[2024-05-13 12:25] VITALS: BP 130/68; TEMP 98.3
[2024-05-13 13:02] LABS: BASO % 0.4 % (0-2.0); EOS % 5.3 % (0-4.5); HEMOGLOBIN 12.7 GM/dL (11.7-16.9); LYMPH % 25.7 % (8-40); MCH 31.4 pg (25.7-33.7); MCHC 32.5 g/dl (32.0-35.9); MEAN CELL VOLUME 96.7 fl (80-96); MEAN PLT VOLUME 9.3 fl (7.5-11.1); MONO % 13.2 % (3.8-10.2); NEUT % 55.4 % (42.8-82.8); PLATELET COUNT 163 10^3/uL (134-434); RBC 4.04 M/mm3 (4.00-5.60); RDW 13.8 % (11.9-15.9); WHITE BLOOD COUNT 5.3 K/mm3 (4.0-10.0)
== END 2024-05-13 16:35 | disposition home or self-care (01) | DRG 463 ==
LOC: FER 17:43 → FM/S 21:27
PROVIDERS: ADMIT Internal Medicine
DX: N39.0 Urinary tract infection, site not specified (principal); J69.0 Pneumonitis due to inhalation of food and vomit; G91.9 Hydrocephalus, unspecified; R53.2 Functional quadriplegia; G40.909 Epilepsy, unspecified, not intractable, without status epilepticus; H54.8 Legal blindness, as defined in USA; Q99.8 Other specified chromosome abnormalities; R09.02 Hypoxemia; R62.50 Unspecified lack of expected normal physiological development in childhood; H91.93 Unspecified hearing loss, bilateral; F79 Unspecified intellectual disabilities; K59.00 Constipation, unspecified
CPT/HCPCS: 0241U-QW; 36415; 71045-TC-FY; 80048; 80053; 81003; 81015; 82962; 83605; 84484; 85025; 85730; 87040; 87086; 87186; 99291